=== PATIENT | female | born 1965 | race Caucasian/White ===

== ENCOUNTER 2019-04-20 15:01 | Emergency (ER) | payer OTHER, SELFPAY ==
--- NOTE | ~2019-04-20 | XR_ITS ---
EXAMINATION: XR chest 1V portable DATE: 04/20/2019 16:34 INDICATION: Hypertension. Headache. TECHNIQUE: A single frontal view of the chest was obtained. COMPARISON: Chest 2 views 08/17/2015, CT abdomen and pelvis 04/05/2015 FINDINGS: The chest demonstrates clear lungs without pneumonia, pleural effusion, or pneumothorax. Th e heart size is normal. There is a left chest wall pacer with leads in the right atrium and right kelsey tricle. There are surgical clips in the abdomen. There is a suture anchor in left humeral head. IMPRESSION: 1. No acute cardiopulmonary disease. Reviewed, dictated and finalized at location A. OYEE RELATIONS ADMINISTRATOR
--- NOTE | ~2019-04-20 | CT_ITS ---
EXAMINATION: CT brain wo [facility] EXAM DATE: 04/20/2019 16:30 INDICATION: Frontal headache. TECHNIQUE: Spiral CT of the head was performed without contrast. Axial, coronal and sagittal images were reviewed. The dose-length product (DLP) for this examination was 605.33 mGy-cm. The exposure w as tailored according to patient size, and iterative reconstruction (ASIR) was used as additional dos e reduction technique. Comparison is made to prior examination from 05/08/2014. FINDINGS: There is right frontal craniotomy and a right frontal ventriculoperitoneal shunt with tip e ntering right frontal lobe encephalomalacia, extending through the right lateral ventricle, through t he third ventricle with tip at the left cerebellopontine angle, position is unchanged compared to loco or study. Moderately dilated ventricles are unchanged. Cerebral aqueduct and fourth ventricle are nor mal in size. No brain mass, acute intracranial hemorrhage, extra-axial collections or appreciable int erval change. There is mild microangiopathy and some cerebral atrophy. IMPRESSION: 1. Chronically dilated ventricles with shunt tip crossing midline to the left cerebellopontine angle , unchanged. 2. No acute findings or interval change. Reviewed, dictated and finalized at location B. ITECTURAL DESIGNER IMPRESSION: 1. Chronically dilated ventricles with shunt tip crossing midline to the left cerebellopontine angle, unchanged. 2. No acute findings or interval change.
[2019-04-20 15:17] VITALS: BP 209/145; PULSE 90; RESP 20; TEMP 36.8; O2SAT 98
--- NOTE | 2019-04-20 15:23 | ECG_ITS ---
Measurements Intervals Lula Rate: 86 P: 72 AL: 156 QRS: 19 QRSD: 97 T: 38 QT: 363 QTc: 436 Interpretive Statements SINUS RHYTHM LEFT ATRIAL ENLARGEMENT INCOMPLETE RIGHT BUNDLE BRANCH BLOCK BORDERLINE T WAVE ABNORMALITY- INFERIOR LEADS BASELINE ARTIFACT- I, II, BORDERLINE ECG Electronically Signed On 04-20-2019 15:45:17 STOCK PATCHER by Glenn Martinez D.O.
--- NOTE | 2019-04-20 16:02 | ED.HA ---
HPI - Headache General Chief Complaint: Headache Stated Complaint: high blood pressure Time Seen by Provider: 04/20/19 15:35 Source: patient and RN notes reviewed Mode of arrival: other Limitations: no limitations History of Present Illness HPI Narrative: Pt is a 54 y/o female who presents to the ED with c/o elevated blood pressure that began earlier this afternoon. Pt states that she went to her PCP who noticed her blood pressure was high and was recommended to come to the ED for further evaluation. Pt also reports an intermittent frontal headache for the last few days. Pt has a hx of HTN ten years ago and she notes that she has been off of her medication since. Pt has a hx of migraines, but she states that her headache is different than her typical migraine. Pt denies fever, chills, nausea, vomiting, CP, and SOB. MD elicited complaint: other (elevated blood pressure) Pertinent past history: migraines and hypertension Onset (ago): hour(s) Associated symptoms: other (frontal headache) Related Data Home Medications Medication Instructions Recorded Confirmed budesonide-formoterol HFA 80 2 puff INHALATION Q12H 01/26/19 mcg-4.5 mcg/actuation aerosol inhaler calcipotriene 0.005 % topical cream 1 applic TOPICAL BID 01/26/19 clobetasol 0.05 % topical cream 1 applic TOPICAL BID 01/26/19 cyanocobalamin (vitamin B-12) 100 mcg SUB-Q WEEKLY ml 01/26/19 1,000 mcg/mL injection solution diclofenac sodium 1 % gel topical 2 gm TOPICAL QID 01/26/19 kit duloxetine 60 mg capsule,delayed 60 mg PO DAILY 01/26/19 release ergocalciferol (vitamin D2) 1,250 50,000 unit PO 2XW cap 01/26/19 mcg (50,000 unit) capsule ergocalciferol (vitamin D2) 1,250 50,000 unit PO WEEKLY 01/26/19 mcg (50,000 unit) capsule hydroxychloroquine 200 mg tablet 400 mg PO DAILY tablet 01/26/19 levothyroxine 100 mcg tablet 100 mcg PO DAILY 01/26/19 meloxicam 15 mg tablet 15 mg PO DAILY 01/26/19 qzicm-vfo-[id number]-[id number]-jq6-zvc-epa-fish tablet PO 01/26/19 oil 200 mcg-1,000 unit-25 mg tab,chew mupirocin 2 % topical ointment 1 applic TOPICAL TID 01/26/19 syringe-needle,safety,disp unt #100 each 01/26/19 liothyronine 5 mcg tablet 5 mcg PO ONCE tablet 04/20/19 Allergies Allergy/AdvReac Type Severity Reaction Status Date / Time morphine Allergy Unknown Unknown Verified 01/26/19 11:02 Sulfa (Sulfonamide Allergy Unknown Unknown Verified 01/26/19 11:02 Antibiotics) Review of Systems Review of Systems: All systems reviewed & are unremarkable except as noted in HPI and below Constitutional: Constitutional: Denies chills and Denies fever(s) Cardiovascular: Cardiovascular: Denies chest pain and Reports other (elevated blood pressure) Respiratory: Respiratory: Denies dyspnea Gastrointestinal: Gastrointestinal: Denies nausea and Denies vomiting Neurologic: Reports headache(s) (frontal) [facility] Past Medical History Medical History (Updated 04/20/19 @ 19:15 by Frances Hawkins MD) Arachnoid cyst Elbow injury Hypertension Hypothyroid Intestinal malabsorption following gastrectomy Low iron Low vitamin D level Migraines Other buttermaker (current) drug therapy Pacemaker Primary osteoarthritis of both knees Psoriasis Renal calculus, left Rheumatoid arthritis of unspecified site with involvement of other organs and systems Shoulder injury Sleep apnea Systemic lupus erythematosus, unspecified Tachycardia Tear meniscus knee Surgical History Surgical History (Updated 04/20/19 @ 16:12 by Lorena Rubin) H/O section H/O gastric bypass H/O tubal ligation History of appendectomy History of cholecystectomy History of weight loss surgery Hx of tonsillectomy Family History Family History (Updated 11/05/17 @ 14:52 by DOCTOR UNKNOWN) Grandparent Diabetes mellitus Hypertension Acute myocardial infarction Family history of malignant neoplasm Mother Hypertension Social History Social History Smoking status: Never sm
[2019-04-20] MEDS: LABETALOL HCL INJ 100 MG/20 ML VIAL 20 MG IV PUSH (16:07)
[2019-04-20] MEDS: ONDANSETRON INJ 4 MG/2 ML VIAL IV PUSH (16:07)
[2019-04-20] MEDS: NITROGLYCERIN OINTMENT 1 INCH DOSE TRANSDERM (16:08)
[2019-04-20] MEDS: HYDROMORPHONE HCL 1 MG/ML INJ 0.5 MG IV PUSH (16:08)
[2019-04-20 17:05] VITALS: BP 123/77; PULSE 80; RESP 16; O2SAT 98
[2019-04-20 17:07] LABS: Basophils Percent Auto 0.1 % (0.2-1.2); Hematocrit 40.7 % (37.0-47.0); Hemoglobin 12.6 g/dL (12.0-15.0); Immature Granulocyte Absolute 0.02 K/mm3 (0.00-0.031); Immature Granulocyte Percent A 0.2 % (0-0.5); Lymphocytes Absolute Auto 2.45 K/mm3 (0.9-3.2); Lymphocytes Percent Auto 28.3 % (18.3-44.2); Mean Corpuscular Hemoglobin 25.8 pg (26-34); Mean Corpuscular Volume 83.4 fl (80-100); Mean Platelet Volume 9.9 fl (7.4-10.4); Monocytes Absolute Auto 0.6 K/mm3 (0.1-0.6); Monocytes Percent Auto 6.7 % (2.6-8.5); Neutrophils Absolute Auto 5.6 K/mm3 (1.3-6.7); Neutrophils Percent Auto 64.7 % (45.5-73.1); Platelet Count Result 200 k/mm3 (150-375); Red Blood Count 4.88 M/mm3 (4.2-5.4); Red Cell Distribution Width 13.3 % (11.5-14.5); White Blood Count 8.7 K/mm3 (4.5-10.0)
[2019-04-20 17:11] LABS: Add Urine Microscopic? YES; Appearance Urine Clear (Clear); Bilirubin Urine Negative (Negative); Blood Urine Negative (Negative); Color Urine Yellow (Yellow); Glucose Urine UA Negative (Negative); Ketones Urine Negative (Negative); Leukocyte Esterase Ur Negative LEU/UL (Negative); Mucus Urine Heavy /lpf; Nitrate Urine Negative (Negative); Protein Urine 1+ mg/dL (Negative); RBC Urine 0-2 /hpf (0-2); Specific Grav Ur 1.028 (1.001-1.035); Squamous Epithelial Cell Urine Rare /hpf (Few); Urobilinogen Urine Negative mg/dL (<2.0); WBC Urine 0-3 /hpf
[2019-04-20 17:17] LABS: Alanine Aminotransferase 33 U/L (4-35); Albumin Level 4.2 g/dL (3.5-5.1); Alkaline Phosphatase 107 U/L (38-126); Aspartate Amino Transferase 36 U/L (14-36); Bilirubin,Total 0.2 mg/dL (0.2-1.3); Blood Urea Nitrogen 15 mg/dL (7-17); Calcium 9.2 mg/dL (8.4-10.2); Carbon Dioxide 29 mmol/L (22-30); Chloride 99 mmol/L (98-107); Estimated CRCL calculation 123 ml/min; Estimated Glomerular Filt Rate > 60; Glucose 123 mg/dL (65-105); Potassium 3.2 mmol/L (3.4-5.0); Sodium 137 mmol/L (137-145)
[2019-04-20 17:36] LABS: Troponin I < 0.012 ng/mL (0.000-0.034)
[2019-04-20 18:39] VITALS: BP 121/80; PULSE 85; RESP 16; O2SAT 98
[2019-04-20 19:20] VITALS: BP 146/70; PULSE 83; RESP 16; O2SAT 98
== END 2019-04-20 19:25 | disposition home or self-care (01) ==
PROVIDERS: Emergency Provider Emergency Medicine; PCP Family Medicine
DX: I10 Essential (primary) hypertension (principal); E87.6 Hypokalemia; E03.9 Hypothyroidism, unspecified; M17.0 Bilateral primary osteoarthritis of knee; G47.30 Sleep apnea, unspecified; M32.9 Systemic lupus erythematosus, unspecified; Z98.84 Bariatric surgery status
CPT/HCPCS: 36415; 70450; 71045; 80053; 81001; 84484; 85025; 87804; 93005; 96374; 96375; 99284; A9270; J1170; J2405

== ENCOUNTER 2019-04-23 06:47 | Outpatient (CLI) | payer OTHER, SELFPAY ==
--- NOTE | ~2019-04-23 | NM_ITS ---
EXAMINATION: NM jeff stress w perfusion DATE: 04/23/2019 13:13 INDICATION: Rest pain. Dyspnea on exertion. TECHNIQUE: Rest images were obtained following intravenous administration of 10.5 mCi Tc99m tetrofosm in (Myoview). The patient was infused intravenously with Lexiscan (Regadenoson). Then, 32 mCi Tc99m t etrofosmin (Myoview) was administered intravenously, and stress images were obtained. Data was recons tructed into short axis and horizontal and vertical long axis SPECT images. Gated SPECT images were a lso obtained. COMPARISON: None. FINDINGS: Perfusion defect involving the mid anterior, mid anterolateral and basilar anterolateral se gments. The perfusion defect appears larger and more severe on the rest than on the stress images sug gesting difference in perfusion on rest images as do to breast attenuation artifact in this may also account for some of the decreased perfusion on the stress images. At least at the mid anterior segmen t the degree of decreased perfusion appears significantly greater in the immediately adjacent biapica l and basilar anterior wall on both the stress and rest images which is more suspicious for infarct. No reversible ischemia. There is normal left ventricular chamber size, wall motion and ejection fract ion. Left ventricular ejection fraction measures >70%. IMPRESSION: 1. Small mild fixed perfusion defect at the mid anterior, mid anterolateral and basilar anterolateral segments which have increased at the mid anterior segment is concerning for infarct. The remaining 2 segments are more equivocal for infarct versus breast attenuation artifact. No reversible ischemia. 2. Left ventricular ejection fraction measuring >70%. Reviewed, dictated and finalized at location A. TRICAL APPLIANCE REPAIRER IMPRESSION: 1. Small mild fixed perfusion defect at the mid anterior, mid anterolateral and basilar anterolateral segments which have increased at the mid anterior segmen t is concerning for infarct. The remaining 2 segments are more equivocal for in farct versus breast attenuation artifact. No reversible ischemia. 2. Left ventricular ejection fraction measuring >70%.
--- NOTE | 2019-04-23 07:00 | ECHO_ITS ---
Patient Info Name: Cindy Calderón Age: 54 years : 1965 Gender: Female Ht: 62 in Wt: 246 lbs BSA: 2.28 m2 HR: 75 bpm BP: 163 / 84 mmHg Technical Quality: Fair Exam Date: 04/23/2019 7:01 AM Exam Location: [facility] Patient Status: Outpatient Admit Date: 04/23/2019 Staff Ordering Physician: Glenn Martinez DO Manager Field Sales: Annette Zimmerman RDCS Attending Provider: Glenn Martinez DO Referring Physician: Juan CASTELLON; Exam Type: CA echo doppler color flow Study Info Indications R07.89 - Other chest pain R06.09 - Other forms of dyspnea Complete two-dimensional, color flow and Doppler transthoracic echocardiogram is performed. Summary 1. Left ventricular chamber dimension is normal. 2. Ventricular septum is sigmoid shaped. 3. Left ventricular systolic function is normal, estimated at 60-65%. 4. There is mildly increased left ventricular wall thickness. 5. The left ventricular diastolic function is grade I diastolic dysfunction. 6. E/e' 12 is mildly elevated. 7. Global longitudinal strain is normal at -22.3%. 8. Linear artifact in right ventricle suggestive of catheter(s), pacemaker lead(s), or ICD lead(s). 9. Left atrial chamber dimension is mildly enlarged. 10. Right atrial chamber dimension is mildly enlarged. 11. Linear artifact in the right atrium suggestive of catheter(s), pacemaker lead(s), or ICD lead(s). 12. The mitral valve has moderately calcified annulus. 13. No pulmonary hypertension, estimated pulmonary arterial systolic pressure is 37 mmHg. Left Ventricle E/e' 12 is mildly elevated. Global longitudinal strain is normal at -22.3%. Ventricular septum is sigmoid shaped. Left ventricular chamber dimension is normal. Left ventricular systolic function is normal, estimated at 60-65%. There is mildly increased left ventricular wall thickness. The left ventricular diastolic function is grade I diastolic dysfunction. Right Ventricle Linear artifact in right ventricle suggestive of catheter(s), pacemaker lead(s), or ICD lead(s). Right ventricular chamber dimension is normal. Right ventricular systolic function is normal. Left Atria Left atrial chamber dimension is mildly enlarged. Right Atria Linear artifact in the right atrium suggestive of catheter(s), pacemaker lead(s), or ICD lead(s). Right atrial chamber dimension is mildly enlarged. Aortic Valve The aortic valve is trileaflet. There is no aortic valve stenosis. There is no aortic valve regurgitation. Pulmonic Valve There is no pulmonic regurgitation. Mitral Valve The mitral valve has moderately calcified annulus. There is no mitral valve stenosis. There is no mitral valve regurgitation. Tricuspid Valve There is no tricuspid valve regurgitation. No pulmonary hypertension, estimated pulmonary arterial systolic pressure is 37 mmHg. Pericardium/Pleural There is no pericardial effusion. Inferior Vena Cava Normal inferior vena cava with >50% collapse upon inspiration consistent with normal right atrial pressure, 5 mmHg. Aorta The aortic root size at the sinus of Valsalva is normal. Left Ventricular Outflow Tract Name Value Normal LVOT 2D LVOT Diameter 2.0 cm LVOT Dopple
--- NOTE | 2019-04-23 07:00 | EST_ITS ---
Patient Info Name: Cindy Calderón Age: 54 years : 1965 Gender: Female Ht: 62 in Wt: 246 lbs BSA: 2.28 m2 Exam Date: 04/23/2019 8:15 AM Exam Location: [facility] Stress Patient Status: Outpatient Admit Date: 04/23/2019 Staff Ordering Physician: Glenn Martinez DO Attending Provider: Glenn Martinez DO Exercise Technologist: Annette Zimmerman RDCS Exercise Physician: Glenn Martinez DO Exam Type: CA stress jeff w NM Study Info Indications R06.09 - Other forms of dyspnea R07.89 - Other chest pain A regadenoson stress test was performed. Summary 1. 1. Negative lexiscan stress test for ischemic ST changes by ECG criteria. 2. 2. Baseline hypertension. 3. 3. Nuclear scan to follow and will be reported separately. Please correlate with it. 4. 4. Patient informd of the above results. Protocol: Lexiscan Stress ECG Details Stage: REST Duration (min): 2 min : 33 sec HR (bpm): 78 SBP (mmHg): 163 DBP (mmHg): 84 Stage: REST Duration (min): 8 min : 14 sec HR (bpm): 79 SBP (mmHg): 163 DBP (mmHg): 84 Stage: STAGE 1 Duration (min): 0 min : 59 sec HR (bpm): 98 SBP (mmHg): 163 DBP (mmHg): 84 Stage: RECOVERY Duration (min): 1 min : 0 sec HR (bpm): 100 SBP (mmHg): 117 DBP (mmHg): 65 Stage: RECOVERY Duration (min): 2 min : 0 sec HR (bpm): 103 SBP (mmHg): 117 DBP (mmHg): 65 Stage: RECOVERY Duration (min): 3 min : 0 sec HR (bpm): 99 SBP (mmHg): 105 DBP (mmHg): 63 Stage: RECOVERY Duration (min): 4 min : 0 sec HR (bpm): 100 SBP (mmHg): 105 DBP (mmHg): 63 Stage: RECOVERY Duration (min): 5 min : 0 sec HR (bpm): 93 SBP (mmHg): 105 DBP (mmHg): 63 Stage: RECOVERY Duration (min): 5 min : 48 sec HR (bpm): 90 SBP (mmHg): 105 DBP (mmHg): 63 Rest HR: 79 bpm Peak HR: 106 bpm Rest Sys BP: 163 mmHg Peak Sys BP: 122 mmHg Max Pred HR: 164 bpm % Max Pred HR: 65 % Target HR: 139 bpm Max RPP: 12,932 bpm*mmHg Termination Reason: Completed protocol Cardiac Symptoms: Shortness of breath Total Time: 1 min : 0 sec Rest Wood BP: 84 mmHg Peak Wood BP: 65 mmHg Total Dose: 0.4 mg Resting ECG Sinus rhythm. Stress ECG No ST changes. Arrhythmias None. Report Signatures
[2019-04-23 10:11] LABS: Alanine Aminotransferase 26 U/L (4-35); Albumin Level 4.3 g/dL (3.5-5.1); Alkaline Phosphatase 101 U/L (38-126); Aspartate Amino Transferase 37 U/L (14-36); Bilirubin,Total 0.4 mg/dL (0.2-1.3); Blood Urea Nitrogen 14 mg/dL (7-17); Calcium 9.4 mg/dL (8.4-10.2); Carbon Dioxide 24 mmol/L (22-30); Chloride 99 mmol/L (98-107); Cholesterol 199 mg/dL (0-200); Estimated Glomerular Filt Rate > 60; Glucose 98 mg/dL (65-105); HDL Direct 70 mg/dL; Magnesium 1.8 mg/dL (1.6-2.3); Potassium 4.1 mmol/L (3.4-5.0); Sodium 138 mmol/L (137-145); Triglycerides 119 mg/dL (<150)
[2019-04-23 10:13] LABS: LDL Cholesterol Direct 101 mg/dL
== END 2019-04-23 06:48 | disposition home or self-care (01) ==
LOC: ANHCARD 06:54
PROVIDERS: PCP Family Medicine; Visit Provider Internal Medicine Cardiovascular Disease
DX: R07.9 Chest pain, unspecified (principal); Z95.0 Presence of cardiac pacemaker; R06.09 Other forms of dyspnea; I11.9 Hypertensive heart disease without heart failure
CPT/HCPCS: 36415; 78452; 80053; 80061; 83735; 93017; 93306; A9502; J2785

== ENCOUNTER 2019-09-03 15:47 | Emergency (ER) | payer OTHER, SELFPAY ==
--- NOTE | ~2019-09-03 | CT_ITS ---
EXAMINATION: CT brain wo con INDICATION: Weakness and blurred vision COMPARISON: 04/20/2019 TECHNIQUE: Standard unenhanced head CT. The dose-length product (DLP) was 681.00 mGy-cm. The mA was a djusted according to patient size. Iterative reconstruction technique was employed. FINDINGS: There is no intracranial hemorrhage, acute infarction, or abnormal mass lesion. There is a ventriculostomy catheter which courses through the right frontal lobe, the right lateral ventricle, a nd the third ventricle and ends with its tip at the left cerebellopontine angle. Position is unchange d on multiple prior examinations. Encephalomalacia seen in the right frontal lobe along the catheter tract. There is no abnormal mass effect or midline shift. The basal cisterns are patent. There is ex vacuo enlargement of the anterior body and frontal horn of the right lateral ventricle. The orbits a re normal. Changes of right-sided craniotomy are again noted. IMPRESSION: 1. Chronic encephalomalacia of the right frontal lobe along the ventriculostomy catheter tract withou t acute intracranial abnormality. Reviewed, dictated and finalized at location A. IMPRESSION: 1. Chronic encephalomalacia of the right frontal lobe along the ventriculostomy catheter tract without acute intracranial abnormality.
--- NOTE | ~2019-09-03 | XR_ITS ---
EXAMINATION: XR chest 2V DATE: 09/03/2019 17:59 INDICATION: Cough and dizziness TECHNIQUE: AP and lateral views of the chest are obtained. COMPARISON: 04/20/2019 FINDINGS: The lungs are free of acute opacities. There is no pleural effusion or pneumothorax. The ca rdiomediastinal silhouette is normal. There is mild thoracic spondylosis. A dual-lead cardiac pacemak er of the left chest wall ends with leads in expected locations. There are surgical clips in the uppe r abdomen. A suture anchor is noted in the left humeral head. IMPRESSION: 1. No acute cardiopulmonary abnormality. Reviewed, dictated and finalized at location A.
--- NOTE | 2019-09-03 15:56 | ECG_ITS ---
Measurements Intervals [place] Rate: 101 P: 61 WV: 175 QRS: 28 QRSD: 88 T: 43 QT: 341 QTc: 443 Interpretive Statements SINUS TACHYCARDIA POSSIBLE LEFT ATRIAL ENLARGEMENT MINIMAL Q WAVES- INF/LAT LEADS BORDERLINE ECG Electronically Signed On 09-03-2019 16:09:11 CDT by Glenn Martinez D.O.
[2019-09-03 15:57] VITALS: BP 136/98; PULSE 100; RESP 16; TEMP 36.6; O2SAT 100
[2019-09-03 16:13] LABS: Hematocrit 41.2 % (37.0-47.0); Hemoglobin 13.6 g/dL (12.0-15.0); Immature Granulocyte Absolute 0.02 K/mm3 (0.00-0.031); Immature Granulocyte Percent A 0.2 % (0-0.5); Lymphocytes Absolute Auto 2.04 K/mm3 (0.9-3.2); Lymphocytes Percent Auto 25.1 % (18.3-44.2); Mean Corpuscular Hemoglobin 26.9 pg (26-34); Mean Corpuscular Volume 81.6 fl (80-100); Mean Platelet Volume 11.1 fl (7.4-10.4); Monocytes Absolute Auto 0.7 K/mm3 (0.1-0.6); Monocytes Percent Auto 8.1 % (2.6-8.5); Neutrophils Absolute Auto 5.4 K/mm3 (1.3-6.7); Neutrophils Percent Auto 66.6 % (45.5-73.1); Platelet Count Result 200 k/mm3 (150-375); Red Blood Count 5.05 M/mm3 (4.2-5.4); Red Cell Distribution Width 13.4 % (11.5-14.5); White Blood Count 8.1 K/mm3 (4.5-10.0)
[2019-09-03 16:26] LABS: Prothrombin Time 12.9 Seconds (11.1-14.7)
[2019-09-03 16:27] LABS: Partial Thromboplastin Time 26.9 SECONDS (22.3-36.8)
[2019-09-03 16:30] LABS: Blood Urea Nitrogen 30 mg/dL (7-17); Calcium 9.9 mg/dL (8.4-10.2); Carbon Dioxide 29 mmol/L (22-30); Chloride 88 mmol/L (98-107); Estimated CRCL calculation 72 ml/min; Estimated Glomerular Filt Rate > 60; Glucose 111 mg/dL (65-105); Potassium 3.7 mmol/L (3.4-5.0); Sodium 129 mmol/L (137-145)
[2019-09-03 16:43] LABS: Troponin I < 0.012 ng/mL (0.000-0.034)
[2019-09-03] MEDS: ASPIRIN 81 MG CHEWABLE TABLET 324 MG PO (17:38)
[2019-09-03 18:35] LABS: Alanine Aminotransferase 19 U/L (4-35); Albumin Level 4.9 g/dL (3.5-5.1); Alkaline Phosphatase 125 U/L (38-126); Aspartate Amino Transferase 30 U/L (14-36); Bilirubin,Total 0.2 mg/dL (0.2-1.3); Lipase 226 U/L (23-300)
[2019-09-03 18:49] LABS: D Dimer 0.27 ug/mL (<0.48)
[2019-09-03] MEDS: SODIUM CHLORIDE 0.9% IV 1,000 ML 999 ML IV CONT ×2 (18:51→19:21)
[2019-09-03 19:17] VITALS: BP 159/89; PULSE 89; RESP 14; O2SAT 100
[2019-09-03] MEDS: FAMOTIDINE 20 MG/2 ML VIAL IV PUSH (19:21)
[2019-09-03] MEDS: ONDANSETRON INJ 4 MG/2 ML VIAL IV PUSH (19:21)
--- NOTE | 2019-09-03 19:22 | ED.GENADULT ---
HPI - General Adult General Chief complaint: Unspecified Stated complaint: abnormal ekg Time Seen by Provider: 09/03/19 17:51 Source: patient Mode of arrival: ambulatory Limitations: no limitations History of Present Illness HPI narrative: Patient is a 54-year-old female who presents per request of primary care for evaluation patient for the last several days has been experiencing a minimally productive cough of white phlegm which has resulted in retching and vomiting patient notes that she is feeling slightly more weak as this has progressed over the last several days. Patient denies similar occurrence in the past or sick contacts or any hematemesis rectal bleeding or melena. Patient has not taken anything for her symptoms and on arrival is denying any pain other than what is been a moderate frontal headache for the last several days denies injury or trauma or URI symptoms aside from her cough. Related Data Home Medications Medication Instructions Recorded Confirmed budesonide-formoterol HFA 80 2 puff INHALATION Q12H 01/26/19 09/03/19 mcg-4.5 mcg/actuation aerosol inhaler calcipotriene 0.005 % topical cream 1 applic TOPICAL BID 01/26/19 09/03/19 clobetasol 0.05 % topical cream 1 applic TOPICAL BID 01/26/19 09/03/19 cyanocobalamin (vitamin B-12) 100 mcg SUB-Q WEEKLY ml 01/26/19 09/03/19 1,000 mcg/mL injection solution diclofenac sodium 1 % gel topical 2 gm TOPICAL QID 01/26/19 09/03/19 kit levothyroxine 100 mcg tablet 100 mcg PO DAILY 01/26/19 09/03/19 [id number]-[id number] tablet PO 01/26/19 09/03/19 oil 200 mcg-1,000 unit-25 mg tab,chew mupirocin 2 % topical ointment 1 applic TOPICAL TID 01/26/19 09/03/19 syringe-needle,safety,disp unt #100 each 01/26/19 09/03/19 Allergies Allergy/AdvReac Type Severity Reaction Status Date / Time morphine Allergy Unknown Unknown Verified 09/03/19 14:40 Sulfa (Sulfonamide Allergy Unknown Unknown Verified 09/03/19 14:40 Antibiotics) Review of Systems Review of Systems: All systems reviewed & are unremarkable except as noted in HPI and below PMFSH Past Medical History Medical History Arachnoid cyst Elbow injury Hypertension Hypothyroid Intestinal malabsorption following gastrectomy Low iron Low vitamin D level Migraines 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 Pacemaker Primary osteoarthritis of both knees Psoriasis Renal calculus, left Rheumatoid arthritis of unspecified site with involvement of other organs and systems Shoulder injury Sleep apnea Systemic lupus erythematosus, unspecified Tachycardia Tear meniscus knee Surgical History Surgical History H/O section H/O gastric bypass H/O tubal ligation History of appendectomy History of cholecystectomy History of weight loss surgery Hx of tonsillectomy Social History Social History Smoking status: Never smoker Second hand tobacco smoke exposure: No Alcohol intake: never Exam Narrative: Exam Narrative: GENERAL: Well-appearing, obese, and in no acute distress. HEAD: Normocephalic, atraumatic. EYES: PERRLA and EOMI. ENT: Nares clear, no rhinorrhea or epistaxis. Mucous membranes moist. CHEST: Clear to auscultation. No respiratory distress. No wheezes rales or rhonchi HEART: Regular rate and rhythm. No murmur heard. Normal peripheral pulses. ABDOMEN: Soft, nontender, nondistended EXTREMITIES: Normal range of motion. No edema. SKIN: Warm, dry, no rash. NEURO: No focal deficits. Alert and oriented x3. Cranial nerves II through XII grossly intact PSYCH: Normal mood and affect. Course Course Emergency Course: Patient in the room at this time in no distress aware of case findings treatment plan and diagnosis agreeing to follow-up as directed feeling much better after hydration with dehydration is likely e
[2019-09-03 19:30] VITALS: BP 156/84; PULSE 92
[2019-09-03 19:31] VITALS: BP 163/94; PULSE 88
[2019-09-03 19:34] VITALS: BP 154/97; PULSE 100
[2019-09-03 19:37] LABS: Troponin I < 0.012 ng/mL (0.000-0.034)
[2019-09-03 21:30] VITALS: BP 152/88; PULSE 86; RESP 18; O2SAT 100
== END 2019-09-03 21:31 | disposition home or self-care (01) ==
PROVIDERS: Emergency Medicine Emergency Medical Services; Emergency Provider Emergency Medicine; PCP Family Medicine
DX: R11.10 Vomiting, unspecified (principal); E86.0 Dehydration; I10 Essential (primary) hypertension; E03.9 Hypothyroidism, unspecified; Z95.0 Presence of cardiac pacemaker; M17.0 Bilateral primary osteoarthritis of knee; Z87.442 Personal history of urinary calculi; M05.60 Rheumatoid arthritis of unspecified site with involvement of other organs and systems; M32.9 Systemic lupus erythematosus, unspecified; G47.30 Sleep apnea, unspecified; Z98.84 Bariatric surgery status
CPT/HCPCS: 36415; 70450; 71046; 80048; 80076; 83690; 84484; 85025; 85380; 85610; 85730; 93005; 96361; 96374; 96375; 99284; A9270; J2405; J7030

== ENCOUNTER → 2019-11-30 15:56 | Outpatient (CLI) | payer OTHER, SELFPAY ==
--- NOTE | ~2019-11-30 | XR_ITS ---
EXAMINATION: XR chest 2V EXAM DATE: 11/30/2019 16:07 INDICATION: Cough and fever. TECHNIQUE: Frontal and lateral projections of the chest obtained and reviewed. Comparison is made to prior examination from 09/03/2019. FINDINGS: There is a dual lead pacemaker/AICD seen with leads projecting over the expected locations of the right atrial appendage and right ventricle. The lungs are clear. There are no pleural effusi ons. The cardiomediastinal silhouette is within normal limits. There is no pneumothorax suspected. The bones and soft tissues are unremarkable. IMPRESSION: No acute cardiopulmonary findings. Reviewed, dictated and finalized at location G.
== END ==
PROVIDERS: PCP Family Medicine; Visit Provider Family Medicine
DX: R05 Cough (principal); J40 Bronchitis, not specified as acute or chronic; R50.9 Fever, unspecified
CPT/HCPCS: 71046

== ENCOUNTER 2020-02-26 02:09 | Outpatient (CLI) | payer OTHER, SELFPAY ==
[2020-02-26 20:00] LABS: SARS-CoV-2 RNA PCR Positive
== END 2020-02-26 02:10 | disposition home or self-care (01) ==
LOC: ANHCOVIDDT 02:09
PROVIDERS: PCP Family Medicine; Visit Provider Specialist
DX: Z01.812 Encounter for preprocedural laboratory examination (principal); U07.1 COVID-19
CPT/HCPCS: 87635; C9803; U0003

== ENCOUNTER 2021-10-24 11:44 | Outpatient (CLI) | payer OTHER, SELFPAY ==
--- NOTE | ~2021-10-24 | XR_ITS ---
EXAMINATION: XR knee LT 3V DATE: 10/24/2021 12:22 INDICATION: Left knee pain TECHNIQUE: Five views of the left knee were obtained. COMPARISON: None. FINDINGS: There is tricompartmental osteoarthritis of the knee, advanced in the medial and patellofem oral compartments. Bone alignment is normal. There is no fracture. The soft tissues are unremarkable. No joint effusion is identified. IMPRESSION: 1. Tricompartmental osteoarthritis, advanced in the medial and patellofemoral compartments. Reviewed, dictated and finalized at location A. IMPRESSION: 1. Tricompartmental osteoarthritis, advanced in the medial and patellofemoral c ompartments.
[2021-10-24 20:47] LABS: Hemoglobin 11.7 g/dL (12.0-15.0); Immature Granulocyte Absolute 0.01 K/mm3 (0.00-0.031); Immature Granulocyte Percent A 0.2 % (0-0.5); Lymphocytes Absolute Auto 1.08 K/mm3 (0.9-3.2); Lymphocytes Percent Auto 22.8 % (18.3-44.2); Mean Corpuscular HGB Conc 30.8 g/dl (32-36); Mean Corpuscular Hemoglobin 27.7 pg (26-34); Mean Platelet Volume 10.2 fl (7.4-10.4); Monocytes Absolute Auto 0.4 K/mm3 (0.1-0.6); Neutrophils Absolute Auto 3.3 K/mm3 (1.3-6.7); Platelet Count Result 190 k/mm3 (150-375); Red Blood Count 4.22 M/mm3 (4.2-5.4); Red Cell Distribution Width 13.6 % (11.5-14.5); White Blood Count 4.7 K/mm3 (4.5-10.0)
[2021-10-24 21:01] LABS: Anion Gap 9 mmol/L (8-16); Blood Urea Nitrogen 9 mg/dL (7-17); Calcium 9.2 mg/dL (8.4-10.2); Carbon Dioxide 28 mmol/L (22-30); Chloride 97 mmol/L (98-107); Estimated Glomerular Filt Rate > 60; Glucose 84 mg/dL (65-110); Potassium 4.5 mmol/L (3.4-5.0); Sodium 134 mmol/L (137-145)
== END 2021-10-24 11:45 | disposition home or self-care (01) ==
LOC: ANHBWCLAB 11:46
PROVIDERS: PCP Family Medicine; Visit Provider Family Medicine
DX: E87.6 Hypokalemia (principal); E03.9 Hypothyroidism, unspecified; D64.9 Anemia, unspecified; M25.569 Pain in unspecified knee; M17.12 Unilateral primary osteoarthritis, left knee
CPT/HCPCS: 36415; 73562; 80048; 84443; 85025

== ENCOUNTER 2022-04-24 11:45 | Outpatient (CLI) | payer OTHER, SELFPAY ==
[2022-04-24 20:01] LABS: Hematocrit 42.8 % (37.0-47.0); Hemoglobin 14.1 g/dL (12.0-15.0); Immature Granulocyte Absolute 0.01 K/mm3 (0.00-0.031); Immature Granulocyte Percent A 0.1 % (0-0.5); Lymphocytes Absolute Auto 1.08 K/mm3 (0.9-3.2); Lymphocytes Percent Auto 14.3 % (18.3-44.2); Mean Corpuscular HGB Conc 32.9 g/dl (32-36); Mean Corpuscular Hemoglobin 28.3 pg (26-34); Mean Corpuscular Volume 85.9 fl (80-100); Mean Platelet Volume 10.1 fl (7.4-10.4); Monocytes Absolute Auto 0.5 K/mm3 (0.1-0.6); Monocytes Percent Auto 6.2 % (2.6-8.5); Neutrophils Percent Auto 79.4 % (45.5-73.1); Platelet Count Result 237 k/mm3 (150-375); Red Blood Count 4.98 M/mm3 (4.2-5.4); Red Cell Distribution Width 13.2 % (11.5-14.5); White Blood Count 7.5 K/mm3 (4.5-10.0)
[2022-04-24 20:18] LABS: Alanine Aminotransferase 23 U/L (6-35); Alkaline Phosphatase 111 U/L (38-126); Anion Gap 9 mmol/L (8-16); Aspartate Amino Transferase 36 U/L (14-36); Bilirubin,Total 0.5 mg/dL (0.2-1.3); Blood Urea Nitrogen 15 mg/dL (7-17); Calcium 9.4 mg/dL (8.4-10.2); Carbon Dioxide 25 mmol/L (22-30); Chloride 98 mmol/L (98-107); Cholesterol 213 mg/dL (0-200); Estimated Glomerular Filt Rate > 60; Glucose 92 mg/dL (65-110); HDL Direct 76 mg/dL; Sodium 132 mmol/L (137-145); Triglycerides 109 mg/dL (<150)
[2022-04-24 20:29] LABS: LDL Cholesterol Direct 86 mg/dL
== END 2022-04-24 11:46 | disposition home or self-care (01) ==
LOC: ANHBWCLAB 11:46
PROVIDERS: PCP Family Medicine; Visit Provider Family Medicine
DX: D64.9 Anemia, unspecified (principal); E03.9 Hypothyroidism, unspecified; E61.1 Iron deficiency; E66.9 Obesity, unspecified; E87.6 Hypokalemia; G47.30 Sleep apnea, unspecified; L40.9 Psoriasis, unspecified; M05.60 Rheumatoid arthritis of unspecified site with involvement of other organs and systems; M32.9 Systemic lupus erythematosus, unspecified; R79.89 Other specified abnormal findings of blood chemistry; Z22.322 Carrier or suspected carrier of Methicillin resistant Staphylococcus aureus; Z95.0 Presence of cardiac pacemaker
CPT/HCPCS: 36415; 80053; 80061; 84443; 85025

== ENCOUNTER 2023-05-20 12:29 | Outpatient (CLI) | payer OTHER, SELFPAY ==
[2023-05-20 13:09] LABS: Basophils Percent Auto 0.2 % (0.2-1.2); Hematocrit 44.2 % (37.0-47.0); Hemoglobin 13.6 g/dL (12.0-15.0); Immature Granulocyte Absolute 0.01 K/mm3 (0.00-0.031); Immature Granulocyte Percent A 0.2 % (0-0.5); Lymphocytes Absolute Auto 1.27 K/mm3 (0.9-3.2); Lymphocytes Percent Auto 20.9 % (18.3-44.2); Mean Corpuscular HGB Conc 30.8 g/dl (32-36); Mean Corpuscular Hemoglobin 26.4 pg (26-34); Mean Corpuscular Volume 85.7 fl (80-100); Monocytes Absolute Auto 0.4 K/mm3 (0.1-0.6); Monocytes Percent Auto 6.1 % (2.6-8.5); Neutrophils Absolute Auto 4.4 K/mm3 (1.3-6.7); Neutrophils Percent Auto 72.6 % (45.5-73.1); Platelet Count Result 206 k/mm3 (150-375); Red Blood Count 5.16 M/mm3 (4.2-5.4); Red Cell Distribution Width 13.2 % (11.5-14.5); White Blood Count 6.1 K/mm3 (4.5-10.0)
[2023-05-20 13:46] LABS: Vitamin D 25 Hydroxy 53.2 ng/mL
[2023-05-20 14:31] LABS: Anion Gap 9 mmol/L (8-16); Blood Urea Nitrogen 12 mg/dL (7-17); Calcium 9.9 mg/dL (8.4-10.2); Carbon Dioxide 23 mmol/L (22-30); Chloride 96 mmol/L (98-107); Cholesterol 186 mg/dL (0-200); Estimated Glomerular Filt Rate > 60; Glucose 105 mg/dL (65-110); HDL Direct 91 mg/dL; Potassium 4.6 mmol/L (3.4-5.0); Sodium 128 mmol/L (137-145); Triglycerides 178 mg/dL (<150)
[2023-05-20 14:41] LABS: LDL Cholesterol Direct 78 mg/dL
[2023-05-20 15:56] LABS: Folic Acid > 20.0 ng/mL (2.76->20)
== END 2023-05-20 12:30 | disposition home or self-care (01) ==
LOC: ANHLAB 12:31
PROVIDERS: PCP Nurse Practitioner Adult Health; Visit Provider Nurse Practitioner Adult Health
DX: R79.89 Other specified abnormal findings of blood chemistry (principal); I10 Essential (primary) hypertension; E53.8 Deficiency of other specified B group vitamins
CPT/HCPCS: 36415; 80048; 80061; 82306; 82607; 82746; 83735; 84443; 85025

== ENCOUNTER 2023-05-27 12:08 | Outpatient (CLI) | payer OTHER, SELFPAY ==
--- NOTE | ~2023-05-27 | XR_ITS ---
XR lumbar spine min 4V DATE: 05/27/2023 12:26 INDICATION: Radiculopathy TECHNIQUE: AP, lateral, coned lateral lumbosacral and bilateral oblique views COMPARISON: None FINDINGS: Surgical clips overlie the left and right upper quadrants of the abdomen. Diffuse osteopenia. Examination is limited due to the osteopenia and body habitus. There is moderate degenerative disc disease at L1-2 and L2-3 and mild degenerative disc disease at L3 -4 and L4-5. There is degenerative change at the apophyseal joints at L4-5 and L5-S1 with associated grade 1 anterolisthesis at L4-5. No spondylolysis is evident. No fracture or bone destruction is detected. The lumbar pedicles appear intact. The sacroiliac joints are unremarkable. IMPRESSION: Mild to moderate multilevel degenerative disc disease Grade 1 anterolisthesis at L4-5 due to degenerative change at the apophyseal joints Reviewed, dictated and finalized at location L. IMPRESSION: Mild to moderate multilevel degenerative disc disease Grade 1 anterolisthesis at L4-5 due to degenerative change at the apophyseal jovanna ints
[2023-05-27 19:27] LABS: Appearance Urine Clear (Clear); Bilirubin Urine Negative (Negative); Blood Urine Negative (Negative); Color Urine Yellow (Yellow); Glucose Urine UA Negative (Negative); Ketones Urine Negative (Negative); Leukocyte Esterase Ur Negative LEU/UL (Negative); Nitrate Urine Negative (Negative); Protein Urine Negative (Negative); Specific Grav Ur 1.022 (1.001-1.035); Urobilinogen Urine 0.2 mg/dL (<2.0)
[2023-05-27 19:33] LABS: Add Urine Microscopic? NO
== END 2023-05-27 12:09 | disposition home or self-care (01) ==
LOC: ANHBWCLAB 12:10
PROVIDERS: PCP Nurse Practitioner Adult Health; Visit Provider Nurse Practitioner Adult Health
DX: M51.36 Other intervertebral disc degeneration, lumbar region (principal); M51.37 Other intervertebral disc degeneration, lumbosacral region; M43.16 Spondylolisthesis, lumbar region; R39.9 Unspecified symptoms and signs involving the genitourinary system
CPT/HCPCS: 72110

== ENCOUNTER 2023-07-19 12:30 | Outpatient (RCR) | payer OTHER, SELFPAY ==
--- NOTE | 2023-06-26 14:49 | OPREHPOC ---
Outpatient Therapy Plan of Care This is a Multidisciplinary Plan of Care that may contain components documented by all disciplines (PT, OT, and ST.) PT Problem 1 PT Problem #1 Knowledge Deficit PT Goal 1 Goal Pt to be IND with issued HEP Target Visit 8 PT Problem 2 PT Problem #2 Pain PT Goal 1 Goal Pt to report back pain no greater than 3/10 in the last week Target Visit 8 PT Goal 2 Goal Pt to report 75% improvement in overall symptoms. Target Visit 8 PT Problem 3 PT Problem #3 Impaired Sensation PT Goal 1 Goal Pt to decline radicular symptoms in the last week. Target Visit 8 PT Problem 4 PT Problem #4 Impaired Functional Mobil PT Goal 1 Goal Pt to improve Oswestry score from 22/50 to 10/50. Target Visit 8 PT Goal 2 Goal Pt to improve 2 min walk distance from 280ft to 350ft. Target Visit 8 PT Problem 5 PT Problem #5 Impaired Strength PT Goal 1 Goal Pt to demonstrate lateral hip strength of 3/5 Target Visit 8
--- NOTE | 2023-06-26 14:50 | PTOPEVAL1 ---
Assessment and note entered by Kennedi Villela, PT, DPT Evaluation Information Assessment Status Evaluation Diagnosis low back pain with sciatic pain Onset 6-7 weeks Subjective Information Pt reports sciatic pain going down the R leg for the last 6-7 weeks. She declines a history of sciatic pain. She states any position for too long will increase her pain. She states when she first wakes up she has to wall walk and bend forward to avoid some of the pain. She states the pain radiated today to her foot and it is intermittent. 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 Reported Pain Level Pain Score 6: Self Report Assessment PT Clinical Summary Cindy presents to therapy today for her initial evaluation with a diagnosis of low back pain with radiculopathy. Today she demonstrates postural imbalances, her RLE is longer in supine, and she demonstrates an increased weight shift with anterior pelvic tilt in standing. She demonstrates significant core and hip weakness as well as significant tenderness to palpation in her lily piriformis. Skilled therapy services are indicated to address the deficits noted above, to manage pain, to improve mobility, and to return to [facility]. Plan of Care Interventions Electrical Stimulation,Gait Training,Hot Pack/Cold Pack,Manual Therapy,Mechanical Traction,Neuro Re- education,Patient/Caregiver Educati,Therapeutic Activities,Therapeutic Exercise PT Services Indicated Yes Treatment Frequency and 2x/wk for 8 visits Duration These treatments will address the objective and functional deficits as defined above. The patient will be advanced safely and appropriately in order for the patient to progress towards his/her prior level of function. Additional exercises will be introduced and as well as a comprehensive home exercise program upon discharge, if needed, ?to ensure carryover of functional gains achieved in the clinic. This treatment plan has been reviewed and agreement upon by the patient.
--- NOTE | 2023-07-05 10:36 | PCPTNOTE ---
Patient called & cancelled scheduled appointment this date due to being in too much pain.
--- NOTE | 2023-07-19 15:42 | OPREHPOC ---
Outpatient Therapy Plan of Care This is a Multidisciplinary Plan of Care that may contain components documented by all disciplines (PT, OT, and ST.) PT Problem 1 PT Problem #1 Knowledge Deficit PT Goal 1 Goal Pt to be IND with issued HEP Target Visit 8 Progress Met PT Problem 2 PT Problem #2 Pain PT Goal 1 Goal Pt to report back pain no greater than 3/10 in the last week Target Visit 8 Progress Not Met PT Goal 2 Goal Pt to report 75% improvement in overall symptoms. Target Visit 8 PT Problem 3 PT Problem #3 Impaired Sensation PT Goal 1 Goal Pt to decline radicular symptoms in the last week. Target Visit 8 Progress Not Met PT Problem 4 PT Problem #4 Impaired Functional Mobil PT Goal 1 Goal Pt to improve Oswestry score from 22/50 to 10/50. Target Visit 8 Progress Not Met PT Goal 2 Goal Pt to improve 2 min walk distance from 280ft to 350ft. Target Visit 8 Progress Not Met PT Problem 5 PT Problem #5 Impaired Strength PT Goal 1 Goal Pt to demonstrate lateral hip strength of 3/5 Target Visit 8 Progress Met
--- NOTE | 2023-07-19 15:42 | PTOPDC ---
Assessment and note entered by El Cardoza, PT Evaluation Information Assessment Status Discharge Diagnosis low back pain with sciatic pain Onset 6-7 weeks Subjective Information Patient reports that she feels that she has had some good days but she also has still had a lot of pain which she feels is somewhat attributed to increased activity. Feels comfortable with HEP and is requesting D/C at this time. Reported Pain Level Pain Score 7: Self Report Assessment PT Clinical Summary Patient has seen some improvement and presents with some continued lack of strength and hip ROM. Patient demonstrates understanding of HEP and deficits. She would like to continue to home on a tolerance basis. We discussed potential for injection and I agreed that it would be the next logical conservative option outside of weight loss and continued core strengthening. Plan of Care PT Services Indicated D/C to HEP
== END 2023-07-22 10:53 | disposition home or self-care (01) ==
LOC: ANHGOSHPT 12:30
PROVIDERS: PCP Family Medicine
DX: M43.16 Spondylolisthesis, lumbar region (principal)
CPT/HCPCS: 97014; 97110; 97112; 97140; 97161; 97530; G0283

== ENCOUNTER 2023-10-24 12:08 | Outpatient (CLI) | payer OTHER, SELFPAY ==
[2023-10-24 19:41] LABS: Alanine Aminotransferase 22 U/L (6-35); Albumin Level 4.6 g/dL (3.5-5.1); Alkaline Phosphatase 87 U/L (38-126); Anion Gap 13 mmol/L (4-12); Aspartate Amino Transferase 62 U/L (14-36); Bilirubin,Total 0.3 mg/dL (0.2-1.3); Blood Urea Nitrogen 18 mg/dL (7-17); Calcium 9.8 mg/dL (8.4-10.2); Carbon Dioxide 25 mmol/L (22-30); Chloride 94 mmol/L (98-107); Cholesterol 156 mg/dL (0-200); Estimated Glomerular Filt Rate > 60; Glucose 84 mg/dL (65-110); HDL Direct 66 mg/dL; Potassium 4.4 mmol/L (3.4-5.0); Sodium 132 mmol/L (137-145); Triglycerides 101 mg/dL (<150)
[2023-10-24 19:44] LABS: Iron 40 ug/dL (37-170)
[2023-10-24 19:51] LABS: LDL Cholesterol Direct 59 mg/dL
[2023-10-24 19:56] LABS: Percent Iron Saturation 9 % (20-50)
[2023-10-24 20:06] LABS: Vitamin D 25 Hydroxy 37.3 ng/mL
[2023-10-24 20:22] LABS: Ferritin 6.91 ng/mL (11.1-264)
== END 2023-10-24 12:09 | disposition home or self-care (01) ==
LOC: ANHBWCLAB 12:10
PROVIDERS: PCP Nurse Practitioner Adult Health; Visit Provider Nurse Practitioner Adult Health
DX: E53.8 Deficiency of other specified B group vitamins (principal); I10 Essential (primary) hypertension; R79.89 Other specified abnormal findings of blood chemistry; D64.9 Anemia, unspecified
CPT/HCPCS: 36415; 80053; 80061; 82306; 82607; 82728; 83540; 83550; 84443

== ENCOUNTER 2024-03-24 14:20 | Outpatient (CLI) | payer OTHER, SELFPAY ==
--- NOTE | ~2024-03-24 | CT_ITS ---
EXAMINATION: CT lumbar spine wo con DATE: 03/24/2024 14:37 INDICATION: Radiculopathy, lumbar region. TECHNIQUE: Computed tomography (CT) of the lumbar spine was performed without intravenous contrast. A utomated exposure control and iterative reconstruction technique were employed. The dose-length produ ct was 827.45 mGy-cm. COMPARISON: Lumbar spine radiographs 05/27/2023 FINDINGS: There is a 7 mm stone in left renal pelvis. There is 6 degrees levocurvature of lumbar spin e. There is 3 mm anterolisthesis of L4 on L5. Vertebral body heights are normal. There is mildly decr eased disc height at L2-L3, L3-L4, and L4-5. The following disc levels are specifically discussed: L1-L2: The disc does not extend beyond the endplate margin. There is moderate right and mild left fac et joint osteoarthritis. There is no neural foraminal stenosis. There is no central canal stenosis. L2-L3: The disc is bulging. There is mild bilateral facet joint osteoarthritis. There is mild bilater al neural foraminal stenosis. There is mild central canal stenosis. L3-L4: The disc is bulging. There is moderate right and mild left facet joint osteoarthritis. There i s mild bilateral neural foraminal stenosis. There is mild central canal stenosis. L4-L5: The disc is bulging. There is severe bilateral facet joint osteoarthritis. There is mild bilat eral neural foraminal stenosis. There is mild central canal stenosis. L5-S1: The disc does not extend beyond the endplate margin. There is severe bilateral facet joint ost eoarthritis. There is mild bilateral neural foraminal stenosis. There is no central canal stenosis. IMPRESSION: 1. Mild lumbar spondylosis. Reviewed, dictated and finalized at location A. 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 Mild lumbar spondylosis.
== END 2024-03-24 14:21 | disposition home or self-care (01) ==
LOC: GOSHIMG 14:20
PROVIDERS: PCP Nurse Practitioner Adult Health; Visit Provider Nurse Practitioner Adult Health
DX: M47.816 Spondylosis without myelopathy or radiculopathy, lumbar region (principal)
CPT/HCPCS: 72131

== ENCOUNTER 2024-06-01 15:17 | Outpatient (CLI) | payer OTHER, SELFPAY ==
[2024-06-01 16:16] LABS: Basophils Percent Auto 0.1 % (0.2-1.2); Hematocrit 42.8 % (37.0-47.0); Hemoglobin 13.6 g/dL (12.0-15.0); Immature Granulocyte Absolute 0.01 K/mm3 (0.00-0.031); Immature Granulocyte Percent A 0.1 % (0-0.5); Lymphocytes Absolute Auto 1.36 K/mm3 (0.9-3.2); Lymphocytes Percent Auto 19.2 % (18.3-44.2); Mean Corpuscular HGB Conc 31.8 g/dl (32-36); Mean Corpuscular Hemoglobin 27.2 pg (26-34); Mean Corpuscular Volume 85.6 fl (80-100); Mean Platelet Volume 9.9 fl (7.4-10.4); Monocytes Absolute Auto 0.5 K/mm3 (0.1-0.6); Monocytes Percent Auto 7.2 % (2.6-8.5); Neutrophils Absolute Auto 5.2 K/mm3 (1.3-6.7); Neutrophils Percent Auto 73.4 % (45.5-73.1); Platelet Count Result 221 k/mm3 (150-375); Red Cell Distribution Width 14.1 % (11.5-14.5); White Blood Count 7.1 K/mm3 (4.5-10.0)
[2024-06-01 16:28] LABS: Alanine Aminotransferase 25 U/L (6-35); Albumin Level 4.9 g/dL (3.5-5.1); Alkaline Phosphatase 91 U/L (38-126); Anion Gap 12 mmol/L (4-12); Aspartate Amino Transferase 28 U/L (14-36); Bilirubin,Total 0.3 mg/dL (0.2-1.3); Blood Urea Nitrogen 28 mg/dL (7-17); Calcium 10.1 mg/dL (8.4-10.2); Carbon Dioxide 22 mmol/L (22-30); Chloride 101 mmol/L (98-107); Estimated Glomerular Filt Rate > 60; Glucose 95 mg/dL (65-110); Potassium 4.2 mmol/L (3.4-5.0); Sodium 135 mmol/L (137-145)
[2024-06-01 16:39] LABS: Iron 53 ug/dL (37-170)
[2024-06-01 16:49] LABS: Percent Iron Saturation 14 % (20-50)
[2024-06-01 17:34] LABS: Folic Acid 9.8 ng/mL (2.76->20)
--- OUTSIDE RECORDS SUMMARY | 2024-06-01 17:42 | XMS_ITS | Clinical Summary ---
Author Organization [facility] Address [address] [place] [address] Care Team Providers Care Alfalfa Dehydrator Operator Name Role Phone Tayo Davis MD Primary Care Provider [phone] Henry Camp MD, Salvador Unavailable [phone] Allergies Active Allergy Reactions Criticality Noted Date Comments Codeine Nausea only,Vomiting Low Reaction: NAUSEA, VOMITING, , Latex Hives Medium Reaction: HIVES, Morphine Shortness of breath High Reaction: SOB, , Sulfa (Sulfonamide Antibiotics) Rash Medium Reaction: RASH, , Medications aspirin 81 mg tablet 10/12/2015Aspirin, po solid 81 mg Tablet, delayed release (enteric coated)POdailyCurrent Medication 016 Active cyanocobalamin, vitamin B-12, 5,000 mcg tablet,disinteg rating 10/12/2015B-12 5000 mcg Tablet,disintegratingNa nika routeas directedCurrent Medication 016 Active calcium citrate (CALCITRATE) 950 mg (200 mg elemental) tablet 10/12/2015Calcium citrate, po solid 200(950)mg TabletPOdailyCurrent Medication 016 Active multivit-min/ir on/folic/lutein (CENTRUM SILVER WOMEN ORAL) 10/12/2015Multivitamin, po solid TabletPOdailyCurrent Medication 016 Active armodafinil (NUVIGIL) 250 mg tablet Take 1 tablet (250 mg total) by mouth daily 4 018 Active levothyroxine (SYNTHROID) 100 mcg tablet 10/12/2015Synthroid, po solid 100 mcg TabletPOdailyCurrent Medication Active ergocalciferol (VITAMIN D) 50,000 unit capsule 10/12/2015Vitamin D2[place] [address] unit CapsulePOas directedCurrent Medication Active SYMBICORT 160-4.5 mcg/actuation inhaler Inhale 2 puffs 2 (two) times a day [address] (CYMBALTA) 60 mg capsule Take 1 capsule (60 mg total) by mouth daily [address] (CYMBALTA) 30 mg capsule TK 1 C PO Q DAY 4 018 Active BD INTEGRA SYRINGE 3 mL 25 gauge x 1 syringe U 1 SYRINGE TO INJ 1 ML OF VITAMIN B12 Q MONTH 3 018 Active potassium chloride ER 20 mEq CR tablet TK 1 T PO D 020 Active amLODIPine (NORVASC) 10 mg tablet Take 1 tablet (10 mg total) by mouth daily Active traMADoL 100 mg tablet Take 100 mg by mouth every 6 (six) hours as needed Active losartan (COZAAR) 100 mg tablet Take 1 tablet (100 mg total) by mouth daily Active Aimovig Autoinjector 70 mg/mL auto-injector subcutaneous injection Inject 1 mL (70 mg total) under the skin every 30 (thirty) days Active hydrOXYchloroQU INE (PLAQUENIL) 200 mg tablet TAKE 2 TABLETS BY MOUTH DAILY 180 tablet 023 Active Active Problems Problem Noted Date Diagnosed Date Long-term use of hydroxychloroquine 02/08/2022 Assessment & Plan (10/29/2022 2:55 PM CDT): Up to date on eye exams. Screening Ophthalmological Evaluation Request Medication: Hydroxychloroquine (Plaquenil) Patient: Please obtain the following eye exam with your eye doctor before starting hydroxychloroquine (Plaquenil). Then, continue to obtain yearly eye exams (or as directed by your eye doctor) while taking Plaquenil. Provider: Please perform the following exams on an annual basis: Visual Acuity Visual Field testing Slit Lamp evaluation Color Vision Assessment OCT Assessment & Plan (02/08/2022 10:40 AM LOOM CONTROL CHAIN BUILDER): Up to date on Eye exam. Last completed by Dr. Contreras ([facility]) on 01/25/22 without signs of retinal toxicity. Sjogren's syndrome with dental involvement 07/12 Assessment & Plan (10/29/2022 2:54 PM CDT): Worsening dry mouth/dry eye. Discussed biotene products, coconut oil pulling. Avoidance of alcohol based mouthwash/toothpaste. Will trial pilocarpine up to 3x a day. Discussed common possible side effects. Continue HCQ 400 mg daily. Follow up in 6 months and prn Assessment & Plan (02/08/2022 12:50 PM LOOM CONTROL CHAIN BUILDER): Stable on HCQ. Continue same. Encourage daily use of biotene products (lozenge, mouth rinses) and also a trial of nasal saline gel product such as Se[place]rook gel. Can also try coconut oil swish and spit to mouth 1-2 times a day. See dentist every 3-6 months for routine clean/care. She is declining pilocarpine today but will consider if she cannot get Restasis from the pharmacy. She will let us know. Follow up in 6 months and prn. Assessment & Plan (07/12/2021 11:44 AM CDT): Some exacerbation in sicca symptoms. Encourage daily use of biotene products (lozenge, mouth rinses) and also a trial of nasal saline gel product such as Seabrook gel. Can also try coconut oil swish and spit to mouth 1-2 times a day. See dentist every 3-6 months for routine clean/care. If sicca symptoms not improving at next visit with OTC therapy, consider Salagen or Evoxac prescription. Class 3 severe obesity due t o excess calories with serious comorbidity and body mass index (BMI) of 40.0 to 44.9 in adult 07/12/2021 Assessment & Plan (07/12/2021 11:40 AM CDT): With hypertension and heart disease. A body mass index (BMI) of 20-24.9 is considered healthy for most individuals. A combination of diet and exercise can help to attain/maintain a healthy BMI is recommended to improve vascular risk factors and diabetes risk. A 5-10% weight loss can have significant cardiovascular benefits. Also, each pound of weight lost unloads 3-4 pounds per square inch pressure from weight bearing joints. Significantly reducing or avoiding overly processed convenience foods, sugary drinks and alcohol is an important way to improve nutrition and reduce the intake of empty calories. Encounter for long-term (cur rent) use of high-risk medication 07/12/2021 Assessment & Plan (07/12/2021 11:45 AM CDT): Recent labs reviewed. Screening Ophthalmological Evaluation Request Medication: Hydroxychloroquine (Plaquenil) Patient: Please obtain the following eye exam with your eye doctor before starting hydroxychloroquine (Plaquenil). Then, continue to obtain yearly eye exams (or as directed by your eye doctor) while taking Plaquenil. Provider: Please perform the following exams on an annual basis: Visual Acuity Visual Field testing Slit Lamp evaluation Color Vision Assessment OCT Iron deficiency anemia secon [place] to inadequate dietary iron intake 05/01/2021 Anemia 04/14/2021 Primary osteoarthritis of both knees 03/07/2018 Osteoarthritis of carpometacarpal (CMC) joint of thumb 12/11/2016 Positive antinuclear antibody 03/23/2015 Complete tear of rotator cuff 09/06/2010 Sprain of elbow 12/27/2009 Immunizations Immunization Administration Dates Next Due Influenza, Quadrivalent, Spl it, Preservative Free, Intramuscular 01/02/2020,01/25/2016 Influenza, Trivalent, Preser vative Free, Intramuscular 01/14/2015 Influenza, Unspecified 10/12/2015,2015,03/09/2014,10/20,03/10/2013 Pneumococcal Polysaccharide PPV23 01/25/2016 Tdap 01/08/2020 ZOSTER LIVE 10/12/2015,04/06/2015 Surgical History Surgery Date Site/Laterality Comments KNEE SURGERY TONSILLECTOMY APPENDECTOMY SHOULDER SURGERY ELBOW SURGERY BARIATRIC SURGERY EYE SURGERY CHOLECYSTECTOMY BRAIN SURGERY INSERT / REPLACE / REMOVE PACEMAKER COLONOSCOPY Medical History Medical History Date Comments Asthma Thyroid disease Rheumatoid arthritis (HCC) Anemia Depression Migraines MRSA (methicillin resistant Staphylococcus aureu s) Iron deficiency anemia secondary to inadequate d ietary iron intake 05/01/2021 Family History Medical History Relation Name Comments Gout Father Family history of gout - (Added by TW Conv) Rheum arthritis Father Family histo ry of rheumatoid arthritis - (Added by TW Conv) Cancer Father's Sister Cancer Maternal Grandmother Heart disease Maternal Grandmother Gout Mother Family history of gout - (Added by TW Conv) Heart disease Mother Hypertension Mother Family history of hypertension - (Added by TW Conv) Osteoporosis Mother Family history of osteoporosis - (Added by TW Conv) Thyroid disease Mother Thyroid trou ble - (Added by TW Conv) Lung cancer Paternal Grandfather Heart disease Paternal Grandmother Arthritis Sister Family history of arthritis - (Added by TW Conv) Heart disease Sister Relation Name Status Comments Father Alive Father's Sister Maternal Grandmother Mother Alive Paternal Grandfather Paternal Grandmother Sister Social History Tobacco Use Types Packs/Day Years Used Date Smoking Tobacco: Never Smokeless Tobacco: Never Alcohol Use Standard Drinks/Week Comments No 0 (1 standard drink = 0.6 oz pur e alcohol) AUDIT-C Answer Date Recorded Q1: How often do you have a drink containing alc ohol? Never 07/12/2021 Average Number of Drinks Not on file 022 Q3: How often do you have si x or more drinks on one occasion? Never 07/12/2021 Personal Safety Answer Date Recorded Getting School Help Needed Not on file 02/23 Comments Unknown Sex and Gender Information Value Date Recorded Sex Assigned at Not on file Legal Sex Female 12:41 PM LOOM CONTROL CHAIN BUILDER Gender Identity Female 09/29/2019 7:39 AM CDT Sexual Orientation Straight 09/29/2019 7: 39 AM CDT Obstetrics History Last Filed Vital Signs Vital Sign Reading Time Taken Comments Blood Pressure 144/74 10/29/2022 1:37 PM CDT Pulse 107 10/29/2022 1:37 PM CDT Temperature 36.8 C (98.2 F) 10/29/2022 1:37 PM CDT Respiratory Rate 16 10/29/2022 1:37 PM CDT Oxygen Saturation 98% 10/29/2022 1:37 PM CDT Inhaled Oxygen Concentration - - Weight 106.6 kg (235 lb) 10/29/2022 1:37 PM CDT Height 154.9 cm (5' 1 ) 10/29/2022 1:37 PM CDT Body Mass Index 44.4 10/29/2022 1:37 PM CDT Plan of Treatment Health Maintenance Due Date Last Done Comments Cervical Cancer Screening 1965 Colon Cancer Screening-Colonoscopy 1965 Depression Screening 1965 Hepatitis C Screening 1963 Hepatitis B Screening 1981 Regular Well Visit/Exam 18-64 1981 Zoster Vaccine (1 of 2) 12/07/2015 10/12/2015, 04/06 Breast Cancer Screening-Mammogram 04/12/2016 016 Pneumococcal vaccine <65 (2 of 2 - PCV) 01/24/2017 01/25/2016 Covid-19 Vaccine (3 - Pfizer risk series) 07/12/2020 06/14/2020, 05/22/2020 Influenza Vaccine (#1) 2023 0, 01/25/2016, 10/12/2015, Additional history exists DTaP/Tdap/Td Vaccine (2 - Td or Tdap) 01/07/2030 01/08/2020 Procedures Procedure Name Priority Date/Time Associated Diagnosis Comments SCREENING MAMMOGRAM BILATERAL W JOSE Routine 04/12/2015 12:00 AM LOOM CONTROL CHAIN BUILDER from Last 3 Months or Most Recently Relevant to Health Maintenance Results * Screening Mammogram Bilateral W Jose (04/12/2015 12:00 AM LOOM CONTROL CHAIN BUILDER) Anatomical Region Laterality Modality Breast Bilateral Mammography 04/12/2015 3:40 PM LOOM CONTROL CHAIN BUILDER Narrative 04/19/2015 10:05 AM LOOM CONTROL CHAIN BUILDER - SCREENING MAMM W JOSE BI BILATERAL DIGITAL SCREENING MAMMOGRAM 3D/2D WITH CAD: 04/12/2015 CLINICAL: Routine screening. Patient has no complaints. Patient is uncertain where prior mamograms were obtained. This study will serve as a new baseline. There are scattered fibroglandular elements in both breasts. Current study was also evaluated with a Computer Aided Detection (CAD) system. Patient has a left chest wall pacemaker. No significant masses, calcifications, or other findings are seen in either breast. IMPRESSION: BENIGN There is no mammographic evidence of malignancy. A 1 year screening mammogram is recommended. The patient will be contacted by letter. Raisa Montano M.D. [facility]:04/19/2015 08:25:06 letter sent: Normal Exam Mammogram BI-RADS: 2 Benign Radiologist: RAISA MONTANO MD Attending: NIMESH HURD M.D. Requesting: NIMESH HURD M.D. Requesting Requesting ID: [id number] Attending Attending ID: [id number] Completed Time: 04/12/2015 3:40 PM Dictated Time: N/A Transcribed Time: 04/19/2015 10:05 AM Signed by: RAISA MONTANO MD on 04/19/2015 10:05 AM Report To 1 ID: [id number] Report To 1 Name: EDIE HELLER Report To 1 FAX: Report To 2 ID: Report To 2 Name: , Report To 2 FAX: Report To 3 ID: Report To 3 Name: , Report To 3 FAX: NextGen Order #: Procedure Note Provider, MD Mallorie - 06/27/2016 - SCREENING MAMM W JOSE BI BILATERAL DIGITAL SCREENING MAMMOGRAM 3D/2D WITH CAD: 04/12/2015 CLINICAL: Routine screening. Patient has no complaints. Patient is uncertain where prior mamograms were obtained. This study will serve as a new baseline. There are scattered fibroglandular elements in both breasts. Current study was also evaluated with a Computer Aided Detection (CAD) system. Patient has a left chest wall pacemaker. No significant masses, calcifications, or other findings are seen in either breast. IMPRESSION: BENIGN There is no mammographic evidence of malignancy. A 1 year screening mammogram is recommended. The patient will be contacted by letter. Raisa Montano M.D. [facility]:04/19/2015 08:25:06 letter sent: Normal Exam Mammogram BI-RADS: 2 Benign Radiologist: RAISA MONTANO MD Attending: NIMESH HURD M.D. Requesting: NIMESH HURD M.D. Requesting Requesting ID: [id number] Attending Attending ID: [id number] Completed Time: 04/12/2015 3:40 PM Dictated Time: N/A Transcribed Time: 04/19/2015 10:05 AM Signed by: RAISA MONTANO MD on 04/19/2015 10:05 AM Report To 1 ID: [id number] Report To 1 Name: EDIE HELLER Report To 1 FAX: Report To 2 ID: Report To 2 Name: , Report To 2 FAX: Report To 3 ID: Report To 3 Name: , Report To 3 FAX: NextGen Order #: Historical Provider MD [facility] MAMMO PROCEDURES Marva l Result from Last 3 Months or Most Recently Relevant to Health Maintenance Insurance [facility] CHOICE PLUS [facility] CHOICE PLUS [facility] CHOICE PLUS Care Teams Alfalfa Dehydrator Operator Relationship Specialty Start Date End Date Tayo Davis MD PCP - General Family Practice 03/14/21 Salvador Figueroa Jr., MD Medical Oncologist/[facility] 04/14/21
--- OUTSIDE RECORDS SUMMARY | 2024-06-01 17:42 | XMS_ITS | Clinical Summary ---
Author Organization [facility] Address [address] [place] [address] Care Team Providers Care Production Line Operator Name Role Phone Kaylynn Drake MD Unavailable + Tayo Davis MD Primary Care Provider [phone] Source Comments [facility],non-owned Affiliates and Associated Physician Practices is amultiple site organization consisting of ambulatory clinics and hospital sitesin [place], [place], [place] and [place]. This disclosure is being madepursuant to the Care Everywhere program and may not contain all information available regarding this patient. Last updated 17.[facility] Allergies Active Allergy Reactions Criticality Noted Date Comments Codeine Rash Low 03/21/2011 Latex Rash Low 03/21/2011 Morphine Systemic 03/21/2011 Onion Nausea and/or Vomiting 10/07/2018 Sulfa Drugs Rash Low 03/21/2011 Medications * Be aware that medications may not be up to date on this document. Alwaysverify current medications with the patient. Medication Sig Dispensed Refills Start Date End Date Status levothyroxine (SYNTHROID) 100 MCG tablet Take 100 mcg by mouth daily before breakfast. Active vitamin D, ergocalciferol, (DRISDOL) 41787 UNIT capsuleIndications:Vitam in d deficiency Take 1 Cap by mouth every 7 days. 12 Cap 0 03/27/2011 Active armodafinil (NUVIGIL) 250 MG tabletIndications:Sjogre n's syndrome, with unspecified organ involvement (HCC),Other forms of systemic lupus erythematosus, unspecified organ involvement status (HCC),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,buttermaker helper 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,Chronic pain of both knees Take 1 tablet by mouth once daily 5 06/21/2017 Active CALCIUM CITRATE-VITAMIN D POIndications:Sjogren's syndrome, with unspecified organ involvement (HCC),Other forms of systemic lupus erythematosus, unspecified organ involvement status (HCC),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,buttermaker helper 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,Chronic pain of both knees Take 1 tablet by mouth once daily Active Cyanocobalamin (VITAMIN B 12 PO)Indications:Sjogren's syndrome, with unspecified organ involvement (HCC),Other forms of systemic lupus erythematosus, unspecified organ involvement status (HCC),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,buttermaker helper 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,Chronic pain of both knees Take 1 tablet by mouth once daily Active Multiple Vitamins-Minerals (CENTRUM SILVER 50+WOMEN PO)Indications:Sjogren's syndrome, with unspecified organ involvement (HCC),Other forms of systemic lupus erythematosus, unspecified organ involvement status (HCC),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,buttermaker helper 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,Chronic pain of both knees Take 1 tablet by mouth once daily Active traMADol (ULTRAM) 50 MG tabletIndications:Sjogre n's syndrome, with unspecified organ involvement (HCC),Other forms of systemic lupus erythematosus, unspecified organ involvement status (HCC),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,intermediate 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,Chronic pain of both knees Take 1 tablet by mouth as needed 5 06/01/2017 Active clobetasol (TEMOVATE) 0.05 % ointment Apply to affected area on trunk and extremities BID. 30 day supply. 60 g 2 12/03/2017 Active losartan - hydroCHLOROthiazide (HYZAAR) 50-12.5 MG tablet TK 1 T PO D 12/23/2019 Active albuterol HFA (PROVENTIL;VENTOLIN;PROA IR) 108 (90 Base) MCG/ACT inhaler Inhale 1 puff by mouth every 4 hours as needed for Shortness of Breath or Wheezing 11/30/2019 Active benzonatate (TESSALON) 100 MG capsule TK 2 CS PO TID PRN COU 11/30/2019 Active SYMBICORT 160-4.5 MCG/ACT inhaler INL 2 PFS PO Q 12 H 12/28/2019 Active doxepin (SINEQUAN) 25 MG capsule TK 1 TO 2 CS PO HS PRN 12/22/2019 Active famotidine (PEPCID) 20 MG tablet Take 20 mg by mouth 2 times daily 09/03/2019 Active lisinopril-hydroCHLOROth iazide (PRINZIDE; ZESTORETIC) 10-12.5 MG tablet Take 1 tablet by mouth 2 times daily 08/22/2019 Active mupirocin (BACTROBAN) 2 % ointment APPLY TOPICALLY TO THE PAINFUL AREA OF THE SCALP THREE TIMES DAILY 02/23/2020 Active hydroxychloroquine (PLAQUENIL) 200 MG tablet Take 200 mg by mouth 2 times daily 04/26/2020 Active hydrOXYzine hcl (ATARAX) 25 MG tablet TAKE 1 TO 2 TABLETS BY MOUTH AT NIGHT NEEDED 03/10/2020 Active doxycycline hyclate (VIBRAMYCIN) 100 MG capsule Take 100 mg by mouth 2 times daily 09/07/2020 Active DULoxetine (CYMBALTA) 60 MG capsule 12/07/2020 Active meloxicam (MOBIC) 15 MG tablet TAKE 1 TABLET BY MOUTH DAILY 09/06/2020 Active potassium chloride ER (KLOR-CON M) 20 MEQ tablet 08/24/2020 Active polyethyl glycol-propyl glycol (SYSTANE) 0.4-0.3 % ophth solution Instill 1 drop into both eyes 4 times daily as needed for Dry Eyes Active Restasis 0.05 % ophthalmic suspension Instill 1 (one) drop into both eyes 2 times daily 180 Each 3 01/26/2022 Active Active Problems Problem Noted Date Diagnosed Date Anemia 04/14/2021 Left ankle pain 06/28/2020 Left knee pain 06/28/2020 Primary osteoarthritis of left ankle 06/28/2020 Nuclear age-related cataract, both eyes 06/29/19 Dry eye syndrome of both eyes 06/28/2020 Long-term use of Plaquenil 06/28/2020 History of MRSA infection 04/09/2019 Primary osteoarthritis of both knees 03/07/2018 Body mass index (BMI) 45.0-49.9, adult 8 Osteoarthritis of carpometacarpal (CMC) joint of thumb 12/11/2016 Dry eyes due to decreased tear production 2016 Nummular eczema 01/26/2016 Sjogren's syndrome 09/15/2015 Positive antinuclear antibody 03/23/2015 Complete tear of rotator cuff 09/06/2010 Elbow sprain 12/27/2009 Morbid obesity Weight gain Depression Intestinal malabsorption Overview (12/09/2014): Iron deficiency anemia Hypothyroid Family History Medical History Relation Name Comments Hypertension Brother Hypertension Mother Hypertension Sister Asthma Neg Hx CVA Neg Hx Cancer - Breast Neg Hx Cancer - Other Neg Hx Cancer - Skin, Melanoma Neg Hx Cancer - Skin, Non Melanoma Neg Hx Eczema Neg Hx Hemophilia Neg Hx Psoriasis Neg Hx Relation Name Status Comments Brother Mother Sister Social History Tobacco Use Types Packs/Day Years Used Date Smoking Tobacco: Never Smokeless Tobacco: Never Alcohol Use Standard Drinks/Week Comments No 0 (1 standard drink = 0.6 oz pur e alcohol) Sex and Gender Information Value Date Recorded Sex Assigned at Female 03/21/2021 5:27 PM POSTDOCTORAL RESEARCH FELLOW Gender Identity Female 03/21/2021 5:27 PM POSTDOCTORAL RESEARCH FELLOW Sexual Orientation Straight 03/21/2021 5: 27 PM POSTDOCTORAL RESEARCH FELLOW Last Filed Vital Signs Vital Sign Reading Time Taken Comments Blood Pressure 170/110 04/09/2019 8:54 AM POSTDOCTORAL RESEARCH FELLOW Pulse 99 04/09/2019 8:54 AM POSTDOCTORAL RESEARCH FELLOW Temperature 36.7 C (98 F) 04/09/2019 8:54 AM POSTDOCTORAL RESEARCH FELLOW Respiratory Rate 22 04/09/2019 8:54 AM POSTDOCTORAL RESEARCH FELLOW Oxygen Saturation 97% 04/09/2019 8:54 AM POSTDOCTORAL RESEARCH FELLOW Inhaled Oxygen Concentration - - Weight 103.9 kg (229 lb) 01/03/2021 9:57 AM CDT Height 157.5 cm (5' 2 ) 04/09/2019 8:54 AM POSTDOCTORAL RESEARCH FELLOW Body Mass Index 41.88 04/09/2019 8:54 AM POSTDOCTORAL RESEARCH FELLOW Plan of Treatment Health Maintenance Due Date Last Done Comments COLOGUARD (AGES 45-75) - COLON CA SCREENING 1963 COLON MONITORING 1963 COLONOSCOPY - COLON CA SCREENING 1963 CT COLONOGRAPHY - COLON CA SCREENING 1963 Colorectal Cancer Screening 1963 FIT - COLON CA SCREENING 1963 FLEX SIG - COLON CA SCREENING 1963 MAMMOGRAM 1963 PAP SMEAR 1963 HIV SCREENING 1978 DTAP/TDAP/TD VACCINES (1 - Tdap) 1982 PNEUMOCOCCAL VACCINE 50+ (1 of 1 - PCV) 2013 ZOSTER VACCINE (1 of 2) 2013 LIPID TESTING 03/21/2016 03/21/2011 Respiratory Syncytial Virus (RSV) Vaccine Pt: or over 60 yrs (1 - Risk 60-74 years 1-dose series) 2023 COVID-19 VACCINE (1 - 2023- season) 2023 INFLUENZA VACCINE (#1) 2023 0, 01/25/2016, 10/12/2015, Additional history exists DEPRESSION SCREENING 03/11/2024 HEPATITIS C SCREENING Completed 05/02/2017, 016 HEPATITIS B VACCINE Aged Out No longe r eligible based on patient's age to complete this topic HIB VACCINE Aged Out No longer eligi ble based on patient's age to complete this topic HPV VACCINE Aged Out No longer eligi ble based on patient's age to complete this topic MENINGOCOCCAL (Group B) VACCINE SHARED DECISION-MAKING Aged Out No longer eligible based on patient's age to complete this topic MENINGOCOCCAL GROUPS A/C/Y/W VACCINE Aged Out No longer eligible based on patient's age to complete this topic PNEUMOCOCCAL VACCINE Aged Out No long er eligible based on patient's age to complete this topic Procedures Procedure Name Priority Date/Time Associated Diagnosis Comments HEPATITIS SCREEN ACUTE Routine 05/02/2017 3:08 PM POSTDOCTORAL RESEARCH FELLOW LIPID PROFILE Routine 03/21/2011 3:55 PM POSTDOCTORAL RESEARCH FELLOW from Last 3 Months or Most Recently Relevant to Health Maintenance Results * HEPATITIS SCREEN ACUTE (05/02/2017 3:08 PM POSTDOCTORAL RESEARCH FELLOW) Hepatitis A Virus Antibody IgM NON-REACTI VE NON-REACT [facility] ([facility]) Hepatitis B Virus Surface Antigen NON-REACTI VE NON-REACT [facility]) Hepatitis B Core Virus Antibody IgM NON-REACTI VE NON-REACT [facility] ([facility]) Hepatitis C Antibody NON-REACTI VE NON-REACT [facility] ([facility]) Signal/Cutoff 0.02 <1.00 [facility] ([facility]) Comment: Test Performed at: [facility] [address] [place] [address] ITALO MADRID DO,MPH Blood specimen (specimen) BLOOD SPECIMEN / Unknown 05/02/2017 3:08 PM POSTDOCTORAL RESEARCH FELLOW 05/02/2017 3:09 PM POSTDOCTORAL RESEARCH FELLOW Hedy Kern MD LAB - CHEMISTRY [facility] Performing Organization Address City/[facility]/ZIP Co de Phone Number [facility]) [address] * LIPID PROFILE (03/21/2011 3:55 PM POSTDOCTORAL RESEARCH FELLOW) Cholesterol 178 <200 mg/dl [facility] Triglycerides 79 10 - 210 mg/dl [facility] HDL Cholesterol 62 >40 mg/dl [facility] LDL Calculated 100 mg/dl [facility] Chol HDL Ratio 2.87 [facility] Comment Lipid [facility] Comment: Risk Classification HDL CHOL LDL CHOL TOTAL CHOL According to NCEP (mg/dl) (mg/dL) (mg/dl) Desirable >40 <130 < 200 Borderline/High - 130-159 200-239 High - >159 > 239 The total cholesterol to HDL cholesterol ratio may be used to predict risk for coronary heart disease in untreated patients according to data reported from the [place] Study by Italo Delgado M.D. The predictive value in patients over 60 years of age is uncertain. Risk TOTAL CHOL/HDL RATIO MEN WOMEN 1/2 Average 3.43 3.27 Average 4.97 4.44 2X Average 9.55 7.05 3X Average 23.39 11.04 In Coronary Artery Disease patients, in whom nonpharmacological therapy has failed, the AHA recommends that drug therapy should be prescribed to lower LDL cholesterol to <100mg/dL. Drug therapy may be instituted in patients with HDL <35mg/dL. The reported LDL is a calculated result. For a more precise measurement, a direct LDL test is available, as necessary. BLOOD SPECIMEN / Unknown 03/21/2011 3:55 PM POSTDOCTORAL RESEARCH FELLOW 03/21/2011 4:06 PM POSTDOCTORAL RESEARCH FELLOW Marcus Levi MD LAB - CHEMISTRY O RDERABLES Performing Organization Address City/[facility]/ZIP Co de Phone Number [facility] [address] [place] [address] from Last 3 Months or Most Recently Relevant to Health Maintenance Care Teams Production Line Operator Relationship Specialty Start Date End Date Tayo Davis MD [address] [place] [address] [place] [address] PCP - General 12/26/20 Kaylynn Drake MD Physician Rheumatology 10/07/18
--- OUTSIDE RECORDS SUMMARY | 2024-06-01 17:42 | XMS_ITS | Encounter Summary ---
Author Organization [facility] Address [address] [place] [address] Care Team Providers Care Strategic Communications Manager Name Role Phone Unavailable Primary Care Provider Unavailabl e Reason for Referral * Eval and Treat (Routine) - Open Specialty Diagnoses / Procedures Referred By Jonas antonio Referred To Contact Gastroenterology Diagnoses Chronic anemia Procedures IN OFFICE/OUTPATIENT ESTABLISHED MOD MDM 30 MIN IN OFFICE/OUTPATIENT NEW MODERATE MDM 45 MINUTES Domenic Campbell MD [address] [place] [id number] Phone: tel: fax: Referral ID Status Reason Start Date Expiration Date Visits Re quested Visits Authorized [id number] Open 06/01/2024 06/01/2025 1 1 Reason for Visit * Reason Comments Establish Care Encounter Details Date Type Department Care Team (Late st Contact Info) Description 06/01/2024 3:00 PM CDT Office Visit [facility] Oncology and Hematology - [place] [address] [address] Domenic Campbell MD [address] [place] [address] Chronic anemia (Primary Dx) Social History Tobacco Use Types Packs/Day Years Used Date Smoking Tobacco: Never Smokeless Tobacco: Never Alcohol Use Standard Drinks/Week Comments Never 0 (1 standard drink = 0.6 oz pur e alcohol) Comments Unknown Sex and Gender Information Value Date Recorded Sex Assigned at Not on file Legal Sex Female 9:35 PM CDT Gender Identity Not on file Sexual Orientation Not on file documented as of this encounter Last Filed Vital Signs Vital Sign Reading Time Taken Comments Blood Pressure 105/69 06/01/2024 2:51 PM CDT Pulse 105 06/01/2024 2:51 PM CDT Temperature 36.8 C (98.2 F) 06/01/2024 2:51 PM CDT Respiratory Rate 15 06/01/2024 2:51 PM CDT Oxygen Saturation 95% 06/01/2024 2:51 PM CDT Inhaled Oxygen Concentration - - Weight 97.3 kg (214 lb 9.6 oz) 06/01/2024 2:51 P M CDT Height 157.5 cm (5' 2 ) 06/01/2024 2:51 PM CDT Body Mass Index 39.25 06/01/2024 2:51 PM CDT documented in this encounter Progress Notes * Domenic Campbell MD - 06/01/2024 3:13 PM CDT Hematology-oncology consult Note Requesting Physician Primary Care Physician No primary care provider on file. Problem list There is no problem list on file for this patient. Previous TREATMENT ? Measurable Disease ? Reason for Visit Cindy Calderón is a 59 y.o. female who was referred for consultation for iron deficiency without anemia History of present illness This is a 59-year-old morbidly obese female with history of gastric bypass surgery in 2002 with 90 pound weight loss along with history of hypertension and hypothyroidism referred to me foriron deficiency without anemia. She has been feeling tired and fatigue. She has intermittent loose stool with bright red blood. Vaginal bleeding. Her last colonoscopy was more than 10 years ago. She ate red meat very infrequently. She is taking oral iron 325 mg daily. Her last iron infusion was more than 5 years ago. She was seen by Dr. Figueroa in hematology previously. She has been complainingof back pain. She also take vitamin B12 1 mg daily. Labs from February 2024 showed iron 45 saturation 10% ferritin 13. Vitamin B12 was normal at 687. Hemoglobin was 14.1. She denies any other new complaints. Past Medical History Past Medical History: Diagnosis Date Asthma Depression Hypertension Pacemaker Surgical History Past Surgical History: Procedure Laterality Date HX CRAINOSYNOSTECTOMY stent placed HX LASER EYE SURGERY HX PACEMAKER PLACEMENT HX TONSILLECTOMY Medications Current Outpatient Medications Medication Sig Dispense Refill amLODIPine (NORVASC) 10 mg tablet Take 10 mg by mouth daily. DULoxetine (CYMBALTA) 60 mg Capsule, Delayed Release(E.C.) Take 60 mg by mouth daily. ferrous sulfate 325 mg (65 mg iron) tablet Take 325 mg by mouth daily. hydroxychloroquine (PLAQUENIL) 200 mg tablet Take 2 Tablets by mouth daily. levothyroxine 100 mcg tablet Take 100 mcg by mouth daily before breakfast. losartan (COZAAR) 100 mg tablet Take 100 mg by mouth daily. cyanocobalamin 1,000 mcg Tablet Take 1,000 mcg by mouth daily. No current facility-administered medications for this visit. Allergies Allergies Allergen Reactions Morphine Shortness of Breath/Wheezing Reaction: SOB, , Sulfa (Sulfonamide Antibiotics) Rash Reaction: RASH, , Immunizations: There is no immunization history on file for this patient. Family History Family History Problem Relation Name Age of Onset Hypertension Father Heart Disease Mother No Known Problems Brother No Known Problems Brother No Known Problems Sister Heart Surgery Child thincking of the heart. passed at 25 No Known Problems Child Social History Social History Tobacco Use Smoking status: Never Smokeless tobacco: Never Substance Use Topics Alcohol use: Never Review of Systems Constitutional: Patient did not mention fever; no night sweats; no anorexia; no weight loss; complain of tiredness and fatigue NEENT: Patient did not mention headache; no change in vision; no change in hearing; no sore throat;no dysphagia Respiratory: Patient did not mention shortness of breath; no pleuritic chest pain; no cough; no hemoptysis Cardiac: Patient did not mention cardiac-like chest pain; no palpitations; no orthopnea; no PND; noDOE Breasts: Patient did not mention tenderness; no masses GI: Patient did not mention abdominal pain; no nausea; no vomiting; no diarrhea; no hematochezia; no melena : Patient did not mention dysuria; no frequency; no hesitancy; no hematuria SEMICONDUCTOR ASSEMBLER: Musculosketetal: Patient did not mention bone pain; no arthralgia; no joint swelling; no myalgia; Skin: Patient did not mention pruritis; no rash; no petechiae; no ecchymoses Endocrine: Patient did not mention polydipsia; no polyuria; no unusual weight gain Neuro: Patient did not mention headache; no change in vision; no sensory changes; no muscle weakness; no confusion; no seizures Psych: Patient did not mention anxiety; no depression; Physical Exam Vitals: As per nursing note Constitutional: Well developed, well nourished, no acute distress, non-toxic appearance Teeth and gum. No signs of infection or swelling. Eyes: PERRL, conjunctiva normal HEENT: Atraumatic, external ears normal, nose normal, oropharynx moist, no pharyngeal exudates. no sinus tenderness Neck- normal range of motion, no tenderness, supple Respiratory: No respiratory distress, normal breath sounds, no rales, no wheezing Cardiovascular: Normal rate, normal rhythm, no murmurs, no gallops, no rubs GI: Soft, nondistended, normal bowel sounds, nontender, no splenomegaly, no hepatomegaly, no mass, no rebound, no guarding : No costovertebral angle tenderness Musculoskeletal: No edema, no tenderness, no deformities. Back- no tenderness Integument: Well hydrated, no rash, Digits and nails inspection normal Lymphatic: No lymphadenopathy noted Neurologic: Alert & oriented x 3, CN 2-12 normal, normal motor function, normal sensory function, no focal deficits noted Psychiatric: Speech and behavior appropriate ? labs No results found for this or any previous visit (from the past 24 hours). Labs from February 2024 showed iron 45 saturation 10% ferritin 13 hemoglobin 13.4. Pathology ? Imaging & Other Studies Performance Status? Assessment / Plan: ? Iron deficiency without anemia. Patient is a 59-year-old morbidly obese female with history of gastric bypass surgery in 2002 with 90 pound weight loss with been dealing with iron deficiency without anemia for a long time. She had received iron infusion multiple times and the last one wasmore than [address] Figueroa. Her last colonoscopy was more than 10 years ago. Currently she is having some intermittent bright red blood in the stool with some loose stool. She rarely eatsred meat. She is taking oral iron 325 mg once a day along with vitamin B12 1 mg daily. I will checklabs including iron level, vitamin B12 level, soluble transferrin receptor, methylmalonic acid level , serum protein electrophoresis with immunofixation and CBC along with CMP today. I will discuss the labs with her next week and plan to start her on IV iron infusion. I have answered all the questions to patient satisfaction. Back pain. Patient had CT lumbar spine done on March 24, 2024 showed mild lumbar spondylosis. There was no lytic lesions. I will check serum protein electrophoresis due to significant amount of back pain she is describing. Hypothyroidism. Patient is on levothyroxine. Hypertension. She is on amlodipine and losartan. Thank you very much for allowing me to participate in Cindy Calderón's evaluation and management. Please feel free to contact if I can be of any further assistance in your patient???s care requiring hematology or oncology evaluation. Sincerely, ? ? Domenic Campbell M.D. cell TOBACCO COUNSELING She is not a tobacco/nicotine user. Domenic Campbell MD ,06/01/2024 3:51 PM ? Total time spent 60 minutes, two third of the total time spent counseling patient [id number]. CC:? documented in this encounter Plan of Treatment Upcoming Encounters Date Type Department Care Team (Late st Contact Info) Description 06/09/2024 4:00 PM CDT Telephone Check Up [facility] Oncology and Hematology - [place] [address] [address] Domenic Campbell MD [address] [facility] [address] [place] [address] Scheduled Orders Name Type Priority Associated Diagnoses Orde r Schedule CBC WITH DIFFERENTIAL Lab Stat Chronic anemia Expected: 06/01/2024, Expires: 06/01/2025 COMPREHENSIVE METABOLIC PANEL Lab Stat Chronic anemia Expected: 06/01/2024, Expires: 06/01/2025 FERRITIN Lab Routine Chronic anemia Expected: 06/01/2024, Expires: 06/01/2025 IRON, TIBC, AND PERCENT SATURATION Lab Routine Chronic anemia Expected: 06/01/2024, Expires: 06/01/2025 METHYLMALONIC ACID Lab Routine Chronic anemia Expected: 06/01/2024, Expires: 06/01/2025 VITAMIN B12 AND FOLATE Lab Routine Chronic anemia Expected: 06/01/2024, Expires: 06/01/2025 TRANSFERRIN RECEPTOR TFR SOLUBLE Lab Routine Chronic anemia Expected: 06/01/2024, Expires: 06/01/2025 PROTEIN ELECTROPHORESIS W/REFLEX,SERUM Lab Routine Chronic anemia Expected: 06/01/2024, Expires: 06/01/2025 Scheduled Referrals Name Type Priority Associated Diagnoses Order Schedule AMB REFERRAL TO GASTROENTEROLOGY Outpatient Referral Routine Chronic anemia Ordered: 06/01/2024 documented as of this encounter Visit Diagnoses Diagnosis Chronic anemia- Primary Anemia, unspecified documented in this encounter
--- OUTSIDE RECORDS SUMMARY | 2024-06-01 17:42 | XMS_ITS | Encounter Summary ---
Author Organization [facility] Address [address] [facility] [place] [address] Care Team Providers Care High School Home Economics Teacher Name Role Phone Garfield Perla MD Primary Care Provider [phone] Ghassan Luna DO Primary Care Provider Kaylynn Drake MD Unavailable + Tayo Davis MD Primary Care Provider [phone] Reason for Visit * Reason Onset Date Comments MEDICATION REFILL 06/21/2017 Encounter Details Date Type Department Care Team (Late st Contact Info) Description 06/21/2017 Refill [facility] [address] [address] Glendy Donnelly RN MEDICATION REFILL Social History Tobacco Use Types Packs/Day Years Used Date Smoking Tobacco: Never Smokeless Tobacco: Never Alcohol Use Standard Drinks/Week Comments No 0 (1 standard drink = 0.6 oz pur e alcohol) Sex and Gender Information Value Date Recorded Sex Assigned at Female 03/21/2021 5:27 PM ANSWERING SERVICE AGENT Gender Identity Female 03/21/2021 5:27 PM ANSWERING SERVICE AGENT Sexual Orientation Straight 03/21/2021 5: 27 PM ANSWERING SERVICE AGENT documented as of this encounter Plan of Treatment Not on file documented as of this encounter Visit Diagnoses Not on filedocumented in this encounter Care Teams [employer] Home Economics Teacher Relationship Specialty Start Date End Date Garfield Perla MD [address] [facility] [place] [address] PCP - General 03/21/11 03/05/18 Ghassan Luna DO [address] [address] PCP - General 03/06/18 12/25/20 Tayo Davis MD [address] [place] [phone] PCP - General 12/26/20 Kaylynn Drake MD [address] [address] Physician Rheumatology 10/07/18 documented as of this encounter
--- OUTSIDE RECORDS SUMMARY | 2024-06-01 17:42 | XMS_ITS | Clinical Summary ---
Author Organization [facility] Domenica donahue Erin Address [address] [place] [address] Care Team Providers Care Campaign Worker Name Role Phone Unavailable Primary Care Provider Unavailabl e Allergies Active Allergy Reactions Criticality Noted Date Comments Morphine Shortness of Breath/Wheezing High 03/21/2011 Reaction: SOB, , Sulfa (Sulfonamide Antibiotics) Rash Medium 07/31/2015 Reaction: RASH, , Medications amLODIPine (NORVASC) 10 mg tablet Take 10 mg by mouth daily. 01/17/2022 Active DULoxetine (CYMBALTA) 60 mg Capsule, Delayed Release(E.C.) Take 60 mg by mouth daily. 04/02/2024 Active ferrous sulfate 325 mg (65 mg iron) tablet Take 325 mg by mouth daily. 04/06/2024 Active levothyroxine 100 mcg tablet Take 100 mcg by mouth daily before breakfast. Active hydroxychloroqu ine (PLAQUENIL) 200 mg tablet Take 2 Tablets by mouth daily. 10/22/2022 Active losartan (COZAAR) 100 mg tablet Take 100 mg by mouth daily. Active cyanocobalamin 1,000 mcg Tablet Take 1,000 mcg by mouth daily. Active Active Problems No known active problems Encounters Date Type Department Care Team Description 06/01/2024 3:00 PM CDT Office Visit [facility] Oncology and Hematology - [place] [address] [place] [address] Domenic Campbell MD Chronic anemia (Primary Dx) from Last 3 Months Family History Medical History Relation Name Comments No Known Problems Brother 1 No Known Problems Brother 2 Heart Surgery Child 1 thincking of t he heart. passed at 25 No Known Problems Child 2 Hypertension Father Heart Disease Mother No Known Problems Sister Relation Name Status Comments Brother 1 Alive Brother 2 Alive Child 1 Child 2 Alive Father Alive Mother Alive Sister Alive Social History Tobacco Use Types Packs/Day Years Used Date Smoking Tobacco: Never Smokeless Tobacco: Never Alcohol Use Standard Drinks/Week Comments Never 0 (1 standard drink = 0.6 oz pur e alcohol) Comments Unknown Sex and Gender Information Value Date Recorded Sex Assigned at Not on file Legal Sex Female 9:35 PM CDT Gender Identity Not on file Sexual Orientation Not on file Last Filed Vital Signs Vital Sign Reading [...] Mass Index 39.25 06/01/2024 2:51 PM CDT Plan of Treatment Upcoming Encounters Date Type Department Care Team (Late st Contact Info) Description 06/09/2024 4:00 PM CDT Telephone Check Up [facility] Oncology and Hematology - [place] [address] [facility] [address] [place] [address] Domenic Campbell MD [address] [facility] [address] [place] [address] Health Maintenance Due Date Last Done Comments PAP SMEAR 1984 CERVICAL CANCER SCREENING 1993 HPV/Cotest 1993 PAP SMEAR 1993 COLORECTAL SCREENING 2008 Colorectal Cancer Screening 2008 FIT-DNA Q 3 years 2008 FIT/FOBT Q 1 year 2008 Flex Sig/CT Colonography Q 5 years 2008 ZOSTER VACCINE (2 of 3) 12/07/2015 10/12/2015, 04/06 BREAST CANCER SCREENING 04/12/2016 04/12/2015 INFLUENZA VACCINE (#1) 2023 0, 01/25/2016, 01/14/2015 Preventative Visit- Commercial 03/11/2024 DTAP/TDAP/TD VACCINES (2 - T d or Tdap) 01/07/2030 01/08/2020 RSV VACCINE (60+ or ) (1 - 1-dose 75+ series) [address] [facility] [id number]
--- OUTSIDE RECORDS SUMMARY | 2024-06-01 17:42 | XMS_ITS | Referral Summary ---
Author Organization [facility] Address [address] [place] [address] Care Team Providers Care Budder Name Role Phone Tayo Davis MD Primary Care Provider [phone] Henry Camp MD, [place] Unavailable [phone] Allergies Active Allergy Reactions Criticality Noted Date [...] 50,000 unit capsule 10/12/2015Vitamin D2, [place] solid [address] unit CapsulePOas directedCurrent Medication Active SYMBICORT 160-4.5 [...] OCT Assessment & Plan (02/08/2022 10:40 AM RECORDING STUDIO INTERNSHIP): Up to date on Eye exam. Last completed by Dr. Contreras ([facility]) on 01/25/22 without signs of retinal toxicity. [...] prn Assessment & Plan (02/08/2022 12:50 PM RECORDING STUDIO INTERNSHIP): Stable on HCQ. Continue same. Encourage daily use of biotene products (lozenge, mouth rinses) and also a trial of nasal saline gel product such as [place] gel. Can also try coconut oil swish [...] of nasal saline gel product such as [place] gel. Can also try coconut oil swish [...] PPV23 01/25/2016 Tdap 01/08/2020 ZOSTER LIVE 10/12/2015,04/06/2015 Social History Tobacco Use Types Packs/Day Years [...] on file Legal Sex Female 12:41 PM RECORDING STUDIO INTERNSHIP Gender Identity Female 09/29/2019 7:39 AM CDT Sexual Orientation Straight 09/29/2019 7: 39 AM CDT Last Filed Vital Signs Vital Sign Reading [...] 10/29/2022 1:37 PM CDT Plan of Treatment Not on file Procedures Procedure Name Priority Date/Time Associated Diagnosis Comments SCREENING MAMMOGRAM BILATERAL W JOSE Routine 04/12/2015 12:00 AM RECORDING STUDIO INTERNSHIP from Last 3 Months or Most Recently Relevant to Health Maintenance Results * Screening Mammogram Bilateral W Jose (04/12/2015 12:00 AM RECORDING STUDIO INTERNSHIP) Anatomical Region Laterality Modality Breast Bilateral Mammography 04/12/2015 3:40 PM RECORDING STUDIO INTERNSHIP Narrative 04/19/2015 10:05 AM RECORDING STUDIO INTERNSHIP - SCREENING MAMM W JOSE BI BILATERAL [...] be contacted by letter. Raisa Montano M.D. gsh/penrad:04/19/2015 08:25:06 letter sent: Normal Exam Mammogram BI-RADS: 2 Benign Radiologist: RAISA MONTANO MD Attending: NIMESH HURD M.D. Requesting: NIMESH HURD M.D. Requesting Requesting ID: [id number] Attending Attending ID: [id number] Completed Time: 04/12/2015 3:40 PM Dictated Time: N/A Transcribed Time: 04/19/2015 10:05 AM Signed by: RAISA MONTANO MD on 04/19/2015 10:05 AM Report To 1 ID: [id number] Report To 1 Name: EDIE HELLER Report [...] be contacted by letter. Raisa Montano M.D. gsh/penrad:04/19/2015 08:25:06 letter sent: Normal Exam Mammogram BI-RADS: 2 Benign Radiologist: RAISA MONTANO MD Attending: NIMESH HURD M.D. Requesting: NIMESH HURD M.D. Requesting Requesting ID: [id number] Attending Attending ID: [id number] Completed Time: 04/12/2015 3:40 PM Dictated Time: N/A Transcribed Time: 04/19/2015 10:05 AM Signed by: RAISA MONTANO MD on 04/19/2015 10:05 AM Report To 1 ID: [id number] Report To 1 Name: EDIE HELLER Report To 1 FAX: Report To 2 ID: Report To 2 Name: , Report To 2 FAX: Report To 3 ID: Report To 3 Name: , Report To 3 FAX: NextGen Order #: Historical Provider IMLeonidas MAMMO PROCEDURES Marva l Result from Last 3 Months or Most Recently Relevant to Health Maintenance Insurance [facility] PLUS [facility] PL[facility] PL[facility] Care Teams Budder Relationship Specialty Start Date End Date Tayo Davis MD PCP - General Family Practice 03/14/21 Salvador Figueroa Jr., MD Medical Oncologist/Executive Officer Special Warfare Team Medical Oncology 04/14/21
[2024-06-03 04:48] LABS: Protein, Total 7.2 g/dL (6.1-8.1)
[2024-06-03 20:14] LABS: Albumin 4.3 g/dL (3.8-4.8); Alpha 1 Globulin 0.3 g/dL (0.2-0.3); Alpha 2 Globulin 0.7 g/dL (0.5-0.9); Beta 1 Globulin 0.5 g/dL (0.4-0.6); Gamma Globulin 1.1 g/dL (0.8-1.7)
== END 2024-06-01 15:18 | disposition home or self-care (01) ==
LOC: ANHLAB 15:18
PROVIDERS: PCP Nurse Practitioner Adult Health; Visit Provider Internal Medicine Hematology & Oncology
DX: D64.9 Anemia, unspecified (principal)
CPT/HCPCS: 36415; 80053; 82607; 82728; 82746; 83540; 83550; 83921; 84155; 84165; 84238; 85025

== ENCOUNTER 2024-08-13 06:33 | Outpatient (CLI) | payer OTHER, SELFPAY ==
--- NOTE | 2024-08-07 14:00 | PC.NURSE ---
Pre Radiology instructions Report to the outpatient sivan mancuso on date _08/13/24____ at time _0700am for procedure Time: _0900am ___ YOU MAY BE MONITORED AT HOSPITAL FOR UP TO 4 HOURS AFTER YOUR PROCEDURE. A visitor will be allowed to accompany the patient into the hospital. You and your visitor will be asked to self-screen and do not enter if you have any COVID symptoms. A mask is OPTIONAL within the hospital. Patients are to have no food or drink 6 hours prior to procedure time Driving will be restricted after the procedure, you must have a person to drive you home. Labs will be drawn in preop area and once reviewed, you will be taken to radiology area for procedure. When the procedure is completed, you will be taken to outpatient where you will be monitored for several hours. You may have one visitor in this area. Other than holding anti-coagulants, patient may take other medication(s) as scheduled. Prior to your appointment date patients are instructed to hold anti-coagulants after discussing with ordering provider to stop. If unable to discontinue anti-coagulants please notify radiologist. ? No aspirin or warfarin (Coumadin) for 7 days prior to the procedure. ? No clopidogrel (Plavix), ticagrelor (Brilinta), prasugrel (Effient) or dabigatran (Pradaxa) for 5 days prior to the procedure. ? No rivaroxaban (Xarelto), apixaban (Eliquis), dipyridamole (Aggrenox or Persantine) or cilostazol (Pletal) for 2 days prior to the procedure. Medications to discontinue per physician: ____None ____ Date to take last dose: None Please leave all valuables, including medications, at home the day of procedure. The hospital will not accept responsibility for valuables. Wear comfortable, loose fitting clothing.? Follow any additional instructions given to you from ordering provider. Telephone instructions given to __Patient and asked if any additional questions and then verbalized understanding. Patient advised to call scheduling provider office or registration scheduling [phone] if any additional questions.
[2024-08-13] VITALS (8 sets, daily range): BP systolic 124–148; BP diastolic 60–75; PULSE 69–79; RESP 16–20; TEMP 36.8; O2SAT 97–100
--- NOTE | ~2024-08-13 | XR_ITS ---
EXAMINATION: XR myelogram spine lumbosacral DATE: 08/13/2024 10:22 INDICATION: Lumbar myelogram for lumbar radiculopathy TECHNIQUE: Informed consent was obtained from the patient. Risks and benefits including bleeding, i nfection, allergic reaction, nerve root injury and spinal headache were discussed with the patient. The patient agreed to proceed. Time out procedure was performed. Pile Driver fluoroscopic image was obtain ed. An entry site was chosen at the L4-L5 level. A central approach was used. Standard sterile pre p was done with Betadine. Entry site was infiltrated with 5 cc 1% lidocaine. A 5 22G spinal needle was then inserted into the spinal canal as demonstrated by spontaneous efflux of clear CSF. 17 mL O mnipaque 180 were then injected into the thecal sac with intermittent fecal administration confirmed with intermittent fluoroscopy. A total of 10 fluoroscopic images and one crosstable lateral radiograp h were obtained. The amount of fluoroscopy time used during this procedure was 0.7 minutes. Total DAP was 12.701 mGycm^2. The patient was then transferred to CT scan for spiral CT of the lumbar spine. Coronal and sagittal r eformatted images of the lumbar spine CT were also created. Automated exposure control and iterative reconstruction technique were employed. The dose-length product was 1006.19 mGy-cm. Following this pa tient was transferred to second surgical for 2 hours of observation. There are no immediate complica tions. COMPARISON: CT dated 03/24/2024 FINDINGS: 1-2 mm retrolisthesis L2 on L3 and 2 mm anterolisthesis L4 on L5. Vertebral body heights are normal. No fracture. Mild disc height loss at T11-T12, L2-L3 and L4-L5. 6 mm nonobstructing stone at a lower pole calyx of the left kidney. Paravertebral soft tissues are unremarkable. The following disc levels are specifically discussed: T11-T12: Disc is mildly bulging. There is mild bilateral facet joint osteoarthritis. There is minimal left neural foraminal stenosis. There is mild central canal stenosis. T12-L1: The disc does not extend beyond the endplate margin. There is mild bilateral facet joint oste oarthritis. There is mild right neural foraminal stenosis. There is no central canal stenosis. L1-L2: The disc does not extend beyond the endplate margin. There is mild bilateral facet joint osteo arthritis. There is no neural foraminal stenosis. There is no central canal stenosis. L2-L3: Disc is mildly bulging. There is mild right and minimal left facet joint osteoarthritis. There is mild bilateral neural foraminal stenosis. There is mild central canal stenosis. L3-L4: Disc is mildly bulging predominantly at the bilateral foraminal zones. There is mild right and minimal left facet joint osteoarthritis. There is mild bilateral neural foraminal stenosis. There is no central canal stenosis. L4-L5: Disc is bulging. There is hypertrophy of the ligamentum flavum. There is severe bilateral face t joint osteoarthritis. There is moderate bilateral neural foraminal stenosis. There is moderate cent ral canal stenosis with small amount of contrast dispersed amongst the centrally clustered nerve root s. L5-S1: Disc is mildly bulging predominantly at the bilateral foraminal zones. There is severe bilater al facet joint osteoarthritis. There is mild bilateral neural foraminal stenosis. There is no central canal stenosis. IMPRESSION: 1. Mild lumbar spondylosis most notable for moderate central canal and moderate bilateral neural fora jessie stenosis at L4-L5. 2. Nonobstructing 6 mm left renal stone. Reviewed, dictated and finalized at location A. IMPRESSION: 1. Mild lumbar spondylosis most notable for moderate central canal and moderate bilateral neural foraminal stenosis at L4-L5. 2. Nonobstructing 6 mm left renal stone.
--- OUTSIDE RECORDS SUMMARY | 2024-08-13 06:35 | XMS_ITS | Clinical Summary ---
Author Organization [facility] Domenica [facility] Address [address] [address] Care Team Providers Care Blanket Inspector Name Role Phone Unavailable Primary Care Provider [...] Encounters Date Type Department Care Team Description 07/30/2024 External Device Data STL ABSTRACTION Provider, Abstract 07/29/2024 External Device Data STL ABSTRACTION Provider, Abstract 07/28/2024 External Device Data STL ABSTRACTION Provider, Abstract 06/23/2024 External Device Data STL ABSTRACTION Provider, Abstract 06/16/2024 Abstract [facility] Oncology and Hematology - [place] [address] [place] [address] Domenic Campbell MD 06/09/2024 4:00 PM CDT Telephone Check Up [facility] Oncology and Hematology - [place] [address] [place] [address] Domenic Campbell MD Chronic anemia (Primary Dx) 06/08/2024 Orders Only [facility] Oncology and Hematology - [place] [address] [place] [address] Domenic Campbell MD 06/02/2024 External Device Data STL ABSTRACTION Provider, Abstract 06/02/2024 External Device Data STL ABSTRACTION Provider, Abstract 06/02/2024 Orders Only [facility] Oncology and Hematology - [place] [address] [place] [address] Domenic Campbell MD 06/02/2024 External Device Data STL ABSTRACTION Provider, Abstract 06/01/2024 3:00 PM CDT Office Visit [facility] Oncology and Hematology - [address] [place] [address] Domenic Campbell MD Chronic anemia (Primary Dx) [...] P M CDT Height 157.5 cm (5' 2) 06/01/2024 2:51 PM CDT Body Mass Index 39.25 06/01/2024 2:51 PM CDT Plan of Treatment Upcoming Encounters Date Type Department Care Team (Late st Contact Info) Description 10/13/2024 11:00 AM CDT Office Visit [facility] Oncology and Hematology - [place] [address] [facility] [address] [place] [address] Domenic Campbell MD [address] [facility] [address] [place] [address] Health Maintenance Due Date Last Done Comments Pre-Diabetes and Diabetes Screening 1963 HPV/Cotest (21-29) 1984 CERVICAL CANCER SCREENING 1993 HPV/Cotest (30-65) 1993 PAP SMEAR 1993 COLORECTAL SCREENING 2008 Colorectal Cancer Screening 2008 FIT-DNA Q 3 years 2008 FIT/FOBT Q 1 year 2008 Flex Sig/CT Colonography Q 5 years 2008 ZOSTER VACCINE (1 of 2) 12/07/2015 10/12/2015, 04/06 BREAST CANCER SCREENING 04/12/2016 04/12/2015 RSV VACCINE (60+ or ) (1 - Risk 60-74 years 1-dose series) 2023 INFLUENZA VACCINE (#1) 2023 0, 01/25/2016, 01/14/2015 DTAP/TDAP/TD VACCINES (2 - T d or Tdap) 01/07/2030 01/08/2020 Procedures Procedure Name Priority Date/Time Associated Diagnosis Comments COMPREHENSIVE METABOLIC PANEL Routine 06/01/2024 3:13 PM CDT COMPREHENSIVE METABOLIC PANEL Routine 06/01/2024 3:08 PM CDT TRANSFERRIN RECEPTOR TFR SOLUBLE Routine 06/01/2024 1:34 PM CDT from Last 3 Months Results * COMPREHENSIVE METABOLIC PANEL (06/01/2024 3:13 PM CDT) Only the most recent of2 resultswithin the time period is included. Blood Domenic Campbell MD CHEMISTRY ORDERABLES Final Resu lt * TRANSFERRIN RECEPTOR TFR SOLUBLE (06/01/2024 1:34 PM CDT) Blood Domenic Campbell MD CHEMISTRY ORDERABLES Final Resu lt from Last [address] [facility] [id number]
--- OUTSIDE RECORDS SUMMARY | 2024-08-13 06:35 | XMS_ITS | Continuity of Care Document ---
Author Organization [facility] Address [address] [place] [address] Phone Care Team Providers Care Rural Health Consultant Name Role Phone Jeaneth Mac MD Unavailable Unavailable Advance Directives Directive Yes / No Effective Date File Name No Information Encounters Encounter Description Practice Location Reason(s) For Visit Diagnoses Date Provider Providers Copied on Encounter [facility], [address], [place], [place], [id number], tel:[phone] [facility] No Information Bubba Eric. [facility], [id number], [place]. tel:[phone] Referring Provider: Garfield Perla, [address] [place] [address], [place], [address]. tel:[phone] Family History Family Member Type Diagnosis Age At Onset No Information Payers Payer name Insurance type Covered alliance party ID Authoriza tion(s) [employer] OPEN ACCESS HMO PPO POS CI [id number] Social History Type Description Quantity Date Captured [...]
--- OUTSIDE RECORDS SUMMARY | 2024-08-13 06:35 | XMS_ITS | Encounter Summary ---
Author Organization [facility] Address [address] [facility] [place] [address] Care Team Providers Care Classifier Operator Name Role Phone Garfield Perla MD Primary Care Provider [phone] Ghassan Luna DO Primary Care Provider Kaylynn Drake MD Unavailable + Tayo Davis MD Primary Care Provider [phone] Reason for Visit * Reason Onset Date Comments MEDICATION REFILL 06/21/2017 Encounter Details Date Type Department Care Team (Late st Contact Info) Description 06/21/2017 Refill [facility] [address] [address] Glendy Donnelly RN MEDICATION REFILL Social History Tobacco Use Types Packs/Day Years Used Date Smoking Tobacco: Never Smokeless Tobacco: Never Alcohol Use Standard Drinks/Week Comments No 0 (1 standard drink = 0.6 oz pur e alcohol) Comments Unknown Sex and Gender Information Value Date Recorded Sex Assigned at Female 03/21/2021 5:27 PM AIX SYSTEM ADMINISTRATOR Legal Sex Female 6:10 AM AIX SYSTEM ADMINISTRATOR Gender Identity Female 03/21/2021 5:27 PM AIX SYSTEM ADMINISTRATOR Sexual Orientation Straight 03/21/2021 5: 27 PM AIX SYSTEM ADMINISTRATOR documented as of this encounter Plan of Treatment Not on file documented as of this encounter Visit Diagnoses Not on filedocumented in this encounter Care Teams Classifier Operator Relationship Specialty Start Date End Date Garfield Perla MD [address] [place] [address]. [place] [address] PCP - General 03/21/11 03/05/18 Ghassna Luna DO [address] [facility] [address] [place] [address] PCP - General 03/06/18 12/25/20 Tayo Davis MD [address] [place] [phone] PCP - General 12/26/20 Kaylynn Drake MD [address] [facility] [address] [place] [address] Physician Rheumatology 10/07/18 documented as of this encounter
--- OUTSIDE RECORDS SUMMARY | 2024-08-13 06:35 | XMS_ITS | Clinical Summary ---
Author Organization [facility] Address [address] [place] [address] Care Team Providers Care Personal Care Worker Name Role Phone Tayo Davis MD Primary Care Provider [phone] Henry Camp MD, [place] Unavailable [phone] Allergies Active Allergy Reactions Criticality Noted Date [...] 50,000 unit capsule 10/12/2015Vitamin D2, [place] solid [address] unit CapsulePOas directedCurrent Medication Active SYMBICORT 160-4.5 [...] OCT Assessment & Plan (02/08/2022 10:40 AM HORSE TRADER): Up to date on Eye exam. Last completed by Dr. Contreras ([facility]) on 01/25/22 without signs of retinal toxicity. [...] prn Assessment & Plan (02/08/2022 12:50 PM HORSE TRADER): Stable on HCQ. Continue same. Encourage daily use of biotene products (lozenge, mouth rinses) and also a trial of nasal saline gel product such as [place] gel. Can also try coconut oil swish [...] of nasal saline gel product such as Aurora gel. Can also try coconut oil swish [...] on file Legal Sex Female 12:41 PM HORSE TRADER Gender Identity Female 09/29/2019 7:39 AM CDT [...] 1:37 PM CDT Height 154.9 cm (5' 1) 10/29/2022 1:37 PM CDT Body Mass Index [...] risk series) 07/12/2020 06/14/2020, 05/22/2020 Influenza Vaccine (Season Ended) 2024 01/02/2020, 01/25/2016, 10/12/2015, Additional history exists DTaP/Tdap/Td Vaccine (2 - Td or Tdap) 01/07/2030 01/08/2020 Procedures Procedure Name Priority Date/Time Associated Diagnosis Comments SCREENING MAMMOGRAM BILATERAL W JOSE Routine 04/12/2015 12:00 AM HORSE TRADER from Last 3 Months or Most Recently Relevant to Health Maintenance Results * Screening Mammogram Bilateral W Jose (04/12/2015 12:00 AM HORSE TRADER) Anatomical Region Laterality Modality Breast Bilateral Mammography 04/12/2015 3:40 PM HORSE TRADER Narrative 04/19/2015 10:05 AM HORSE TRADER - SCREENING MAMM W JOSE BI BILATERAL [...] be contacted by letter. Raisa Montano M.D. [facility]/penrad:04/19/2015 08:25:06 letter sent: Normal Exam Mammogram BI-RADS: 2 Benign Radiologist: RAISA MONTANO MD Attending: NIMESH HURD M.D. Requesting: NIMESH HURD M.D. Requesting Requesting ID: [id number] Attending Attending ID: [id number] Completed Time: 04/12/2015 3:40 PM Dictated Time: N/A Transcribed Time: 04/19/2015 10:05 AM Signed by: RAISA MONTANO MD on 04/19/2015 10:05 AM Report To 1 ID: [id number] Report To 1 Name: EDIE HELLER Report [...] be contacted by letter. Raisa Montano M.D. [facility]/penrad:04/19/2015 08:25:06 letter sent: Normal Exam Mammogram BI-RADS: 2 Benign Radiologist: RAISA MONTANO MD Attending: NIMESH HURD M.D. Requesting: NIMESH HURD M.D. Requesting Requesting ID: [id number] Attending Attending ID: [id number] Completed Time: 04/12/2015 3:40 PM Dictated Time: N/A Transcribed Time: 04/19/2015 10:05 AM Signed by: RAISA MONTANO MD on 04/19/2015 10:05 AM Report To 1 ID: [id number] Report To 1 Name: EDIE HELLER Report To 1 FAX: Report To 2 ID: Report To 2 Name: , Report To 2 FAX: Report To 3 ID: Report To 3 Name: , Report To 3 FAX: NextGen Order #: Historical Provider MD MOODY MAMMO PROCEDURES Marva l Result from Last 3 Months or Most Recently Relevant to Health Maintenance Insurance [facility] CHOICE PLUS [facility] CHOICE PLUS [facility] CHOICE PLUS [place] [id number] Care Teams Personal Care Worker Relationship Specialty Start Date End Date Tayo Davis MD PCP - General Family Practice 03/14/21 Salvador Figueroa Jr., MD Medical Oncologist/Electrical Power Station Technician Medical Oncology 04/14/21
--- OUTSIDE RECORDS SUMMARY | 2024-08-13 06:35 | XMS_ITS | Continuity of Care Document ---
Author Organization [facility] Address [address] [place] [address] Phone Care Team Providers Care Electric Motor Tester Assembler Name Role Phone Jana HICKEY, Alvaro Unavailable Unavailabl e Procedures Procedure Date RADEX ANKLE COMPL MINIMUM 3 VIEWS RADEX KNE COMPL 4/MORE VIEWS OFFICE/OUTPATIENT VISIT NEW Advance Directives Directive Yes / No Effective Date File Name No Information Encounters Encounter Description Practice Location Reason(s) For Visit Diagnoses Date Provider Providers Copied on Encounter OFFICE/OUTPAT IENT VISIT NEW [facility] , [address], [place], [address], [place] tel:[phone] [facility] Left ankle painLeft knee painPrimary osteoarthritis of left kneePrimary osteoarthritis of left ankle Nov- 5 Ghanshyam John. [address] [facility], [place], [place], [id number] . tel:[phone] Referring Provider: Garfield Escobar, [address] [facility], [place], [address]. tel:[phone] Family History Family Member Type Diagnosis Age [...]
--- OUTSIDE RECORDS SUMMARY | 2024-08-13 06:35 | XMS_ITS | Clinical Summary ---
Author Organization [facility] JW Player Address [address] [place] [address] Care Team Providers Care Media Job Titles Name Role Phone Kaylynn Drake MD Unavailable + Tayo Davis MD Primary Care Provider [phone] Source Comments [facility],non-owned Affiliates and Associated Physician Practices is amultiple site organization consisting of ambulatory clinics and hospital sitesin [place], [place], [place] and [place]. This disclosure is being madepursuant to the Care Everywhere program and may not contain all information available regarding this patient. Last updated 17.[facility] JW Player Allergies Active Allergy Reactions Criticality Noted Date Comments Codeine Rash Low 03/21/2011 Latex Rash Low 03/21/2011 Morphine Systemic 03/21/2011 Onion Nausea and/or Vomiting 10/07/2018 Sulfa Drugs Rash Low 03/21/2011 Medications * Be aware that medications may not be up to date on this document. Alwaysverify current medications with the patient. levothyroxine (SYNTHROID) 100 MCG tablet Take 100 mcg by mouth daily before breakfast. Active vitamin D, ergocalciferol, (DRISDOL) 08517 UNIT capsuleIndications:Vit phan d deficiency Take 1 Cap by mouth every 7 days. 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,retirement 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,Chronic pain of both knees Take 1 tablet by mouth once daily 5 06/22/19 18 Active CALCIUM CITRATE-VITAMIN D POIndications:Sjogren' s syndrome, with unspecified organ involvement (HCC),Other forms of systemic lupus erythematosus, unspecified organ involvement status (HCC),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,retirement 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,Chronic pain of both knees Take 1 tablet by mouth once daily Active Cyanocobalamin (VITAMIN B 12 PO)Indications:Sjogren 's syndrome, with unspecified organ involvement (HCC),Other forms of systemic lupus erythematosus, unspecified organ involvement status (HCC),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,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,Chronic pain of both knees Take 1 tablet by mouth once daily Active Multiple Vitamins-Minerals (CENTRUM SILVER 50+WOMEN PO)Indications:Sjogren 's syndrome, with unspecified organ involvement (HCC),Other forms of systemic lupus erythematosus, unspecified organ involvement status (HCC),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,retirement 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,Chronic pain of both knees Take 1 tablet by mouth once daily Active traMADol (ULTRAM) 50 MG tabletIndications:Sjog barbara's syndrome, with unspecified organ involvement (HCC),Other forms of systemic lupus erythematosus, unspecified organ involvement status (HCC),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,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 30 day supply. 60 g 2 12/04/19 18 Active losartan - hydroCHLOROthiazide (HYZAAR) 50-12.5 MG tablet TK 1 T PO D 12/23/19 20 Active albuterol HFA (PROVENTIL;VENTOLIN;UT OAIR) 108 (90 Base) MCG/ACT inhaler Inhale 1 puff by mouth every 4 hours as needed for Shortness of Breath or Wheezing 11/30/19 20 Active benzonatate (TESSALON) 100 MG capsule TK 2 CS PO TID PRN COU 11/30/19 20 Active SYMBICORT 160-4.5 MCG/ACT inhaler INL 2 PFS PO Q 12 H 12/28/19 20 Active doxepin (SINEQUAN) 25 MG capsule TK 1 TO 2 CS PO HS PRN 12/22/19 20 Active famotidine (PEPCID) 20 MG tablet Take 20 mg by mouth 2 times daily 09/03/19 20 Active lisinopril-hydroCHLORO thiazide (PRINZIDE; ZESTORETIC) 10-12.5 MG tablet Take 1 tablet by mouth 2 times daily 08/22/19 20 Active mupirocin (BACTROBAN) 2 % ointment APPLY TOPICALLY TO THE PAINFUL AREA OF THE SCALP THREE TIMES DAILY 02/23/20 20 Active hydroxychloroquine (PLAQUENIL) 200 MG tablet Take 200 mg by mouth 2 times daily 04/26/19 21 Active hydrOXYzine hcl (ATARAX) 25 MG tablet TAKE 1 TO 2 TABLETS BY MOUTH AT NIGHT NEEDED 03/10/20 20 Active doxycycline hyclate (VIBRAMYCIN) 100 MG capsule Take 100 mg by mouth 2 times daily 09/08/19 21 Active DULoxetine (CYMBALTA) 60 MG capsule 12/08/19 21 Active meloxicam (MOBIC) 15 MG tablet TAKE 1 TABLET BY MOUTH DAILY 09/07/19 21 Active potassium chloride ER (KLOR-CON M) 20 MEQ tablet 08/25/19 21 Active polyethyl glycol-propyl glycol (SYSTANE) 0.4-0.3 % ophth solution Instill 1 drop into both eyes 4 times daily as needed for Dry Eyes Active Restasis 0.05 % ophthalmic suspension Instill 1 (one) drop into both eyes 2 times daily 180 Each 3 01/27/20 22 Active Active Problems Problem Noted Date Diagnosed Date Anemia 04/14/2021 Left ankle pain 06/28/2020 Left knee pain 06/28/2020 Primary osteoarthritis of left ankle 06/28/2020 Nuclear age-related cataract, both eyes 06/29/19 21 Dry eye syndrome of both eyes 06/28/2020 [...] = 0.6 oz pur e alcohol) Comments No Sex and Gender Information Value Date Recorded Sex Assigned at Female 03/21/2021 5:27 PM PRESCHOOL PROGRAM DIRECTOR Legal Sex Female 6:10 AM PRESCHOOL PROGRAM DIRECTOR Gender Identity Female 03/21/2021 5:27 PM PRESCHOOL PROGRAM DIRECTOR Sexual Orientation Straight 03/21/2021 5: 27 PM PRESCHOOL PROGRAM DIRECTOR Last Filed Vital Signs Vital Sign Reading Time Taken Comments Blood Pressure 170/110 04/09/2019 8:54 AM PRESCHOOL PROGRAM DIRECTOR Pulse 99 04/09/2019 8:54 AM PRESCHOOL PROGRAM DIRECTOR Temperature 36.7 C (98 F) 04/09/2019 8:54 AM PRESCHOOL PROGRAM DIRECTOR Respiratory Rate 22 04/09/2019 8:54 AM PRESCHOOL PROGRAM DIRECTOR Oxygen Saturation 97% 04/09/2019 8:54 AM PRESCHOOL PROGRAM DIRECTOR Inhaled Oxygen Concentration - - Weight 103.9 kg (229 lb) 01/03/2021 9:57 AM CDT Height 157.5 cm (5' 2) 04/09/2019 8:54 AM PRESCHOOL PROGRAM DIRECTOR Body Mass Index 41.88 04/09/2019 8:54 AM PRESCHOOL PROGRAM DIRECTOR Plan of Treatment Health Maintenance Due Date [...] COVID-19 VACCINE (1 - 2023- season) 2023 DEPRESSION SCREENING 03/11/2024 INFLUENZA VACCINE (Season Ended) 2024 01/02/2020, 01/25/2016, 10/12/2015, Additional history exists HEPATITIS C SCREENING Completed 05/02/2017, 016 HEPATITIS [...] HEPATITIS SCREEN ACUTE Routine 05/02/2017 3:08 PM PRESCHOOL PROGRAM DIRECTOR LIPID PROFILE Routine 03/21/2011 3:55 PM PRESCHOOL PROGRAM DIRECTOR from Last 3 Months or Most Recently Relevant to Health Maintenance Results * HEPATITIS SCREEN ACUTE (05/02/2017 3:08 PM PRESCHOOL PROGRAM DIRECTOR) Hepatitis A Virus Antibody IgM NON-REACTI VE NON-REACT [facility]) Hepatitis B Virus Surface Antigen NON-REACTI VE NON-REACT [facility]) Hepatitis B Core Virus Antibody IgM NON-REACTI VE NON-REACT [facility]) Hepatitis C Antibody NON-REACTI VE NON-REACT [facility]) Signal/Cutoff 0.02 <1.00 [facility] ([facility]) Comment: Test Performed at: [facility] [id number] [place] [id number] ITALO MADRID DO,MPH Blood specimen (specimen) BLOOD SPECIMEN / Unknown 05/02/2017 3:08 PM PRESCHOOL PROGRAM DIRECTOR 05/02/2017 3:09 PM PRESCHOOL PROGRAM DIRECTOR us Hedy Kern MD LAB - CHEMISTRY ORDERABLES Final Result Performing Organization Address City/[facility]/ZIP Co de Phone Number [facility] ([facility]) [address] * LIPID PROFILE (03/21/2011 3:55 PM PRESCHOOL PROGRAM DIRECTOR) Cholesterol 178 <200 mg/dl [facility] Triglycerides 79 10 - 210 mg/dl [facility] HDL Cholesterol 62 >40 mg/dl [facility] LDL Calculated 100 mg/dl [facility] Chol HDL Ratio 2.87 [facility] Comment Lipid [facility] Comment: Risk Classification HDL CHOL LDL CHOL TOTAL CHOL According to NCEP (mg/dl) (mg/dL) (mg/dl) Desirable >40 <130 < 200 Borderline/High - 130-159 200-239 High - >159 > 239 The total cholesterol to HDL cholesterol ratio may be used to predict risk for coronary heart disease in untreated patients according to data reported from the [place] Study by Italo Delgado M.D. The predictive [...] BLOOD SPECIMEN / Unknown 03/21/2011 3:55 PM PRESCHOOL PROGRAM DIRECTOR 03/21/2011 4:06 PM PRESCHOOL PROGRAM DIRECTOR us Marcus Levi MD LAB - CHEMISTRY ORDERABLE S Final Result Performing Organization Address City/[facility]/ZIP Co de Phone Number [facility] [address] [place] [address] from Last 3 Months or Most Recently Relevant to Health Maintenance Insurance [facility] Address: [place] [address] [facility] Care Teams Media Job Titles Relationship Specialty Start Date End Date Tayo Davis MD [address] [place] [id number] PCP - General 12/26/20 Kaylynn Drake MD Physician Rheumatology 10/07/18
--- OUTSIDE RECORDS SUMMARY | 2024-08-13 06:35 | XMS_ITS | Referral Summary ---
Author Organization [facility] Address [address] [place] [address] Care Team Providers Care Fur Dry Cleaner Name Role Phone Tayo Davis MD Primary Care Provider [phone] Henry Camp MD, Salvador Unavailable [phone] Allergies Active Allergy Reactions Criticality Noted Date [...] 50,000 unit capsule 10/12/2015Vitamin D2, [place] solid [address] unit CapsulePOas directedCurrent Medication Active SYMBICORT 160-4.5 [...] OCT Assessment & Plan (02/08/2022 10:40 AM NAIL CUTTER): Up to date on Eye exam. Last completed by Dr. Contreras ([facility]) on 01/25/22 without signs of retinal toxicity. [...] prn Assessment & Plan (02/08/2022 12:50 PM NAIL CUTTER): Stable on HCQ. Continue same. Encourage daily use of biotene products (lozenge, mouth rinses) and also a trial of nasal saline gel product such as [place] gel. Can also try coconut oil swish [...] of nasal saline gel product such as [place] gel. Can also try coconut oil swish [...] on file Legal Sex Female 12:41 PM NAIL CUTTER Gender Identity Female 09/29/2019 7:39 AM CDT [...] BILATERAL W JOSE Routine 04/12/2015 12:00 AM NAIL CUTTER from Last 3 Months or Most Recently Relevant to Health Maintenance Results * Screening Mammogram Bilateral W Jose (04/12/2015 12:00 AM NAIL CUTTER) Anatomical Region Laterality Modality Breast Bilateral Mammography 04/12/2015 3:40 PM NAIL CUTTER Narrative 04/19/2015 10:05 AM NAIL CUTTER - SCREENING MAMM W JOSE BI BILATERAL [...] Requesting: NIMESH HURD M.D. Requesting Requesting ID: [id number] Attending Attending ID: [id number] Completed Time: 04/12/2015 3:40 PM Dictated Time: N/A Transcribed Time: 04/19/2015 10:05 AM Signed by: RAISA MONTANO MD on 04/19/2015 10:05 AM Report To 1 ID: [id number] Report To 1 Name: EDIE HELLER Report [...] Requesting: NIMESH HURD M.D. Requesting Requesting ID: [id number] Attending Attending ID: [id number] Completed Time: 04/12/2015 3:40 PM Dictated Time: N/A Transcribed Time: 04/19/2015 10:05 AM Signed by: RAISA MONTANO MD on 04/19/2015 10:05 AM Report To 1 ID: [id number] Report To 1 Name: EDIE HELLER Report To 1 FAX: Report To 2 ID: Report To 2 Name: , Report To 2 FAX: Report To 3 ID: Report To 3 Name: , Report To 3 FAX: NextGen Order #: Historical Provider IMLeonidas MAMMO PROCEDURES Marva l Result from Last 3 Months or Most Recently Relevant to Health Maintenance Insurance [facility] [facility]/PPO Address: [place] [address] [facility]O [place] [address] [facility] CHOICE [facility] HMO/PPO Address: [place] [address] Care Teams Fur Dry Cleaner Relationship Specialty Start Date End Date Tayo Davis MD PCP - General Family Practice 03/14/21 Salvador Figueroa Jr., MD Medical Oncologist/Supervisor [employer] Medical Oncology 04/14/21
[2024-08-13 07:39] LABS: Mean Platelet Volume 9.8 fl (7.4-10.4); Platelet Count Result 181 k/mm3 (150-375)
[2024-08-13 08:06] LABS: Prothrombin Time 13.1 Seconds (11.1-14.7)
--- NOTE | 2024-08-13 10:47 | SUR.PHASEI ---
Dr. Goetz notified by this RN of patient complaining of a very bad headache. No blurred vision or neuro status change noted. See new medication order.
[2024-08-13] MEDS: ACETAMINOPHEN 325 MG TABLET 650 MG PO (11:07)
--- NOTE | 2024-08-13 12:30 | SUR.PHASEII ---
Dr. Goetz at bedside to assess patient and answer questions. OK to d/c per .
== END 2024-08-13 12:44 | disposition home or self-care (01) ==
PROVIDERS: PCP Nurse Practitioner Adult Health; Visit Provider Radiology Diagnostic Radiology
PROC: (CPT 62292; principal; 2024-08-13 09:00)
DX: M43.06 Spondylolysis, lumbar region (principal); M48.061 Spinal stenosis, lumbar region without neurogenic claudication; N20.0 Calculus of kidney
CPT/HCPCS: 62292; 36415; 62304; 72132; 85049; 85610; A9270

== ENCOUNTER 2024-08-17 05:51 | Day surgery (SDC) | payer OTHER, SELFPAY ==
--- NOTE | ~2024-08-17 | XR_ITS ---
EXAMINATION: XR fluoroscopy no charge DATE: 08/17/2024 7:25 CDT INDICATION: WAGNER INTRA-ARTICULAR SI STEROID JT INJ . TECHNIQUE: 8 fluoroscopic images of the SI joints were obtained during bilateral intra-articular SI j oint steroid injections, performed by Boaz Gerardo MD. I was not present during the procedure. Fl uoroscopy exposure time was 52.3 seconds. Air Kerma 14.65 mGy. COMPARISON: None FINDINGS/IMPRESSION: Fluoroscopic documentation of bilateral intra-articular SI joint steroid injections. Please refer to the operative note for complete procedural details . Reviewed, dictated and finalized at location K.
--- OUTSIDE RECORDS SUMMARY | 2024-08-17 06:35 | XMS_ITS | Continuity of Care Document ---
Author Organization [facility] Address [address] [place] [address] Phone Care Team Providers Care Supply Coordinator Name Role Phone Jana HICKEY, Alvaro Unavailable Unavailabl e Procedures Procedure Date RADEX ANKLE COMPL MINIMUM 3 VIEWS RADEX KNE COMPL 4/MORE VIEWS OFFICE/OUTPATIENT VISIT NEW Advance Directives Directive Yes / No Effective Date File Name No Information Encounters Encounter Description Practice Location Reason(s) For Visit Diagnoses Date Provider Providers Copied on Encounter OFFICE/OUTPAT IENT VISIT NEW [facility] , [address], [place], [address], [place] tel:[phone] [facility] Left ankle painLeft knee painPrimary osteoarthritis of left kneePrimary osteoarthritis of left ankle Nov- 5 Ghanshyam John. [address] [facility], [place], [place], [id number] . tel:[phone] Referring Provider: Garfield Escobar, [address] [facility], [place], [address]. tel:[phone] Family History Family Member Type Diagnosis Age At Onset No Information Payers Payer name Insurance type Covered democrat ID Authoriza tion(s) No Information Social History [...]
--- OUTSIDE RECORDS SUMMARY | 2024-08-17 06:35 | XMS_ITS | Clinical Summary ---
Author Organization [facility] Address [address] [place] [address] Care Team Providers Care Bottle Washer Machine Name Role Phone Kaylynn Drake MD Unavailable + Tayo Davis MD Primary Care Provider [phone] Source Comments [facility],non-owned Affiliates and Associated Physician Practices is amultiple site organization consisting of ambulatory clinics and hospital sitesin [place], [place], [place] and [place]. This disclosure is being madepursuant to the Care Everywhere program and may not contain all information available regarding this patient. Last updated 17.[facility] Allergies Active Allergy Reactions Criticality Noted Date [...] before breakfast. Active vitamin D, ergocalciferol, (DRISDOL) 04813 UNIT capsuleIndications:Vit phan d deficiency Take 1 Cap by mouth every 7 days. 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,Chronic pain of both knees Take 1 tablet by mouth once daily 5 06/22/19 18 Active CALCIUM CITRATE-VITAMIN D POIndications:Sjogren' s syndrome, with unspecified organ involvement (HCC),Other forms of systemic lupus erythematosus, unspecified organ involvement status (HCC),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,senior care 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,Chronic pain of both knees Take 1 tablet by mouth once daily Active Cyanocobalamin (VITAMIN B 12 PO)Indications:Sjogren 's syndrome, with unspecified organ involvement (HCC),Other forms of systemic lupus erythematosus, unspecified organ involvement status (HCC),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,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,Chronic pain of both knees Take 1 tablet by mouth once daily Active Multiple Vitamins-Minerals (CENTRUM SILVER 50+WOMEN PO)Indications:Sjogren 's syndrome, with unspecified organ involvement (HCC),Other forms of systemic lupus erythematosus, unspecified organ involvement status (HCC),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,senior care 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,Chronic pain of both knees Take 1 tablet by mouth once daily Active traMADol (ULTRAM) 50 MG tabletIndications:Sjog barbara's syndrome, with unspecified organ involvement (HCC),Other forms of systemic lupus erythematosus, unspecified organ involvement status (HCC),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,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 30 day supply. 60 g 2 12/04/19 18 Active losartan - hydroCHLOROthiazide (HYZAAR) 50-12.5 MG tablet TK 1 T PO D 12/23/19 20 Active albuterol HFA (PROVENTIL;VENTOLIN;VT OAIR) 108 (90 Base) MCG/ACT inhaler Inhale [...] Sex Assigned at Female 03/21/2021 5:27 PM SELF PROPELLED MINING MACHINE OPERATOR Legal Sex Female 6:10 AM SELF PROPELLED MINING MACHINE OPERATOR Gender Identity Female 03/21/2021 5:27 PM SELF PROPELLED MINING MACHINE OPERATOR Sexual Orientation Straight 03/21/2021 5: 27 PM SELF PROPELLED MINING MACHINE OPERATOR Last Filed Vital Signs Vital Sign Reading Time Taken Comments Blood Pressure 170/110 04/09/2019 8:54 AM SELF PROPELLED MINING MACHINE OPERATOR Pulse 99 04/09/2019 8:54 AM SELF PROPELLED MINING MACHINE OPERATOR Temperature 36.7 C (98 F) 04/09/2019 8:54 AM SELF PROPELLED MINING MACHINE OPERATOR Respiratory Rate 22 04/09/2019 8:54 AM SELF PROPELLED MINING MACHINE OPERATOR Oxygen Saturation 97% 04/09/2019 8:54 AM SELF PROPELLED MINING MACHINE OPERATOR Inhaled Oxygen Concentration - - Weight 103.9 kg (229 lb) 01/03/2021 9:57 AM CDT Height 157.5 cm (5' 2) 04/09/2019 8:54 AM SELF PROPELLED MINING MACHINE OPERATOR Body Mass Index 41.88 04/09/2019 8:54 AM SELF PROPELLED MINING MACHINE OPERATOR Plan of Treatment Health Maintenance Due Date [...] HEPATITIS SCREEN ACUTE Routine 05/02/2017 3:08 PM SELF PROPELLED MINING MACHINE OPERATOR LIPID PROFILE Routine 03/21/2011 3:55 PM SELF PROPELLED MINING MACHINE OPERATOR from Last 3 Months or Most Recently Relevant to Health Maintenance Results * HEPATITIS SCREEN ACUTE (05/02/2017 3:08 PM SELF PROPELLED MINING MACHINE OPERATOR) Hepatitis A Virus Antibody IgM NON-REACTI VE NON-REACT [facility] ([facility]) Hepatitis B Virus Surface Antigen NON-REACTI VE NON-REACT [facility] ([facility]) Hepatitis B Core Virus Antibody IgM NON-REACTI VE NON-REACT [facility] ([facility]) Hepatitis C Antibody NON-REACTI VE NON-REACT [facility] ([facility]) Signal/Cutoff 0.02 <1.00 [facility] ([facility]) Comment: Test Performed at: [facility] [address] [place] [address] ITALO MADRID DO,MPH Blood specimen (specimen) BLOOD SPECIMEN / Unknown 05/02/2017 3:08 PM SELF PROPELLED MINING MACHINE OPERATOR 05/02/2017 3:09 PM SELF PROPELLED MINING MACHINE OPERATOR us Hedy Kern MD LAB - CHEMISTRY ORDERABLES Final Result Performing Organization Address City/[facility]/ZIP Co de Phone Number HERVE ([facility]) [address] * LIPID PROFILE (03/21/2011 3:55 PM SELF PROPELLED MINING MACHINE OPERATOR) Cholesterol 178 <200 mg/dl [facility] Triglycerides 79 10 - 210 mg/dl [facility] HDL Cholesterol 62 >40 mg/dl [facility] LDL Calculated 100 mg/dl [facility] Chol HDL Ratio 2.87 [facility] Comment Lipid [facility] Comment: Risk Classification HDL CHOL LDL CHOL TOTAL CHOL According to NCEP (mg/dl) (mg/dL) (mg/dl) Desirable >40 <130 < 200 Borderline/High - 130-159 200-239 High - >159 > 239 The total cholesterol to HDL cholesterol ratio may be used to predict risk for coronary heart disease in untreated patients according to data reported from the [place] Study by Italo Delgado M.D. The predictive [...] BLOOD SPECIMEN / Unknown 03/21/2011 3:55 PM SELF PROPELLED MINING MACHINE OPERATOR 03/21/2011 4:06 PM SELF PROPELLED MINING MACHINE OPERATOR us Marcus Levi MD LAB - CHEMISTRY ORDERABLE S Final Result Performing Organization Address City/[facility]/ZIP Co de Phone Number [facility] [address] [place] [address] from Last 3 Months or Most Recently Relevant to Health Maintenance Insurance [facility] Care Teams Bottle Washer Machine Relationship Specialty Start Date End Date Tayo Davis MD [address] [place] [id number] PCP - General 12/26/20 Kaylynn Drake MD Physician Rheumatology 10/07/18
--- OUTSIDE RECORDS SUMMARY | 2024-08-17 06:35 | XMS_ITS | Clinical Summary ---
Author Organization [facility] Domenica godfrey [facility] Address [address] [address] Care Team Providers Care Server Cashier Name Role Phone Unavailable Primary Care Provider [...] Data STL ABSTRACTION Provider, Abstract 06/16/2024 Abstract [facility] Oncology and Hematology - [place] [address] [place] [address] Domenic Campbell MD 06/09/2024 4:00 PM CDT Telephone Check Up [facility] Oncology and Hematology - [place] [address] [place] [address] Domenic Campbell MD Chronic anemia (Primary Dx) 06/08/2024 Orders Only [facility] Oncology and Hematology - [place] [address] [place] [address] Domenic Campbell MD 06/02/2024 External Device Data STL ABSTRACTION Provider, Abstract 06/02/2024 External Device Data STL ABSTRACTION Provider, Abstract 06/02/2024 Orders Only [facility] Oncology and Hematology - [place] [address] [place] [address] Domenic Campbell MD 06/02/2024 External Device Data STL ABSTRACTION Provider, Abstract 06/01/2024 3:00 PM CDT Office Visit [facility] Oncology and Hematology - [address] [place] [address] Domenic Campbell MD Chronic anemia (Primary Dx) [...] Description 10/13/2024 11:00 AM CDT Office Visit [facility] Oncology and Hematology - [place] [address] [facility] [address] [place] [address] Domenic Campbell MD [address] [place] [address] Health Maintenance Due Date Last [...] Resu lt from Last 3 Months Insurance [facility] [id number]
--- OUTSIDE RECORDS SUMMARY | 2024-08-17 06:35 | XMS_ITS | Encounter Summary ---
Author Organization [facility] Address [address] [place] [address] Care Team Providers Care Creosoting Engineer Name Role Phone Garfield Perla MD Primary Care Provider [phone] Ghassan Luna DO Primary Care Provider [phone] Kaylynn Drake MD Unavailable + Tayo Davis MD Primary Care Provider [phone] Reason for Visit * Reason Onset Date Comments MEDICATION REFILL 06/21/2017 Encounter Details Date Type Department Care Team (Late st Contact Info) Description 06/21/2017 Refill [facility] [address] [address] Glendy Donnelly RN MEDICATION REFILL Social History Tobacco Use Types Packs/Day Years Used Date Smoking Tobacco: Never Smokeless Tobacco: Never Alcohol Use Standard Drinks/Week Comments No 0 (1 standard drink = 0.6 oz pur e alcohol) Comments Unknown Sex and Gender Information Value Date Recorded Sex Assigned at Female 03/21/2021 5:27 PM SALES STOCK ASSOCIATE Legal Sex Female 6:10 AM SALES STOCK ASSOCIATE Gender Identity Female 03/21/2021 5:27 PM SALES STOCK ASSOCIATE Sexual Orientation Straight 03/21/2021 5: 27 PM SALES STOCK ASSOCIATE documented as of this encounter Plan of Treatment Not on file documented as of this encounter Visit Diagnoses Not on filedocumented in this encounter Care Teams Creosoting Engineer Relationship Specialty Start Date End Date Garfield Perla MD [address] [place] [address]. [place] [address] PCP - General 03/21/11 03/05/18 Ghassan Luna DO [address] [facility] [address] [place] [address] PCP - General 03/06/18 12/25/20 Tayo Davis MD [address] [place] [id number] PCP - General 12/26/20 Kaylynn Drake MD [address] [facility] [address] [place] [address] Physician Rheumatology 10/07/18 documented as of this encounter
--- OUTSIDE RECORDS SUMMARY | 2024-08-17 06:35 | XMS_ITS | Continuity of Care Document ---
Author Organization [facility] Address [address] [place] [address] Phone Care Team Providers Care Science Consultant Name Role Phone Jeaneth Mac MD Unavailable Unavailable Advance Directives Directive Yes / No Effective Date File Name No Information Encounters Encounter Description Practice Location Reason(s) For Visit Diagnoses Date Provider Providers Copied on Encounter [employer], [address], [place], [place], [id number], tel:[phone] [facility] No Information Bubba Eric. [facility], [id number], [place]. tel:[phone] Referring Provider: Garfield Perla, [address] [place] [address], [place], [address]. tel:[phone] Family History Family Member Type Diagnosis Age At Onset No Information Payers Payer name Insurance type Covered republican ID Authoriza tion(s) [employer] OPEN ACCESS HMO PPO POS CI [id number] Social History Type Description Quantity Date Captured [...]
--- OUTSIDE RECORDS SUMMARY | 2024-08-17 06:35 | XMS_ITS | Referral Summary ---
Author Organization [facility] Address [address] [place] [address] Care Team Providers Care Cooking Teacher Name Role Phone Tayo Davis MD Primary Care Provider [phone] Henry Camp MD, [place] Unavailable [phone] Allergies Active Allergy Reactions Criticality Noted Date [...] 50,000 unit capsule 10/12/2015Vitamin D2, [place] solid [address] unit CapsulePOas directedCurrent Medication Active SYMBICORT 160-4.5 [...] OCT Assessment & Plan (02/08/2022 10:40 AM RN PACU): Up to date on Eye exam. Last completed by Dr. Contreras ([facility]) on 01/25/22 without signs of retinal [...] prn Assessment & Plan (02/08/2022 12:50 PM RN PACU): Stable on HCQ. Continue same. Encourage daily use of biotene products (lozenge, mouth rinses) and also a trial of nasal saline gel product such as [place] gel. Can also try coconut oil swish [...] of nasal saline gel product such as [place] gel. Can also try coconut oil swish [...] on file Legal Sex Female 12:41 PM RN PACU Gender Identity Female 09/29/2019 7:39 AM CDT [...] BILATERAL W JOSE Routine 04/12/2015 12:00 AM RN PACU from Last 3 Months or Most Recently Relevant to Health Maintenance Results * Screening Mammogram Bilateral W Jose (04/12/2015 12:00 AM RN PACU) Anatomical Region Laterality Modality Breast Bilateral Mammography 04/12/2015 3:40 PM RN PACU Narrative 04/19/2015 10:05 AM RN PACU - SCREENING MAMM W JOSE BI BILATERAL [...] Requesting: NIMESH HURD M.D. Requesting Requesting ID: [id number] Attending Attending ID: [id number] Completed Time: 04/12/2015 3:40 PM Dictated Time: N/A Transcribed Time: 04/19/2015 10:05 AM Signed by: RAISA MONTANO MD on 04/19/2015 10:05 AM Report To 1 ID: [id number] Report To 1 Name: EDIE HELLER Report [...] Requesting: NIMESH HURD M.D. Requesting Requesting ID: [id number] Attending Attending ID: [id number] Completed Time: 04/12/2015 3:40 PM Dictated Time: N/A Transcribed Time: 04/19/2015 10:05 AM Signed by: RAISA MONTANO MD on 04/19/2015 10:05 AM Report To 1 ID: [id number] Report To 1 Name: EDIE HELLER Report To 1 FAX: Report To 2 ID: Report To 2 Name: , Report To 2 FAX: Report To 3 ID: Report To 3 Name: , Report To 3 FAX: NextGen Order #: Historical Provider IMLeonidas MAMMO PROCEDURES Marva l Result from Last 3 Months or Most Recently Relevant to Health Maintenance Insurance [facility] Address: [place] [address] [facility] [place] [address] [facility]/PPO Address: [place] [address] Care Teams Cooking Teacher Relationship Specialty Start Date End Date Tayo Davis MD PCP - General Family Practice 03/14/21 [place] Figueroa Jr., MD Medical Oncologist/Material Loader Medical Oncology 04/14/21
--- OUTSIDE RECORDS SUMMARY | 2024-08-17 06:35 | XMS_ITS | Clinical Summary ---
Author Organization [facility] Address [address] [place] [address] Care Team Providers Care Varnisher Apprentice Name Role Phone Tayo Davis MD Primary Care Provider [phone] Henry Camp MD, [place] Unavailable [phone] Allergies Active Allergy Reactions Criticality Noted Date [...] 50,000 unit capsule 10/12/2015Vitamin D2, [place] solid [address] unit CapsulePOas directedCurrent Medication Active SYMBICORT 160-4.5 [...] OCT Assessment & Plan (02/08/2022 10:40 AM PROCESSING MANAGER): Up to date on Eye exam. Last completed by Dr. Contreras ([facility]) on 01/25/22 without signs of retinal [...] prn Assessment & Plan (02/08/2022 12:50 PM PROCESSING MANAGER): Stable on HCQ. Continue same. Encourage daily use of biotene products (lozenge, mouth rinses) and also a trial of nasal saline gel product such as [place] gel. Can also try coconut oil swish [...] of nasal saline gel product such as [place] gel. Can also try coconut oil swish [...] on file Legal Sex Female 12:41 PM PROCESSING MANAGER Gender Identity Female 09/29/2019 7:39 AM CDT [...] BILATERAL W JOSE Routine 04/12/2015 12:00 AM PROCESSING MANAGER from Last 3 Months or Most Recently Relevant to Health Maintenance Results * Screening Mammogram Bilateral W Jose (04/12/2015 12:00 AM PROCESSING MANAGER) Anatomical Region Laterality Modality Breast Bilateral Mammography 04/12/2015 3:40 PM PROCESSING MANAGER Narrative 04/19/2015 10:05 AM PROCESSING MANAGER - SCREENING MAMM W JOSE BI BILATERAL [...] be contacted by letter. Raisa Montano M.D. [facility]:04/19/2015 08:25:06 letter sent: Normal Exam Mammogram BI-RADS: 2 Benign Radiologist: RAISA MONTANO MD Attending: NIMESH HURD M.D. Requesting: NIMESH HURD M.D. Requesting Requesting ID: [id number] Attending Attending ID: [id number] Completed Time: 04/12/2015 3:40 PM Dictated Time: N/A Transcribed Time: 04/19/2015 10:05 AM Signed by: RAISA MONTANO MD on 04/19/2015 10:05 AM Report To 1 ID: [id number] Report To 1 Name: EDIE HELLER Report [...] be contacted by letter. Raisa Montano M.D. [facility]:04/19/2015 08:25:06 letter sent: Normal Exam Mammogram BI-RADS: 2 Benign Radiologist: RAISA MONTANO MD Attending: NIMESH HURD M.D. Requesting: NIMESH HURD M.D. Requesting Requesting ID: [id number] Attending Attending ID: [id number] Completed Time: 04/12/2015 3:40 PM Dictated Time: N/A Transcribed Time: 04/19/2015 10:05 AM Signed by: RAISA MONTANO MD on 04/19/2015 10:05 AM Report To 1 ID: [id number] Report To 1 Name: EDIE HELLER Report To 1 FAX: Report To 2 ID: Report To 2 Name: , Report To 2 FAX: Report To 3 ID: Report To 3 Name: , Report To 3 FAX: NextGen Order #: Historical Provider MD MOODY MAMMO PROCEDURES Marva l Result from Last 3 Months or Most Recently Relevant to Health Maintenance Insurance [facility] CHO[facility] PLUS [facility]/PPO Address: [place] [address] [facility]ICE [facility] HMO/PPO Address: [address] [address] [place] [address] [facility] CHOICE [facility]US [facility] H[facility]/PPO Address: [address] [address] [place] [id number] Care Teams Varnisher Apprentice Relationship Specialty Start Date End Date Tayo Davis MD PCP - General Family Practice 03/14/21 [place] Figueroa Jr., MD Medical Oncologist/Wearing Apparel Assembler Medical Oncology 04/14/21
[2024-08-17 06:56] VITALS: BP 125/82; PULSE 98; RESP 18; TEMP 36.5; O2SAT 99
--- NOTE | 2024-08-17 07:15 | P.OP_ITS ---
Procedure Note - Detailed Date of Procedure 08/17/24 Pre-op Diagnosis Sacroiliitis Post-op Diagnosis Same Procedure Performed Bilateral Sacroiliac Joint Steroid Injection under Fluoroscopic Guidance and with Contrast Control. Surgeon Boaz Gerardo MD Asphalt Machine Operator None Anesthesia Local Description of Procedure INFORMED CONSENT: Risks, benefits and alternatives to the procedure were discussed in detail with the patient who expressed explicit understanding and consent to proceed. Patient was informed verbally and in written form regarding the risks associated with the procedure including the low risk of serious infection, bleeding/bruising, allergic reaction, nerve or organ injury, paralysis, procedural site pain or discomfort, worsening pain and/or mobility, failure to treat and/or disfigurement. The patient expressed explicit understanding and consent to proceed. All materials required for the procedure were available prior to procedure start. Site and side were marked prior to procedure and confirmed in the presence of the patient. PROCEDURE IN DETAIL: The patient was brought to the procedural suite and placed in the prone position. Patient was made comfortable with use of pillows under the head/chest, hips and ankles. Skin overlying the injection site on the affected side(s) was prepared broadly with ChloraPrep applicator and draped in a sterile manner. Aseptic technique was used throughout. The right SI joint was identified in the AP view and contralateral oblique angulation with caudal tilt was utilized to optimize visualization of the inferior and medial joint line representing the posterior portion of the joint. Local anesthesia was established by infiltration with approximately 5 mL of 2% lidocaine via a 1-1/2 inch 27-gauge needle. A 22-gauge 3.5 inch Quincke spinal needle was advanced until the needle entered the inferior third of the joint space approximately 1cm cephalad from its most inferior point. In the AP view, 0.5 mL of Omnipaque 300 contrast medium was injected after negative aspiration for CSF, blood or other bodily fluid, showing appropriate intra-articular spread of contrast without evidence of intravascular, perineural or intrathecal placement. A 1.5 mL solution containing 5 mg of dexamethasone in 0.5% PF bupivacaine was injected after repeat negative aspiration. Appropriate spread of the injectate was confirmed with washout of previous injected contrast. No parasthesias were elicited. Needle was removed completely intact without difficulty. The same exact procedure was repeated for all remaining levels on the contralateral side, left SI joint, modified as necessary to accommodate for the new target location with identical findings/results and no evidence of complication. Images were saved and documented in the patient chart. Patient's skin was cleansed and sterile bandage applied. The patient tolerated the procedure well. The patient was transported to the recovery area in stable condition where they were observed for an appropriate amount of time prior to discharge, without evidence of complication. The patient was instructed to avoid excessive activity for the next 48 hours, including climbing and frequent use of stairs. Showers only for 48 hours. They were instructed not to drive or operate heavy machinery for 24 hours. They are to monitor for severe headaches, fevers, chills, night sweats, erythema/swelling at the site or any other signs of infection, bleeding/bruising, bowel or bladder changes as well as new pain, weakness or numbness in the upper or lower extremity. Should they notice these changes, they are instructed to call our office immediately or report directly to the nearest Emergency Department if no answer or if after posted office hours. COMPLICATIONS: None COMMENTS: None CONTRAST WASTED: 29mL Omnipaque 300. Complications No immediate complications Condition Stable Disposition Same day [facility] Billing Surgery - Charge Forward: Surgery Billing
--- NOTE | 2024-08-17 07:15 | WPDHPUPDATE1 ---
History and Physical Update Update Date/Time: 08/17/24 07:15 History and Physical has been reviewed, including an updated exam of the patient. There are NO changes in the patient's condition. Risks, benefits, and alternatives have been discussed and questions answered. Patient agrees to proceed with procedure.
[2024-08-17 07:30] VITALS: BP 143/77; PULSE 88; RESP 22; O2SAT 98
[2024-08-17 07:38] VITALS: BP 144/76; PULSE 81; RESP 14; O2SAT 99
[2024-08-17] MEDS: dexAMETHasone SOD PHOS INJ 10 MG/ML 1 ML VIAL XX (07:38)
[2024-08-17] MEDS: BUPivacaine HCL 0.5% 10 ML AMP 2 ML INFILTRATE (07:38)
[2024-08-17] MEDS: LIDOCAINE 1% PF INJ 5 ML VIAL 4 ML INFILTRATE (07:39)
[2024-08-17 07:44] VITALS: BP 128/76; PULSE 97; RESP 18; O2SAT 97
== END 2024-08-17 07:57 | disposition home or self-care (01) ==
PROVIDERS: PCP Nurse Practitioner Adult Health; Visit Provider Anesthesiology Pain Medicine
PROC: (CPT 27096; principal; 2024-08-17 07:30)
DX: M46.1 Sacroiliitis, not elsewhere classified (principal)
CPT/HCPCS: 27096; 99199; G0260; J1100

== ENCOUNTER 2024-09-01 06:52 | Day surgery (SDC) | payer OTHER, SELFPAY ==
[2024-08-27 10:44] VITALS: BMI 38.5
--- NOTE | ~2024-09-01 | XR_ITS ---
INTRAOPERATIVE FLUOROSCOPY: CLINICAL HISTORY: 59 years old Female; RIGHT L4-5 L5-S1 TRANSFORAMINAL EPIDURAL STEROID INJECTION PROCEDURE COMMENTS: Limited intraoperative fluoroscopy of the lumbar spine was performed. CUMULATIVE DOSE: 27 mGy FLUOROSCOPY TIME: 52 seconds FINDINGS/IMPRESSION: Please refer to operative note for further details. Reviewed, dictated and finalized at location A.
[2024-09-01 07:21] VITALS: BP 117/72; PULSE 76; RESP 16; TEMP 36.9; O2SAT 99
--- NOTE | 2024-09-01 07:50 | WPDHPUPDATE1 ---
History and Physical Update Update Date/Time: 09/01/24 07:50 History and Physical has been reviewed, including an updated exam of the patient. There are NO changes in the patient's condition. Risks, benefits, and alternatives have been discussed and questions answered. Patient agrees to proceed with procedure.
--- NOTE | 2024-09-01 07:50 | W.PM.PROC2 ---
Procedure Note - Detailed Date of Procedure 09/01/24 Pre-op Diagnosis Lumbosacral Spondylosis Post-op Diagnosis Same Procedure Performed Right Lumbar Transforaminal Epidural Steroid Injection under Fluoroscopic Guidance and with Contrast Control at L4-5, L5-S1. Surgeon Boaz Gerardo MD Anesthesia Local Description of Procedure INFORMED CONSENT: Risks, benefits and alternatives to the procedure were discussed in detail with the patient who expressed explicit understanding and consent to proceed. Patient was informed verbally and in written form regarding the risks associated with the procedure including the low risk of serious infection, bleeding/bruising, allergic reaction, nerve or organ injury, paralysis, procedural site pain or discomfort, worsening pain and/or mobility, failure to treat and/or disfigurement. The patient expressed explicit understanding and consent to proceed. All materials required for the procedure were available prior to procedure start. Site and side was marked prior to procedure and confirmed in the presence of the patient. PROCEDURE IN DETAIL: The patient was brought to the procedural suite and placed in the prone position. Patient was made comfortable with use of pillows under the head/chest, hips and ankles. Skin overlying the injection site was prepared broadly with ChloraPrep applicator and draped in a sterile manner. Aseptic technique was employed throughout. The endplates of the vertebral body at the site of interest were aligned in the AP view. Ipsilateral oblique angulation was utilized to better visualize the neuroforamen of interest. Local anesthesia was established by infiltration with approximately 5 mL of 0.5% PF lidocaine via a 1-1/2 inch 27-gauge needle. A 22-gauge 5.0 inch Olimpia (pencil point) spinal needle was advanced until the needle approached the 6 o'clock position on the pedicle just superior to the exiting nerve root. on the right at L4-5. Lateral view was utilized to confirm appropriate position of the needle tip within the superior and posterior portion of the respective foramen. In an AP view, 1 mL of Omnipaque 300 contrast medium was injected after negative aspiration for CSF, blood or other bodily fluid, showing appropriate neurogram without evidence of intravascular or intrathecal spread of contrast. Digital subtraction imaging was used with an additional 1ml of the same contrast medium to confirm absence of intravascular contrast spread. A 1mL solution containing 3 mg of betamethasone was injected after negative repeat aspiration. Appropriate spread of the injectate was confirmed with washout of previously injected contrast. No parasthesias were elicited. Needle was removed completely intact without difficulty. The same exact procedure was repeated for all remaining levels on the ipsilateral side, right L5-S1 neuroforamen, modified as necessary to accommodate for the new target location with identical findings and results and no evidence of complication. Images were saved and documented in the patient chart. Patient's skin was cleaned and sterile bandage applied. The patient tolerated the procedure well. The patient was transported to the recovery area in stable condition where they were observed for an appropriate amount of time prior to discharge, without evidence of complication. The patient was instructed to avoid excessive activity for the next 48 hours, including climbing and frequent use of stairs. Showers only for 48 hours. They were instructed not to drive or operate heavy machinery for 24 hours. They are to monitor for severe headaches, fevers, chills, night sweats, erythema/swelling at the site or any other signs of infection, bleeding/bruising, bowel or bladder changes as well as new pain, weakness or numbness in the upper or lower extremity. Should they notice these changes, they are instructed to call our office immediately or report directly to the nearest Emergency Department if no answer or if after posted office hours. COMPLICATIONS: None COMMENTS: None CONTRAST WASTED: 26 mL Omnipaque 300. STEROID WASTED: 0 mg of betamethasone. Complications No immediate complications Condition Stable Disposition Same day [facility] Billing Surgery - Charge Forward: Surgery Billing
[2024-09-01 08:21] VITALS: BP 133/73; PULSE 77; RESP 19; O2SAT 98
[2024-09-01 08:26] VITALS: BP 132/77; PULSE 76; RESP 16; O2SAT 99
[2024-09-01] MEDS: LIDOCAINE 2% PF LOCAL INJ 5 ML VIAL 1 ML INFILTRATE (08:27)
[2024-09-01] MEDS: BETAMETHASONE SODIUM PHOSPHATE PF INJ 6 MG/ML VIAL INFILTRATE (08:27)
[2024-09-01] MEDS: LIDOCAINE 1% PF INJ 5 ML VIAL 2 ML INFILTRATE (08:28)
[2024-09-01 08:33] VITALS: BP 119/80; PULSE 77; RESP 16; O2SAT 100
== END 2024-09-01 08:57 | disposition home or self-care (01) ==
PROVIDERS: PCP Nurse Practitioner Adult Health; Visit Provider Anesthesiology Pain Medicine
PROC: (CPT 64483; principal; 2024-09-01 08:10)
DX: M47.817 Spondylosis without myelopathy or radiculopathy, lumbosacral region (principal)
CPT/HCPCS: 64483; 64484; 99199

== ENCOUNTER 2024-09-16 00:12 | Day surgery (SDC) | payer OTHER, SELFPAY ==
[2024-08-24 13:12] VITALS: BMI 39.1
--- NOTE | 2024-08-25 10:21 | PC.NURSE ---
Spoke with Dr. Null regarding this patient and pacemaker. After reviewing previous workup in in 02/2020 he is in agreement she needs no further workup for this procedure, providing pt is not having any symptoms. Pt denied any cardiac symptoms and did not wish to have pacemaker generator replaced as she is not needing the pacemaker.
--- OUTSIDE RECORDS SUMMARY | 2024-09-16 00:14 | XMS_ITS | Clinical Summary ---
Author Organization [facility] Domenica donahue [facility] Address [address] [place] [address] Care Team Providers Care Business Reporter Name Role Phone Unavailable Primary Care Provider [...] Encounters Date Type Department Care Team Description 09/01/2024 External Device Data ST[facility] ABSTRACTION Provider, Abstract 07/30/2024 External Device Data [facility] ABSTRACTION Provider, Abstract 07/29/2024 External Device Data [facility] ABSTRACTION Provider, Abstract 07/28/2024 External Device Data [facility] ABSTRACTION Provider, Abstract 06/23/2024 External Device Data ST[facility] ABSTRACTION Provider, Abstract from Last 3 Months Family History Medical [...] Description 10/13/2024 11:00 AM CDT Office Visit [facility] Oncology and Hematology - [place] [facility] [address] [place] [address] Domenic Campbell MD [address] [facility] [address] [place] [address] Health Maintenance Due Date Last [...] years 1-dose series) 2023 INFLUENZA VACCINE (#1) 2024 0, 01/25/2016, 01/14/2015 DTAP/TDAP/TD VACCINES (2 - T d or Tdap) 01/07/2030 01/08/2020 Insurance
--- OUTSIDE RECORDS SUMMARY | 2024-09-16 00:15 | XMS_ITS | Clinical Summary ---
Author Organization [facility] Address [address] [place] [address] Care Team Providers Care Dice Dealer Name Role Phone Kaylynn Drake MD Unavailable + Tayo Davis MD Primary Care Provider [phone] Source Comments [facility],non-owned Affiliates and Associated Physician Practices is amultiple site organization consisting of ambulatory clinics and hospital sitesin [place], [place], [place]. This disclosure is being madepursuant to the Care Everywhere program and may not contain all information available regarding this patient. Last updated 17.[facility] Allergies Active Allergy Reactions Criticality Noted Date [...] before breakfast. Active vitamin D, ergocalciferol, (DRISDOL) 99233 UNIT capsuleIndications:Vit phan d deficiency Take 1 Cap by mouth every 7 days. 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,longterm 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,Chronic pain of both knees Take 1 tablet by mouth once daily 5 06/22/19 18 Active CALCIUM CITRATE-VITAMIN D POIndications:Sjogren' s syndrome, with unspecified organ involvement (HCC),Other forms of systemic lupus erythematosus, unspecified organ involvement status (HCC),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,longterm 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,Chronic pain of both knees Take 1 tablet by mouth once daily Active Cyanocobalamin (VITAMIN B 12 PO)Indications:Sjogren 's syndrome, with unspecified organ involvement (HCC),Other forms of systemic lupus erythematosus, unspecified organ involvement status (HCC),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,terminologist 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,Chronic pain of both knees Take 1 tablet by mouth once daily Active Multiple Vitamins-Minerals (CENTRUM SILVER 50+WOMEN PO)Indications:Sjogren 's syndrome, with unspecified organ involvement (HCC),Other forms of systemic lupus erythematosus, unspecified organ involvement status (HCC),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,longterm 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,Chronic pain of both knees Take 1 tablet by mouth once daily Active traMADol (ULTRAM) 50 MG tabletIndications:Sjog barbara's syndrome, with unspecified organ involvement (HCC),Other forms of systemic lupus erythematosus, unspecified organ involvement status (HCC),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,terminologist 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,Chronic pain of both knees Take 1 tablet by mouth as needed 5 06/02/19 18 Active clobetasol (TEMOVATE) 0.05 % ointment Apply to affected area on trunk and extremities BID. 30 day supply. 60 g 2 12/04/19 18 Active losartan - hydroCHLOROthiazide (HYZAAR) 50-12.5 MG tablet TK 1 T PO D 12/23/19 20 Active albuterol HFA (PROVENTIL;VENTOLIN;WI OAIR) 108 (90 Base) MCG/ACT inhaler Inhale [...] Sex Assigned at Female 03/21/2021 5:27 PM LOAN REVIEWER Legal Sex Female 6:10 AM LOAN REVIEWER Gender Identity Female 03/21/2021 5:27 PM LOAN REVIEWER Sexual Orientation Straight 03/21/2021 5: 27 PM LOAN REVIEWER Last Filed Vital Signs Vital Sign Reading Time Taken Comments Blood Pressure 170/110 04/09/2019 8:54 AM LOAN REVIEWER Pulse 99 04/09/2019 8:54 AM LOAN REVIEWER Temperature 36.7 C (98 F) 04/09/2019 8:54 AM LOAN REVIEWER Respiratory Rate 22 04/09/2019 8:54 AM LOAN REVIEWER Oxygen Saturation 97% 04/09/2019 8:54 AM LOAN REVIEWER Inhaled Oxygen Concentration - - Weight 103.9 kg (229 lb) 01/03/2021 9:57 AM CDT Height 157.5 cm (5' 2) 04/09/2019 8:54 AM LOAN REVIEWER Body Mass Index 41.88 04/09/2019 8:54 AM LOAN REVIEWER Plan of Treatment Health Maintenance Due Date Last Done Comments COLOGUARD (AGES 45-75) - COLON CA SCREENING 1963 COLON MONITORING 1963 COLONOSCOPY - COLON CA SCREENING 1963 CT COLONOGRAPHY - COLON CA SCREENING 1963 Colorectal Cancer Screening 1963 FIT - COLON CA SCREENING 1963 FLEX SIG - COLON CA SCREENING 1963 MAMMOGRAM 1963 HIV SCREENING 1978 DTAP/TDAP/TD VACCINES (1 - Tdap) 1982 PAP SMEAR 1984 PNEUMOCOCCAL VACCINE 50+ (1 of 1 - [...] HEPATITIS SCREEN ACUTE Routine 05/02/2017 3:08 PM LOAN REVIEWER LIPID PROFILE Routine 03/21/2011 3:55 PM LOAN REVIEWER from Last 3 Months or Most Recently Relevant to Health Maintenance Results * HEPATITIS SCREEN ACUTE (05/02/2017 3:08 PM LOAN REVIEWER) Hepatitis A Virus Antibody IgM NON-REACTI VE NON-REACT [facility] ([facility]) Hepatitis B Virus Surface Antigen NON-REACTI VE NON-REACT [facility] ([facility]) Hepatitis B Core Virus Antibody IgM NON-REACTI VE NON-REACT [facility] ([facility]) Hepatitis C Antibody NON-REACTI VE NON-REACT [facility] ([facility]) Signal/Cutoff 0.02 <1.00 [facility] ([facility]) Comment: Test Performed at: [facility] [id number] [place] [id number] ITALO MADRID DO,MPH Blood specimen (specimen) BLOOD SPECIMEN / Unknown 05/02/2017 3:08 PM LOAN REVIEWER 05/02/2017 3:09 PM LOAN REVIEWER us Hedy Kenr MD LAB - CHEMISTRY ORDERABLES Final Result Performing Organization Address City/[facility]/ZIP Co de Phone Number [facility] ([facility]) [address] * LIPID PROFILE (03/21/2011 3:55 PM LOAN REVIEWER) Cholesterol 178 <200 mg/dl [facility] Triglycerides 79 10 - 210 mg/dl [facility] HDL Cholesterol 62 >40 mg/dl [facility] LDL Calculated 100 mg/dl [facility] Chol HDL Ratio 2.87 [facility] Comment Lipid [facility] Comment: Risk Classification HDL CHOL LDL CHOL TOTAL CHOL According to NCEP (mg/dl) (mg/dL) (mg/dl) Desirable >40 <130 < 200 Borderline/High - 130-159 200-239 High - >159 > 239 The total cholesterol to HDL cholesterol ratio may be used to predict risk for coronary heart disease in untreated patients according to data reported from the [place] Study by Italo Delgado M.D. The predictive [...] BLOOD SPECIMEN / Unknown 03/21/2011 3:55 PM LOAN REVIEWER 03/21/2011 4:06 PM LOAN REVIEWER us Marcus Levi MD LAB - CHEMISTRY ORDERABLE S Final Result Performing Organization Address City/[facility]/ZIP Co de Phone Number [facility] [address] [place] [address] from Last 3 Months or Most Recently Relevant to Health Maintenance Insurance [facility] Care Teams Dice Dealer Relationship Specialty Start Date End Date Tayo Davis MD [address] [place] [id number] PCP - General 12/26/20 Kaylynn Drake MD Physician Rheumatology 10/07/18
--- OUTSIDE RECORDS SUMMARY | 2024-09-16 00:15 | XMS_ITS | Referral Summary ---
Author Organization [facility] Address [address] [place] [address] Care Team Providers Care Maintenance Mgr Name Role Phone Tayo Davis MD Primary Care Provider [phone] Henry Camp MD, Salvador Unavailable [phone] Allergies Active Allergy Reactions Criticality Noted Date [...] 50,000 unit capsule 10/12/2015Vitamin D2, [place] solid [address] unit CapsulePOas directedCurrent Medication Active SYMBICORT 160-4.5 [...] OCT Assessment & Plan (02/08/2022 10:40 AM CORNCOB PIPE MANUFACTURING SUPERVISOR): Up to date on Eye exam. Last [...] prn Assessment & Plan (02/08/2022 12:50 PM CORNCOB PIPE MANUFACTURING SUPERVISOR): Stable on HCQ. Continue same. Encourage daily use of biotene products (lozenge, mouth rinses) and also a trial of nasal saline gel product such as Greenvale gel. Can also try coconut oil swish [...] of nasal saline gel product such as Greenvale gel. Can also try coconut oil swish [...] on file Legal Sex Female 12:41 PM CORNCOB PIPE MANUFACTURING SUPERVISOR Gender Identity Female 09/29/2019 7:39 AM CDT [...] BILATERAL W JOSE Routine 04/12/2015 12:00 AM CORNCOB PIPE MANUFACTURING SUPERVISOR from Last 3 Months or Most Recently Relevant to Health Maintenance Results * Screening Mammogram Bilateral W Jose (04/12/2015 12:00 AM CORNCOB PIPE MANUFACTURING SUPERVISOR) Anatomical Region Laterality Modality Breast Bilateral Mammography 04/12/2015 3:40 PM CORNCOB PIPE MANUFACTURING SUPERVISOR Narrative 04/19/2015 10:05 AM CORNCOB PIPE MANUFACTURING SUPERVISOR - SCREENING MAMM W JOSE BI BILATERAL [...] Requesting: NIMESH HURD M.D. Requesting Requesting ID: [id number] Attending Attending ID: [id number] Completed Time: 04/12/2015 3:40 PM Dictated Time: N/A Transcribed Time: 04/19/2015 10:05 AM Signed by: RAISA MONTANO MD on 04/19/2015 10:05 AM Report To 1 ID: [id number] Report To 1 Name: EDIE HELLER Report [...] Requesting: NIMESH HURD M.D. Requesting Requesting ID: [id number] Attending Attending ID: [id number] Completed Time: 04/12/2015 3:40 PM Dictated Time: N/A Transcribed Time: 04/19/2015 10:05 AM Signed by: RAISA MONTANO MD on 04/19/2015 10:05 AM Report To 1 ID: [id number] Report To 1 Name: EDIE HELLER Report To 1 FAX: Report To 2 ID: Report To 2 Name: , Report To 2 FAX: Report To 3 ID: Report To 3 Name: , Report To 3 FAX: NextGen Order #: Historical Provider IMLeonidas MAMMO PROCEDURES Marva l Result from Last 3 Months or Most Recently Relevant to Health Maintenance Insurance [facility] CHOICE PLUS [facility]/PPO Address: [place] [address] [facility]ICE PLUS [facility]O Address: [place] [address] [facility] CHOICE PLUS [facility] HMO/PPO Address: [place] [address] Care Teams Maintenance Mgr Relationship Specialty Start Date End Date Tayo Davis MD PCP - General Family Practice 03/14/21 [place] Figueroa Jr., MD Medical Oncologist/Video Specialist Medical Oncology 04/14/21
--- OUTSIDE RECORDS SUMMARY | 2024-09-16 00:15 | XMS_ITS | Encounter Summary ---
Author Organization [facility] Address [address] [facility] [place] [address] Care Team Providers Care Blower Operator Name Role Phone Garfield Perla MD Primary Care Provider [phone] Ghassan Luna DO Primary Care Provider Kaylynn Drake MD Unavailable + Tayo Davis MD Primary Care Provider [phone] Reason for Visit * Reason Onset Date Comments MEDICATION REFILL 06/21/2017 Encounter Details Date Type Department Care Team (Late st Contact Info) Description 06/21/2017 Refill [facility] General Internal Medicine [address] [address] Glendy Donnelly RN MEDICATION REFILL Social History Tobacco Use Types Packs/Day Years Used Date Smoking Tobacco: Never Smokeless Tobacco: Never Alcohol Use Standard Drinks/Week Comments No 0 (1 standard drink = 0.6 oz pur e alcohol) Comments Unknown Sex and Gender Information Value Date Recorded Sex Assigned at Female 03/21/2021 5:27 PM MERCHANDISING STOCK ASSOCIATE Legal Sex Female 6:10 AM MERCHANDISING STOCK ASSOCIATE Gender Identity Female 03/21/2021 5:27 PM MERCHANDISING STOCK ASSOCIATE Sexual Orientation Straight 03/21/2021 5: 27 PM MERCHANDISING STOCK ASSOCIATE documented as of this encounter Plan of Treatment Not on file documented as of this encounter Visit Diagnoses Not on filedocumented in this encounter Care Teams Blower Operator Relationship Specialty Start Date End Date Garfield Perla MD [address] [place] [address]. [place] [address] PCP - General 03/21/11 03/05/18 Ghassan Luna DO [address] [facility] [address] [place] [address] PCP - General 03/06/18 12/25/20 Tayo Davis MD [address] [place] [id number] PCP - General 12/26/20 Kaylynn Drake MD [address] [facility] [address] [place] [address] Physician Rheumatology 10/07/18 documented as of this encounter
--- OUTSIDE RECORDS SUMMARY | 2024-09-16 00:15 | XMS_ITS | Clinical Summary ---
Author Organization [facility] Address [address] [place] [address] Care Team Providers Care Hotel Controller Name Role Phone Tayo Davis MD Primary Care Provider [phone] Henry Camp MD, Salvador Unavailable [phone]- [phone] Allergies Active Allergy Reactions Criticality Noted Date [...] 50,000 unit capsule 10/12/2015Vitamin D2, po solid [address] unit CapsulePOas directedCurrent Medication Active SYMBICORT 160-4.5 [...] OCT Assessment & Plan (02/08/2022 10:40 AM SENIOR GENETIC COUNSELOR): Up to date on Eye exam. Last completed by Dr. Contreras ([facility]) on 01/25/22 without signs of retinal [...] prn Assessment & Plan (02/08/2022 12:50 PM SENIOR GENETIC COUNSELOR): Stable on HCQ. Continue same. Encourage daily use of biotene products (lozenge, mouth rinses) and also a trial of nasal saline gel product such as [place] gel. Can also try coconut oil swish [...] of nasal saline gel product such as [place] gel. Can also try coconut oil swish [...] on file Legal Sex Female 12:41 PM SENIOR GENETIC COUNSELOR Gender Identity Female 09/29/2019 7:39 AM CDT [...] BILATERAL W JOSE Routine 04/12/2015 12:00 AM SENIOR GENETIC COUNSELOR from Last 3 Months or Most Recently Relevant to Health Maintenance Results * Screening Mammogram Bilateral W Jose (04/12/2015 12:00 AM SENIOR GENETIC COUNSELOR) Anatomical Region Laterality Modality Breast Bilateral Mammography 04/12/2015 3:40 PM SENIOR GENETIC COUNSELOR Narrative 04/19/2015 10:05 AM SENIOR GENETIC COUNSELOR - SCREENING MAMM W JOSE BI BILATERAL [...] be contacted by letter. Raisa Montano M.D. [facility]:04/19/2015 08:25:06 letter sent: Normal Exam Mammogram BI-RADS: 2 Benign Radiologist: RAISA MONTANO MD Attending: NIMESH HURD M.D. Requesting: NIMESH HURD M.D. Requesting Requesting ID: [id number] Attending Attending ID: [id number] Completed Time: 04/12/2015 3:40 PM Dictated Time: N/A Transcribed Time: 04/19/2015 10:05 AM Signed by: RAISA MONTANO MD on 04/19/2015 10:05 AM Report To 1 ID: [id number] Report To 1 Name: EDIE HELLER Report [...] be contacted by letter. Raisa Montano M.D. [facility]:04/19/2015 08:25:06 letter sent: Normal Exam Mammogram BI-RADS: 2 Benign Radiologist: RAISA MONTANO MD Attending: NIMESH HURD M.D. Requesting: NIMESH HURD M.D. Requesting Requesting ID: [id number] Attending Attending ID: [id number] Completed Time: 04/12/2015 3:40 PM Dictated Time: N/A Transcribed Time: 04/19/2015 10:05 AM Signed by: RAISA MONTANO MD on 04/19/2015 10:05 AM Report To 1 ID: [id number] Report To 1 Name: EDIE HELLER Report To 1 FAX: Report To 2 ID: Report To 2 Name: , Report To 2 FAX: Report To 3 ID: Report To 3 Name: , Report To 3 FAX: NextGen Order #: Historical Provider MD MOODY MAMMO PROCEDURES Marva l Result from Last 3 Months or Most Recently Relevant to Health Maintenance Insurance [facility] CHOICE PLUS [facility] CHOICE PLUS [facility] CHOICE PLUS [place] [id number] Care Teams Hotel Controller Relationship Specialty Start Date End Date Tayo Davis MD PCP - General Family Practice 03/14/21 [place] Figueroa Jr., MD Medical Oncologist/Ticket Taker [place] Medical Oncology 04/14/21
--- OUTSIDE RECORDS SUMMARY | 2024-09-16 00:15 | XMS_ITS | Clinical Summary ---
Author Organization [facility] Address [address] [place] [id number] Care Team Providers Care Cv/Cvn Cv Tsc System Operator Name Role Phone Unavailable Primary Care Provider Unavailabl e Social History Tobacco Use Types Packs/Day Years Used Date Smoking Tobacco: Never Assessed Comments Unknown Sex and Gender Information Value Date Recorded Sex Assigned at Not on file Legal Sex Female 11:10 AM CDT Gender Identity Not on file Sexual Orientation Not on file Plan of Treatment Health Maintenance Due Date Last Done Comments Cervical Cancer Screening Pa p Smear (Age 30 to 64) Every 3 Years 1963 Colorectal Cancer Screening Colonoscopy (10 Years) 1963 Annual Physical 1966 Hepatitis C 1981 DTaP, Tdap and Td Vaccines ( 1 - Tdap) 1982 Cervical Cancer Screening Pa p with HPV Testing (Age 30 to 64) Every 5 Years 1993 Cervical Cancer Screening with HPV 1993 Mammogram Screening 2003 Pneumococcal Vaccine: 50+ Ye ars (1 of 1 - PCV) 2013 Zoster Vaccines (1 of 2) 2013 COVID-19 Vaccine (2023-2 5 season) 2023 RSV Immunization or 60+ Years (1 - 1-dose 75+ series) 2038 Meningococcal B Vaccine Aged Out No l onger eligible based on patient's age to complete this topic Meningococcal Vaccine Aged Out No lucho mirlande eligible based on patient's age to complete this topic RSV Immunizations Under 20 Months Aged Out No longer eligible based on patient's age to complete this topic Medical Devices Implanted Type Area Computer Engineering Technician Device Identifier Shelf Expiration Date Model / Serial / Lot Rv Lead Implanted:11/10 (Quantity not on file) Lead Implant Chest [employer] CARDIAC RHYTHM AND HEART FAILURE - DIV M [id number] / [id number] V / Description:NOT MR CONDITION AL Ra Lead Implanted:11/10 (Quantity not on file) Lead Implant [employer] CARDIAC RHYTHM AND HEART FAILURE - DIV M 4524 / [id number] V / Description:NOT MR CONDITION AL Pacemaker-2005 Implanted:07/19 (Quantity not on file) Pacemaker Chest [employer] RHY 1291 / [id number] / Description:DEVICE IS NOT MR CONDITIONAL
[2024-09-16 08:34] VITALS: BP 137/84; PULSE 78; RESP 18; TEMP 36.7; O2SAT 100
[2024-09-16] MEDS: LACTATED RINGERS 1,000 ML 150 ML IV CONT (08:49)
--- NOTE | 2024-09-16 09:00 | WPDANESEPPF ---
Anes - Initial Pre Proc Eval Procedure: Operation Date: 09/16/24 09:30 Proposed Procedures p Esophagogastroduodenoscopy & Colonoscopy - Rodney Calderon MD Date/Time: 09/16/24 09:00 Surgeon: Rodney Calderon MD Pre Op Diagnosis: Iron deficiency, Other fatigue, Melena Patient Data Age: 59 Gender: F Height: 1.57 m Weight: 94.3 kg Last Vital Signs Temp 98.0 F 09/16/24 08:34 Pulse 78 09/16/24 08:34 Resp 18 09/16/24 08:34 BP 137/84 09/16/24 08:34 Pulse Ox 100 09/16/24 08:34 O2 Del Method Room Air 09/16/24 08:34 Allergies Allergy/AdvReac Type Severity Reaction Status Date / Time morphine Allergy Unknown Difficulty Verified 09/16/24 08:32 Breathing Sulfa (Sulfonamide Allergy Unknown Rash Verified 09/16/24 08:32 Antibiotics) powder in surgery gloves Allergy Intermediate rash and Uncoded 09/14/24 08:40 itching Home Medications ?Medication ?Instructions ?Recorded ?Confirmed ?Type amlodipine 10 mg tablet 10 mg PO DAILY #90 tabs 10/24/23 09/16/24 Rx meloxicam 15 mg tablet 15 mg PO DAILY PRN pain #90 tabs 05/05/24 09/16/24 Rx ondansetron 4 mg disintegrating 4 mg PO Q8H PRN nausea and 06/12/24 09/01/24 Rx tablet vomiting #60 tabs gabapentin 300 mg capsule 300 mg PO BID #60 caps 07/10/24 09/16/24 Rx cyclobenzaprine 5 mg tablet 5 mg PO TID PRN muscle spasm 08/24/24 09/16/24 History hydroxychloroquine 200 mg tablet 400 mg PO BID 08/24/24 09/16/24 History (Plaquenil) cholecalciferol (vitamin D3) 1,250 1,250 mcg PO WEEKLY 08/27/24 09/16/24 History mcg (50,000 unit) capsule cyanocobalamin (vitamin B-12) 1,000 mcg sublingual DAILY 08/27/24 09/16/24 History 1,000 mcg sublingual tablet duloxetine 60 mg capsule,delayed 60 mg PO DAILY 08/27/24 09/16/24 History release ferrous sulfate 325 mg (65 mg 325 mg PO DAILY 08/27/24 09/16/24 History iron) tablet losartan 100 mg tablet 100 mg PO DAILY 08/27/24 09/16/24 History acetaminophen 500 mg capsule 1,000 mg PO Q4-6H PRN pain 09/01/24 09/16/24 History levothyroxine 100 mcg tablet See Rx Instructions .Route 09/08/24 09/16/24 Rx .COMPLEX #90 tabs Patient hx anesthesia problems: none Family hx anesthesia problems: none Results Review: All pre-operative results and documents have been reviewed as part of the pre-operative evaluation. [facility] Past Medical History Medical History Lupus Migraines Primary osteoarthritis of both knees Renal calculus, left Shoulder injury Arachnoid cyst Tear meniscus knee Elbow injury Tachycardia Pacemaker Hypothyroid Hypertension Intestinal malabsorption following gastrectomy Low iron Low vitamin D level Other assisted (current) drug therapy Psoriasis Rheumatoid arthritis of unspecified site with involvement of other organs and systems Sleep apnea Systemic lupus erythematosus, unspecified Surgical History Surgical History H/O gastric bypass History of cholecystectomy History of appendectomy Hx of tonsillectomy H/O tubal ligation H/O section History of weight loss surgery Family History Family History Grandparent Diabetes mellitus Hypertension Acute myocardial infarction Family history of malignant neoplasm Mother Hypertension Asthma Depression Anxiety Thyroid disorder Sibling Depression Anxiety Asthma Hypertension Thyroid disorder Social History Social History Smoking status: Never smoker Second hand tobacco smoke exposure: Yes Alcohol intake: never Substance use: current Substance use type: does not use Other substance usage details: CBD gummies Lack of Transportation: No Lack of Food: Never True Current Housing: I Have Housing Concerned About Future Housing: No Difficulty Paying Gas/Electric Bills: No Difficulty Paying for Meds: No Currently Unemployed: No Education: Bachelor's Degree Difficulty w/ Childcare or Family Care: No Living arrangements: with family Gender identity (if verbalized by the patient): Female Spiritual care concerns: No Anes - Eval Final PreProcedure Day of Procedure 09/16/24 09:00 Patient weight: obese Lungs: normal air movement Airway: Mallampati scale class II and special considerations (L lower tooth is cracked/broken. ) Neurological: alert and oriented Last oral intake: >/= 8 hours ASA classification: III Emergent: no Anesthetic plan: proceed Anesthesia type and monitoring: general GIVS and standard monitoring Results Review: All pre-operative results and documents have been reviewed as part of the pre-operative evaluation. HTN, hypothyroidism, chr back pain. Informed Consent: The patient's anesthetic plan and its attendant risks and benefits were discussed with the patient/family/POA. Questions were solicited and answers provided to the satisfaction of the patient/family/POA.
--- NOTE | 2024-09-16 09:03 | PM.HPGS ---
History of Present Illness History of Present Illness Consent: Risks, benefits, and alternatives have been discussed and questions answered. Patient agrees to proceed with procedure. Chief complaint: Iron deficiency, Other fatigue, Melena Narrative: Cindy Calderón is a 59 year old female here for egd and colonoscopy, last one about 10 year ago. She had bariatric surgery about 30 years ago, h/o chronic anemia, denies overt gib, h/o chronic diarrhea. Review of Systems Review of Systems: All systems reviewed & are unremarkable except as noted in HPI and below PMFSH Past Medical History Medical History Lupus Migraines Primary osteoarthritis of both knees Renal calculus, left Shoulder injury Arachnoid cyst Tear meniscus knee Elbow injury Tachycardia Pacemaker Hypothyroid Hypertension Intestinal malabsorption following gastrectomy Low iron Low vitamin D level Other intermediate (current) drug therapy Psoriasis Rheumatoid arthritis of unspecified site with involvement of other organs and systems Sleep apnea Systemic lupus erythematosus, unspecified Surgical History Surgical History H/O gastric bypass History of cholecystectomy History of appendectomy Hx of tonsillectomy H/O tubal ligation H/O section History of weight loss surgery Family History Family History Grandparent Diabetes mellitus Hypertension Acute myocardial infarction Family history of malignant neoplasm Mother Hypertension Asthma Depression Anxiety Thyroid disorder Sibling Depression Anxiety Asthma Hypertension Thyroid disorder Social History Social History Smoking status: Never smoker Second hand tobacco smoke exposure: Yes Alcohol intake: never Substance use: current Substance use type: does not use Other substance usage details: CBD gummies Lack of Transportation: No Lack of Food: Never True Current Housing: I Have Housing Concerned About Future Housing: No Difficulty Paying Gas/Electric Bills: No Difficulty Paying for Meds: No Currently Unemployed: No Education: Bachelor's Degree Difficulty w/ Childcare or Family Care: No Living arrangements: with family Gender identity (if verbalized by the patient): Female Spiritual care concerns: No Meds Home Medications and Allergies Home Medications ?Medication ?Instructions ?Recorded ?Confirmed ?Type amlodipine 10 mg tablet 10 mg PO DAILY #90 tabs 10/24/23 09/16/24 Rx meloxicam 15 mg tablet 15 mg PO DAILY PRN pain #90 tabs 05/05/24 09/16/24 Rx ondansetron 4 mg disintegrating 4 mg PO Q8H PRN nausea and 06/12/24 09/01/24 Rx tablet vomiting #60 tabs gabapentin 300 mg capsule 300 mg PO BID #60 caps 07/10/24 09/16/24 Rx cyclobenzaprine 5 mg tablet 5 mg PO TID PRN muscle spasm 08/24/24 09/16/24 History hydroxychloroquine 200 mg tablet 400 mg PO BID 08/24/24 09/16/24 History (Plaquenil) cholecalciferol (vitamin D3) 1,250 1,250 mcg PO WEEKLY 08/27/24 09/16/24 History mcg (50,000 unit) capsule cyanocobalamin (vitamin B-12) 1,000 mcg sublingual DAILY 08/27/24 09/16/24 History 1,000 mcg sublingual tablet duloxetine 60 mg capsule,delayed 60 mg PO DAILY 08/27/24 09/16/24 History release ferrous sulfate 325 mg (65 mg 325 mg PO DAILY 08/27/24 09/16/24 History iron) tablet losartan 100 mg tablet 100 mg PO DAILY 08/27/24 09/16/24 History acetaminophen 500 mg capsule 1,000 mg PO Q4-6H PRN pain 09/01/24 09/16/24 History levothyroxine 100 mcg tablet See Rx Instructions .Route 09/08/24 09/16/24 Rx .COMPLEX #90 tabs Allergies Allergy/AdvReac Type Severity Reaction Status Date / Time morphine Allergy Unknown Difficulty Verified 09/16/24 08:32 Breathing Sulfa (Sulfonamide Allergy Unknown Rash Verified 09/16/24 08:32 Antibiotics) powder in surgery gloves Allergy Intermediate rash and Uncoded 09/14/24 08:40 itching Vital Signs Vital Signs - 24 hr 09/16/24 08:34 Temperature 98.0 F Pulse Rate 78 Respiratory Rate 18 Blood Pressure 137/84 Pulse Oximetry 100 Oxygen Delivery Room Air Exam Const: General: comfortable and no acute distress HENMT: Face/Nose/Sinus: Normal nares present Eyes: General: appearance normal, both eyes and all related structures Neck: Neck: no JVD Resp: Auscultation: clear to auscultation bilaterally Cardio: Rate: regular rate Rhythm: regular rhythm GI: Inspection: non-distended GI Palp: Yes Soft to palpation Skin: General skin exam: normal color Neuro: Speech: normal speech Extrem: General: normal to inspection Psych: Mental Status: mental status grossly normal Assessment and Plan Assessment and plan (1) Anemia: Code(s): D64.9 - Anemia, unspecified Status: Acute Assessment and Plan: egd and colonoscopy (2) History of weight loss surgery: Code(s): Z98.84 - Bariatric surgery status Status: Acute
--- NOTE | 2024-09-16 09:11 | SUR.OPER ---
EGD [id number]. Colonoscopy start time 910.
--- NOTE | 2024-09-16 09:25 | S_PTH ---
PATIENT: Cindy Calderón LOC: [facility] Hurt#:[id number] AGE/SX: 59/F ROOM: RE09/16/[address]: Rodney Calderon MD : 1965 BED: DIS: 09/16/2024 SPEC #: [id number] RECD: 09/16/24 10:09 STATUS: KHANH REQ #: [id number] LUIS: 09/16/24 09:[address]: Rodney Calderon DEPT: [facility] Surgical RECD BY: Kenya Zuniga ENTERED: 09/16/24 10:10 SP TYPE: Surgical OTHR DR: Yazmin Johns APRN Tissues: A - Small Bowel Bx B - Gastric Biopsy C - Colon Polypectomy D - Colon Biopsy Procedures: Hematoxylin and Eosin Stain Gross and Microscopic Level 4
[2024-09-16 09:26] VITALS: BP 112/51; PULSE 73; RESP 24; O2SAT 100
[2024-09-16 09:36] VITALS: BP 112/51; PULSE 76; RESP 24; O2SAT 100
[2024-09-16 09:46] VITALS: BP 127/81; PULSE 77; RESP 22; O2SAT 100
== END 2024-09-16 10:00 | disposition home or self-care (01) ==
PROVIDERS: PCP Nurse Practitioner Adult Health; Referring Provider Nurse Practitioner Family; Visit Provider Internal Medicine Gastroenterology
PROC: 0DJ08ZZ Inspection of Upper Intestinal Tract, Via Natural or Artificial Opening Endoscopic (ICD-10-PCS; CPT 45378; principal; 2024-09-16 09:30)
DX: D64.9 Anemia, unspecified (principal); D12.2 Benign neoplasm of ascending colon; K52.831 Collagenous colitis; E03.9 Hypothyroidism, unspecified; I10 Essential (primary) hypertension; E55.9 Vitamin D deficiency, unspecified; M32.9 Systemic lupus erythematosus, unspecified; M17.0 Bilateral primary osteoarthritis of knee; G47.30 Sleep apnea, unspecified; R00.0 Tachycardia, unspecified; L40.9 Psoriasis, unspecified; M06.80 Other specified rheumatoid arthritis, unspecified site; G89.29 Other chronic pain; M54.9 Dorsalgia, unspecified; F12.90 Cannabis use, unspecified, uncomplicated; E66.9 Obesity, unspecified; Z68.38 Body mass index [BMI] 38.0-38.9, adult; Z79.899 Other long term (current) drug therapy; Z95.0 Presence of cardiac pacemaker; Z98.890 Other specified postprocedural states; Z90.49 Acquired absence of other specified parts of digestive tract; Z98.51 Tubal ligation status; Z98.84 Bariatric surgery status; Z87.442 Personal history of urinary calculi; Z80.9 Family history of malignant neoplasm, unspecified; Z82.49 Family history of ischemic heart disease and other diseases of the circulatory system
CPT/HCPCS: 43239; 45380; 45385; 88305; J2704; J7120

== ENCOUNTER 2024-09-16 10:26 | Outpatient (CLI) | payer OTHER, SELFPAY ==
--- NOTE | ~2024-09-16 | CT_ITS ---
EXAMINATION: CT pelvis wo con DATE: 09/16/2024 11:00 INDICATION: Low back pain TECHNIQUE: Computed tomography (CT) of the pelvis was performed without intravenous contrast. Automat ed exposure control and iterative reconstruction technique were employed.The dose-length product was 579.29 mGy-cm. COMPARISON: None FINDINGS: Bladder is normal. Uterus and bilateral ovaries are normal. There are likely bilateral tubal ligation rings along the broad ligaments. Surgical clips in the central pelvis and about the left ovary could also be related to prior tubal ligation or potentially visualized portion of the bowels are normal. No dilated bowel to suggest obstruction. Visualized inferior pole the right kidney is normal. No free fluid in the pelvis. No pathologically enlarged pelvic or inguinal lymphadenopathy. Mild lower lumba r spondylosis with mild disc height loss at L4-L5 and severe bilateral facet osteoarthritis at L4-L5 and L5-S1. Moderate central canal and bilateral neural foraminal stenosis at L4-5. Mild central canal and mild right and mild to moderate left neural foraminal stenosis at L5-S1. Mild right and mild to moderate left sacroiliac osteoarthritis and mild bilateral hip osteoarthritis. IMPRESSION: 1. Postoperative changes likely bilateral tubal ligation. No acute intrapelvic process. 2. Degenerative skeletal changes as detailed above most notable for moderate central canal and bilate ral neural from stenosis at L4-5. Reviewed, dictated and finalized at location A. IMPRESSION: 1. Postoperative changes likely bilateral tubal ligation. No acute intrapelvic process. 2. Degenerative skeletal changes as detailed above most notable for moderate ce ntral canal and bilateral neural from stenosis at L4-5.
--- OUTSIDE RECORDS SUMMARY | 2024-09-16 10:34 | XMS_ITS | Encounter Summary ---
Author Organization [facility] Address [address] [place] [address] Care Team Providers Care Retail Delivery Driver Name Role Phone Garfield Perla MD Primary Care Provider [phone] Ghassan Luna DO Primary Care Provider Kaylynn Drake MD Unavailable + Tayo Davis MD Primary Care Provider [phone] Reason for Visit * Reason Onset Date Comments MEDICATION REFILL 06/21/2017 Encounter Details Date Type Department Care Team (Late st Contact Info) Description 06/21/2017 Refill [facility] Internal Medicine [address] [address] Glendy Donnelly RN MEDICATION REFILL Social History Tobacco Use Types Packs/Day Years Used Date Smoking Tobacco: Never Smokeless Tobacco: Never Alcohol Use Standard Drinks/Week Comments No 0 (1 standard drink = 0.6 oz pur e alcohol) Comments Unknown Sex and Gender Information Value Date Recorded Sex Assigned at Female 03/21/2021 5:27 PM IT APPLICATIONS ANALYST Legal Sex Female 6:10 AM IT APPLICATIONS ANALYST Gender Identity Female 03/21/2021 5:27 PM IT APPLICATIONS ANALYST Sexual Orientation Straight 03/21/2021 5: 27 PM IT APPLICATIONS ANALYST documented as of this encounter Plan of Treatment Not on file documented as of this encounter Visit Diagnoses Not on filedocumented in this encounter Care Teams Retail Delivery Driver Relationship Specialty Start Date End Date Garfield Perla MD [address] [place] [address] [address] PCP - General 03/21/11 03/05/18 Ghassan Luna DO [address] [place] [address] PCP - General 03/06/18 12/25/20 Tayo Davis MD [address] [place] [id number] PCP - General 12/26/20 Kaylynn Drake MD [address] [facility] [address] [place] [address] Physician Rheumatology 10/07/18 documented as of this encounter
--- OUTSIDE RECORDS SUMMARY | 2024-09-16 10:34 | XMS_ITS | Clinical Summary ---
Author Organization [facility] Address [address] [place] [address] Care Team Providers Care Application Packager Name Role Phone Kaylynn Drake MD Unavailable + Tayo Davis MD Primary Care Provider [phone] Source Comments [facility],non-owned Affiliates and Associated Physician Practices is amultiple site organization consisting of ambulatory clinics and hospital sitesin [place], [place], [place] and [place]. This disclosure is being madepursuant to the Care Everywhere program and may not contain all information available regarding this patient. Last updated 17.[facility] Allergies Active Allergy Reactions Criticality Noted Date [...] before breakfast. Active vitamin D, ergocalciferol, (DRISDOL) 51109 UNIT capsuleIndications:Vit phan d deficiency Take 1 Cap by mouth every 7 days. 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,detention 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,Chronic pain of both knees Take 1 tablet by mouth once daily 5 06/22/19 18 Active CALCIUM CITRATE-VITAMIN D POIndications:Sjogren' s syndrome, with unspecified organ involvement (HCC),Other forms of systemic lupus erythematosus, unspecified organ involvement status (HCC),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,detention 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,Chronic pain of both knees Take 1 tablet by mouth once daily Active Cyanocobalamin (VITAMIN B 12 PO)Indications:Sjogren 's syndrome, with unspecified organ involvement (HCC),Other forms of systemic lupus erythematosus, unspecified organ involvement status (HCC),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,exterminator 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,Chronic pain of both knees Take 1 tablet by mouth once daily Active Multiple Vitamins-Minerals (CENTRUM SILVER 50+WOMEN PO)Indications:Sjogren 's syndrome, with unspecified organ involvement (HCC),Other forms of systemic lupus erythematosus, unspecified organ involvement status (HCC),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,detention 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,Chronic pain of both knees Take 1 tablet by mouth once daily Active traMADol (ULTRAM) 50 MG tabletIndications:Sjog barbara's syndrome, with unspecified organ involvement (HCC),Other forms of systemic lupus erythematosus, unspecified organ involvement status (HCC),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,exterminator 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,Chronic pain of both knees Take 1 tablet by mouth as needed 5 06/02/19 18 Active clobetasol (TEMOVATE) 0.05 % ointment Apply to affected area on trunk and extremities BID. 30 day supply. 60 g 2 12/04/19 18 Active losartan - hydroCHLOROthiazide (HYZAAR) 50-12.5 MG tablet TK 1 T PO D 12/23/19 20 Active albuterol HFA (PROVENTIL;VENTOLIN;WV OAIR) 108 (90 Base) MCG/ACT inhaler Inhale [...] Sex Assigned at Female 03/21/2021 5:[address] TECHNOLOGIST Legal Sex Female 6:[address] TECHNOLOGIST Gender Identity Female 03/21/2021 5:[address] TECHNOLOGIST Sexual Orientation Straight 03/21/2021 5: [address] TECHNOLOGIST Last Filed Vital Signs Vital Sign Reading Time Taken Comments Blood Pressure 170/110 04/09/2019 8:[address] TECHNOLOGIST Pulse 99 04/09/2019 8:[address] TECHNOLOGIST Temperature 36.7 C (98 F) 04/09/2019 8:[address] TECHNOLOGIST Respiratory Rate 22 04/09/2019 8:[address] TECHNOLOGIST Oxygen Saturation 97% 04/09/2019 8:[address] TECHNOLOGIST Inhaled Oxygen Concentration - - Weight 103.9 kg (229 lb) 01/03/2021 9:57 AM CDT Height 157.5 cm (5' 2) 04/09/2019 8:[address] TECHNOLOGIST Body Mass Index 41.88 04/09/2019 8:[address] TECHNOLOGIST Plan of Treatment Health Maintenance Due Date [...] HEPATITIS SCREEN ACUTE Routine 05/02/2017 3:[address] TECHNOLOGIST LIPID PROFILE Routine 03/21/2011 3:[address] TECHNOLOGIST from Last 3 Months or Most Recently Relevant to Health Maintenance Results * HEPATITIS SCREEN ACUTE (05/02/2017 3:[address] TECHNOLOGIST) Hepatitis A Virus Antibody IgM NON-REACTI VE NON-REACT [facility] ([facility]) Hepatitis B Virus Surface Antigen NON-REACTI VE NON-REACT [facility] ([facility]) Hepatitis B Core Virus Antibody IgM NON-REACTI VE NON-REACT [facility] ([facility]) Hepatitis C Antibody NON-REACTI VE NON-REACT [facility] ([facility]) Signal/Cutoff 0.02 <1.00 [facility] ([facility]) Comment: Test Performed at: [facility] [facility] [id number] [place] [id number] ITALO MADRID DO,MPH Blood specimen (specimen) BLOOD SPECIMEN / Unknown 05/02/2017 3:[address] TECHNOLOGIST 05/02/2017 3:[address] TECHNOLOGIST us Hedy Kern MD LAB - CHEMISTRY ORDERABLES Final Result Performing Organization Address City/[facility]/ZIP Co de Phone Number HERVE ([facility]) [address] * LIPID PROFILE (03/21/2011 3:[address] TECHNOLOGIST) Cholesterol 178 <200 mg/dl [facility] Triglycerides 79 10 - 210 mg/dl [facility] HDL Cholesterol 62 >40 mg/dl [facility] LDL Calculated 100 mg/dl [facility] Chol HDL Ratio 2.87 [facility] Comment Lipid [facility] Comment: Risk Classification HDL CHOL LDL CHOL TOTAL CHOL According to NCEP (mg/dl) (mg/dL) (mg/dl) Desirable >40 <130 < 200 Borderline/High - 130-159 200-239 High - >159 > 239 The total cholesterol to HDL cholesterol ratio may be used to predict risk for coronary heart disease in untreated patients according to data reported from the Bronson Study by Italo Delgado M.D. The predictive [...] BLOOD SPECIMEN / Unknown 03/21/2011 3:[address] TECHNOLOGIST 03/21/2011 4:[address] TECHNOLOGIST us Marcus Levi MD LAB - CHEMISTRY ORDERABLE S Final Result Performing Organization Address City/[facility]/ZIP Co de Phone Number [facility] [address] [place] [address] from Last 3 Months or Most Recently Relevant to Health Maintenance Insurance [facility] Address: [place] [address] [facility] Care Teams Application Packager Relationship Specialty Start Date End Date Tayo Davis MD [address] [place] [phone] PCP - General 12/26/20 Kaylynn Drake MD Physician Rheumatology 10/07/18
--- OUTSIDE RECORDS SUMMARY | 2024-09-16 10:34 | XMS_ITS | Clinical Summary ---
Author Organization [facility] Address [address] [place] [address] Care Team Providers Care Hydro Plant Technician Name Role Phone Unavailable Primary Care Provider [...] this topic Medical Devices Implanted Type Area Imagery Intelligence Device Identifier Shelf Expiration Date Model / Serial / Lot Rv Lead Implanted:11/10 (Quantity not on file) Lead Implant Chest [employer] C[employer] RHY[employer]M AND HEART FAILURE - DIV M 4024 / [id number] V / Description:NOT MR CONDITION AL Ra Lead Implanted:11/10 (Quantity not on file) Lead Implant [employer] CARDIAC RHYTHM AND HEART FAILURE - DIV M 4524 / [id number] / Description:NOT MR CONDITION AL Pacemaker-2005 Implanted:07/19 (Quantity not on file) Pacemaker Chest [employer] RHY 1291 / [id number] / Description:DEVICE IS NOT MR CONDITIONAL
--- OUTSIDE RECORDS SUMMARY | 2024-09-16 10:34 | XMS_ITS | Clinical Summary ---
Author Organization [facility]omenica donah[facility] Address [address] [place] [address] Care Team Providers Care Sales Representative Supervisor Name Role Phone Unavailable Primary Care Provider [...] Description 10/13/2024 11:00 AM CDT Office Visit [facility] - Yvon [address] [facility] [address] [place] [address] Domenic Campbell MD [address] [facility] [address] [place] [address] Health Maintenance Due Date Last [...]
--- OUTSIDE RECORDS SUMMARY | 2024-09-16 10:34 | XMS_ITS | Referral Summary ---
Author Organization [facility] Address [address] [place] [address] Care Team Providers Care Casting Tester Name Role Phone Tayo Davis MD Primary Care Provider [phone] Henry Camp MD, Salvador Unavailable [phone] Allergies Active Allergy Reactions Criticality Noted Date [...] 50,000 unit capsule 10/12/2015Vitamin D2, [place] solid [address] unit CapsulePOas directedCurrent Medication Active SYMBICORT 160-4.5 [...] OCT Assessment & Plan (02/08/2022 10:40 AM FLAT GRINDER OPERATOR): Up to date on Eye exam. Last completed by Dr. Contreras ([facility]) on 01/25/22 without signs of [...] prn Assessment & Plan (02/08/2022 12:50 PM FLAT GRINDER OPERATOR): Stable on HCQ. Continue same. Encourage daily use of biotene products (lozenge, mouth rinses) and also a trial of nasal saline gel product such as Westhope gel. Can also try coconut oil swish [...] of nasal saline gel product such as Westhope gel. Can also try coconut oil swish [...] on file Legal Sex Female 12:41 PM FLAT GRINDER OPERATOR Gender Identity Female 09/29/2019 7:39 AM CDT [...] BILATERAL W JOSE Routine 04/12/2015 12:00 AM FLAT GRINDER OPERATOR from Last 3 Months or Most Recently Relevant to Health Maintenance Results * Screening Mammogram Bilateral W Jose (04/12/2015 12:00 AM FLAT GRINDER OPERATOR) Anatomical Region Laterality Modality Breast Bilateral Mammography 04/12/2015 3:40 PM FLAT GRINDER OPERATOR Narrative 04/19/2015 10:05 AM FLAT GRINDER OPERATOR - SCREENING MAMM W JOSE BI BILATERAL [...] Requesting: NIMESH HURD M.D. Requesting Requesting ID: [id number] Attending Attending ID: [id number] Completed Time: 04/12/2015 3:40 PM Dictated Time: N/A Transcribed Time: 04/19/2015 10:05 AM Signed by: RAISA MONTANO MD on 04/19/2015 10:05 AM Report To 1 ID: [id number] Report To 1 Name: EDIE HELLER Report [...] Requesting: NIMESH HURD M.D. Requesting Requesting ID: [id number] Attending Attending ID: [id number] Completed Time: 04/12/2015 3:40 PM Dictated Time: N/A Transcribed Time: 04/19/2015 10:05 AM Signed by: RAISA MONTANO MD on 04/19/2015 10:05 AM Report To 1 ID: [id number] Report To 1 Name: EDIE HELLER Report To 1 FAX: Report To 2 ID: Report To 2 Name: , Report To 2 FAX: Report To 3 ID: Report To 3 Name: , Report To 3 FAX: NextGen Order #: Historical Provider IMLeonidas MAMMO PROCEDURES Marva l Result from Last 3 Months or Most Recently Relevant to Health Maintenance Insurance [facility] PLUS [facility] PLUS [facility] PLUS Care Teams Casting Tester Relationship Specialty Start Date End Date Tayo Davis MD PCP - General Family Practice 03/14/21 Salvador Figueroa Jr., MD Medical Oncologist/Furnishings Conservator Medical Oncology 04/14/21
--- OUTSIDE RECORDS SUMMARY | 2024-09-16 10:34 | XMS_ITS | Clinical Summary ---
Author Organization [facility] Address [address] [place] [address] Care Team Providers Care Auto Emissions Technician Name Role Phone Tayo Davis MD Primary Care Provider +1 -[phone] Henry Camp MD, Salvador Unavailable +1- [phone] Allergies Active Allergy Reactions Criticality Noted Date [...] 50,000 unit capsule 10/12/2015Vitamin D2, [place] solid [address] unit CapsulePOas directedCurrent Medication Active SYMBICORT 160-4.5 [...] OCT Assessment & Plan (02/08/2022 10:40 AM PERL SOFTWARE ENGINEER): Up to date on Eye exam. Last completed by Dr. Contreras ([facility]) on 01/25/22 without signs of [...] prn Assessment & Plan (02/08/2022 12:50 PM PERL SOFTWARE ENGINEER): Stable on HCQ. Continue same. Encourage daily use of biotene products (lozenge, mouth rinses) and also a trial of nasal saline gel product such as [place] gel. Can also try coconut oil swish [...] of nasal saline gel product such as [place] gel. Can also try coconut oil swish [...] on file Legal Sex Female 12:41 PM PERL SOFTWARE ENGINEER Gender Identity Female 09/29/2019 7:39 AM CDT [...] BILATERAL W JOSE Routine 04/12/2015 12:00 AM PERL SOFTWARE ENGINEER from Last 3 Months or Most Recently Relevant to Health Maintenance Results * Screening Mammogram Bilateral W Jose (04/12/2015 12:00 AM PERL SOFTWARE ENGINEER) Anatomical Region Laterality Modality Breast Bilateral Mammography 04/12/2015 3:40 PM PERL SOFTWARE ENGINEER Narrative 04/19/2015 10:05 AM PERL SOFTWARE ENGINEER - SCREENING MAMM W JOSE BI BILATERAL [...] be contacted by letter. Raisa Montano M.D. [facility]/[place]:04/19/2015 08:25:06 letter sent: Normal Exam Mammogram BI-RADS: 2 Benign Radiologist: RAISA MONTANO MD Attending: NIMESH HURD M.D. Requesting: NIMESH HURD M.D. Requesting Requesting ID: [id number] Attending Attending ID: [id number] Completed Time: 04/12/2015 3:40 PM Dictated Time: N/A Transcribed Time: 04/19/2015 10:05 AM Signed by: RAISA MONTANO MD on 04/19/2015 10:05 AM Report To 1 ID: [id number] Report To 1 Name: EDIE HELLER Report [...] be contacted by letter. Raisa Montano M.D. [facility]/[place]:04/19/2015 08:25:06 letter sent: Normal Exam Mammogram BI-RADS: 2 Benign Radiologist: RAISA MONTANO MD Attending: NIMESH HURD M.D. Requesting: NIMESH HURD M.D. Requesting Requesting ID: [id number] Attending Attending ID: [id number] Completed Time: 04/12/2015 3:40 PM Dictated Time: N/A Transcribed Time: 04/19/2015 10:05 AM Signed by: RAISA MONTANO MD on 04/19/2015 10:05 AM Report To 1 ID: [id number] Report To 1 Name: EDIE HELLER Report To 1 FAX: Report To 2 ID: Report To 2 Name: , Report To 2 FAX: Report To 3 ID: Report To 3 Name: , Report To 3 FAX: NextGen Order #: Historical Provider MD MOODY MAMMO PROCEDURES Marva l Result from Last 3 Months or Most Recently Relevant to Health Maintenance Insurance [facility] PLUS [facility]/PP[facility] Address: [place] [address] [facility] CHO[facility] PLUS [facility] H[facility]/PPO Address: [address] [address] [place] [address] [facility] CHO[facility] PLUS [facility] H[facility]/PPO Address: [address] [address] [place] [id number] Care Teams Auto Emissions Technician Relationship Specialty Start Date End Date Tayo Davis MD PCP - General Family Practice 03/14/21 [place] Figueroa Jr., MD Medical Oncologist/Toll Ticket Clerk Medical Oncology 04/14/21
== END 2024-09-16 10:27 | disposition home or self-care (01) ==
PROVIDERS: PCP Nurse Practitioner Adult Health; Visit Provider Anesthesiology Pain Medicine
DX: M47.816 Spondylosis without myelopathy or radiculopathy, lumbar region (principal); M51.362 Other intervertebral disc degeneration, lumbar region with discogenic back pain and lower extremity pain; M47.817 Spondylosis without myelopathy or radiculopathy, lumbosacral region; M48.07 Spinal stenosis, lumbosacral region; M47.818 Spondylosis without myelopathy or radiculopathy, sacral and sacrococcygeal region; M16.0 Bilateral primary osteoarthritis of hip
CPT/HCPCS: 72192

== ENCOUNTER 2024-09-22 10:18 | Day surgery (SDC) | payer OTHER, SELFPAY ==
[2024-09-16 13:51] VITALS: BMI 37.8
--- NOTE | ~2024-09-22 | XR_ITS ---
XR fluoroscopy no charge Indication: Right L3, L4 and L5 medial branch/dorsal ramus nerve block TECHNIQUE: Fluoroscopy used during Right L3, L4 and L5 medial branch/dorsal ramus nerve block perfor med by [Boaz Gerardo MD] on 09/22/2024. 35 seconds of fluoroscopy with 6 fluoroscopic images c aptured. FINDINGS: Correlate with procedure note. IMPRESSION: Fluoroscopy used during Right L3, L4 and L5 medial branch/dorsal ramus nerve block. Reviewed, dictated and finalized at location B. IMPRESSION: Fluoroscopy used during Right L3, L4 and L5 medial branch/dorsal ra mus nerve block.
--- NOTE | 2024-09-22 10:07 | WPDHPUPDATE1 ---
History and Physical Update Update Date/Time: 09/22/24 10:07 History and Physical has been reviewed, including an updated exam of the patient. There are NO changes in the patient's condition. Risks, benefits, and alternatives have been discussed and questions answered. Patient agrees to proceed with procedure.
--- NOTE | 2024-09-22 10:08 | W.PM.PROC2 ---
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 Post-op Diagnosis Same Procedure Performed Diagnostic Right Lumbar Medial Branch/Dorsal Ramus Blocks at L3, L4, L5 Treating the Ipsilateral L4-5, L5-S1 Facet Joints Under Fluoroscopic Guidance and with Contrast Control. (2 levels blocked). Surgeon Boaz Gerardo MD Threading Machine Tender None. Anesthesia Local Description of Procedure INFORMED CONSENT: Risks, benefits and alternatives to the procedure were discussed in detail with the patient who expressed explicit understanding and consent to proceed. Patient was informed verbally and in written form regarding the risks associated with the procedure including the low risk of serious infection, bleeding/bruising, allergic reaction, nerve or organ injury, paralysis, procedural site pain or discomfort, worsening pain and/or mobility, failure to treat and/or disfigurement. The patient expressed explicit understanding and consent to proceed. All materials required for the procedure were available prior to procedure start. Site and side were marked prior to procedure and confirmed in the presence of the patient. PROCEDURE IN DETAIL: The patient was brought to the procedural suite and placed in the prone position. Patient was made comfortable with use of pillows under the head/chest, hips and ankles. Skin overlying the injection site on the affected side(s) was prepared broadly with ChloraPrep applicator and draped in a sterile manner. Aseptic technique was used throughout. The endplates of the vertebral bodies at the site(s) of interest were aligned in the AP view. Ipsilateral oblique angulation was utilized to optimize visualization of the intersection between the superior articulating process and transverse process at each target site. Local anesthesia was established by infiltration with approximately 5 mL of 1% lidocaine via a 1-1/2 inch 27-gauge needle. A 25-gauge 5.0 inch Quincke spinal needle was advanced until the needle tip contacted periosteum at the target site, right L3. Lateral view was utilized to confirm the appropriate placement of the needle tip just anterior to the facet line and superior to the pedicle. In the Lateral view, 0.25 mL of Omnipaque 300 contrast medium was injected after negative aspiration for CSF, blood or other bodily fluid, showing appropriate extra-articular spread of contrast without evidence of intravascular, foraminal or intrathecal placement. A 0.5 mL solution of 0.5% PF bupivacaine was injected after negative repeat aspiration. Appropriate spread of the injectate was confirmed with washout of previously injected contrast. No parasthesias were elicited. Needle was removed completely intact without difficulty. The same exact procedure was repeated for all remaining levels on the ipsilateral side, right L4, L5 medial branches/dorsal ramus, modified as necessary to accommodate for the new target location with identical findings and results and no evidence of complication. Images were saved and documented in the patient chart. Patient's skin was cleaned and sterile bandage applied. The patient tolerated the procedure well. The patient was transported to the recovery area in stable condition where they were observed for an appropriate amount of time prior to discharge, without evidence of complication. Patient was instructed on the appropriate completion of a pain diary over the next 12-24 hours. The patient was instructed to avoid excessive activity for the next 48 hours, including climbing and frequent use of stairs. Showers only for 48 hours. They were instructed not to drive or operate heavy machinery for 24 hours. They are to monitor for severe headaches, fevers, chills, night sweats, erythema/swelling at the site or any other signs of infection, bleeding/bruising, bowel or bladder changes as well as new pain, weakness or numbness in the upper or lower extremity. Should they notice these changes, they are instructed to call our office immediately or report directly to the nearest Emergency Department if no answer or if after posted office hours. COMPLICATIONS: None COMMENTS: None CONTRAST WASTED: 28.5mL Omnipaque 300. Complications No immediate complications Condition Stable Disposition Same day [facility] Billing Surgery - Charge Forward: Surgery Billing
--- OUTSIDE RECORDS SUMMARY | 2024-09-22 10:32 | XMS_ITS | Referral Summary ---
Author Organization [facility] Address [address] [place] [address] Care Team Providers Care High School Hvac R Instructor Name Role Phone Tayo Davis MD Primary Care Provider [phone] [phone] Henry Camp MD, Salvador Unavailable +1- [phone] Allergies Active Allergy Reactions Criticality Noted Date [...] 50,000 unit capsule 10/12/2015Vitamin D2, po solid [address] unit CapsulePOas directedCurrent Medication Active SYMBICORT 160-4.5 [...] OCT Assessment & Plan (02/08/2022 10:40 AM MANAGER CONTACT): Up to date on Eye exam. Last completed by Dr. Contreras ([facility]) on 01/25/22 without signs of retinal [...] prn Assessment & Plan (02/08/2022 12:50 PM MANAGER CONTACT): Stable on HCQ. Continue same. Encourage daily use of biotene products (lozenge, mouth rinses) and also a trial of nasal saline gel product such as [place] gel. Can also try coconut oil swish [...] of nasal saline gel product such as [place] gel. Can also try coconut oil swish [...] on file Legal Sex Female 12:41 PM MANAGER CONTACT Gender Identity Female 09/29/2019 7:39 AM CDT [...] BILATERAL W JOSE Routine 04/12/2015 12:00 AM MANAGER CONTACT from Last 3 Months or Most Recently Relevant to Health Maintenance Results * Screening Mammogram Bilateral W Jose (04/12/2015 12:00 AM MANAGER CONTACT) Anatomical Region Laterality Modality Breast Bilateral Mammography 04/12/2015 3:40 PM MANAGER CONTACT Narrative 04/19/2015 10:05 AM MANAGER CONTACT - SCREENING MAMM W JOSE BI BILATERAL [...] Requesting: NIMESH HURD M.D. Requesting Requesting ID: [id number] Attending Attending ID: [id number] Completed Time: 04/12/2015 3:40 PM Dictated Time: N/A Transcribed Time: 04/19/2015 10:05 AM Signed by: RAISA MONTANO MD on 04/19/2015 10:05 AM Report To 1 ID: [id number] Report To 1 Name: EDIE HELLER Report [...] Requesting: NIMESH HURD M.D. Requesting Requesting ID: [id number] Attending Attending ID: [id number] Completed Time: 04/12/2015 3:40 PM Dictated Time: N/A Transcribed Time: 04/19/2015 10:05 AM Signed by: RAISA MONTANO MD on 04/19/2015 10:05 AM Report To 1 ID: [id number] Report To 1 Name: EDIE HELLER Report To 1 FAX: Report To 2 ID: Report To 2 Name: , Report To 2 FAX: Report To 3 ID: Report To 3 Name: , Report To 3 FAX: NextGen Order #: Historical Provider IMLeonidas MAMMO PROCEDURES Marva l Result from Last 3 Months or Most Recently Relevant to Health Maintenance Insurance [facility] PL[facility]/PPO Address: [place] [address] [facility] PLUS [facility] [place] [address] [facility] CHO[facility] PL[facility]/PPO Address: [place] [address] Care Teams High School Hvac R Instructor Relationship Specialty Start Date End Date Tayo Davis MD PCP - General Family Practice 03/14/21 [place] Figueroa Jr., MD Medical Oncologist/Health Informatics Instructor Medical Oncology 04/14/21
--- OUTSIDE RECORDS SUMMARY | 2024-09-22 10:32 | XMS_ITS | Clinical Summary ---
Author Organization [facility] Address [address] [place] [address] Care Team Providers Care Director Metabolism Name Role Phone Unavailable Primary Care Provider [...] this topic Medical Devices Implanted Type Area Bean Sorter Device Identifier Shelf Expiration Date Model / Serial / Lot Rv Lead Implanted:11/10 (Quantity not on file) Lead Implant Chest [employer] C[employer] RHY[employer]M AND HEART FAILURE - DIV M 4024 / [id number] V / Description:NOT MR CONDITION AL Ra Lead Implanted:11/10 (Quantity not on file) Lead Implant [employer] CARDIAC RHYTHM AND HEART FAILURE - DIV M 4524 / [id number] V / Description:NOT MR CONDITION AL Pacemaker-2005 Implanted:07/19 (Quantity not on file) Pacemaker Chest [employer] RHY 1291 / [id number] / Description:DEVICE IS NOT MR CONDITIONAL
--- OUTSIDE RECORDS SUMMARY | 2024-09-22 10:32 | XMS_ITS | Clinical Summary ---
Author Organization [facility] Address [address] [place] [address] Care Team Providers Care Train Engineer Name Role Phone Tayo Davis MD Primary Care Provider [phone] -[phone] Henry Camp MD, Salvador Unavailable +1- [phone] Allergies Active Allergy Reactions Criticality Noted Date [...] 50,000 unit capsule 10/12/2015Vitamin D2, [place] solid [address] unit CapsulePOas directedCurrent Medication Active SYMBICORT 160-4.5 [...] OCT Assessment & Plan (02/08/2022 10:40 AM TIE UP WORKER): Up to date on Eye exam. Last completed by Dr. Contreras ([facility]) on 01/25/22 without signs of retinal toxicity. [...] prn Assessment & Plan (02/08/2022 12:50 PM TIE UP WORKER): Stable on HCQ. Continue same. Encourage daily use of biotene products (lozenge, mouth rinses) and also a trial of nasal saline gel product such as [place] gel. Can also try coconut oil swish [...] of nasal saline gel product such as [place] gel. Can also try coconut oil swish [...] on file Legal Sex Female 12:41 PM TIE UP WORKER Gender Identity Female 09/29/2019 7:39 AM CDT [...] BILATERAL W JOSE Routine 04/12/2015 12:00 AM TIE UP WORKER from Last 3 Months or Most Recently Relevant to Health Maintenance Results * Screening Mammogram Bilateral W Jose (04/12/2015 12:00 AM TIE UP WORKER) Anatomical Region Laterality Modality Breast Bilateral Mammography 04/12/2015 3:40 PM TIE UP WORKER Narrative 04/19/2015 10:05 AM TIE UP WORKER - SCREENING MAMM W JOSE BI BILATERAL [...] be contacted by letter. Raisa Montano M.D. [facility]/[place]:04/19/2015 08:25:06 letter sent: Normal Exam Mammogram BI-RADS: 2 Benign Radiologist: RAISA MONTANO MD Attending: NIMESH HURD M.D. Requesting: NIMESH HURD M.D. Requesting Requesting ID: [id number] Attending Attending ID: [id number] Completed Time: 04/12/2015 3:40 PM Dictated Time: N/A Transcribed Time: 04/19/2015 10:05 AM Signed by: RAISA MONTANO MD on 04/19/2015 10:05 AM Report To 1 ID: [id number] Report To 1 Name: EDIE HELLER Report [...] be contacted by letter. Raisa Montano M.D. [facility]/[place]:04/19/2015 08:25:06 letter sent: Normal Exam Mammogram BI-RADS: 2 Benign Radiologist: RAISA MONTANO MD Attending: NIMESH HURD M.D. Requesting: NIMESH HURD M.D. Requesting Requesting ID: [id number] Attending Attending ID: [id number] Completed Time: 04/12/2015 3:40 PM Dictated Time: N/A Transcribed Time: 04/19/2015 10:05 AM Signed by: RAISA MONTANO MD on 04/19/2015 10:05 AM Report To 1 ID: [id number] Report To 1 Name: EDIE HELLER Report To 1 FAX: Report To 2 ID: Report To 2 Name: , Report To 2 FAX: Report To 3 ID: Report To 3 Name: , Report To 3 FAX: NextGen Order #: Historical Provider MD MOODY MAMMO PROCEDURES Marva l Result from Last 3 Months or Most Recently Relevant to Health Maintenance Insurance [facility] Address: [place] [address] [facility]/PPO Address: [address] [address] [place] [address] [facility] CHO[facility]US [facility] H[facility]/PPO Address: [address] [address] [place] [id number] Care Teams Train Engineer Relationship Specialty Start Date End Date Tayo Davis MD PCP - General Family Practice 03/14/21 [place] Figueroa Jr., MD Medical Oncologist/Training Generalist Medical Oncology 04/14/21
--- OUTSIDE RECORDS SUMMARY | 2024-09-22 10:32 | XMS_ITS | Encounter Summary ---
Author Organization [facility] Address [address] [place] [address] Care Team Providers Care Bar Steward Name Role Phone Garfield Perla MD Primary Care Provider [phone] Ghassan Luna DO Primary Care Provider Kaylynn Drake MD Unavailable + Tayo Davis MD Primary Care Provider +1 -[phone] Reason for Visit * Reason Onset Date Comments MEDICATION REFILL 06/21/2017 Encounter Details Date Type Department Care Team (Late st Contact Info) Description 06/21/2017 Refill [facility] General Internal Medicine [address] [address] Glendy Donnelly RN MEDICATION REFILL Social History Tobacco Use Types Packs/Day Years Used Date Smoking Tobacco: Never Smokeless Tobacco: Never Alcohol Use Standard Drinks/Week Comments No 0 (1 standard drink = 0.6 oz pur e alcohol) Comments Unknown Sex and Gender Information Value Date Recorded Sex Assigned at Female 03/21/2021 5:27 PM BLADDER TRIMMER Legal Sex Female 6:10 AM BLADDER TRIMMER Gender Identity Female 03/21/2021 5:27 PM BLADDER TRIMMER Sexual Orientation Straight 03/21/2021 5: 27 PM BLADDER TRIMMER documented as of this encounter Plan of Treatment Not on file documented as of this encounter Visit Diagnoses Not on filedocumented in this encounter Care Teams Bar Steward Relationship Specialty Start Date End Date Garfield Perla MD [address] [place] [address]. [place] [address] PCP - General 03/21/11 03/05/18 Ghassan Luna DO [address] [facility] [address] [place] [address] PCP - General 03/06/18 12/25/20 Tayo Davis MD [address] [place] [id number] PCP - General 12/26/20 Kaylynn Drake MD [address] [facility] [address] [place] [address] Physician Rheumatology 10/07/18 documented as of this encounter
--- OUTSIDE RECORDS SUMMARY | 2024-09-22 10:32 | XMS_ITS | Clinical Summary ---
Author Organization [facility] Domenica donahue [facility] Address [address] [place] [address] Care Team Providers Care Meat Counter Clerk Name Role Phone Unavailable Primary Care Provider [...] Description 10/13/2024 11:00 AM CDT Office Visit [facility] Oncology and Hematology - [place] [address] [facility] [address] [place] [address] Domenic Campbell MD [address] [facility] [address] [place] [address] Health Maintenance Due Date Last [...]
--- OUTSIDE RECORDS SUMMARY | 2024-09-22 10:32 | XMS_ITS | Clinical Summary ---
Author Organization [facility] [employer] Address [address] [place] [address] Care Team Providers Care Hotel Guest Service Agent Name Role Phone Kaylynn Drake MD Unavailable + Tayo Davis MD Primary Care Provider [phone] [phone] Source Comments [facility],non-owned Affiliates and Associated Physician Practices is amultiple site organization consisting of ambulatory clinics and hospital sitesin [place], [place], [place] and [place]. This disclosure is being madepursuant to the Care Everywhere program and may not contain all information available regarding this patient. Last updated 17.[facility] [employer] Allergies Active Allergy Reactions Criticality Noted Date [...] before breakfast. Active vitamin D, ergocalciferol, (DRISDOL) 65074 UNIT capsuleIndications:Vit phan d deficiency Take 1 Cap by mouth every 7 days. 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,MCC 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,Chronic pain of both knees Take 1 tablet by mouth once daily 5 06/22/19 18 Active CALCIUM CITRATE-VITAMIN D POIndications:Sjogren' s syndrome, with unspecified organ involvement (HCC),Other forms of systemic lupus erythematosus, unspecified organ involvement status (HCC),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,assistant terminal manager 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,Chronic pain of both knees Take 1 tablet by mouth once daily Active Cyanocobalamin (VITAMIN B 12 PO)Indications:Sjogren 's syndrome, with unspecified organ involvement (HCC),Other forms of systemic lupus erythematosus, unspecified organ involvement status (HCC),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,MCC 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,Chronic pain of both knees Take 1 tablet by mouth once daily Active Multiple Vitamins-Minerals (CENTRUM SILVER 50+WOMEN PO)Indications:Sjogren 's syndrome, with unspecified organ involvement (HCC),Other forms of systemic lupus erythematosus, unspecified organ involvement status (HCC),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,assistant terminal manager 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,Chronic pain of both knees Take 1 tablet by mouth once daily Active traMADol (ULTRAM) 50 MG tabletIndications:Sjog barbara's syndrome, with unspecified organ involvement (HCC),Other forms of systemic lupus erythematosus, unspecified organ involvement status (HCC),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,MCC 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,Chronic pain of both knees Take 1 tablet by mouth as needed 5 06/02/19 18 Active clobetasol (TEMOVATE) 0.05 % ointment Apply to affected area on trunk and extremities BID. 30 day supply. 60 g 2 12/04/19 18 Active losartan - hydroCHLOROthiazide (HYZAAR) 50-12.5 MG tablet TK 1 T PO D 12/23/19 20 Active albuterol HFA (PROVENTIL;VENTOLIN;DC OAIR) 108 (90 Base) MCG/ACT inhaler Inhale [...] Sex Assigned at Female 03/21/2021 5:27 PM OPHTHALMIC TECH Legal Sex Female 6:10 AM OPHTHALMIC TECH Gender Identity Female 03/21/2021 5:27 PM OPHTHALMIC TECH Sexual Orientation Straight 03/21/2021 5: 27 PM OPHTHALMIC TECH Last Filed Vital Signs Vital Sign Reading Time Taken Comments Blood Pressure 170/110 04/09/2019 8:54 AM OPHTHALMIC TECH Pulse 99 04/09/2019 8:54 AM OPHTHALMIC TECH Temperature 36.7 C (98 F) 04/09/2019 8:54 AM OPHTHALMIC TECH Respiratory Rate 22 04/09/2019 8:54 AM OPHTHALMIC TECH Oxygen Saturation 97% 04/09/2019 8:54 AM OPHTHALMIC TECH Inhaled Oxygen Concentration - - Weight 103.9 kg (229 lb) 01/03/2021 9:57 AM CDT Height 157.5 cm (5' 2) 04/09/2019 8:54 AM OPHTHALMIC TECH Body Mass Index 41.88 04/09/2019 8:54 AM OPHTHALMIC TECH Plan of Treatment Health Maintenance Due Date [...] season) 2023 DEPRESSION SCREENING 03/11/2024 INFLUENZA VACCINE (#1) 2024 , 01/25/2016, 10/12/2015, Additional history exists HEPATITIS C [...] HEPATITIS SCREEN ACUTE Routine 05/02/2017 3:08 PM OPHTHALMIC TECH LIPID PROFILE Routine 03/21/2011 3:55 PM OPHTHALMIC TECH from Last 3 Months or Most Recently Relevant to Health Maintenance Results * HEPATITIS SCREEN ACUTE (05/02/2017 3:08 PM OPHTHALMIC TECH) Hepatitis A Virus Antibody IgM NON-REACTI VE NON-REACT [facility]) Hepatitis B Virus Surface Antigen NON-REACTI VE NON-REACT [facility] ([facility]) Hepatitis B Core Virus Antibody IgM NON-REACTI VE NON-REACT [facility] ([facility]) Hepatitis C Antibody NON-REACTI VE NON-REACT [facility]) Signal/Cutoff 0.02 <1.00 [facility]) Comment: Test Performed at: [facility] [id number] [place] [address] ITALO MADRID DO,MPH Blood specimen (specimen) BLOOD SPECIMEN / Unknown 05/02/2017 3:08 PM OPHTHALMIC TECH 05/02/2017 3:09 PM OPHTHALMIC TECH us Hedy Kern MD LAB - CHEMISTRY ORDERABLES Final Result Performing Organization Address City/[facility]/ZIP Co de Phone Number [facility] ([facility]) [phone] * LIPID PROFILE (03/21/2011 3:55 PM OPHTHALMIC TECH) Cholesterol 178 <200 mg/dl [facility] Triglycerides 79 10 - 210 mg/dl [facility] HDL Cholesterol 62 >40 mg/dl [facility] LDL Calculated 100 mg/dl [facility] Chol HDL Ratio 2.87 [facility] Comment Lipid [facility] Comment: Risk Classification HDL CHOL LDL CHOL TOTAL CHOL According to NCEP (mg/dl) (mg/dL) (mg/dl) Desirable >40 <130 < 200 Borderline/High - 130-159 200-239 High - >159 > 239 The total cholesterol to HDL cholesterol ratio may be used to predict risk for coronary heart disease in untreated patients according to data reported from the [place] Study by Italo Delgado M.D. The predictive [...] BLOOD SPECIMEN / Unknown 03/21/2011 3:55 PM OPHTHALMIC TECH 03/21/2011 4:06 PM OPHTHALMIC TECH Marcus Levi MD LAB - CHEMISTRY ORDERABLE S Final Result [facility] [address] [place] [address] from Last 3 Months or Most Recently Relevant to Health Maintenance Insurance [facility] Address: [place] [address] [facility] Care Teams Hotel Guest Service Agent Relationship Specialty Start Date End Date Tayo Davis MD [address] [place] [phone] PCP - General 12/26/20 Kaylynn Drake MD Physician Rheumatology 10/07/18
[2024-09-22 10:35] VITALS: BP 131/79; PULSE 81; RESP 16; TEMP 36.9; O2SAT 99
[2024-09-22 11:17] VITALS: BP 139/65; PULSE 76; RESP 19; O2SAT 99
[2024-09-22] MEDS: BUPivacaine HCL 0.5% 10 ML AMP INFILTRATE (11:18)
[2024-09-22 11:21] VITALS: BP 135/65; PULSE 75; RESP 18; O2SAT 99
[2024-09-22 11:26] VITALS: BP 138/79; PULSE 82; RESP 16; O2SAT 98
== END 2024-09-22 11:40 | disposition home or self-care (01) ==
PROVIDERS: PCP Nurse Practitioner Adult Health; Visit Provider Anesthesiology Pain Medicine
PROC: (CPT 64493; principal; 2024-09-22 11:30)
DX: M47.817 Spondylosis without myelopathy or radiculopathy, lumbosacral region (principal)
CPT/HCPCS: 64493; 64494; 99199

== ENCOUNTER 2024-10-26 08:51 | Day surgery (SDC) | payer OTHER, SELFPAY ==
[2024-10-08 13:16] VITALS: BMI 39.0
--- NOTE | ~2024-10-26 | XR_ITS ---
EXAM: XR fluoroscopy no charge - 10/26/2024 9:55 CDT History: 59 years old Female with DIAG/PROG WAGNER L3,L4,L5 MEDIAL BRANCH/DORSAL RAMUS NERVE BLK Fluoroscopy time: 26 sec FINDINGS/ IMPRESSION: Multiple fluoroscopic images of nerve root injections. Reviewed, dictated and finalized at location A.
--- OUTSIDE RECORDS SUMMARY | 2024-10-26 09:17 | XMS_ITS | Clinical Summary ---
Author Organization [facility] Domenica [facility]ahue [facility] Address [address] [place] [address] Care Team Providers Care High Frequency Mill Operator Name Role Phone Unavailable Primary Care [...] Care Team (Late st Contact Info) Description 01/13/2025 2:30 PM FIRST PRESS OPERATOR Office Visit [facility] Oncology and Hematology [facility] [address] [facility] [address] [place] [address] Domenic Campbell MD [address] [place] [address] Health Maintenance Due Date Last [...] T d or Tdap) 01/07/2030 01/08/2020 Insurance [facility] [employer] PPO [id number]
--- OUTSIDE RECORDS SUMMARY | 2024-10-26 09:19 | XMS_ITS | Encounter Summary ---
Author Organization [facility] Address [address] [place] [address] Care Team Providers Care Shellfish Checker Name Role Phone Garfield Perla MD Primary Care Provider [phone] Ghassan Luna DO Primary Care Provider Kaylynn Drake MD Unavailable + Tayo Davis MD Primary Care Provider [phone] Reason for Visit * Reason Onset Date Comments MEDICATION REFILL 06/21/2017 Encounter Details Date Type Department Care Team (Late st Contact Info) Description 06/21/2017 Refill [facility] Internal Medicine [address] [address] Glendy Donnelly RN MEDICATION REFILL Social History Tobacco Use Types Packs/Day Years Used Date Smoking Tobacco: Never Smokeless Tobacco: Never Alcohol Use Standard Drinks/Week Comments No 0 (1 standard drink = 0.6 oz pur e alcohol) Comments Unknown Sex and Gender Information Value Date Recorded Sex Assigned at Female 03/21/2021 5:27 PM SOAKING TANK WORKER Legal Sex Female 6:10 AM SOAKING TANK WORKER Gender Identity Female 03/21/2021 5:27 PM SOAKING TANK WORKER Sexual Orientation Straight 03/21/2021 5: 27 PM SOAKING TANK WORKER documented as of this encounter Plan of Treatment Not on file documented as of this encounter Visit Diagnoses Not on filedocumented in this encounter Care Teams Shellfish Checker Relationship Specialty Start Date End Date Garfield Perla MD [address] [place] [address]. [place] [address] PCP - General 03/21/11 03/05/18 Ghassan Luna DO [address] [place] [address] PCP - General 03/06/18 12/25/20 Tayo Davis MD [address] [place] [phone] PCP - General 12/26/20 Kaylynn Drake MD [address] [place] [address] Physician Rheumatology 10/07/18 documented as of this encounter
--- OUTSIDE RECORDS SUMMARY | 2024-10-26 09:19 | XMS_ITS | Clinical Summary ---
Author Organization [facility] Address [address] [place] [address] Care Team Providers Care Warehouse Unloader Name Role Phone Kaylynn Drake MD Unavailable + Tayo Davis MD Primary Care Provider [phone] Source Comments [facility],non-owned Affiliates and Associated Physician Practices is amultiple site organization consisting of ambulatory clinics and hospital sitesin [place], [place], [place] and [place]. This disclosure is being madepursuant to the Care Everywhere program and may not contain all information available regarding this patient. Last updated 17.[facility] Allergies Active Allergy Reactions Criticality Noted Date [...] before breakfast. Active vitamin D, ergocalciferol, (DRISDOL) 39545 UNIT capsuleIndications:Vit phan d deficiency Take 1 [...] erythematosus, unspecified organ involvement status (HCC),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,shelter 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,Chronic pain of both knees Take 1 tablet by mouth once daily Active Multiple Vitamins-Minerals (CENTRUM SILVER 50+WOMEN PO)Indications:Sjogren 's syndrome, with unspecified organ involvement (HCC),Other forms of systemic lupus erythematosus, unspecified organ involvement status (HCC),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,shelter 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,Chronic pain of both knees Take 1 tablet by mouth once daily Active traMADol (ULTRAM) 50 MG tabletIndications:Sjog barbara's syndrome, with unspecified organ involvement (HCC),Other forms of systemic lupus erythematosus, unspecified organ involvement status (HCC),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,shelter 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,Chronic pain of both knees Take 1 tablet by mouth as needed 5 06/02/19 18 Active clobetasol (TEMOVATE) 0.05 % ointment Apply to affected area on trunk and extremities BID. 30 day supply. 60 g 2 12/04/19 18 Active losartan - hydroCHLOROthiazide (HYZAAR) 50-12.5 MG tablet TK 1 T PO D 12/23/19 20 Active albuterol HFA (PROVENTIL;VENTOLIN;MN OAIR) 108 (90 Base) MCG/ACT inhaler Inhale [...] Sex Assigned at Female 03/21/2021 5:27 PM DIRECTOR SALES AND MARKETING Legal Sex Female 6:10 AM DIRECTOR SALES AND MARKETING Gender Identity Female 03/21/2021 5:27 PM DIRECTOR SALES AND MARKETING Sexual Orientation Straight 03/21/2021 5: 27 PM DIRECTOR SALES AND MARKETING Last Filed Vital Signs Vital Sign Reading Time Taken Comments Blood Pressure 170/110 04/09/2019 8:54 AM DIRECTOR SALES AND MARKETING Pulse 99 04/09/2019 8:54 AM DIRECTOR SALES AND MARKETING Temperature 36.7 C (98 F) 04/09/2019 8:54 AM DIRECTOR SALES AND MARKETING Respiratory Rate 22 04/09/2019 8:54 AM DIRECTOR SALES AND MARKETING Oxygen Saturation 97% 04/09/2019 8:54 AM DIRECTOR SALES AND MARKETING Inhaled Oxygen Concentration - - Weight 103.9 kg (229 lb) 01/03/2021 9:57 AM CDT Height 157.5 cm (5' 2) 04/09/2019 8:54 AM DIRECTOR SALES AND MARKETING Body Mass Index 41.88 04/09/2019 8:54 AM DIRECTOR SALES AND MARKETING Plan of Treatment Health Maintenance Due Date [...] HEPATITIS SCREEN ACUTE Routine 05/02/2017 3:08 PM DIRECTOR SALES AND MARKETING LIPID PROFILE Routine 03/21/2011 3:55 PM DIRECTOR SALES AND MARKETING from Last 3 Months or Most Recently Relevant to Health Maintenance Results * HEPATITIS SCREEN ACUTE (05/02/2017 3:08 PM DIRECTOR SALES AND MARKETING) Hepatitis A Virus Antibody IgM NON-REACTI VE NON-REACT [facility]) Hepatitis B Virus Surface Antigen NON-REACTI VE NON-REACT [facility] ([facility]) Hepatitis B Core Virus Antibody IgM NON-REACTI VE NON-REACT [facility] ([facility]) Hepatitis C Antibody NON-REACTI VE NON-REACT [facility]) Signal/Cutoff 0.02 <1.00 [facility]) Comment: Test Performed at: [facility] [address] [place] [address] ITALO MADRID DO,MPH Blood specimen (specimen) BLOOD SPECIMEN / Unknown 05/02/2017 3:08 PM DIRECTOR SALES AND MARKETING 05/02/2017 3:09 PM DIRECTOR SALES AND MARKETING us Hedy Kern MD LAB - CHEMISTRY ORDERABLES Final Result Performing Organization Address City/[facility]/ZIP Co de Phone Number [facility] ([facility]) [address] * LIPID PROFILE (03/21/2011 3:55 PM DIRECTOR SALES AND MARKETING) Cholesterol 178 <200 mg/dl [facility] Triglycerides 79 10 - 210 mg/dl [facility] HDL Cholesterol 62 >40 mg/dl [facility] LDL Calculated 100 mg/dl [facility] Chol HDL Ratio 2.87 [facility] Comment Lipid [facility] Comment: Risk Classification HDL CHOL LDL CHOL TOTAL CHOL According to NCEP (mg/dl) (mg/dL) (mg/dl) Desirable >40 <130 < 200 Borderline/High - 130-159 200-239 High - >159 > 239 The total cholesterol to HDL cholesterol ratio may be used to predict risk for coronary heart disease in untreated patients according to data reported from the [place] Study by Italo Delgado M.D. The predictive [...] BLOOD SPECIMEN / Unknown 03/21/2011 3:55 PM DIRECTOR SALES AND MARKETING 03/21/2011 4:06 PM DIRECTOR SALES AND MARKETING Marcus Levi MD LAB - CHEMISTRY ORDERABLE S Final Result [facility] [address] [place] [address] from Last 3 Months or Most Recently Relevant to Health Maintenance Insurance [facility] SELF [facility] NO INSURANCE Member Subscriber Plan / Payer (Ef fective for All Dates) Name:Cindy Calderón Member ID:Not on file Relation to Subscriber:Not on file Name:STEPHANECINDY Diamond Subscriber ID:Not on file (Home) Address: [address] [place] [address] Payer ID:Not on file Group ID:Not on file Type:Self Pay Address: [facility] Care Teams Warehouse Unloader Relationship Specialty Start Date End Date Tayo Davis MD [address] [place] [phone] PCP - General 12/26/20 Kaylynn Drake MD Physician Rheumatology 10/07/18
--- OUTSIDE RECORDS SUMMARY | 2024-10-26 09:19 | XMS_ITS | Clinical Summary ---
Author Organization [facility] Address [address] [place] [address] Care Team Providers Care Study Lead Name Role Phone Tayo Davis MD Primary Care Provider [phone] [phone] Henry Camp MD, [place] Unavailable [phone]- [phone] Allergies Active Allergy Reactions Criticality Noted Date [...] 50,000 unit capsule 10/12/2015Vitamin D2, [place] solid [address] unit CapsulePOas directedCurrent Medication Active SYMBICORT 160-4.5 [...] OCT Assessment & Plan (02/08/2022 10:40 AM AQUATIC FACILITY MANAGER): Up to date on Eye exam. Last completed by Dr. Contreras ([facility]) on 01/25/22 without signs of retinal [...] prn Assessment & Plan (02/08/2022 12:50 PM AQUATIC FACILITY MANAGER): Stable on HCQ. Continue same. Encourage daily use of biotene products (lozenge, mouth rinses) and also a trial of nasal saline gel product such as Cowen gel. Can also try coconut oil swish [...] of nasal saline gel product such as Cowen gel. Can also try coconut oil swish [...] on file Legal Sex Female 12:41 PM AQUATIC FACILITY MANAGER Gender Identity Female 09/29/2019 7:39 AM [...] series) 07/12/2020 06/14/2020, 05/22/2020 Influenza Vaccine (#1) 2024 0, 01/25/2016, 10/12/2015, Additional history exists DTaP/Tdap/Td Vaccine (2 - Td or Tdap) 01/07/2030 01/08/2020 Procedures Procedure Name Priority Date/Time Associated Diagnosis Comments SCREENING MAMMOGRAM BILATERAL W JOSE Routine 04/12/2015 12:00 AM AQUATIC FACILITY MANAGER from Last 3 Months or Most Recently Relevant to Health Maintenance Results * Screening Mammogram Bilateral W Jose (04/12/2015 12:00 AM AQUATIC FACILITY MANAGER) Anatomical Region Laterality Modality Breast Bilateral Mammography 04/12/2015 3:40 PM AQUATIC FACILITY MANAGER Narrative 04/19/2015 10:05 AM AQUATIC FACILITY MANAGER - SCREENING MAMM W JOSE BI [...] be contacted by letter. Raisa Montano M.D. [facility]:04/19/2015 08:25:06 letter sent: Normal Exam Mammogram BI-RADS: 2 Benign Radiologist: RAISA MONTANO MD Attending: NIMESH HURD M.D. Requesting: NIMESH HURD M.D. Requesting Requesting ID: [id number] Attending Attending ID: [id number] Completed Time: 04/12/2015 3:40 PM Dictated Time: N/A Transcribed Time: 04/19/2015 10:05 AM Signed by: RAISA MONTANO MD on 04/19/2015 10:05 AM Report To 1 ID: [id number] Report To 1 Name: EDIE HELLER Report [...] be contacted by letter. Raisa Montano M.D. [facility]:04/19/2015 08:25:06 letter sent: Normal Exam Mammogram BI-RADS: 2 Benign Radiologist: RAISA MONTANO MD Attending: NIMESH HURD M.D. Requesting: NIMESH HURD M.D. Requesting Requesting ID: [id number] Attending Attending ID: [id number] Completed Time: 04/12/2015 3:40 PM Dictated Time: N/A Transcribed Time: 04/19/2015 10:05 AM Signed by: RAISA MONTANO MD on 04/19/2015 10:05 AM Report To 1 ID: [id number] Report To 1 Name: EDIE HELLER Report To 1 FAX: Report To 2 ID: Report To 2 Name: , Report To 2 FAX: Report To 3 ID: Report To 3 Name: , Report To 3 FAX: NextGen Order #: Historical Provider MD MOODY MAMMO PROCEDURES Marva l Result from Last 3 Months or Most Recently Relevant to Health Maintenance Insurance [facility] PL[facility] Care Teams Study Lead Relationship Specialty Start Date End Date Tayo Davis MD PCP - General Family Practice 03/14/21 Salvador Figueroa Jr., MD Medical Oncologist/Boat And Plant Utility Supervisor Medical Oncology 04/14/21
--- NOTE | 2024-10-26 09:29 | WPDHPUPDATE1 ---
History and Physical Update Update Date/Time: 10/26/24 09:29 History and Physical has been reviewed, including an updated exam of the patient. There are NO changes in the patient's condition. Risks, benefits, and alternatives have been discussed and questions answered. Patient agrees to proceed with procedure.
--- NOTE | 2024-10-26 09:30 | P.OP_ITS ---
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 Post-op Diagnosis Same Procedure Performed Diagnostic bilateral Lumbar Medial Branch/Dorsal Ramus Blocks at L3, L4, L5 Treating the bilateral L4-5, L5-S1 Facet Joints Under Fluoroscopic Guidance and with Contrast Control. (4 levels blocked). Surgeon Boaz Gerardo MD Data Migration Consultant None. Anesthesia Local Description of Procedure INFORMED CONSENT: Risks, benefits and alternatives to the procedure were discussed in detail with the patient who expressed explicit understanding and consent to proceed. Patient was informed verbally and in written form regarding the risks associated with the procedure including the low risk of serious infection, bleeding/bruising, allergic reaction, nerve or organ injury, paralysis, procedural site pain or discomfort, worsening pain and/or mobility, failure to treat and/or disfigurement. The patient expressed explicit understanding and consent to proceed. All materials required for the procedure were available prior to procedure start. Site and side were marked prior to procedure and confirmed in the presence of the patient. PROCEDURE IN DETAIL: The patient was brought to the procedural suite and placed in the prone position. Patient was made comfortable with use of pillows under the head/chest, hips and ankles. Skin overlying the injection site on the affected side(s) was prepared broadly with ChloraPrep applicator and draped in a sterile manner. Aseptic technique was used throughout. The endplates of the vertebral bodies at the site(s) of interest were aligned in the AP view. I psilateral oblique angulation was utilized to optimize visualization of the intersection between the superior articulating process and transverse process at each target site. Local anesthesia was established by infiltration with approximately 5 mL of 1% lidocaine via a 1-1/2 inch 27-gauge needle. A 25-gauge 5.0 inch Quincke spinal needle was advanced until the needle tip contacted periosteum at the target site, right L3. Lateral view was utilized to confirm the appropriate placement of the needle tip just anterior to the facet line and superior to the pedicle. In the Lateral view, 0.25 mL of Omnipaque 300 contrast medium was injected after negative aspiration for CSF, blood or other bodily fluid, showing appropriate extra-articular spread of contrast without evidence of intravascular, foraminal or intrathecal placement. A 0.5 mL solution of 2.0% PF lidocaine was injected after negative repeat aspiration. Appropriate spread of the injectate was confirmed with washout of previously injected contrast. No parasthesias were elicited. Needle was removed completely intact without difficulty. The same exact procedure was repeated for all remaining levels on the ipsilateral side, right L4, L5 medial branches/dorsal ramus, modified as necessary to accommodate for the new target location with identical findings and results and no evidence of complication. The same exact procedure was repeated for all remaining levels on the contralateral side, left L3, L4, L5 medial branches/dorsal ramus, modified as necessary to accommodate for the new target location with identical findings and results and no evidence of complication. Images were saved and documented in the patient chart. Patient's skin was cleaned and sterile bandage applied. The patient tolerated the procedure well. The patient was transported to the recovery area in stable condition where they were observed for an appropriate amount of time prior to discharge, without evidence of complication. Patient was instructed on the appropriate completion of a pain diary over the next 12-24 hours. The patient was instructed to avoid excessive activity for the next 48 hours, including climbing and frequent use of stairs. Showers only for 48 hours. They were instructed not to drive or operate heavy machinery for 24 hours. They are to monitor for severe headaches, fevers, chills, night sweats, erythema/swelling at the site or any other signs of infection, bleeding/bruising, bowel or bladder changes as well as new pain, weakness or numbness in the upper or lower extremity. Should they notice these changes, they are instructed to call our office immediately or report directly to the nearest Emergency Department if no answer or if after posted office hours. COMPLICATIONS: None COMMENTS: None CONTRAST WASTED: 28.5mL Omnipaque 300. Complications No immediate complications Condition Stable Disposition Same day [facility] Billing Surgery - Charge Forward: Surgery Billing
[2024-10-26 09:34] VITALS: BP 147/85; PULSE 72; RESP 18; TEMP 36.6; O2SAT 100
[2024-10-26 10:03] VITALS: BP 164/74; PULSE 71; RESP 19; O2SAT 98
[2024-10-26] MEDS: LIDOCAINE 1% PF INJ 5 ML VIAL INFILTRATE (10:03)
[2024-10-26] MEDS: LIDOCAINE 2% PF LOCAL INJ 5 ML VIAL INFILTRATE (10:04)
[2024-10-26 10:11] VITALS: BP 140/73; PULSE 66; RESP 18; O2SAT 98
[2024-10-26 10:20] VITALS: BP 122/103; PULSE 71; RESP 16; O2SAT 100
== END 2024-10-26 10:28 | disposition home or self-care (01) ==
PROVIDERS: PCP Nurse Practitioner Adult Health; Visit Provider Anesthesiology Pain Medicine
PROC: (CPT 64493; principal; 2024-10-26 09:30)
DX: M47.817 Spondylosis without myelopathy or radiculopathy, lumbosacral region (principal)
CPT/HCPCS: 64493; 64494 ×2; 64495 ×2; 99199

== ENCOUNTER 2024-11-10 09:40 | Day surgery (SDC) | payer OTHER, SELFPAY ==
--- OUTSIDE RECORDS SUMMARY | 2013-07-09 19:00 | XMS_ITS | Continuity of Care Document ---
Author Organization [facility] Address [address] [place] [address] Phone Care Team Providers Care Catcher Filter Tip Name Role Phone Jeaneth Mac MD Unavailable Unavailable Advance Directives Directive Yes / No Effective Date File Name No Information Encounters Encounter Description Practice Location Reason(s) For Visit Diagnoses Date Provider Providers Copied on Encounter [employer], [address], [place], [place], [id number], tel:[phone] GI SCOPES No Information Bubba Eric. [facility], [id number], [place]. tel:[phone] Referring Provider: Garfield Perla, [address] [place] [address], [place], [address]. tel:[phone] Family History Family Member Type Diagnosis Age At Onset No Information Payers Payer name Insurance type Covered alliance party ID Authoriza tion(s) [employer] OPEN ACCESS HMO PPO POS CI [id number] Social History Type Description Quantity Date Captured [...]
--- OUTSIDE RECORDS SUMMARY | 2014-12-07 04:15 | XMS_ITS | Continuity of Care Document ---
Author Organization [facility] Address [address] [place] [address] Phone Care Team Providers Care Flight Operation Coordinator Name Role Phone Jana HICKEY, Alvaro Unavailable Unavailabl e Procedures Procedure Date RADEX ANKLE COMPL MINIMUM 3 VIEWS RADEX KNE COMPL 4/MORE VIEWS OFFICE/OUTPATIENT VISIT NEW Advance Directives Directive Yes / No Effective Date File Name No Information Encounters Encounter Description Practice Location Reason(s) For Visit Diagnoses Date Provider Providers Copied on Encounter OFFICE/OUTPAT IENT VISIT NEW [facility] , [address], [place], [address], [place] tel:[phone] [facility] Left ankle painLeft knee painPrimary osteoarthritis of left kneePrimary osteoarthritis of left ankle 5 Ghanshyam John. [address] [facility], [place], [place], [address] . tel:[phone] Referring Provider: Garfield Escobar, [address] [facility], [place], [address]. tel:[phone] Family History Family Member Type Diagnosis Age [...]
[2024-11-03 14:33] VITALS: BMI 40.1
--- NOTE | ~2024-11-10 | XR_ITS ---
EXAM: XR fluoroscopy no charge - 11/10/2024 11:20 CDT History: 59 years old Female with DIAG/PROG LEFT L3,L4,L5 MEDIAL BRANCH/DORSAL RAMUS NERVE BLK Fluoroscopy time: 35.2 seconds FINDINGS/ IMPRESSION: Multiple fluoroscopic images of nerve root injections. Reviewed, dictated and finalized at location N.
[2024-11-10 09:59] VITALS: BP 141/92; PULSE 75; RESP 16; TEMP 36.9; O2SAT 99
--- OUTSIDE RECORDS SUMMARY | 2024-11-10 10:08 | XMS_ITS | Encounter Summary ---
Author Organization [facility] Address [address] [place] [address] Care Team Providers Care Preservationist Name Role Phone Garfield Perla MD Primary Care Provider [phone] Ghassan Luna DO Primary Care Provider Kaylynn Drake MD Unavailable + Tayo Davis MD Primary Care Provider [phone] Reason for Visit * Reason Onset Date Comments MEDICATION REFILL 06/21/2017 Encounter Details Date Type Department Care Team (Late st Contact Info) Description 06/21/2017 Refill [facility] Internal Medicine [address] [address] Glendy Donnelly RN MEDICATION REFILL Social History Tobacco Use Types Packs/Day Years Used Date Smoking Tobacco: Never Smokeless Tobacco: Never Alcohol Use Standard Drinks/Week Comments No 0 (1 standard drink = 0.6 oz pur e alcohol) Comments Unknown Sex and Gender Information Value Date Recorded Sex Assigned at Female 03/21/2021 5:27 PM BRICK MASON Legal Sex Female 6:10 AM BRICK MASON Gender Identity Female 03/21/2021 5:27 PM BRICK MASON Sexual Orientation Straight 03/21/2021 5: 27 PM BRICK MASON documented as of this encounter Plan of Treatment Not on file documented as of this encounter Visit Diagnoses Not on filedocumented in this encounter Care Teams Preservationist Relationship Specialty Start Date End Date Garfield Perla MD [address] [place] [address]. [place] [address] PCP - General 03/21/11 03/05/18 Ghassan Luna DO [address] [facility] [address] [place] [address] PCP - General 03/06/18 12/25/20 Tayo Davis MD [address] [place] [phone] PCP - General 12/26/20 Kaylynn Drake MD [address] [facility] [address] [place] [address] Physician Rheumatology 10/07/18 documented as of this encounter
--- OUTSIDE RECORDS SUMMARY | 2024-11-10 10:08 | XMS_ITS | Clinical Summary ---
Author Organization [facility] Address [address] [place] [address] Care Team Providers Care Supervisor Assembly And Packing Name Role Phone Unavailable Primary Care Provider [...] st Contact Info) Description 01/13/2025 2:30 PM FOREMAN OR SUPERVISOR AND OPERATOR Office Visit [facility] Oncology and Hematology - [place] [address] [facility] [address] [place] [address] Domenic Campbell MD [address] [facility] [address] [place] [address] Health Maintenance Due Date Last [...] T d or Tdap) 01/07/2030 01/08/2020 Insurance [facility] OPTIONS PPO [id number] Member Subscriber Plan / Payer (Ef fective 2021-Present) Name:Cindy Calderón Relation to Subscriber:Self Name:Cindy Calderón Payer ID:[id number] (NAIC) Group ID:Not on file Type:PPO Address: [facility] [id number] [place] [id number]
--- OUTSIDE RECORDS SUMMARY | 2024-11-10 10:08 | XMS_ITS | Clinical Summary ---
Author Organization [facility] Address [address] [place] [address] Care Team Providers Care Driver/Refuse Collector Name Role Phone Tayo Davis MD Primary Care Provider [phone] Henry Camp MD, Salvador Unavailable [phone] Allergies Active Allergy Reactions Criticality Noted Date [...] 50,000 unit capsule 10/12/2015Vitamin D2, po solid [address] unit CapsulePOas directedCurrent Medication Active SYMBICORT 160-4.5 [...] OCT Assessment & Plan (02/08/2022 10:40 AM OCCUPATIONAL THERAPY PROFESSOR): Up to date on Eye exam. Last completed by Dr. Contreras ([facility]) on 01/25/22 without signs of [...] prn Assessment & Plan (02/08/2022 12:50 PM OCCUPATIONAL THERAPY PROFESSOR): Stable on HCQ. Continue same. Encourage daily use of biotene products (lozenge, mouth rinses) and also a trial of nasal saline gel product such as [place] gel. Can also try coconut oil swish [...] of nasal saline gel product such as [place] gel. Can also try coconut oil swish [...] on file Legal Sex Female 12:41 PM OCCUPATIONAL THERAPY PROFESSOR Gender Identity Female 09/29/2019 7:39 AM CDT [...] BILATERAL W JOSE Routine 04/12/2015 12:00 AM OCCUPATIONAL THERAPY PROFESSOR from Last 3 Months or Most Recently Relevant to Health Maintenance Results * Screening Mammogram Bilateral W Jose (04/12/2015 12:00 AM OCCUPATIONAL THERAPY PROFESSOR) Anatomical Region Laterality Modality Breast Bilateral Mammography 04/12/2015 3:40 PM OCCUPATIONAL THERAPY PROFESSOR Narrative 04/19/2015 10:05 AM OCCUPATIONAL THERAPY PROFESSOR - SCREENING MAMM W JOSE BI BILATERAL [...] contacted by letter. Raisa Montano M.D. [facility]:04/19/2015 08:25:06 letter sent: Normal Exam Mammogram BI-RADS: 2 Benign Radiologist: RAISA MONTANO MD Attending: NIMESH HURD M.D. Requesting: NIMESH HURD M.D. Requesting Requesting ID: [id number] Attending Attending ID: [id number] Completed Time: 04/12/2015 3:40 PM Dictated Time: N/A Transcribed Time: 04/19/2015 10:05 AM Signed by: RAISA MONTANO MD on 04/19/2015 10:05 AM Report To 1 ID: [id number] Report To 1 Name: EDIE HELLER Report [...] contacted by letter. Raisa Montano M.D. [facility]/[place]:04/19/2015 08:25:06 letter sent: Normal Exam Mammogram BI-RADS: 2 Benign Radiologist: RAISA MONTANO MD Attending: NIMESH HURD M.D. Requesting: NIMESH HURD M.D. Requesting Requesting ID: [id number] Attending Attending ID: [id number] Completed Time: 04/12/2015 3:40 PM Dictated Time: N/A Transcribed Time: 04/19/2015 10:05 AM Signed by: RAISA MONTANO MD on 04/19/2015 10:05 AM Report To 1 ID: [id number] Report To 1 Name: EDIE HELLER Report To 1 FAX: Report To 2 ID: Report To 2 Name: , Report To 2 FAX: Report To 3 ID: Report To 3 Name: , Report To 3 FAX: NextGen Order #: Historical Provider MD MOODY MAMMO PROCEDURES Marva l Result from Last 3 Months or Most Recently Relevant to Health Maintenance Insurance [facility] CHOICE PLUS [facility] CHOICE PLUS [facility] CHOICE PLUS Care Teams Driver/Refuse Collector Relationship Specialty Start Date End Date Tayo Davis MD PCP - General Family Practice 03/14/21 Salvador Figueroa Jr., MD Medical Oncologist/Insolvency Practitioner Medical Oncology 04/14/21
--- OUTSIDE RECORDS SUMMARY | 2024-11-10 10:08 | XMS_ITS | Clinical Summary ---
Author Organization [facility] Address [address] [place] [address] Care Team Providers Care After School Caregiver Name Role Phone Unavailable Primary Care Provider [...] this topic Medical Devices Implanted Type Area Ham Sawyer Device Identifier Shelf Expiration Date Model / Serial / Lot Rv Lead Implanted:11/10 (Quantity not on file) Lead Implant Chest [employer] CARDIAC RHYTHM AND HEART FAILURE - DIV M 4024 / [id number] V / Description:NOT MR CONDITION AL Ra Lead Implanted:11/10 (Quantity not on file) Lead Implant [employer] CARDIAC RHYTHM AND HEART FAILURE - DIV M 4524 / [id number] V / Description:NOT MR CONDITION AL Pacemaker-2005 Implanted:07/19 (Quantity not on file) Pacemaker Chest [employer] RHY 1291 / [id number] / Description:DEVICE IS NOT MR CONDITIONAL
--- OUTSIDE RECORDS SUMMARY | 2024-11-10 10:08 | XMS_ITS | Clinical Summary ---
Author Organization [facility] [employer] Address [address] [place] [address] Care Team Providers Care Steam Box Operator Name Role Phone Kaylynn Drake MD Unavailable + Tayo Davis MD Primary Care Provider [phone] Source Comments [facility],non-owned Affiliates and Associated Physician Practices is amultiple site organization consisting of ambulatory clinics and hospital sitesin [place], [place], [place] and [place]. This disclosure is being madepursuant to the Care Everywhere program and may not contain all information available regarding this patient. Last updated 17.[facility] [employer] Allergies Active Allergy Reactions Criticality Noted Date [...] before breakfast. Active vitamin D, ergocalciferol, (DRISDOL) 52971 UNIT capsuleIndications:Vit phan d deficiency Take 1 Cap by mouth every 7 days. 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,Chronic pain of both knees Take 1 tablet by mouth once daily 5 06/22/19 18 Active CALCIUM CITRATE-VITAMIN D POIndications:Sjogren' s syndrome, with unspecified organ involvement (HCC),Other forms of systemic lupus erythematosus, unspecified organ involvement status (HCC),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,skilled nursing 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,Chronic pain of both knees Take 1 tablet by mouth once daily Active Cyanocobalamin (VITAMIN B 12 PO)Indications:Sjogren 's syndrome, with unspecified organ involvement (HCC),Other forms of systemic lupus erythematosus, unspecified organ involvement status (HCC),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,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,Chronic pain of both knees Take 1 tablet by mouth once daily Active Multiple Vitamins-Minerals (CENTRUM SILVER 50+WOMEN PO)Indications:Sjogren 's syndrome, with unspecified organ involvement (HCC),Other forms of systemic lupus erythematosus, unspecified organ involvement status (HCC),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,skilled nursing 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,Chronic pain of both knees Take 1 tablet by mouth once daily Active traMADol (ULTRAM) 50 MG tabletIndications:Sjog barbara's syndrome, with unspecified organ involvement (HCC),Other forms of systemic lupus erythematosus, unspecified organ involvement status (HCC),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,skilled nursing 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,Chronic pain of both knees Take 1 tablet by mouth as needed 5 06/02/19 18 Active clobetasol (TEMOVATE) 0.05 % ointment Apply to affected area on trunk and extremities BID. 30 day supply. 60 g 2 12/04/19 18 Active losartan - hydroCHLOROthiazide (HYZAAR) 50-12.5 MG tablet TK 1 T PO D 12/23/19 20 Active albuterol HFA (PROVENTIL;VENTOLIN;MO OAIR) 108 (90 Base) MCG/ACT inhaler Inhale [...] Sex Assigned at Female 03/21/2021 5:27 PM HEAT AND FROST INSULATOR Legal Sex Female 6:10 AM HEAT AND FROST INSULATOR Gender Identity Female 03/21/2021 5:27 PM HEAT AND FROST INSULATOR Sexual Orientation Straight 03/21/2021 5: 27 PM HEAT AND FROST INSULATOR Last Filed Vital Signs Vital Sign Reading Time Taken Comments Blood Pressure 170/110 04/09/2019 8:54 AM HEAT AND FROST INSULATOR Pulse 99 04/09/2019 8:54 AM HEAT AND FROST INSULATOR Temperature 36.7 C (98 F) 04/09/2019 8:54 AM HEAT AND FROST INSULATOR Respiratory Rate 22 04/09/2019 8:54 AM HEAT AND FROST INSULATOR Oxygen Saturation 97% 04/09/2019 8:54 AM HEAT AND FROST INSULATOR Inhaled Oxygen Concentration - - Weight 103.9 kg (229 lb) 01/03/2021 9:57 AM CDT Height 157.5 cm (5' 2) 04/09/2019 8:54 AM HEAT AND FROST INSULATOR Body Mass Index 41.88 04/09/2019 8:54 AM HEAT AND FROST INSULATOR Plan of Treatment Health Maintenance Due Date [...] HEPATITIS SCREEN ACUTE Routine 05/02/2017 3:08 PM HEAT AND FROST INSULATOR LIPID PROFILE Routine 03/21/2011 3:55 PM HEAT AND FROST INSULATOR from Last 3 Months or Most Recently Relevant to Health Maintenance Results * HEPATITIS SCREEN ACUTE (05/02/2017 3:08 PM HEAT AND FROST INSULATOR) Hepatitis A Virus Antibody IgM NON-REACTI VE NON-REACT [facility] ([facility]) Hepatitis B Virus Surface Antigen NON-REACTI VE NON-REACT [facility] ([facility]) Hepatitis B Core Virus Antibody IgM NON-REACTI VE NON-REACT [facility] ([facility]) Hepatitis C Antibody NON-REACTI VE NON-REACT [facility] ([facility]) Signal/Cutoff 0.02 <1.00 [facility] ([facility]) Comment: Test Performed at: [facility] [address] [place] [address] ITALO MADRID DO,MPH Blood specimen (specimen) BLOOD SPECIMEN / Unknown 05/02/2017 3:08 PM HEAT AND FROST INSULATOR 05/02/2017 3:09 PM HEAT AND FROST INSULATOR us Hedy Kern MD LAB - CHEMISTRY ORDERABLES Final Result Performing Organization Address City/[facility]/ZIP Co de Phone Number [facility] ([facility]) [address] * LIPID PROFILE (03/21/2011 3:55 PM HEAT AND FROST INSULATOR) Cholesterol 178 <200 mg/dl [facility] Triglycerides 79 10 - 210 mg/dl [facility] HDL Cholesterol 62 >40 mg/dl [facility] LDL Calculated 100 mg/dl [facility] Chol HDL Ratio 2.87 [facility] Comment Lipid [facility] Comment: Risk Classification HDL CHOL LDL CHOL TOTAL CHOL According to NCEP (mg/dl) (mg/dL) (mg/dl) Desirable >40 <130 < 200 Borderline/High - 130-159 200-239 High - >159 > 239 The total cholesterol to HDL cholesterol ratio may be used to predict risk for coronary heart disease in untreated patients according to data reported from the [place] Study by Italo Delgado M.D. The predictive [...] BLOOD SPECIMEN / Unknown 03/21/2011 3:55 PM HEAT AND FROST INSULATOR 03/21/2011 4:06 PM HEAT AND FROST INSULATOR Marcus Levi MD LAB - CHEMISTRY ORDERABLE S Final Result [facility] [address] [place] [address] from Last 3 Months or Most Recently Relevant to Health Maintenance Insurance [facility] Address: [facility] [address] [place] [address] SELF PAY NO INSURANCE Member Subscriber Plan / Payer (Ef fective for All Dates) Name:Cindy Calderón Member ID:Not on file Relation to Subscriber:Not on file Name:STPEHANECINDY Diamond Subscriber ID:Not on file (Home) Address: [address] [place] [place] [address] Payer ID:Not on file Group ID:Not on file Type:Self Pay Address: [facility] Care Teams Steam Box Operator Relationship Specialty Start Date End Date Tayo Davis MD [address] [place] [phone] PCP - General 12/26/20 Kaylynn Drake MD Physician Rheumatology 10/07/18
--- NOTE | 2024-11-10 11:08 | WPDHPUPDATE1 ---
History and Physical Update Update Date/Time: 11/10/24 11:08 History and Physical has been reviewed, including an updated exam of the patient. There are NO changes in the patient's condition. Risks, benefits, and alternatives have been discussed and questions answered. Patient agrees to proceed with procedure.
--- NOTE | 2024-11-10 11:09 | W.PM.PROC2 ---
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 Post-op Diagnosis Same Procedure Performed Diagnostic left Lumbar Medial Branch/Dorsal Ramus Blocks at L3, L4, L5 Treating the left L4-5, L5-S1 Facet Joints Under Fluoroscopic Guidance and with Contrast Control. (2 levels blocked). Surgeon Boaz Gerardo MD Home Appliance Installer None. Anesthesia Local Description of Procedure INFORMED CONSENT: Risks, benefits and alternatives to the procedure were discussed in detail with the patient who expressed explicit understanding and consent to proceed. Patient was informed verbally and in written form regarding the risks associated with the procedure including the low risk of serious infection, bleeding/bruising, allergic reaction, nerve or organ injury, paralysis, procedural site pain or discomfort, worsening pain and/or mobility, failure to treat and/or disfigurement. The patient expressed explicit understanding and consent to proceed. All materials required for the procedure were available prior to procedure start. Site and side were marked prior to procedure and confirmed in the presence of the patient. PROCEDURE IN DETAIL: The patient was brought to the procedural suite and placed in the prone position. Patient was made comfortable with use of pillows under the head/chest, hips and ankles. Skin overlying the injection site on the affected side(s) was prepared broadly with ChloraPrep applicator and draped in a sterile manner. Aseptic technique was used throughout. The endplates of the vertebral bodies at the site(s) of interest were aligned in the AP view. Ipsilateral oblique angulation was utilized to optimize visualization of the intersection between the superior articulating process and transverse process at each target site. Local anesthesia was established by infiltration with approximately 5 mL of 1% lidocaine via a 1-1/2 inch 27-gauge needle. A 25-gauge 5.0 inch Quincke spinal needle was advanced until the needle tip contacted periosteum at the target site, left L3. Lateral view was utilized to confirm the appropriate placement of the needle tip just anterior to the facet line and superior to the pedicle. In the Lateral view, 0.25 mL of Omnipaque 300 contrast medium was injected after negative aspiration for CSF, blood or other bodily fluid, showing appropriate extra-articular spread of contrast without evidence of intravascular, foraminal or intrathecal placement. A 0.5 mL solution of 0.5% PF bupivacaine was injected after negative repeat aspiration. Appropriate spread of the injectate was confirmed with washout of previously injected contrast. No parasthesias were elicited. Needle was removed completely intact without difficulty. The same exact procedure was repeated for all remaining levels on the ipsilateral side, left L4, L5 medial branches/dorsal ramus, modified as necessary to accommodate for the new target location with identical findings and results and no evidence of complication. Images were saved and documented in the patient chart. Patient's skin was cleaned and sterile bandage applied. The patient tolerated the procedure well. The patient was transported to the recovery area in stable condition where they were observed for an appropriate amount of time prior to discharge, without evidence of complication. Patient was instructed on the appropriate completion of a pain diary over the next 12-24 hours. The patient was instructed to avoid excessive activity for the next 48 hours, including climbing and frequent use of stairs. Showers only for 48 hours. They were instructed not to drive or operate heavy machinery for 24 hours. They are to monitor for severe headaches, fevers, chills, night sweats, erythema/swelling at the site or any other signs of infection, bleeding/bruising, bowel or bladder changes as well as new pain, weakness or numbness in the upper or lower extremity. Should they notice these changes, they are instructed to call our office immediately or report directly to the nearest Emergency Department if no answer or if after posted office hours. COMPLICATIONS: None COMMENTS: None CONTRAST WASTED: 29.25 mL Omnipaque 300. Complications No immediate complications Condition Stable Disposition Same day [facility] Billing Surgery - Charge Forward: Surgery Billing
[2024-11-10 11:20] VITALS: BP 174/94; PULSE 77; RESP 19; O2SAT 97
[2024-11-10] MEDS: LIDOCAINE 1% PF INJ 5 ML VIAL INFILTRATE (11:21)
[2024-11-10] MEDS: BUPivacaine HCL 0.5% 10 ML AMP 5 ML INFILTRATE (11:22)
[2024-11-10 11:30] VITALS: BP 135/96; PULSE 77; RESP 16; O2SAT 100
== END 2024-11-10 11:44 | disposition home or self-care (01) ==
PROVIDERS: PCP Nurse Practitioner Adult Health; Visit Provider Anesthesiology Pain Medicine
PROC: (CPT 64493; principal; 2024-11-10 10:50)
DX: M47.817 Spondylosis without myelopathy or radiculopathy, lumbosacral region (principal); M54.50 Low back pain, unspecified; G89.29 Other chronic pain; M46.1 Sacroiliitis, not elsewhere classified
CPT/HCPCS: 64493; 64494; 99199

== ENCOUNTER 2024-11-16 08:59 | Outpatient (CLI) | payer OTHER, SELFPAY ==
--- OUTSIDE RECORDS SUMMARY | 2013-07-09 19:00 | XMS_ITS | Continuity of Care Document ---
Author Organization [facility] Address [address] [place] [address] Phone Care Team Providers Care Wound Care Coordinator Name Role Phone Jeaneth Mac MD Unavailable Unavailable Advance Directives Directive Yes / No Effective Date File Name No Information Encounters Encounter Description Practice Location Reason(s) For Visit Diagnoses Date Provider Providers Copied on Encounter [facility], [address], [place], [place], [id number], tel:[phone] GI SCOPES No Information Bubba Eric. [facility], [id number], [place]. tel:[phone] Referring Provider: Garfield Perla, [address] [place] [address], [place], [address]. tel:[phone] Family History Family Member Type Diagnosis Age At Onset No Information Payers Payer name Insurance type Covered republican ID Authoriza tion(s) [employer] OPEN ACCESS HMO PPO POS CI [id number] Social History Type Description Quantity Date Captured [...]
--- OUTSIDE RECORDS SUMMARY | 2014-12-07 04:15 | XMS_ITS | Continuity of Care Document ---
Author Organization [facility] Address [address] [place] [address] Phone Care Team Providers Care Oxide Furnace Tender Name Role Phone Jana HICKEY, Alvaro Unavailable Unavailabl e Procedures Procedure Date RADEX ANKLE COMPL MINIMUM 3 VIEWS RADEX KNE COMPL 4/MORE VIEWS OFFICE/OUTPATIENT VISIT NEW Advance Directives Directive Yes / No Effective Date File Name No Information Encounters Encounter Description Practice Location Reason(s) For Visit Diagnoses Date Provider Providers Copied on Encounter OFFICE/OUTPAT IENT VISIT NEW [facility] , [address], [place], [address], [place] tel:[phone] [facility] Left ankle painLeft knee painPrimary osteoarthritis of left kneePrimary osteoarthritis of left ankle Nov- 5 Ghanshyam John. [address] [facility], [place], [place], [id number] . tel:[phone] Referring Provider: Garfield Escobar, [address] [facility], [place], [address]. tel:[phone] Family History Family Member Type Diagnosis Age At Onset No Information Payers Payer name Insurance type Covered alliance party ID Authoriza tion(s) No Information Social [...]
--- NOTE | ~2024-11-16 | NM_ITS ---
EXAMINATION: NM jeff stress w perfusion DATE: 11/16/2024 11:47 INDICATION: Cardiovascular exam for preoperative evaluation. TECHNIQUE: Rest images were obtained following intravenous administration of 11 mCi Tc99m tetrofosmin (Myoview). The patient was infused intravenously with Lexiscan (Regadenoson). Then, 34 mCi Tc99m tetrofosmin (Myoview) was administered intravenously, and stress images were obtained. Data was reconstr ucted into short axis and horizontal and vertical long axis SPECT images. Gated SPECT images were also obtained. COMPARISON: None. FINDINGS: There is no definite reversible or fixed perfusion abnormality to suggest ischemia or infarction. There is normal left ventricular chamber size, wall motion and ejection fraction. Left ventricular ejection fraction measures >70%. IMPRESSION: 1. Normal myocardial perfusion at rest and during stress. 2. Left ventricular ejection fraction measuring >70%. Reviewed, dictated and finalized at location A.
--- OUTSIDE RECORDS SUMMARY | 2024-11-16 09:09 | XMS_ITS | Clinical Summary ---
Author Organization [email or web address] Address [address] [place] [address] Care Team Providers Care Marker Maker Name Role Phone Kaylynn Drake MD Unavailable + Tayo Davis MD Primary Care Provider [phone] [phone] Source Comments [facility],non-owned Affiliates and Associated Physician Practices is amultiple site organization consisting of ambulatory clinics and hospital sitesin [place], [place], [place] and [place]. This disclosure is being madepursuant to the Care Everywhere program and may not contain all information available regarding this patient. Last updated 17.[email or web address] Allergies Active Allergy Reactions Criticality Noted Date [...] before breakfast. Active vitamin D, ergocalciferol, (DRISDOL) 60062 UNIT capsuleIndications:Vit phan d deficiency Take 1 Cap by mouth every 7 days. 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,Chronic pain of both knees Take 1 tablet by mouth once daily 5 06/22/19 18 Active CALCIUM CITRATE-VITAMIN D POIndications:Sjogren' s syndrome, with unspecified organ involvement (HCC),Other forms of systemic lupus erythematosus, unspecified organ involvement status (HCC),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,care home 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,Chronic pain of both knees Take 1 tablet by mouth once daily Active Cyanocobalamin (VITAMIN B 12 PO)Indications:Sjogren 's syndrome, with unspecified organ involvement (HCC),Other forms of systemic lupus erythematosus, unspecified organ involvement status (HCC),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,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,Chronic pain of both knees Take 1 tablet by mouth once daily Active Multiple Vitamins-Minerals (CENTRUM SILVER 50+WOMEN PO)Indications:Sjogren 's syndrome, with unspecified organ involvement (HCC),Other forms of systemic lupus erythematosus, unspecified organ involvement status (HCC),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,care home 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,Chronic pain of both knees Take 1 tablet by mouth once daily Active traMADol (ULTRAM) 50 MG tabletIndications:Sjog barbara's syndrome, with unspecified organ involvement (HCC),Other forms of systemic lupus erythematosus, unspecified organ involvement status (HCC),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,care home 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,Chronic pain of [...] Sex Assigned at Female 03/21/2021 5:27 PM CODING SPECIALIST HOME HEALTH Legal Sex Female 6:10 AM CODING SPECIALIST HOME HEALTH Gender Identity Female 03/21/2021 5:27 PM CODING SPECIALIST HOME HEALTH Sexual Orientation Straight 03/21/2021 5: 27 PM CODING SPECIALIST HOME HEALTH Last Filed Vital Signs Vital Sign Reading Time Taken Comments Blood Pressure 170/110 04/09/2019 8:54 AM CODING SPECIALIST HOME HEALTH Pulse 99 04/09/2019 8:54 AM CODING SPECIALIST HOME HEALTH Temperature 36.7 C (98 F) 04/09/2019 8:54 AM CODING SPECIALIST HOME HEALTH Respiratory Rate 22 04/09/2019 8:54 AM CODING SPECIALIST HOME HEALTH Oxygen Saturation 97% 04/09/2019 8:54 AM CODING SPECIALIST HOME HEALTH Inhaled Oxygen Concentration - - Weight 103.9 kg (229 lb) 01/03/2021 9:57 AM CDT Height 157.5 cm (5' 2) 04/09/2019 8:54 AM CODING SPECIALIST HOME HEALTH Body Mass Index 41.88 04/09/2019 8:54 AM CODING SPECIALIST HOME HEALTH Plan of Treatment Health Maintenance Due Date [...] - Risk 60-74 years 1-dose series) 2023 DEPRESSION SCREENING 03/11/2024 COVID-19 VACCINE (1 - 2023- season) 2024 INFLUENZA VACCINE (#1) 2024 0, 01/25/2016, 10/12/2015, Additional history exists HEPATITIS C [...] HEPATITIS SCREEN ACUTE Routine 05/02/2017 3:08 PM CODING SPECIALIST HOME HEALTH LIPID PROFILE Routine 03/21/2011 3:55 PM CODING SPECIALIST HOME HEALTH from Last 3 Months or Most Recently Relevant to Health Maintenance Results * HEPATITIS SCREEN ACUTE (05/02/2017 3:08 PM CODING SPECIALIST HOME HEALTH) Hepatitis A Virus Antibody IgM NON-REACTI VE NON-REACT [facility]) Hepatitis B Virus Surface Antigen NON-REACTI VE NON-REACT [facility]) Hepatitis B Core Virus Antibody IgM NON-REACTI VE NON-REACT [facility]) Hepatitis C Antibody NON-REACTI VE NON-REACT [facility]) Signal/Cutoff 0.02 <1.00 [facility] ([facility]) Comment: Test Performed at: [facility] [address] [place] [address] ITALO MADRID DO,MPH Blood specimen (specimen) BLOOD SPECIMEN / Unknown 05/02/2017 3:08 PM CODING SPECIALIST HOME HEALTH 05/02/2017 3:09 PM CODING SPECIALIST HOME HEALTH us Hedy Kern MD LAB - CHEMISTRY ORDERABLES Final Result Performing Organization Address City/[facility]/ZIP Co de Phone Number [facility] ([facility]) [address] * LIPID PROFILE (03/21/2011 3:55 PM CODING SPECIALIST HOME HEALTH) Cholesterol 178 <200 mg/dl [facility] Triglycerides 79 10 - 210 mg/dl [facility] HDL Cholesterol 62 >40 mg/dl [facility] LDL Calculated 100 mg/dl [facility] Chol HDL Ratio 2.87 [facility] Comment Lipid [facility] Comment: Risk Classification HDL CHOL LDL CHOL TOTAL CHOL According to NCEP (mg/dl) (mg/dL) (mg/dl) Desirable >40 <130 < 200 Borderline/High - 130-159 200-239 High - >159 > 239 The total cholesterol to HDL cholesterol ratio may be used to predict risk for coronary heart disease in untreated patients according to data reported from the [place] Study by Italo Delgado M.D. The predictive [...] BLOOD SPECIMEN / Unknown 03/21/2011 3:55 PM CODING SPECIALIST HOME HEALTH 03/21/2011 4:06 PM CODING SPECIALIST HOME HEALTH Marcus Levi MD LAB - CHEMISTRY ORDERABLE S Final Result [facility] [address] [place] [address] from Last 3 Months or Most Recently Relevant to Health Maintenance Insurance [facility] SELF PAY NO INSURANCE Member Subscriber Plan / Payer (Ef fective for All Dates) Name:Cindy Calderón Member ID:Not on file Relation to Subscriber:Not on file Name:STEPHANECINDY Diamond Subscriber ID:Not on file (Home) Address: [address] [place] [address] Payer ID:Not on file Group ID:Not on file Type:Self Pay Address: [facility] Care Teams Marker Maker Relationship Specialty Start Date End Date Tayo Davis MD [address] [place] [phone] PCP - General 12/26/20 Kaylynn Drake MD Physician Rheumatology 10/07/18
--- OUTSIDE RECORDS SUMMARY | 2024-11-16 09:09 | XMS_ITS | Clinical Summary ---
Author Organization [facility] Address [address] [place] [address] Care Team Providers Care Cotton Breeder Name Role Phone Tayo Davis MD Primary Care Provider [phone] [phone] Henry Camp MD, Salvador Unavailable +1- [phone] Allergies Active Allergy Reactions Criticality Noted Date [...] 50,000 unit capsule 10/12/2015Vitamin D2, [place] solid [address] unit CapsulePOas directedCurrent Medication Active SYMBICORT 160-4.5 [...] OCT Assessment & Plan (02/08/2022 10:40 AM ASSISTED LIVING MANAGER): Up to date on Eye exam. Last completed by Dr. Contreras ([facility]) on 01/25/22 without signs of [...] prn Assessment & Plan (02/08/2022 12:50 PM ASSISTED LIVING MANAGER): Stable on HCQ. Continue same. Encourage daily use of biotene products (lozenge, mouth rinses) and also a trial of nasal saline gel product such as [place] gel. Can also try coconut oil swish [...] of nasal saline gel product such as [place] gel. Can also try coconut oil swish [...] on file Legal Sex Female 12:41 PM ASSISTED LIVING MANAGER Gender Identity Female 09/29/2019 7:39 AM [...] BILATERAL W JOSE Routine 04/12/2015 12:00 AM ASSISTED LIVING MANAGER from Last 3 Months or Most Recently Relevant to Health Maintenance Results * Screening Mammogram Bilateral W Jose (04/12/2015 12:00 AM ASSISTED LIVING MANAGER) Anatomical Region Laterality Modality Breast Bilateral Mammography 04/12/2015 3:40 PM ASSISTED LIVING MANAGER Narrative 04/19/2015 10:05 AM ASSISTED LIVING MANAGER - SCREENING MAMM W JOSE BI [...] be contacted by letter. Raisa Montano M.D. [facility]rad:04/19/2015 08:25:06 letter sent: Normal Exam Mammogram BI-RADS: 2 Benign Radiologist: RAISA MONTANO MD Attending: NIMESH HURD M.D. Requesting: NIMESH HURD M.D. Requesting Requesting ID: [id number] Attending Attending ID: [id number] Completed Time: 04/12/2015 3:40 PM Dictated Time: N/A Transcribed Time: 04/19/2015 10:05 AM Signed by: RAISA MONTANO MD on 04/19/2015 10:05 AM Report To 1 ID: [id number] Report To 1 Name: EDIE HELLER Report [...] be contacted by letter. Raisa Montano M.D. [facility]rad:04/19/2015 08:25:06 letter sent: Normal Exam Mammogram BI-RADS: 2 Benign Radiologist: RAISA MONTANO MD Attending: NIMESH HURD M.D. Requesting: NIMESH HURD M.D. Requesting Requesting ID: [id number] Attending Attending ID: [id number] Completed Time: 04/12/2015 3:40 PM Dictated Time: N/A Transcribed Time: 04/19/2015 10:05 AM Signed by: RAISA MONTANO MD on 04/19/2015 10:05 AM Report To 1 ID: [id number] Report To 1 Name: EDIE HELLER Report To 1 FAX: Report To 2 ID: Report To 2 Name: , Report To 2 FAX: Report To 3 ID: Report To 3 Name: , Report To 3 FAX: NextGen Order #: Historical Provider MD MOODY MAMMO PROCEDURES Marva l Result from Last 3 Months or Most Recently Relevant to Health Maintenance Insurance [facility] CHOICE PLUS [facility] HMO/PPO Address: [place] [address] [facility] CHOICE PLUS [facility] HMO/PPO Address: [address] [address] [place] [address] [facility] CHOICE PLUS [facility] HMO/PPO Address: [address] [address] [place] [address] Care Teams Cotton Breeder Relationship Specialty Start Date End Date Tayo Davis MD PCP - General Family Practice 03/14/21 Salvador Figueroa Jr., MD Medical Oncologist/Microwave Engineer Medical Oncology 04/14/21
--- OUTSIDE RECORDS SUMMARY | 2024-11-16 09:09 | XMS_ITS | Clinical Summary ---
[facility] Address [address] [place] [address] Care Team Providers Care Diagnostic Sales Specialist Name Role Phone Unavailable Primary Care Provider [...] st Contact Info) Description 01/13/2025 2:30 PM BID ANALYST Office Visit [facility] Oncology and Hematology - [place] [address] [place] [address] Domenic Campbell MD [address] [place] [address] Health Maintenance Due Date Last [...] T d or Tdap) 01/07/2030 01/08/[address] [facility] OPTIONS PPO [id number] Member Subscriber Plan / Payer (Ef fective 2021-Present) Name:Cindy Calderón Relation to Subscriber:Self Name:Cindy Calderón Payer ID:[id number] (NAIC) Group ID:Not on file Type:PPO Address: [facility] [id number] [place] [id number]
--- OUTSIDE RECORDS SUMMARY | 2024-11-16 09:09 | XMS_ITS | Encounter Summary ---
Author Organization [facility] Address [address] [place] [address] Care Team Providers Care Merchandise Clerk Name Role Phone Garfield Perla MD Primary Care Provider [phone] Ghassan Luna DO Primary Care Provider Kaylynn Drake MD Unavailable + Tayo Davis MD Primary Care Provider [phone] Reason for Visit * Reason Onset Date Comments MEDICATION REFILL 06/21/2017 Encounter Details Date Type Department Care Team (Late st Contact Info) Description 06/21/2017 Refill [facility] General Internal Medicine [address] [address] Glendy Donnelly RN MEDICATION REFILL Social History Tobacco Use Types Packs/Day Years Used Date Smoking Tobacco: Never Smokeless Tobacco: Never Alcohol Use Standard Drinks/Week Comments No 0 (1 standard drink = 0.6 oz pur e alcohol) Comments Unknown Sex and Gender Information Value Date Recorded Sex Assigned at Female 03/21/2021 5:27 PM GEOLOGICAL SURVEY FIELD ASSISTANT Legal Sex Female 6:10 AM GEOLOGICAL SURVEY FIELD ASSISTANT Gender Identity Female 03/21/2021 5:27 PM GEOLOGICAL SURVEY FIELD ASSISTANT Sexual Orientation Straight 03/21/2021 5: 27 PM GEOLOGICAL SURVEY FIELD ASSISTANT documented as of this encounter Plan of Treatment Not on file documented as of this encounter Visit Diagnoses Not on filedocumented in this encounter Care Teams Merchandise Clerk Relationship Specialty Start Date End Date Garfield Perla MD [address] [place] [address]. [place] [address] PCP - General 03/21/11 03/05/18 Ghassan Luna DO [address] [place] [address] PCP - General 03/06/18 12/25/20 Tayo Davis MD [address] [place] [phone] PCP - General 12/26/20 Kaylynn Drake MD [address] [place] [address] Physician Rheumatology 10/07/18 documented as of this encounter
--- NOTE | 2024-11-16 09:33 | EST_ITS ---
Patient Info Name: Cindy Calderón Age: 59 years : 1965 Gender: Female Ht: 62 in Wt: 216 lbs BSA: 2.12 m2 HR: 66 bpm BP: 214 / 84 mmHg Exam Date: 11/16/2024 9:33 AM Patient Status: O Admit Date: 11/16/2024 Exam Type: CA stress jeff w NM A regadenoson stress test was performed. Staff Referring Physician: Glenn Martinez DO Attending Provider: Glenn Martinez DO Exercise Technologist: Rosemary Lewis Exercise Physician: Glenn Martinez DO Summary 1. 1. Negative lexiscan stress test for ischemic ST changes by ECG criteria. 2. 2. Baseline hypertension. 3. 3. Nuclear scan to follow and will be reported separately. Please correlate with it. 4. 4. Patient informed of the above results. Protocol: Lexiscan Stress ECG Details Stage: REST Duration (min): 0 min : 58 sec HR (bpm): 67 SBP (mmHg): --- DBP (mmHg): --- Stage: REST Duration (min): 8 min : 34 sec HR (bpm): 71 SBP (mmHg): 206 DBP (mmHg): 86 Stage: STAGE 1 Duration (min): 0 min : 59 sec HR (bpm): 89 SBP (mmHg): 206 DBP (mmHg): 86 Stage: RECOVERY Duration (min): 1 min : 0 sec HR (bpm): 94 SBP (mmHg): 146 DBP (mmHg): 75 Stage: RECOVERY Duration (min): 2 min : 0 sec HR (bpm): 93 SBP (mmHg): 146 DBP (mmHg): 75 Stage: RECOVERY Duration (min): 3 min : 0 sec HR (bpm): 81 SBP (mmHg): 164 DBP (mmHg): 74 Stage: RECOVERY Duration (min): 3 min : 13 sec HR (bpm): 81 SBP (mmHg): 164 DBP (mmHg): 74 Rest HR: 71 bpm Peak HR: 94 bpm Rest Sys BP: 206 mmHg Peak Sys BP: 164 mmHg Max Pred HR: 159 bpm % Max Pred HR: 59 % Target HR: 135 bpm Max RPP: 15,416 bpm*mmHg Termination Reason: Completed protocol Cardiac Symptoms: Shortness of breath Total Time: 1 min : 0 sec Rest Wood BP: 86 mmHg Peak Wood BP: 74 mmHg Total Dose: 0.4 mg Resting ECG Sinus rhythm. Stress ECG No ST changes. Arrhythmias None. Report Signatures
== END 2024-11-16 09:00 | disposition home or self-care (01) ==
PROVIDERS: PCP Nurse Practitioner Adult Health; Visit Provider Internal Medicine Cardiovascular Disease
DX: Z01.810 Encounter for preprocedural cardiovascular examination (principal)
CPT/HCPCS: 78452; 93017; A9502; J2785

== ENCOUNTER 2024-11-27 10:33 | Outpatient (CLI) | payer OTHER, SELFPAY ==
--- OUTSIDE RECORDS SUMMARY | 2024-11-27 10:18 | XMS_ITS | Clinical Summary ---
Author Organization [facility] Address [address] [place] [address] Care Team Providers Care District Attorney Name Role Phone Unavailable Primary Care Provider [...] Vaccines (1 of 2) 2013 COVID-19 Vaccine ( - 2023-2 5 season) 2024 RSV Immunization or 60+ Years (1 - [...] this topic Medical Devices Implanted Type Area Osteopathic Medicine Teacher Device Identifier Shelf Expiration Date Model / Serial / Lot Rv Lead Implanted:11/10 (Quantity not on file) Lead Implant Chest [employer] CARDIAC RHYTHM AND HEART FAILURE - DIV M 4024 / [id number] / Description:NOT MR CONDITION AL Ra Lead Implanted:11/10 (Quantity not on file) Lead Implant [employer] CARDIAC RHYTHM AND HEART FAILURE - DIV M 4524 / [id number] / Description:NOT MR CONDITION AL Pacemaker-2005 Implanted:07/19 (Quantity not on file) Pacemaker Chest [employer] RHY 1291 / [id number] / Description:DEVICE IS NOT MR CONDITIONAL
--- OUTSIDE RECORDS SUMMARY | 2024-11-27 10:18 | XMS_ITS | Clinical Summary ---
Author Organization [facility] Address [address] [place] [address] Care Team Providers Care Camp Maintenance Supervisor Name Role Phone Tayo Davis MD Primary Care Provider [phone] [phone] Henry Camp MD, Salvador Unavailable [phone]- [phone] Allergies Active Allergy Reactions Criticality Noted Date [...] 50,000 unit capsule 10/12/2015Vitamin D2, [place] solid [address] unit CapsulePOas directedCurrent Medication Active SYMBICORT 160-4.5 [...] OCT Assessment & Plan (02/08/2022 10:40 AM GOVERNMENT TEACHER): Up to date on Eye exam. Last completed by Dr. Contreras ([facility]) on 01/25/22 without signs of retinal [...] prn Assessment & Plan (02/08/2022 12:50 PM GOVERNMENT TEACHER): Stable on HCQ. Continue same. Encourage daily use of biotene products (lozenge, mouth rinses) and also a trial of nasal saline gel product such as [place] gel. Can also try coconut oil swish [...] of nasal saline gel product such as [place] gel. Can also try coconut oil swish [...] on file Legal Sex Female 12:41 PM GOVERNMENT TEACHER Gender Identity Female 09/29/2019 7:39 AM CDT [...] BILATERAL W JOSE Routine 04/12/2015 12:00 AM GOVERNMENT TEACHER from Last 3 Months or Most Recently Relevant to Health Maintenance Results * Screening Mammogram Bilateral W Jose (04/12/2015 12:00 AM GOVERNMENT TEACHER) Anatomical Region Laterality Modality Breast Bilateral Mammography 04/12/2015 3:40 PM GOVERNMENT TEACHER Narrative 04/19/2015 10:05 AM GOVERNMENT TEACHER - SCREENING MAMM W JOSE BI BILATERAL [...] be contacted by letter. Raisa Montano M.D. [facility]rad:04/19/2015 08:25:06 letter sent: Normal Exam Mammogram BI-RADS: 2 Benign Radiologist: RAISA MONTANO MD Attending: NIMESH HURD M.D. Requesting: NIMESH HURD M.D. Requesting Requesting ID: [id number] Attending Attending ID: [id number] Completed Time: 04/12/2015 3:40 PM Dictated Time: N/A Transcribed Time: 04/19/2015 10:05 AM Signed by: RAISA MONTANO MD on 04/19/2015 10:05 AM Report To 1 ID: [id number] Report To 1 Name: EDIE HELLER Report [...] be contacted by letter. Raisa Montano M.D. [facility]:04/19/2015 08:25:06 letter sent: Normal Exam Mammogram BI-RADS: 2 Benign Radiologist: RAISA MONTANO MD Attending: NIMESH HURD M.D. Requesting: NIMESH HURD M.D. Requesting Requesting ID: [id number] Attending Attending ID: [id number] Completed Time: 04/12/2015 3:40 PM Dictated Time: N/A Transcribed Time: 04/19/2015 10:05 AM Signed by: RAISA MONTANO MD on 04/19/2015 10:05 AM Report To 1 ID: [id number] Report To 1 Name: EDIE HELLER Report To 1 FAX: Report To 2 ID: Report To 2 Name: , Report To 2 FAX: Report To 3 ID: Report To 3 Name: , Report To 3 FAX: NextGen Order #: Historical Provider MD MOODY MAMMO PROCEDURES Marva l Result from Last 3 Months or Most Recently Relevant to Health Maintenance Insurance [facility] CHO[facility] PLUS [facility] PL[facility] Care Teams Camp Maintenance Supervisor Relationship Specialty Start Date End Date Tayo Davis MD PCP - General Family Practice 03/14/21 Salvador Figueroa Jr., MD Medical Oncologist/Photoengraving Supervisor Medical Oncology 04/14/21
--- OUTSIDE RECORDS SUMMARY | 2024-11-27 10:18 | XMS_ITS | Clinical Summary ---
[facility] Organization [facility] Address [address] [place] [address] Care Team Providers Care Electrical Control Assembler Name Role Phone Unavailable Primary Care Provider [...] Encounters Date Type Department Care Team Description 11/24/2024 External Device Data STL ABSTRACTION Provider, Abstract 09/01/2024 External Device Data STL ABSTRACTION Provider, [...] st Contact Info) Description 01/13/2025 2:30 PM PIPER HELPER Office Visit [facility] Oncology and Hematology - [place] [address] [facility] [address] [place] [address] Domenic Campbell MD [address] [place] [address] Health Maintenance Due Date Last [...] T d or Tdap) 01/07/2030 01/08/2020 Insurance [facility] OPTIONS PPO [id number]
--- OUTSIDE RECORDS SUMMARY | 2024-11-27 10:18 | XMS_ITS | Clinical Summary ---
Author Organization [facility] Address [address] [place] [address] Care Team Providers Care Ambulatory Services Representative Name Role Phone Kaylynn Drake MD Unavailable + Tayo Davis MD Primary Care Provider [phone] Source Comments [facility],non-owned Affiliates and Associated Physician Practices is amultiple site organization consisting of ambulatory clinics and hospital sitesin [place], [place], [place] and [place]. This disclosure is being madepursuant to the Care Everywhere program and may not contain all information available regarding this patient. Last updated 17.[facility] Allergies Active Allergy Reactions Criticality Noted Date [...] before breakfast. Active vitamin D, ergocalciferol, (DRISDOL) 29251 UNIT capsuleIndications:Vit phan d deficiency Take 1 Cap by mouth every 7 days. 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,prison 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,Chronic pain of both knees Take 1 tablet by mouth once daily 5 06/22/19 18 Active CALCIUM CITRATE-VITAMIN D POIndications:Sjogren' s syndrome, with unspecified organ involvement (HCC),Other forms of systemic lupus erythematosus, unspecified organ involvement status (HCC),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,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 manager 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,Chronic pain of both knees Take 1 tablet by mouth once daily Active Cyanocobalamin (VITAMIN B 12 PO)Indications:Sjogren 's syndrome, with unspecified organ involvement (HCC),Other forms of systemic lupus erythematosus, unspecified organ involvement status (HCC),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,terminal manager 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,Chronic pain of both knees Take 1 tablet by mouth once daily Active Multiple Vitamins-Minerals (CENTRUM SILVER 50+WOMEN PO)Indications:Sjogren 's syndrome, with unspecified organ involvement (HCC),Other forms of systemic lupus erythematosus, unspecified organ involvement status (HCC),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,prison 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,Chronic pain of both knees Take 1 tablet by mouth once daily Active traMADol (ULTRAM) 50 MG tabletIndications:Sjog barbara's syndrome, with unspecified organ involvement (HCC),Other forms of systemic lupus erythematosus, unspecified organ involvement status (HCC),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,prison 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,Chronic pain of both knees Take 1 tablet by mouth as needed 5 06/02/19 18 Active clobetasol (TEMOVATE) 0.05 % ointment Apply to affected area on trunk and extremities BID. 30 day supply. 60 g 2 12/04/19 18 Active losartan - hydroCHLOROthiazide (HYZAAR) 50-12.5 MG tablet TK 1 T PO D 12/23/19 20 Active albuterol HFA (PROVENTIL;VENTOLIN;NE OAIR) 108 (90 Base) MCG/ACT inhaler Inhale [...] Sex Assigned at Female 03/21/2021 5:27 PM HYDRAULIC JACK ADJUSTER Legal Sex Female 6:10 AM HYDRAULIC JACK ADJUSTER Gender Identity Female 03/21/2021 5:27 PM HYDRAULIC JACK ADJUSTER Sexual Orientation Straight 03/21/2021 5: 27 PM HYDRAULIC JACK ADJUSTER Last Filed Vital Signs Vital Sign Reading Time Taken Comments Blood Pressure 170/110 04/09/2019 8:54 AM HYDRAULIC JACK ADJUSTER Pulse 99 04/09/2019 8:54 AM HYDRAULIC JACK ADJUSTER Temperature 36.7 C (98 F) 04/09/2019 8:54 AM HYDRAULIC JACK ADJUSTER Respiratory Rate 22 04/09/2019 8:54 AM HYDRAULIC JACK ADJUSTER Oxygen Saturation 97% 04/09/2019 8:54 AM HYDRAULIC JACK ADJUSTER Inhaled Oxygen Concentration - - Weight 103.9 kg (229 lb) 01/03/2021 9:57 AM CDT Height 157.5 cm (5' 2) 04/09/2019 8:54 AM HYDRAULIC JACK ADJUSTER Body Mass Index 41.88 04/09/2019 8:54 AM HYDRAULIC JACK ADJUSTER Plan of Treatment Health Maintenance Due Date [...] HEPATITIS SCREEN ACUTE Routine 05/02/2017 3:08 PM HYDRAULIC JACK ADJUSTER LIPID PROFILE Routine 03/21/2011 3:55 PM HYDRAULIC JACK ADJUSTER from Last 3 Months or Most Recently Relevant to Health Maintenance Results * HEPATITIS SCREEN ACUTE (05/02/2017 3:08 PM HYDRAULIC JACK ADJUSTER) Hepatitis A Virus Antibody IgM NON-REACTI VE NON-REACT [facility]AC [facility] ([facility]) Hepatitis B Virus Surface Antigen NON-REACTI VE NON-REACT [facility] ([facility]) Hepatitis B Core Virus Antibody IgM NON-REACTI VE NON-REACT [facility]AC [facility] ([facility]) Hepatitis C Antibody NON-REACTI VE NON-REACT IS[facility]AC [facility] ([facility]) Signal/Cutoff 0.02 <1.00 [facility] ([facility]) Comment: Test Performed at: [facility] [address] [place] [address] ITALO MADRID DO,MPH Blood specimen (specimen) BLOOD SPECIMEN / Unknown 05/02/2017 3:08 PM HYDRAULIC JACK ADJUSTER 05/02/2017 3:09 PM HYDRAULIC JACK ADJUSTER us Hedy Kern MD LAB - CHEMISTRY ORDERABLES Final Result Performing Organization Address City/[facility]/ZIP Co de Phone Number HERVE ([facility]) [address] * LIPID PROFILE (03/21/2011 3:55 PM HYDRAULIC JACK ADJUSTER) Cholesterol 178 <200 mg/dl [facility] Triglycerides 79 10 - 210 mg/dl [facility] HDL Cholesterol 62 >40 mg/dl [facility] LDL Calculated 100 mg/dl [facility] Chol HDL Ratio 2.87 [facility] Comment Lipid [facility] Comment: Risk Classification HDL CHOL LDL CHOL TOTAL CHOL According to NCEP (mg/dl) (mg/dL) (mg/dl) Desirable >40 <130 < 200 Borderline/High - 130-159 200-239 High - >159 > 239 The total cholesterol to HDL cholesterol ratio may be used to predict risk for coronary heart disease in untreated patients according to data reported from the [place] Study by Italo Delgado M.D. The predictive [...] BLOOD SPECIMEN / Unknown 03/21/2011 3:55 PM HYDRAULIC JACK ADJUSTER 03/21/2011 4:06 PM HYDRAULIC JACK ADJUSTER Marcus Levi MD LAB - CHEMISTRY ORDERABLE S Final Result [facility] [address] [place] [address] from Last 3 Months or Most Recently Relevant to Health Maintenance Insurance [facility] SELF PAY NO INSURANCE Member Subscriber Plan / Payer (Ef fective for All Dates) Name:Cindy Calderón Member ID:Not on file Relation to Subscriber:Not on file Name:STEPHANECINDY Diamond Subscriber ID:Not on file (Home) Address: [address] [place] [address] Payer ID:Not on file Group ID:Not on file Type:Self Pay Address: [facility] Care Teams Ambulatory Services Representative Relationship Specialty Start Date End Date Tayo Davis MD [address] [place] [phone] PCP - General 12/26/20 Kaylynn Drake MD Physician Rheumatology 10/07/18
--- OUTSIDE RECORDS SUMMARY | 2024-11-27 10:18 | XMS_ITS | Encounter Summary ---
Author Organization [facility] Address [address] [place] [address] Care Team Providers Care Financial Institution Treasurer Name Role Phone Garfield Perla MD Primary Care Provider [phone] Ghassan Luna DO Primary Care Provider [phone] Kaylynn Drake MD Unavailable + Tayo Davis MD Primary Care Provider [phone] Reason for Visit * Reason Onset Date Comments MEDICATION REFILL 06/21/2017 Encounter Details Date Type Department Care Team (Late st Contact Info) Description 06/21/2017 Refill [facility] [address] [address] Glendy Donnelly RN MEDICATION REFILL Social History Tobacco Use Types Packs/Day Years Used Date Smoking Tobacco: Never Smokeless Tobacco: Never Alcohol Use Standard Drinks/Week Comments No 0 (1 standard drink = 0.6 oz pur e alcohol) Comments Unknown Sex and Gender Information Value Date Recorded Sex Assigned at Female 03/21/2021 5:27 PM SECURITY GUARDS DISPATCHER Legal Sex Female 6:10 AM SECURITY GUARDS DISPATCHER Gender Identity Female 03/21/2021 5:27 PM SECURITY GUARDS DISPATCHER Sexual Orientation Straight 03/21/2021 5: 27 PM SECURITY GUARDS DISPATCHER documented as of this encounter Plan of Treatment Not on file documented as of this encounter Visit Diagnoses Not on filedocumented in this encounter Care Teams Financial Institution Treasurer Relationship Specialty Start Date End Date Garfield Perla MD [address] [place] [address]. [place] [address] PCP - General 03/21/11 03/05/18 Ghassan Luna DO [address] [place] [address] PCP - General 03/06/18 12/25/20 Tayo Davis MD [address] [place] [phone] PCP - General 12/26/20 Kaylynn Drake MD [address] [place] [address] Physician Rheumatology 10/07/18 documented as of this encounter
--- NOTE | 2024-11-27 10:21 | ECHO_ITS ---
Patient Info Name: Cindy Calderón Age: 59 years : 1965 Gender: Female Ht: 62 in Wt: 217 lbs BSA: 2.13 m2 HR: 80 bpm BP: 162 / 102 mmHg Technical Quality: Good Exam Date: 11/27/2024 10:59 AM Patient Status: unknown Admit Date: 11/27/2024 Exam Type: CA echo doppler color flow Complete two-dimensional, color flow and Doppler transthoracic echocardiogram is performed. Fixed Income Trading Vice President: Augustine Watts III Attending Provider: Glenn Martinez DO Summary 1. Complete two-dimensional, color flow and Doppler transthoracic echocardiogram is performed. 2. Left ventricular chamber dimension is normal. 3. Left ventricular systolic function is normal, estimated at 60-65. 4. There is mild concentric increased left ventricular wall thickness. 5. E/e' 15 is elevated. 6. Linear artifact in right ventricle suggestive of catheter(s), pacemaker lead(s), or ICD lead(s). 7. Left atrial chamber dimension is mildly enlarged. 8. Right atrial chamber dimension is mildly enlarged. 9. Linear artifact in the right atrium suggestive of catheter(s), pacemaker lead(s), or ICD lead(s). 10. The mitral valve has a mildly calcified annulus. 11. No pulmonary hypertension, estimated pulmonary arterial systolic pressure is 31 mmHg. Left Ventricle E/e' 15 is elevated. Left ventricular chamber dimension is normal. Left ventricular systolic function is normal, estimated at 60-65. There is mild concentric increased left ventricular wall thickness. Right Ventricle Linear artifact in right ventricle suggestive of catheter(s), pacemaker lead(s), or ICD lead(s). Right ventricular chamber dimension is normal. Right ventricular systolic function is normal and with normal TAPSE 2.2 cm. Left Atria Left atrial chamber dimension is mildly enlarged. Right Atria Linear artifact in the right atrium suggestive of catheter(s), pacemaker lead(s), or ICD lead(s). Right atrial chamber dimension is mildly enlarged. Aortic Valve The aortic valve is trileaflet. There is no aortic valve stenosis. There is no aortic valve regurgitation. Pulmonic Valve There is no pulmonic regurgitation. Mitral Valve The mitral valve has a mildly calcified annulus. There is no mitral valve stenosis. There is no mitral valve regurgitation. Tricuspid Valve There is no tricuspid valve regurgitation. No pulmonary hypertension, estimated pulmonary arterial systolic pressure is 31 mmHg. Pericardium/Pleural There is no pericardial effusion. Inferior Vena Cava Normal inferior vena cava with >50% collapse upon inspiration consistent with normal right atrial pressure, 5 mmHg. Aorta The aortic root size at the sinus of Valsalva is normal. Left Ventricular Outflow Tract Name Value Normal LVOT 2D LVOT Diameter 2.1 cm LVOT Doppler LVOT Peak Velocity 101 cm/s LVOT Peak Gradient 4 mmHg LVOT Mean Gradient 2 mmHg LVOT VTI 33 cm LVOT VTI/AV VTI Ratio 1.2 LVOT Stroke Volume 109 ml LVOT CO 13.6 l/min LVOT CI 6.4 l/min/m2 Pulmonic Valve Name Value Normal PV Doppler PV Peak Velocity 104 cm/s PV Peak Gradient 4 mmHg Mitral Valve Name Value Normal MV Doppler MV Peak Gradient 4 mmHg MV Mean Gradient 2 mmHg MV Area (Cont Eq VTI) 5.3 cm2 MV Diastolic Function MV E Peak Velocity 72 cm/s MV A Peak Velocity 98 cm/s MV E/A 0.7 MV Decel Time (PW) 230 ms MV Annular TDI MV E/e' (Septal) 17.7 MV E/e' (Lateral) 14.0 MV E/e' (Average) 15.8 Tricuspid Valve Name Value Normal TV Regurgitation Doppler TR Peak Velocity 255 cm/s TR Peak Gradient 26 mmHg Estimated PAP/RSVP RA Pressure 5 mmHg <=5 PA Systolic Pressure 31 mmHg <36 RV Systolic Pressure 31 mmHg <36 TV Annular TDI TV Lateral Xochilt s' Velocity 15.7 cm/s >=9.5 Aortic Valve Name Value Normal AV Doppler AV Peak Velocity 119 cm/s AV Peak Gradient 6 mmHg AV Mean Gradient 4 mmHg AV VTI 28 cm AV Area (Cont Eq VTI) 3.9 cm2 >=3.0 AV Area (Cont Eq Bernardino) 2.9 cm2 AV DI (Bernardino) 0.86 AV Regurgitation 2D LVOT Area 3.3 cm2 Ventricles Name Value Normal LV Dimensions 2D/MM IVS Diastolic Thickness (2D) 4.1 cm 0.6-1.0 LVID Diastole (2D) 4.1 cm 3.8-5.2 LVID Systole (2D) 2.9 cm 2.2-3.5 LVOT Diameter 2.1 cm LV Fractional Shortening/Ejection Fraction 2D/MM LV Fractional Shortening (2D) 29 % 27-45 LV EF (2D Teichholz) 56 % LV Diastolic Volume (4C MOD) 56 ml LV EF (4C MOD) 66 % LV Diastolic Volume (2C MOD) 73 ml LV EF (2C MOD) 68 % LV Diastolic Volume (BP MOD) 68 ml 46-106 LV Diastolic Volume Index (BP MOD) 32 ml/m2 29-61 LV Systolic Volume (BP MOD) 26 ml 14-42 LV Systolic Volume Index (BP MOD) 12 ml/m2 8-24 LV EF (BP MOD) 62 % 54-74 LV Diastolic Length (4C) 6.5 cm LV Systolic Length (4C) 5.3 cm LV Stroke Volume (4C MOD) 37 ml Atria Name Value Normal LA Dimensions LA Volume (4C A-L) 57 ml LA Volume (BP A-L) 62 ml RA Dimensions RA Area (4C) 15.4 cm2 <=18.0 Report Signatures
[2024-11-27 12:11] LABS: Hematocrit 43.9 % (37.0-47.0); Hemoglobin 14.2 g/dL (12.0-15.0)
== END 2024-11-27 10:34 | disposition home or self-care (01) ==
PROVIDERS: Anesthesiology; PCP Nurse Practitioner Adult Health; Visit Provider Internal Medicine Cardiovascular Disease
DX: Z01.818 Encounter for other preprocedural examination (principal); D64.9 Anemia, unspecified; I51.7 Cardiomegaly; I34.81 Nonrheumatic mitral (valve) annulus calcification; R06.00 Dyspnea, unspecified
CPT/HCPCS: 36415; 85014; 85018; 93306; C8929

== ENCOUNTER 2024-12-01 00:37 | Day surgery (SDC) | payer OTHER, SELFPAY ==
--- OUTSIDE RECORDS SUMMARY | 2013-07-09 19:00 | XMS_ITS | Continuity of Care Document ---
Author Organization [facility] Address [address] [place] [address] Phone Care Team Providers Care Scientist/Engineer Name Role Phone Jeaneth Mac MD Unavailable Unavailable Advance Directives Directive Yes / No Effective Date File Name No Information Encounters Encounter Description Practice Location Reason(s) For Visit Diagnoses Date Provider Providers Copied on Encounter [email or web address], [address], [place], [place], [id number], tel:[phone] [facility] SCOPES No Information Bubba Eric. [facility], [id number], [place]. tel:[phone] Referring Provider: Garfield Perla, [address] [place] [address], [place], [address]. tel:[phone] Family History Family Member Type Diagnosis Age At Onset No Information Payers Payer name Insurance type Covered alliance party ID Authoriza tion(s) [employer] OPEN ACCESS HMO [place]PO [place] [id number] Social History Type Description Quantity Date Captured Comments Sex Female Smoking Status No Information Chief Complaint And Reason For Visit No Information Reason For Referral Reason For Referral No Information History Of Present Illness Encounter Date Complaint History Of Prese nt Illness No Information Functional Status Date Functional Assessmen t No Information Instructions Date Instruction Additional Infor mation No Information Assessments Type Assessment Date No Information Patient Care Teams Name Effective Dates (start - stop) Status Members No Information
--- OUTSIDE RECORDS SUMMARY | 2014-12-07 04:15 | XMS_ITS | Continuity of Care Document ---
Author Organization [facility] Address [address] [place] [address] Phone Care Team Providers Care Stand Up Forklift Operator Name Role Phone Jana HICKEY, Alvaro Unavailable Unavailabl e Procedures Procedure Date RADEX ANKLE COMPL MINIMUM 3 VIEWS RADEX KNE COMPL 4/MORE VIEWS OFFICE/OUTPATIENT VISIT NEW Advance Directives Directive Yes / No Effective Date File Name No Information Encounters Encounter Description Practice Location Reason(s) For Visit Diagnoses Date Provider Providers Copied on Encounter OFFICE/OUTPAT IENT VISIT NEW [facility] , [address], [place], [address], [place] tel:[phone] [facility] Left ankle painLeft knee painPrimary osteoarthritis of left kneePrimary osteoarthritis of left ankle Nov- 5 Ghanshyam John. [address] [facility], [place], [place], [id number] . tel:[phone] Referring Provider: Garfield Escobar, [address] [facility], [place], [address]. tel:[phone] Family History Family Member Type Diagnosis Age [...]
[2024-11-20 09:04] VITALS: BMI 39.5
--- NOTE | 2024-11-20 09:15 | PC.NURSE ---
Addendum entered by Mary Cuevas RN 11/23/24 12:41: Spoke with patient regarding NPO instructions - notified no food or drink after midnight on 11/30. Patient verbalizes understanding. Pt states takes all medicines at night. Pt also notified of time change - be here at 0600 for surgery at 0730. Original Note: Report to the Outpatient Waiting Room, entrance under the green pavilion located off [facility], at time _0730 on date _12/01/24_. Planned Procedure Time: 929__.? Time changes happen often and if your time is changed the preop area will call you the afternoon before. - You and your visitor will be asked to self-screen and do not enter if you have any COVID symptoms. Please call surgeon if you need to reschedule. - A mask is optional within the hospital at this time. Patients may have clear liquids (water, carbonated beverages, clear teas, apple juice) until 3 hours prior to surgery with a maximum of 20 ounces. - No food from midnight until time of surgery and no smoking, or chewing tobacco (or any form of nicotine). No chewing gum, candy or mints. - Infants may have breast milk until 4 hours before surgery, infant formula 6 hours prior to surgery. - Children will be allowed to drink immediately following surgery.? If applicable, please bring a bottle or sippy cup to assist with drinking. Juice, water, soda, and popsicles are readily available.? For infants on formula, please bring formula the day of surgery.? Pacifiers are allowed. Take only the following medications with a SIP of water on the morning of surgery: NONE DO NOT STOP ANY OF YOUR OTHER PRESCRIPTION MEDICATIONS PRIOR TO SURGERY EXCEPT THE FOLLOWING Hold all vitamins and supplements for 3 days per anesthesiologist. Medications to discontinue per physician Date to take last dose Please no make-up, nail ecuadorean, hairspray, perfume, deodorant, or body powder the day of surgery.? No jewelry (including any body piercings) or valuables the day of surgery, leave them at home.? Please take a shower or bath the night before, or the morning of, surgery with an antibacterial soap.? Wear comfortable, loose fitting clothing.? Children are encouraged to wear pajamas. - Jewelry must be removed prior to entering the operating room.? Rings and piercings that are not removed may be cut off. - The hospital will not accept responsibility for valuables.? - Please leave all valuables, including medications, at home the day of surgery. If you are going home after surgery, a licensed bus van driver must drive you home.? - NO public transportation without another adult if you receive anesthesia. - We recommend that an adult stay with you for 24 hours following discharge. - We also recommend that you do not drive, make important decision, drink alcoholic beverages, or take any drugs that were not prescribed by your health care provider for at least 24 hours after your discharge time. For Pediatric surgeries, we recommend two adults accompany the child home. Follow any additional instructions given to you from your surgeon. Telephone instructions given to __PATIENT_and asked if any additional questions and then verbalized understanding. Patient advised to call surgeon office or pre surgery nurse liaison [phone] if any additional questions.
--- NOTE | ~2024-12-01 | XR_ITS ---
XR fluoroscopy no charge Indication: Bilateral L3, 4 and 5 thermal radiofrequency ablation TECHNIQUE: Fluoroscopy used during Bilateral L3, 4 and 5 thermal radiofrequency ablation performed by [Boaz Gerardo MD] on 12/01/2024. 1 minute 45 seconds of fluoroscopy with 9 fluoroscopic images captured. FINDINGS: Correlate with procedure note. IMPRESSION: Fluoroscopy used during Bilateral L3, 4 and 5 thermal radiofrequency ablation. Reviewed, dictated and finalized at location O. IMPRESSION: Fluoroscopy used during Bilateral L3, 4 and 5 thermal radiofrequenc y ablation.
--- OUTSIDE RECORDS SUMMARY | 2024-12-01 00:40 | XMS_ITS | Clinical Summary ---
Author Organization [facility] Address [address] [place] [address] Care Team Providers Care Greenbelt Name Role Phone Kaylynn Drake MD Unavailable + Tayo Davis MD Primary Care Provider [phone] Source Comments [facility],non-owned Affiliates and Associated Physician Practices is amultiple site organization consisting of ambulatory clinics and hospital sitesin [place], [place], [place] and [place]. This disclosure is being madepursuant to the Care Everywhere program and may not contain all information available regarding this patient. Last updated 17.[facility] Allergies Active Allergy Reactions Criticality Noted Date [...] before breakfast. Active vitamin D, ergocalciferol, (DRISDOL) 98343 UNIT capsuleIndications:Vit phan d deficiency Take 1 Cap by mouth every 7 days. 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,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,Chronic pain of both knees Take 1 tablet by mouth once daily Active Cyanocobalamin (VITAMIN B 12 PO)Indications:Sjogren 's syndrome, with unspecified organ involvement (HCC),Other forms of systemic lupus erythematosus, unspecified organ involvement status (HCC),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,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,Chronic pain of both knees Take 1 tablet by mouth once daily Active Multiple Vitamins-Minerals (CENTRUM SILVER 50+WOMEN PO)Indications:Sjogren 's syndrome, with unspecified organ involvement (HCC),Other forms of systemic lupus erythematosus, unspecified organ involvement status (HCC),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,custodial 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,Chronic pain of both knees Take 1 tablet by mouth once daily Active traMADol (ULTRAM) 50 MG tabletIndications:Sjog barbara's syndrome, with unspecified organ involvement (HCC),Other forms of systemic lupus erythematosus, unspecified organ involvement status (HCC),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,custodial 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,Chronic pain of both knees Take 1 tablet by mouth as needed 5 06/02/19 18 Active clobetasol (TEMOVATE) 0.05 % ointment Apply to affected area on trunk and extremities BID. 30 day supply. 60 g 2 12/04/19 18 Active losartan - hydroCHLOROthiazide (HYZAAR) 50-12.5 MG tablet TK 1 T PO D 12/23/19 20 Active albuterol HFA (PROVENTIL;VENTOLIN;MT OAIR) 108 (90 Base) MCG/ACT inhaler Inhale [...] Sex Assigned at Female 03/21/2021 5:27 PM ORDER WORKER Legal Sex Female 6:10 AM ORDER WORKER Gender Identity Female 03/21/2021 5:27 PM ORDER WORKER Sexual Orientation Straight 03/21/2021 5: 27 PM ORDER WORKER Last Filed Vital Signs Vital Sign Reading Time Taken Comments Blood Pressure 170/110 04/09/2019 8:54 AM ORDER WORKER Pulse 99 04/09/2019 8:54 AM ORDER WORKER Temperature 36.7 C (98 F) 04/09/2019 8:54 AM ORDER WORKER Respiratory Rate 22 04/09/2019 8:54 AM ORDER WORKER Oxygen Saturation 97% 04/09/2019 8:54 AM ORDER WORKER Inhaled Oxygen Concentration - - Weight 103.9 kg (229 lb) 01/03/2021 9:57 AM CDT Height 157.5 cm (5' 2) 04/09/2019 8:54 AM ORDER WORKER Body Mass Index 41.88 04/09/2019 8:54 AM ORDER WORKER Plan of Treatment Health Maintenance Due Date [...] HEPATITIS SCREEN ACUTE Routine 05/02/2017 3:08 PM ORDER WORKER LIPID PROFILE Routine 03/21/2011 3:55 PM ORDER WORKER from Last 3 Months or Most Recently Relevant to Health Maintenance Results * HEPATITIS SCREEN ACUTE (05/02/2017 3:08 PM ORDER WORKER) Hepatitis A Virus Antibody IgM NON-REACTI VE NON-REACT [facility]AC [facility] ([facility]) Hepatitis B Virus Surface Antigen NON-REACTI VE NON-REACT [facility] ([facility]) Hepatitis B Core Virus Antibody IgM NON-REACTI VE NON-REACT [facility] ([facility]) Hepatitis C Antibody NON-REACTI VE NON-REACT [facility]AC [facility] ([facility]) Signal/Cutoff 0.02 <1.00 [facility] ([facility]) Comment: Test Performed at: [facility] [address] [place] [address] ITALO MADRID DO,MPH Blood specimen (specimen) BLOOD SPECIMEN / Unknown 05/02/2017 3:08 PM ORDER WORKER 05/02/2017 3:09 PM ORDER WORKER us Hedy Kern MD LAB - CHEMISTRY ORDERABLES Final Result Performing Organization Address City/[facility]/ZIP Co de Phone Number HERVE ([facility]) [address] * LIPID PROFILE (03/21/2011 3:55 PM ORDER WORKER) Cholesterol 178 <200 mg/dl [facility] Triglycerides 79 10 - 210 mg/dl [facility] HDL Cholesterol 62 >40 mg/dl [facility] LDL Calculated 100 mg/dl [facility] Chol HDL Ratio 2.87 [facility] Comment Lipid [facility] Comment: Risk Classification HDL CHOL LDL CHOL TOTAL CHOL According to NCEP (mg/dl) (mg/dL) (mg/dl) Desirable >40 <130 < 200 Borderline/High - 130-159 200-239 High - >159 > 239 The total cholesterol to HDL cholesterol ratio may be used to predict risk for coronary heart disease in untreated patients according to data reported from the [place] Study by Italo Delgado M.D. The predictive [...] BLOOD SPECIMEN / Unknown 03/21/2011 3:55 PM ORDER WORKER 03/21/2011 4:06 PM ORDER WORKER Marcus Levi MD LAB - CHEMISTRY ORDERABLE S Final Result [facility] [address] [place] [address] from Last 3 Months or Most Recently Relevant to Health Maintenance Insurance [facility] SELF PAY NO INSURANCE Member Subscriber Plan / Payer (Ef fective for All Dates) Name:Cindy Calderón Member ID:Not on file Relation to Subscriber:Not on file Name:STEPHANECINDY Diamond Subscriber ID:Not on file (Home) Address: [address] [place] [address] Payer ID:Not on file Group ID:Not on file Type:Self Pay Address: [facility] Care Teams Greenbelt Relationship Specialty Start Date End Date Tayo Davis MD [address] [place] [phone] PCP - General 12/26/20 Kaylynn Drake MD Physician Rheumatology 10/07/18
--- OUTSIDE RECORDS SUMMARY | 2024-12-01 00:40 | XMS_ITS | Clinical Summary ---
Author Organization [facility] Address [address] [place] [address] Care Team Providers Care Apprenticeship Consultant Name Role Phone Unavailable Primary Care Provider [...] this topic Medical Devices Implanted Type Area Field Hauler Device Identifier Shelf Expiration Date Model / Serial / Lot Rv Lead Implanted:11/10 (Quantity not on file) Lead Implant Chest [employer] HE[employer] FAILURE - DIV M 4024 / [id number] V / Description:NOT MR CONDITION AL Ra Lead Implanted:11/10 (Quantity not on file) Lead Implant [employer] C[employer] RHYTHM AND HEART FAILURE - DIV M 4524 / [id number] V / Description:NOT MR CONDITION AL Pacemaker-2005 Implanted:07/19 (Quantity not on file) Pacemaker Chest [employer]HY 1291 / [id number] / Description:DEVICE IS NOT MR CONDITIONAL
--- OUTSIDE RECORDS SUMMARY | 2024-12-01 00:40 | XMS_ITS | Clinical Summary ---
[facility] Address [address] [place] [address] Care Team Providers Care Auto Care Center Manager Name Role Phone Unavailable Primary Care [...] st Contact Info) Description 01/13/2025 2:30 PM SET UP TECHNICIAN Office Visit [facility] Oncology and Hematology - [place] [address] [facility] [address] [place] [address] Domenic Campbell MD [address] [facility] [address] [place] [address] Health Maintenance Due Date Last [...] T d or Tdap) 01/07/2030 01/08/2020 Insurance [facility] OPTIONS PPO [id number]
--- OUTSIDE RECORDS SUMMARY | 2024-12-01 00:40 | XMS_ITS | Clinical Summary ---
Author Organization [facility] Address [address] [place] [address] Care Team Providers Care Artist Color Separation Name Role Phone Tayo Davis MD Primary Care Provider [phone] Henry Camp MD, Salvador Unavailable [phone] Allergies Active Allergy Reactions Criticality Noted Date [...] 50,000 unit capsule 10/12/2015Vitamin D2, po solid [address] unit CapsulePOas directedCurrent Medication Active SYMBICORT 160-4.5 [...] OCT Assessment & Plan (02/08/2022 10:40 AM COMPUTER VIDEO GAME DESIGNER): Up to date on Eye exam. Last completed by Dr. Contreras ([facility]) on 01/25/22 without signs of retinal [...] prn Assessment & Plan (02/08/2022 12:50 PM COMPUTER VIDEO GAME DESIGNER): Stable on HCQ. Continue same. Encourage daily use of biotene products (lozenge, mouth rinses) and also a trial of nasal saline gel product such as [place] gel. Can also try coconut oil swish [...] of nasal saline gel product such as [place] gel. Can also try coconut oil swish [...] on file Legal Sex Female 12:41 PM COMPUTER VIDEO GAME DESIGNER Gender Identity Female 09/29/2019 7:39 AM CDT [...] BILATERAL W JOSE Routine 04/12/2015 12:00 AM COMPUTER VIDEO GAME DESIGNER from Last 3 Months or Most Recently Relevant to Health Maintenance Results * Screening Mammogram Bilateral W Jose (04/12/2015 12:00 AM COMPUTER VIDEO GAME DESIGNER) Anatomical Region Laterality Modality Breast Bilateral Mammography 04/12/2015 3:40 PM COMPUTER VIDEO GAME DESIGNER Narrative 04/19/2015 10:05 AM COMPUTER VIDEO GAME DESIGNER - SCREENING MAMM W JOSE BI BILATERAL [...] by letter. Raisa Montano M.D. [facility]:04/19/2015 08:25:06 letter sent: Normal Exam Mammogram BI-RADS: 2 Benign Radiologist: RAISA MONTANO MD Attending: NIMESH HURD M.D. Requesting: NIMESH HURD M.D. Requesting Requesting ID: [id number] Attending Attending ID: [id number] Completed Time: 04/12/2015 3:40 PM Dictated Time: N/A Transcribed Time: 04/19/2015 10:05 AM Signed by: RAISA MONTANO MD on 04/19/2015 10:05 AM Report To 1 ID: [id number] Report To 1 Name: EDIE HELLER Report [...] by letter. Raisa Montano M.D. [facility]:04/19/2015 08:25:06 letter sent: Normal Exam Mammogram BI-RADS: 2 Benign Radiologist: RAISA MONTANO MD Attending: NIMESH HURD M.D. Requesting: NIMESH HURD M.D. Requesting Requesting ID: [id number] Attending Attending ID: [id number] Completed Time: 04/12/2015 3:40 PM Dictated Time: N/A Transcribed Time: 04/19/2015 10:05 AM Signed by: RAISA MONTANO MD on 04/19/2015 10:05 AM Report To 1 ID: [id number] Report To 1 Name: EDIE HELLER Report [...] CHOICE PLUS [facility] CHOICE PLUS Care Teams Artist Color Separation Relationship Specialty Start Date End Date Tayo Davis MD PCP - General Family Practice 03/14/21 Salvador Figueroa Jr., MD Medical Oncologist/Fish Hatchery Laborer Medical Oncology 04/14/21
--- OUTSIDE RECORDS SUMMARY | 2024-12-01 00:40 | XMS_ITS | Encounter Summary ---
Author Organization [facility] Address [address] [place] [address] Care Team Providers Care Kayak Maker Name Role Phone Garfield Perla MD Primary Care Provider [phone] Ghassan Luna DO Primary Care Provider [phone] Kaylynn Drake MD Unavailable + Tayo Davis MD Primary Care Provider [phone] Reason for Visit * Reason Onset Date Comments MEDICATION REFILL 06/21/2017 Encounter Details Date Type Department Care Team (Late st Contact Info) Description 06/21/2017 Refill [facility] Internal Medicine [address] [address] Glendy Donnelly RN MEDICATION REFILL Social History Tobacco Use Types Packs/Day Years Used Date Smoking Tobacco: Never Smokeless Tobacco: Never Alcohol Use Standard Drinks/Week Comments No 0 (1 standard drink = 0.6 oz pur e alcohol) Comments Unknown Sex and Gender Information Value Date Recorded Sex Assigned at Female 03/21/2021 5:27 PM COST COORDINATOR Legal Sex Female 6:10 AM COST COORDINATOR Gender Identity Female 03/21/2021 5:27 PM COST COORDINATOR Sexual Orientation Straight 03/21/2021 5: 27 PM COST COORDINATOR documented as of this encounter Plan of Treatment Not on file documented as of this encounter Visit Diagnoses Not on filedocumented in this encounter Care Teams Kayak Maker Relationship Specialty Start Date End Date Garfield Perla MD [address] [place] [address]. [place] [address] PCP - General 03/21/11 03/05/18 Ghassan Luna DO [address] [place] [address] PCP - General 03/06/18 12/25/20 Tayo Davis MD [address] [place] [id number] PCP - General 12/26/20 Kaylynn Drake MD [address] [place] [address] Physician Rheumatology 10/07/18 documented as of this encounter
[2024-12-01] MEDS: LACTATED RINGERS 1,000 ML 30 ML IV CONT (06:30)
--- NOTE | 2024-12-01 07:04 | P.PNAN_ITS ---
Anes - Initial Pre Proc Eval Procedure: Operation Date: 12/01/24 07:30 Proposed Procedures p Thermal Radio Frequency Ablation of Bilateral L3, L4, L5 Medial Branches/Dorsal Rami Supplying L4-5, L5-S1 Facet Joints Under Fluoroscopy - Boaz Gerardo MD Date/Time: 12/01/24 07:04 Surgeon: Boaz Gerardo MD Pre Op Diagnosis: spondylosis of lumbosacral region Patient Data Age: 59 Gender: F Height: 1.57 m Weight: 98 kg Allergies Allergy/AdvReac Type Severity Reaction Status Date / Time morphine Allergy Intermediate Difficulty Verified 11/20/24 09:01 Breathing Sulfa (Sulfonamide Allergy Intermediate Rash Verified 11/20/24 09:01 Antibiotics) powder in surgery gloves Allergy Intermediate rash and Uncoded 11/12/24 09:25 itching Home Medications ?Medication ?Instructions ?Recorded ?Confirmed ?Type cholecalciferol (vitamin D3) 1,250 1,250 mcg PO WEEKLY 08/27/24 11/20/24 History mcg (50,000 unit) capsule cyanocobalamin (vitamin B-12) 1,000 mcg sublingual JASON LY 08/27/24 11/20/24 History 1,000 mcg sublingual tablet ferrous sulfate 325 mg (65 mg 325 mg PO DAILY 08/27/24 11/20/24 History iron) tablet acetaminophen 500 mg capsule 1,000 mg PO Q4-6H PRN yvonne n 09/01/24 11/20/24 History levothyroxine 100 mcg tablet 100 mcg PO DAILY 09/16/24 11/20/24 History hydroxychloroquine 200 mg tablet 400 mg PO DAILY 11/0311/20/24 History losartan 100 mg tablet 100 mg PO DAILY 11/05/2403/04 History duloxetine 60 mg capsule,delayed 60 mg PO DAILY #90 ca ps 11/30/24 Rx release Patient hx anesthesia problems: post op nausea/vomiting Family hx anesthesia problems: none Results Review: All pre-operative results and documents have been reviewed as part of the pre- operative evaluation. [facility] Past Medical History Medical History Lupus Migraines Primary osteoarthritis of both knees Renal calculus, left Shoulder injury Arachnoid cyst Tear meniscus knee Elbow injury Tachycardia Pacemaker Hypothyroid Hypertension Intestinal malabsorption following gastrectomy Low iron Low vitamin D level Other skilled nursing (current) drug therapy Psoriasis Rheumatoid arthritis of unspecified site with involvement of other organs and systems Sleep apnea Systemic lupus erythematosus, unspecified Surgical History Surgical History H/O gastric bypass History of cholecystectomy History of appendectomy Hx of tonsillectomy H/O tubal ligation H/O section History of weight loss surgery Family History Family History Grandparent Diabetes mellitus Hypertension Acute myocardial infarction Family history of malignant neoplasm Mother Hypertension Asthma Depression Anxiety Thyroid disorder Sibling Depression Anxiety Asthma Hypertension Thyroid disorder Social History Social History Smoking status: Never smoker Second hand tobacco smoke exposure: Yes Alcohol intake: never Substance use: current Substance use type: does not use Other substance usage details: CBD GUMMIES FOR SLEEP Do You Feel Safe in your Home?: Yes Lack of Transportation: No Lack of Food: Never True Current Housing: I Have Housing Concerned About Future Housing: No Difficulty Paying Gas/Electric Bills: No Difficulty Paying for Meds: No Currently Unemployed: No Education: Bachelor's Degree Difficulty w/ Childcare or Family Care: No Living arrangements: with family Gender identity (if verbalized by the patient): Female Spiritual care concerns: No Anes - Eval Final PreProcedure Day of Procedure 12/01/24 07:04 Patient weight: obese Lungs: normal air movement Airway: Mallampati scale class II Neurological: alert and oriented Last oral intake: >/= 8 hours ASA classification: III Emergent: no Anesthetic plan: proceed Anesthesia type and monitoring: general GIVS and standard monitoring Results Review: All pre-operative results and documents have been reviewed as part of the pre- operative evaluation. HTN, hypothyroidism, RA, pacemaker but not pacing routinely, COPD but never smoked. Informed Consent: The patient's anesthetic plan and its attendant risks and benefits were discussed with the patient/family/POA. Questions were solicited and answers provided to the satisfaction of the patient/family/POA.
[2024-12-01 07:09] VITALS: BP 136/93; PULSE 78; RESP 16; TEMP 37; O2SAT 98
--- NOTE | 2024-12-01 07:10 | WPDHPUPDATE1 ---
History and Physical Update Update Date/Time: 12/01/24 07:10 History and Physical has been reviewed, including an updated exam of the patient. There are NO changes in the patient's condition. Risks, benefits, and alternatives have been discussed and questions answered. Patient agrees to proceed with procedure.
--- NOTE | 2024-12-01 07:11 | P.OP_ITS ---
Procedure Note - Detailed Date of Procedure 12/01/24 Pre-op Diagnosis spondylosis of lumbosacral region, chronic low back pain Post-op Diagnosis Same Procedure Performed Thermal Radiofrequency Ablation of the bilateral Lumbar Medial Branches/Dorsal Ramus at the L3, L4, L5 Levels Treating the bilateral L4-5, L5-S1 Facet Joints Under Fluoroscopic Guidance (4 Levels Treated). Surgeon Boaz Gerardo MD Rn Telephone Triage None. Anesthesia Local (w/ MAC) Description of Procedure INFORMED CONSENT: Risks, benefits and alternatives to the procedure were discussed in detail with the patient who expressed explicit understanding and consent to proceed. Patient was informed verbally and in written form regarding the risks associated with the procedure including the low risk of serious infection, bleeding/bruising, allergic reaction, nerve or organ injury, paralysis, procedural site pain or discomfort, worsening pain and/or mobility, failure to treat and/or disfigurement. The patient expressed explicit understanding and consent to proceed. All materials required for the procedure were available prior to procedure start. Site and side were marked prior to procedure and confirmed in the presence of the patient. PROCEDURE IN DETAIL: The patient was brought to the procedural suite and placed in the prone position. Patient was made comfortable with use of pillows under the head/chest, hips and ankles. ASA standard monitors were applied and used throughout the procedure. Skin overlying the injection site on the affected side(s) was prepared broadly with ChloraPrep applicator and draped in a sterile manner. Aseptic technique was used throughout. The endplates of the vertebral bodies at the site(s) of interest were aligned in the AP view. Ipsilateral oblique angulation was utilized to optimize visualization of the intersection between the superior articulating process and transverse process at each target site. Local anesthesia was established by infiltration with approximately 5 mL of 1% lidocaine via a 1-1/2 inch 27-gauge needle divided over each site treated. A 16-gauge 150 mm My1loginian RF needle with curved 10mm active tip was advanced in the AP view until the needle tip contacted the periosteum at the target site, the right L3 medial branch. Lateral view was utilized to adjust and confirm the appropriate placement of the needle tip just anterior to the facet line, superior to the pedicle and posterior to the foramen. Grounding electrode was in place and functioning. The appropriately-sized RF cannula was inserted into the RF needle and motor stimulation was performed with no subjective or objective evidence of recruited muscle activity with stimulation up to 2.0 volts at a frequency of 2Hz. 1.5 mL of 2.0% PF lidocaine was injected after negative aspiration. After a 90s pause, lesioning was performed to 90 degrees centigrade for 90s ensuring lack of symptoms in the extremity throughout. Needle was rotated 180 degrees and lesioning repeated in a similar manner. Patient tolerated this well. No paresthesias were elicited. Needle was removed completely intact without difficulty. The same procedure was repeated for all intended levels/ structures on the ipsilateral side, right L4, L5 medial branch/dorsal ramus with identical methodology, modified to compensate for new location, with similar results and no evidence of complication. The same exact procedure was repeated for all remaining levels on the con tralateral side, left L3, L4, L5 medial branches/dorsal ramus, modified as necessary to accommodate for the new target location with identical findings/results and no evidence of complication. Images were saved and documented in the patient chart. Patient's skin was cleansed and sterile bandage applied. The patient tolerated the procedure well. The patient was transported to the recovery area in stable condition where they were observed for an appropriate amount of time prior to discharge, without evidence of complication. The patient was instructed to avoid excessive activity for the next 48 hours, including climbing and frequent use of stairs. Showers only for 48 hours. They were instructed not to drive or operate heavy machinery for 24 hours. They are to monitor for severe headaches, fevers, chills, night sweats, erythema/swelling at the site or any other signs of infection, bleeding/bruising, bowel or bladder changes as well as new pain, weakness or numbness in the upper or lower extremity. Should they notice these changes, they are instructed to call our office immediately or report directly to the nearest Emergency Department if no answer or if after posted office hours. COMPLICATIONS: None COMMENTS: None Complications No immediate complications Condition Stable Disposition PACU [facility] Billing Surgery - Charge Forward: Surgery Billing
[2024-12-01] MEDS: BUPivacaine HCL 0.5% 10 ML AMP 20 ML INFILTRATE (07:41)
[2024-12-01] MEDS: LIDOCAINE 2% LOCAL INJ 20 ML VIAL 10 ML INFILTRATE (07:46)
[2024-12-01 08:06] VITALS: BP 156/94; PULSE 76; RESP 14; O2SAT 100
[2024-12-01 08:30] VITALS: BP 172/86; PULSE 77; RESP 14; O2SAT 99
[2024-12-01 08:55] VITALS: BP 170/79; PULSE 71; RESP 14
== END 2024-12-01 09:10 | disposition home or self-care (01) ==
PROVIDERS: PCP Nurse Practitioner Adult Health; Visit Provider Anesthesiology Pain Medicine
PROC: (CPT 64635; principal; 2024-12-01 07:30)
DX: M47.817 Spondylosis without myelopathy or radiculopathy, lumbosacral region (principal); M47.818 Spondylosis without myelopathy or radiculopathy, sacral and sacrococcygeal region; M46.1 Sacroiliitis, not elsewhere classified; G89.29 Other chronic pain; E03.9 Hypothyroidism, unspecified; I10 Essential (primary) hypertension; E55.9 Vitamin D deficiency, unspecified; L40.9 Psoriasis, unspecified; G47.30 Sleep apnea, unspecified; L93.0 Discoid lupus erythematosus; M17.0 Bilateral primary osteoarthritis of knee; M06.9 Rheumatoid arthritis, unspecified; R00.0 Tachycardia, unspecified; F12.90 Cannabis use, unspecified, uncomplicated; E66.9 Obesity, unspecified; Z68.38 Body mass index [BMI] 38.0-38.9, adult; Z79.899 Other long term (current) drug therapy; Z98.890 Other specified postprocedural states; Z98.84 Bariatric surgery status; Z90.49 Acquired absence of other specified parts of digestive tract; Z98.51 Tubal ligation status; Z95.0 Presence of cardiac pacemaker; Z87.442 Personal history of urinary calculi; Z80.9 Family history of malignant neoplasm, unspecified; Z82.49 Family history of ischemic heart disease and other diseases of the circulatory system
CPT/HCPCS: 64635; 64636 ×6; 99199; J1100; J2003; J2004; J2250; J2405; J2704; J3010; J7120

== ENCOUNTER 2025-01-20 15:28 | Emergency (ER) | payer OTHER, SELFPAY ==
--- OUTSIDE RECORDS SUMMARY | 2014-12-07 03:15 | XMS_ITS | Continuity of Care Document ---
Author Organization [facility] Address [address] [place] [address] Phone Care Team Providers Care Weaving Inspector Name Role Phone Jana HICKEY, Alvaro Unavailable Unavailabl e Procedures Procedure Date RADEX ANKLE COMPL MINIMUM 3 VIEWS RADEX KNE COMPL 4/MORE VIEWS OFFICE/OUTPATIENT VISIT NEW Advance Directives Directive Yes / No Effective Date File Name No Information Encounters Encounter Description Practice Location Reason(s) For Visit Diagnoses Date Provider Providers Copied on Encounter OFFICE/OUTPAT IENT VISIT NEW [facility] , [address], [place], [address], [place] tel:[phone] [facility] Left ankle painLeft knee painPrimary osteoarthritis of left kneePrimary osteoarthritis of left ankle Nov- 5 Ghanshyam John. [address] [facility], [place], [place], [id number] . tel:[phone] Referring Provider: Garfield Escobar, [address] [facility], [place], [address]. tel:[phone] Family History Family Member Type Diagnosis Age At Onset No Information Payers Payer name Insurance type Covered republican ID Authoriza tion(s) No Information Social History Type Description Quantity Date Captured Comments Sex Female Smoking Status No Information Chief Complaint And Reason For Visit No Information Reason For Referral Reason For Referral No Information Plan Of Treatment Date Type Action Status Referral Ordered: RADEX ANKLE COMPL MINIMUM 3 VIEWS LT ordered Referral Ordered: RADEX KNE COMPL 4/MORE VIEWS LT ordered History Of Present Illness Encounter Date Complaint History Of Prese nt Illness No Information Functional Status Date Functional Assessmen t No Information Instructions Date Instruction Additional Infor mation Apply cold 20 min per hour. Rela julito to Primary osteoarthritis of left knee Assessments Type Assessment Date assessment Left ankle pain assessment Left knee pain assessment Primary osteoarthritis of left k nee assessment Primary osteoarthritis of left a nkle Patient Care Teams Name Effective Dates (start - stop) Status Members No Information
--- OUTSIDE RECORDS SUMMARY | 2014-12-07 03:15 | XMS_ITS | Continuity of Care Document ---
Author Organization [facility] Address [address] [place] [address] Phone Care Team Providers Care Head Of Partner Development Name Role Phone Jana HICKEY, Alvaro Unavailable Unavailabl e Procedures Procedure Date RADEX ANKLE COMPL MINIMUM 3 VIEWS RADEX KNE COMPL 4/MORE VIEWS OFFICE/OUTPATIENT VISIT NEW Advance Directives Directive Yes / No Effective Date File Name No Information Encounters Encounter Description Practice Location Reason(s) For Visit Diagnoses Date Provider Providers Copied on Encounter OFFICE/OUTPAT IENT VISIT NEW [facility] , [address], [place], [address], [place] tel:[phone] [facility] Left ankle painLeft knee painPrimary osteoarthritis of left kneePrimary osteoarthritis of left ankle Nov- 5 Ghanshyam John. [address] [facility], [place], [place], [id number] . tel:[phone] Referring Provider: Garfield Escobar, [address] [facility], [place], [address]. tel:[phone] Family History Family Member Type Diagnosis Age At Onset No Information Payers Payer name Insurance type Covered green party ID Authoriza tion(s) No Information Social History [...]
[2025-01-20] VITALS (9 sets, daily range): BP systolic 158–198; BP diastolic 81–112; PULSE 78–88; RESP 12–19; TEMP 36.7; O2SAT 95–100
--- NOTE | ~2025-01-20 | CT_ITS ---
CT abdomen pelvis w con INDICATION:RLQ pain, trouble urinating . COMPARISON: None. TECHNIQUE: Axial images of the abdomen and pelvis were obtained following infusion of 100 mL Isovue 300. Dose optimization technique was utilized. FINDINGS: The lung bases are clear. The liver parenchyma is unremarkable. No intrahepatic mass or ductal dilatation is evident. The patient has had a cholecystectomy. The pancreas and spleen are normal in appearance. The adrenal glands are symmetric in size. Kidneys enhance symmetrically. 0.9 mm left renal stone is noted No cystic mass is evident. There is no solid mass. There is no hydronephrosis. Evaluation of the stomach and bowel loops are limited due to lack of oral contrast. The appendix is not visualized however no secondary signs of appendicitis are identified. There are no bowel obstruction. The bladder and rectum are normal. No free intraperitoneal fluid or air is evident. There is no significant retroperitoneal lymphadenopathy. The aorta, visceral vessels and renal arteries demonstrate normal caliber and patency. The lower thoracic and lumbar vertebrae are in normal alignment. IMPRESSION: No acute abnormality is noted in the abdomen and pelvis. Nonobstructive left renal stone. All CT scans at this facility are performed using low dose modulation techniques as appropriate to perform exam including the following: automated exposure control; use of iterative reconstruction technique; adjustment of the mA and/or kV according to patient size (this includes techniques or standardized protocols for targeted exams where dose is matched to indication/reason for exam). Reviewed, dictated and finalized at location S. CLE WASHER IMPRESSION: No acute abnormality is noted in the abdomen and pelvis. Nonobstructive left renal stone. All CT scans at this facility are performed using low dose modulation techniqu es as appropriate to perform exam including the following: automated exposure c ontrol; use of iterative reconstruction technique; adjustment of the mA and/or kV according to patient size (this includes techniques or standardized protocol s for targeted exams where dose is matched to indication/reason for exam).
--- OUTSIDE RECORDS SUMMARY | 2025-01-20 16:08 | XMS_ITS | Clinical Summary ---
Author Organization [facility] Domenica donahue [facility] Address [address] [place] [address] Care Team Providers Care Filler Shredder Machine Name Role Phone Unavailable Primary Care Provider [...] Encounters Date Type Department Care Team Description 01/06/2025 External Device Data ST[facility] ABSTRACTION Provider, Abstract 01/05/2025 External Device Data [facility] ABSTRACTION Provider, Abstract 11/24/2024 External Device Data [facility] ABSTRACTION Provider, [...] Care Team (Late st Contact Info) Description 05/18/2025 1:15 PM CDT Office Visit [facility] Oncology and Hematology - [place] [address] [place] [address] [facility] [address] [place] [address] Domenic Campbell MD [address] [facility] [address] [place] [address] Health Maintenance Due Date Last Done Comments Pre-Diabetes and Diabetes Screening 1963 HPV/Cotest (21-29) 1984 CERVICAL CANCER SCREENING 1993 HPV/Cotest (30-65) 1993 PAP SMEAR 1993 COLORECTAL SCREENING 2008 Colorectal Cancer Screening 2008 FIT-DNA Q 3 years 2008 FIT/FOBT Q 1 year 2008 Flex Sig/CT Colonography Q 5 years 2008 RSV VACCINE (60+ or ) (1 - Risk 50-74 years 1-dose series) 2013 ZOSTER VACCINE (1 of 2) 12/07/2015 10/12/2015, 04/06 BREAST CANCER SCREENING 04/12/2016 04/12/2015 INFLUENZA VACCINE (#1) 2024 0, 01/25/2016, 01/14/2015 DTAP/TDAP/TD VACCINES (2 - T d or Tdap) 01/07/2030 01/08/2020 Insurance [facility] OPT[employer] PPO [id number]
--- OUTSIDE RECORDS SUMMARY | 2025-01-20 16:09 | XMS_ITS | Clinical Summary ---
Author Organization [facility] Address [address] [place] [address] Care Team Providers Care Cloth Tester Name Role Phone Kaylynn Drake MD Unavailable + Tayo Davis MD Primary Care Provider [phone] Source Comments [facility],non-owned Affiliates and Associated Physician Practices is amultiple site organization consisting of ambulatory clinics and hospital sitesin [place], [place], [place] and [place]. This disclosure is being madepursuant to the Care Everywhere program and may not contain all information available regarding this patient. Last updated 17.[facility] Allergies Active Allergy Reactions Criticality Noted Date [...] before breakfast. Active vitamin D, ergocalciferol, (DRISDOL) 42481 UNIT capsuleIndications:Vit phan d deficiency Take 1 Cap by mouth every 7 days. 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,Chronic pain of both knees Take 1 tablet by mouth once daily 5 06/22/19 18 Active CALCIUM CITRATE-VITAMIN D POIndications:Sjogren' s syndrome, with unspecified organ involvement (HCC),Other forms of systemic lupus erythematosus, unspecified organ involvement status (HCC),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,residential 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,Chronic pain of both knees Take 1 tablet by mouth once daily Active Cyanocobalamin (VITAMIN B 12 PO)Indications:Sjogren 's syndrome, with unspecified organ involvement (HCC),Other forms of systemic lupus erythematosus, unspecified organ involvement status (HCC),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,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,Chronic pain of both knees Take 1 tablet by mouth once daily Active Multiple Vitamins-Minerals (CENTRUM SILVER 50+WOMEN PO)Indications:Sjogren 's syndrome, with unspecified organ involvement (HCC),Other forms of systemic lupus erythematosus, unspecified organ involvement status (HCC),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,residential 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,Chronic pain of both knees Take 1 tablet by mouth once daily Active traMADol (ULTRAM) 50 MG tabletIndications:Sjog barbara's syndrome, with unspecified organ involvement (HCC),Other forms of systemic lupus erythematosus, unspecified organ involvement status (HCC),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,residential 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,Chronic pain of [...] Sex Assigned at Female 03/21/2021 5:27 PM FOREST PATHOLOGY ASSOCIATE PROFESSOR Legal Sex Female 6:10 AM FOREST PATHOLOGY ASSOCIATE PROFESSOR Gender Identity Female 03/21/2021 5:27 PM FOREST PATHOLOGY ASSOCIATE PROFESSOR Sexual Orientation Straight 03/21/2021 5: 27 PM FOREST PATHOLOGY ASSOCIATE PROFESSOR Last Filed Vital Signs Vital Sign Reading Time Taken Comments Blood Pressure 170/110 04/09/2019 8:54 AM FOREST PATHOLOGY ASSOCIATE PROFESSOR Pulse 99 04/09/2019 8:54 AM FOREST PATHOLOGY ASSOCIATE PROFESSOR Temperature 36.7 C (98 F) 04/09/2019 8:54 AM FOREST PATHOLOGY ASSOCIATE PROFESSOR Respiratory Rate 22 04/09/2019 8:54 AM FOREST PATHOLOGY ASSOCIATE PROFESSOR Oxygen Saturation 97% 04/09/2019 8:54 AM FOREST PATHOLOGY ASSOCIATE PROFESSOR Inhaled Oxygen Concentration - - Weight 103.9 kg (229 lb) 01/03/2021 9:57 AM CDT Height 157.5 cm (5' 2) 04/09/2019 8:54 AM FOREST PATHOLOGY ASSOCIATE PROFESSOR Body Mass Index 41.88 04/09/2019 8:54 AM FOREST PATHOLOGY ASSOCIATE PROFESSOR Plan of Treatment Health Maintenance Due Date Last Done Comments COLOGUARD (AGES 45-75) - COLON CA SCREENING 1963 COLON MONITORING 1963 COLONOSCOPY - COLON CA SCREENING 1963 CT COLONOGRAPHY - COLON CA SCREENING 1963 Colorectal Cancer Screening 1963 FIT - COLON CA SCREENING 1963 FLEX SIG - COLON CA SCREENING 1963 MAMMOGRAM 1963 HIV SCREENING 1978 DTAP/TDAP/TD VACCINES (1 - Tdap) 1982 Cervical Cancer Screening 1984 PAP SMEAR 1984 PAP with HPV 1993 PNEUMOCOCCAL VACCINE 50+ (1 of 1 - PCV) 2013 Respiratory Syncytial Virus (RSV) Vaccine Pt: or over 60 yrs (1 - Risk 50-74 years 1-dose series) 2013 ZOSTER VACCINE (1 of 2) 2013 LIPID TESTING 03/21/2016 03/21/2011 DEPRESSION SCREENING 03/11/2024 COVID-19 VACCINE ( - season) 2024 INFLUENZA VACCINE (#1) 2024 0, [...] HEPATITIS SCREEN ACUTE Routine 05/02/2017 3:08 PM FOREST PATHOLOGY ASSOCIATE PROFESSOR LIPID PROFILE Routine 03/21/2011 3:55 PM FOREST PATHOLOGY ASSOCIATE PROFESSOR from Last 3 Months or Most Recently Relevant to Health Maintenance Results * HEPATITIS SCREEN ACUTE (05/02/2017 3:08 PM FOREST PATHOLOGY ASSOCIATE PROFESSOR) Hepatitis A Virus Antibody IgM NON-REACTI VE NON-REACT [facility] Hepatitis B Virus Surface Antigen NON-REACTI VE NON-REACT [facility] Hepatitis B Core Virus Antibody IgM NON-REACTI VE NON-REACT [facility] Hepatitis C Antibody NON-REACTI VE NON-REACT [facility] Signal/Cutoff 0.02 <1.00 [facility] Comment: Test Performed at: [facility] [address] [facility] [place] [address] ITALO MADRID DO,MPH Blood specimen (specimen) BLOOD SPECIMEN / Unknown 05/02/2017 3:08 PM FOREST PATHOLOGY ASSOCIATE PROFESSOR 05/02/2017 3:09 PM FOREST PATHOLOGY ASSOCIATE PROFESSOR Hedy Kern MD LAB - CHEMISTRY ORDERABLES Final Result [facility] [address] * LIPID PROFILE (03/21/2011 3:55 PM FOREST PATHOLOGY ASSOCIATE PROFESSOR) Cholesterol 178 <200 mg/dl [facility] Triglycerides 79 10 - 210 mg/dl [facility] HDL Cholesterol 62 >40 mg/dl [facility] LDL Calculated 100 mg/dl [facility] Chol HDL Ratio 2.87 [facility] Comment Lipid [facility] Comment: Risk Classification HDL CHOL LDL CHOL TOTAL CHOL According to NCEP (mg/dl) (mg/dL) (mg/dl) Desirable >40 <130 < 200 Borderline/High - 130-159 200-239 High - >159 > 239 The total cholesterol to HDL cholesterol ratio may be used to predict risk for coronary heart disease in untreated patients according to data reported from the [place] Study by Italo Delgado M.D. The predictive [...] BLOOD SPECIMEN / Unknown 03/21/2011 3:55 PM FOREST PATHOLOGY ASSOCIATE PROFESSOR 03/21/2011 4:06 PM FOREST PATHOLOGY ASSOCIATE PROFESSOR us Marcus Levi MD LAB - CHEMISTRY ORDERABLE S Final Result [facility] [address] [place] [address] from Last 3 Months or Most Recently Relevant to Health Maintenance Insurance [facility] SELF PAY NO INSURANCE Member Subscriber Plan / Payer (Ef fective for All Dates) Name:StephaneMehreenCindy Diamond Member ID:Not on file Relation to Subscriber:Not on file Name:CINDY CALDERÓN Subscriber ID:Not on file (Home) Address: [facility] [place] [address] Payer ID:Not on file Group ID:Not on file Type:Self Pay Address: [facility] Care Teams Cloth Tester Relationship Specialty Start Date End Date Tayo Davis MD [address] [place] [phone] PCP - General 12/26/20 Kaylynn Drake MD Physician Rheumatology 10/07/18
--- OUTSIDE RECORDS SUMMARY | 2025-01-20 16:09 | XMS_ITS | Clinical Summary ---
Author Organization [facility] Address [address] [place] [address] Care Team Providers Care Rod Tape Operator Name Role Phone Tayo Davis MD Primary Care Provider [phone] Henry Camp MD, Salvador Unavailable [phone] Allergies Active Allergy Reactions Criticality Noted Date [...] 50,000 unit capsule 10/12/2015Vitamin D2, po solid [address] unit CapsulePOas directedCurrent Medication Active SYMBICORT 160-4.5 [...] Assessment & Plan (02/08/2022 10:40 AM RN TRAVELING): Up to date on Eye exam. Last completed by Dr. Contreras ([facility]) on 01/25/22 without signs of retinal toxicity. [...] Assessment & Plan (02/08/2022 12:50 PM RN TRAVELING): Stable on HCQ. Continue same. Encourage daily use of biotene products (lozenge, mouth rinses) and also a trial of nasal saline gel product such as Harwich gel. Can also try coconut oil swish [...] of nasal saline gel product such as Harwich gel. Can also try coconut oil swish [...] Vision Assessment OCT Iron deficiency anemia secon ausitn to inadequate dietary iron intake 05/01/2021 Anemia [...] file Legal Sex Female 12:41 PM RN TRAVELING Gender Identity Female 09/29/2019 7:39 AM CDT [...] Associated Diagnosis Comments SCREENING MAMMOGRAM BILATERAL W MAGNUS Routine 04/12/2015 12:00 AM RN TRAVELING from Last 3 Months or Most Recently Relevant to Health Maintenance Results * Screening Mammogram Bilateral W Magnus (04/12/2015 12:00 AM RN TRAVELING) Anatomical Region Laterality Modality Breast Bilateral Mammography 04/12/2015 3:40 PM RN TRAVELING Narrative 04/19/2015 10:05 AM RN TRAVELING - SCREENING MAMM W MAGNUS BI BILATERAL DIGITAL SCREENING MAMMOGRAM 3D/2D WITH [...] Requesting: NIMESH HURD M.D. Requesting Requesting ID: [id number] Attending Attending ID: [id number] Completed Time: 04/12/2015 3:40 PM Dictated Time: N/A Transcribed Time: 04/19/2015 10:05 AM Signed by: RAISA MONTANO MD on 04/19/2015 10:05 AM Report To 1 ID: [id number] Report To 1 Name: EDIE HELLER Report To 1 FAX: Report To 2 ID: Report To 2 Name: , Report To 2 FAX: Report To 3 ID: Report To 3 Name: , Report To 3 FAX: NextGen Order #: Procedure Note Provider, MD Mallorie - 06/27/2016 - SCREENING MAMM W MAGNUS BI BILATERAL DIGITAL SCREENING MAMMOGRAM 3D/2D WITH [...] Requesting: NIMESH HURD M.D. Requesting Requesting ID: [id number] Attending Attending ID: [id number] Completed Time: 04/12/2015 3:40 PM Dictated Time: N/A Transcribed Time: 04/19/2015 10:05 AM Signed by: RAISA MONTANO MD on 04/19/2015 10:05 AM Report To 1 ID: [id number] Report To 1 Name: EDIE HELLER Report To 1 FAX: Report To 2 ID: Report To 2 Name: , Report To 2 FAX: Report To 3 ID: Report To 3 Name: , Report To 3 FAX: NextGen Order #: Historical Provider MD MOODY MAMMO PROCEDURES Marva l Result from Last 3 Months or Most Recently Relevant to Health Maintenance Insurance [facility] CHO[facility] PLUS [facility] CHO[facility] PLUS [facility] CHOICE PLUS [place] [id number] Care Teams Rod Tape Operator Relationship Specialty Start Date End Date Tayo Davis MD PCP - General Family Practice 03/14/21 Salvador Figueroa Jr., MD Medical Oncologist/Mobility Specialist Medical Oncology 04/14/21
--- OUTSIDE RECORDS SUMMARY | 2025-01-20 16:09 | XMS_ITS | Encounter Summary ---
Author Organization [facility] Address [address] [place] [address] Care Team Providers Care De Alcoholizer Name Role Phone Garfield Perla MD Primary Care Provider [phone] Ghassan Luna DO Primary Care Provider Kaylynn Drake MD Unavailable + Tayo Davis MD Primary Care Provider [phone] Reason for Visit * Reason Onset Date Comments MEDICATION REFILL 06/21/2017 Encounter Details Date Type Department Care Team (Late st Contact Info) Description 06/21/2017 Refill [facility] General Internal Medicine [address] [address] Glendy Donnelly RN MEDICATION REFILL Social History Tobacco Use Types Packs/Day Years Used Date Smoking Tobacco: Never Smokeless Tobacco: Never Alcohol Use Standard Drinks/Week Comments No 0 (1 standard drink = 0.6 oz pur e alcohol) Comments Unknown Sex and Gender Information Value Date Recorded Sex Assigned at Female 03/21/2021 5:27 PM AUTOMATION CONTROLS SPECIALIST Legal Sex Female 6:10 AM AUTOMATION CONTROLS SPECIALIST Gender Identity Female 03/21/2021 5:27 PM AUTOMATION CONTROLS SPECIALIST Sexual Orientation Straight 03/21/2021 5: 27 PM AUTOMATION CONTROLS SPECIALIST documented as of this encounter Plan of Treatment Not on file documented as of this encounter Visit Diagnoses Not on filedocumented in this encounter Care Teams De Alcoholizer Relationship Specialty Start Date End Date Garfield Perla MD [address] [place] [address]. [place] [address] PCP - General 03/21/11 03/05/18 Ghassan Luna DO [address] [facility] [address] [place] [address] PCP - General 03/06/18 12/25/20 Tayo Davis MD [address] [place] [id number] PCP - General 12/26/20 Kaylynn Drake MD [address] [facility] [address] [place] [address] Physician Rheumatology 10/07/18 documented as of this encounter
--- NOTE | 2025-01-20 17:17 | ED_ITS ---
HPI - General Adult General Chief complaint: Urogenital-Female Stated complaint: RLQ pain, cannot urinate Time Seen by Provider: 01/20/25 16:59 Source: patient Mode of arrival: ambulatory Limitations: no limitations History of Present Illness HPI narrative: Patient is a 59-year-old female, with PMH of gastric bypass surgery 20 years ago, who presents the ED with report of right lower abdominal pain. Patient reports she has had pain throughout her right lower back for the past 1 week. Did have a fall around 1 week ago and landed on her tailbone. Notes history of chronic back pain and sees pain management for this. States pain began radiating into her right lower abdomen yesterday into today. Has been worsening. Has taken Tylenol for pain without improvement. Reports she has not urinated since this morning despite drinking water. Also reports subjective fever, chills today. Does have history of a previous kidney stone, but is unsure which side it was on. Denies nausea, vomiting, diarrhea, constipation. Related Data Home Medications ?Medication ?Instructions ?Recorded ?Confirmed ?Last Taken ?Type cholecalciferol (vitamin D3) 1,250 1,250 mcg PO WEEKLY 08/27/24 01/07/25 11/25/24 History mcg (50,000 unit) capsule cyanocobalamin (vitamin B-12) 1,000 mcg sublingual JASON LY 08/27/24 01/07/25 11/30/24 History 1,000 mcg sublingual tablet acetaminophen 500 mg capsule 1,000 mg PO Q4-6H PRN yvonne n 09/01/24 01/07/25 12/01/24 History levothyroxine 100 mcg tablet 100 mcg PO DAILY 09/16/24 01/07/25 11/30/24 History hydroxychloroquine 200 mg tablet 400 mg PO DAILY 11/0301/07/25 11/30/24 History losartan 100 mg tablet 100 mg PO DAILY 11/05/2411/30/24 History Allergies Allergy/AdvReac Type Severity Reaction Status Date / Time morphine Allergy Intermediate Difficulty Verified 01/07/25 09:19 Breathing Sulfa (Sulfonamide Allergy Intermediate Rash Verified 01/07/25 09:19 Antibiotics) powder in surgery gloves Allergy Intermediate rash and Uncoded 01/05/25 09:17 itching Review of Systems 2 Review of Systems: All systems reviewed & are unremarkable except as noted in HPI. All systems reviewed & are unremarkable except as noted in HPI and below [facility] Past Medical History Medical History Coccydynia Lupus Migraines Primary osteoarthritis of both knees Renal calculus, left Shoulder injury Arachnoid cyst Tear meniscus knee Elbow injury Tachycardia Pacemaker Hypothyroid Hypertension Intestinal malabsorption following gastrectomy Low iron Low vitamin D level Other intermediate project manager (current) drug therapy Psoriasis Rheumatoid arthritis of unspecified site with involvement of other organs and systems Sleep apnea Systemic lupus erythematosus, unspecified Surgical History Surgical History H/O gastric bypass History of cholecystectomy History of appendectomy Hx of tonsillectomy H/O tubal ligation H/O section History of weight loss surgery Family History Family History Grandparent Diabetes mellitus Hypertension Acute myocardial infarction Family history of malignant neoplasm Mother Hypertension Asthma Depression Anxiety Thyroid disorder Sibling Depression Anxiety Asthma Hypertension Thyroid disorder Social History Social History Second hand tobacco smoke exposure: Yes Alcohol intake: never Substance use: current Other substance usage details: CBD GUMMIES FOR SLEEP RARELY Do You Feel Safe in your Home?: Yes Lack of Transportation: No Lack of Food: Never True Current Housing: I Have Housing Concerned About Future Housing: No Difficulty Paying Gas/Electric Bills: No Difficulty Paying for Meds: No Currently Unemployed: No Education: Bachelor's Degree Difficulty w/ Childcare or Family Care: No Living arrangements: with family Gender identity (if verbalized by the patient): Female Spiritual care concerns: No Exam 2 Narrative: GENERAL: Well appearing, morbidly obese, non-toxic, in no acute distress. HEAD: Normocephalic, atraumatic. RESPIRATORY: Airway patent, respirations nonlabored. Clear to auscultation bilaterally, no rales, rhonchi, wheezing. CARDIOVASCULAR: Regular rate and rhythm without murmurs, rubs, or gallops. ABDOMINAL: Soft, diffuse tenderness throughout entire abdomen, more focal TTP in RLQ, R mid abdomen, no rebound, nondistended. Normoactive BS. MUSCULOSKELETAL: Moves all extremities. No gross deformities. Diffuse TTP in R lumbosacral region w/ any light palpation SKIN: Warm, dry, normal color. NEURO: A&O X3. Speech clear. Cranial nerves II-XII grossly intact. Steady gait. No ataxic movements. PSYCHIATRIC: Appropriate mood and affect. Normal interaction. Course Vital Signs Vital signs: Vital Signs Temperature 98.1 F 01/20/25 15:29 Pulse Rate 86 01/20/25 15:29 Respiratory Rate 16 01/20/25 15:29 Blood Pressure 176/112 H 01/20/25 15:29 Pulse Oximetry 100 01/20/25 15:29 Oxygen Delivery Room Air 01/20/25 15:29 Temperature 98.1 F 01/20/25 15:29 Pulse Rate 87 01/20/25 20:33 Respiratory Rate 18 01/20/25 20:33 Blood Pressure 171/81 H 01/20/25 20:33 Pulse Oximetry 97 01/20/25 20:33 Oxygen Delivery Room Air 01/20/25 15:29 Medical Decision Making MDM Narrative Medical decision making narrative: Patient presented to ED with right lower back, right lower abdominal pain. Reported decreased urination today. Hx chronic back pain. Vital signs stable upon arrival. Patient afebrile. In no acute distress. Was bladder scanned upon arrival, only noted to have 91 mL of urine in bladder. Fluids initiated. Patient was able to urinate on her own without issues prior to fluids being administered. Urinalysis here is completely clear. No signs of infection or blood. Laboratory studies are also unremarkable. No leukocytosis or anemia. Stable electrolytes. Stable kidney function. Normal LFTs. CT scan of abdomen/pelvis was obtained and without acute abnormality. No surgical findings. Does show left renal stone. No ureterolithiasis. No pelvic fractures. Discussed lab and imaging findings with patient, overall reassuring workup. She is still reporting significant pain despite fentanyl. Will attempt additional pain control. She has morphine allergy and states she does not do well with tramadol/hydrocodone. Did not like the fentanyl. Unable to take NSAIDs due to history of gastric bypass. Advised I am limited in pain control options given this. Given Tylenol, Flexeril, Bentyl, lidocaine patch. Patient still reporting persistent pain. I have low suspicion for intra-abdominal pathology given otherwise reassuring w/u, however lactic acid was ordered to rule out ischemic bowel picture. This was within normal range at 1.0. Discussed discharge home. Patient states she is ready to go home. Advised patient to have close follow-up with her primary care doctor and painter tumbling barrel for further evaluation. Will prescribe Bentyl, Flexeril for home. Given strict return precautions. She is in agreement with plan. All questions answered. Discharged in stable condition. Medical Records Medical records reviewed: Yes I reviewed the external patient's medical records. Vital Signs Vital Signs: Vital Signs Temperature 98.1 F 01/20/25 15:29 Pulse Rate 86 01/20/25 15:29 Respiratory Rate 16 01/20/25 15:29 Blood Pressure 176/112 H 01/20/25 15:29 Pulse Oximetry 100 01/20/25 15:29 Oxygen Delivery Room Air 01/20/25 15:29 Temperature 98.1 F 01/20/25 15:29 Pulse Rate 87 01/20/25 20:33 Respiratory Rate 18 01/20/25 20:33 Blood Pressure 171/81 H 01/20/25 20:33 Pulse Oximetry 97 01/20/25 20:33 Oxygen Delivery Room Air 01/20/25 15:29 Lab Data Lab results reviewed: Yes I reviewed the patient's lab results. 01/20/25 17:59 01/20/25 19:10 Labs: Lab Results 01/20/25 01/20/25 01/20/25 Range/Units 17:41 17:59 19:10 WBC 5.6 (4.5-10.0) K/mm3 RBC 4.63 (4.2-5.4) M/mm3 Hgb 12.7 (12.0-15.0) g/dL Hct 38.9 (37.0-47.0) % MCV 84.0 (80-100) fl MCH 27.4 (26-34) pg MCHC 32.6 (32-36) g/dl RDW 13.1 (11.5-14.5) % Plt Count 217 (150-375) k/mm3 MPV 9.3 (7.4-10.4) fl Immature Gran % (Auto) 0.2 (0-0.5) % Neut % (Auto) 64.6 (45.5-73.1) % Lymph % (Auto) 27.8 (18.3-44.2) % Cassia % (Auto) 7.2 (2.6-8.5) % Eos % (Auto) 0.0 (0-4.4) % Baso % (Auto) 0.2 (0.2-1.2) % Lymph # (Auto) 1.55 (0.9-3.2) K/mm3 Cassia # (Auto) 0.4 (0.1-0.6) K/mm3 Eos # (Auto) 0.0 (0-0.3) K/mm3 Baso # (Auto) 0.0 (0.0-0.1) K/mm3 Abs Immat Gran (auto) 0.01 (0.00-0.031) K/mm3 Absolute Neuts (auto) 3.6 (1.3-6.7) K/mm3 Absolute Nucleated RBC 0.000 (0.0-0.012) K/mm3 Nucleated RBC % 0.0 (0.0-0.2) % Sodium 134 L (137-145) mmol/L Potassium 3.4 (3.4-5.0) mmol/L Chloride 97 L (98-107) mmol/L Carbon Dioxide 30 (22-30) mmol/L Anion Gap 7 (4-12) mmol/L BUN 15 D (7-17) mg/dL Creatinine 0.59 L 0.70 (0.7-1.0) mg/dL Estim Creat Clear Calc Not Reportable Not Reportable Estimated GFR > 60 > 60 (59 - ) Glucose 96 (65-110) mg/dL Lactic Acid (0.7-2.0) mmol/L Calcium 9.5 (8.4-10.2) mg/dL Total Bilirubin 0.4 (0.2-1.3) mg/dL AST 23 (14-36) U/L ALT 17 (6-35) U/L Alkaline Phosphatase 112 (38-126) U/L Total Protein 7.5 (6.3-8.2) g/dL Albumin 4.3 (3.5-5.1) g/dL Urine Color Yellow (Yellow) Urine Appearance Clear (Clear) Urine pH 6.0 (5.0-9.0) Ur Specific [place] 1.021 (1.001-1.035) Urine Protein Negative (Negative) mg/dL Urine Glucose (UA) Negative (Negative) mg/dL Urine Ketones Negative (Negative) mg/dL Ur Blood (Man) Negative (Negative) Urine Nitrate Negative (Negative) Urine Bilirubin Negative (Negative) Urine Urobilinogen 1.0 (<2.0) mg/dL Leukocyte Esterase Rfl Negative (Negative) ERWIN/UL 11/12/25 Range/Units 21:35 WBC (4.5-10.0) K/mm3 RBC (4.2-5.4) M/mm3 Hgb (12.0-15.0) g/dL Hct (37.0-47.0) % MCV (80-100) fl MCH (26-34) pg MCHC (32-36) g/dl RDW (11.5-14.5) % Plt Count (150-375) k/mm3 MPV (7.4-10.4) fl Immature Gran % (Auto) (0-0.5) % Neut % (Auto) (45.5-73.1) % Lymph % (Auto) (18.3-44.2) % Cassia % (Auto) (2.6-8.5) % Eos % (Auto) (0-4.4) % Baso % (Auto) (0.2-1.2) % Lymph # (Auto) (0.9-3.2) K/mm3 Cassia # (Auto) (0.1-0.6) K/mm3 Eos # (Auto) (0-0.3) K/mm3 Baso # (Auto) (0.0-0.1) K/mm3 Abs Immat Gran (auto) (0.00-0.031) K/mm3 Absolute Neuts (auto) (1.3-6.7) K/mm3 Absolute Nucleated RBC (0.0-0.012) K/mm3 Nucleated RBC % (0.0-0.2) % Sodium (137-145) mmol/L Potassium (3.4-5.0) mmol/L Chloride (98-107) mmol/L Carbon Dioxide (22-30) mmol/L Anion Gap (4-12) mmol/L BUN (7-17) mg/dL Creatinine (0.7-1.0) mg/dL Estim Creat Clear Calc Estimated GFR (59 - ) Glucose (65-110) mg/dL Lactic Acid 1.0 (0.7-2.0) mmol/L Calcium (8.4-10.2) mg/dL Total Bilirubin (0.2-1.3) mg/dL AST (14-36) U/L ALT (6-35) U/L Alkaline Phosphatase (38-126) U/L Total Protein (6.3-8.2) g/dL Albumin (3.5-5.1) g/dL Urine Color (Yellow) Urine Appearance (Clear) Urine pH (5.0-9.0) Ur Specific [place] (1.001-1.035) Urine Protein (Negative) mg/dL Urine Glucose (UA) (Negative) mg/dL Urine Ketones (Negative) mg/dL Ur Blood (Man) (Negative) Urine Nitrate (Negative) Urine Bilirubin (Negative) Urine Urobilinogen (<2.0) mg/dL Leukocyte Esterase Rfl (Negative) ERWIN/UL Imaging Data Attestation: I personally reviewed and interpreted this imaging study as follows: Radiologist's impression: ITS Impressions Abdomen/Pelvis CT 01/20/25 20:39 IMPRESSION: No acute abnormality is noted in the abdomen and pelvis. Nonobstructive left renal stone. All CT scans at this facility are performed using low dose modulation techniques as appropriate to perform exam including the following: automated exposure control; use of iterative reconstruction technique; adjustment of the mA and/or kV according to patient size (this includes techniques or standardized protocols for targeted exams where dose is matched to indication/reason for exam). Discharge Plan Discharge Clinical Impression: Right lower quadrant abdominal pain Chronic back pain Qualifiers: Back pain location: low back pain Back pain laterality: unspecified Sciatica presence: unspecified whether sciatica present Qualified Code(s): M54.50 - Low back pain, unspecified Patient Disposition: Home Condition: Stable Instructions: Antibiotic Form, Acute Low Back Pain (ED), Abdominal Pain (ED) Additional Instructions: Your workup here was reassuring. Continue Tylenol as needed for pain. You can take 1000 mg of Tylenol every 6 hours. You may also try lidocaine patches to areas of pain, ice, heat. You may try Bentyl as needed for abdominal discomfort. Take muscle relaxers as needed and prescribed. Recommend taking these at night as they may cause sedation. Do not drive, operate heavy machinery, drink alcohol while on muscle relaxers as this may cause further sedation. Follow up closely with your primary care doctor and painter tumbling barrel for further evaluation. Call offices to make appointments. Return to the ED if you experience worsening or severe pain, unable to keep down food or drink, persistent fevers, chest pain, difficulty breathing, severe constipation, unable to urinate, blood in urine, or any other symptoms of concern. Patient Language: Chilean Prescriptions: New dicyclomine 20 mg tablet 20 mg PO TID PRN (Reason: (Drug) Ingestion) Qty: 15 0RF lidocaine 5 % adhesive patch,medicated 1 patch topical DAILY Qty: 15 0RF Rx Instructions: leave on most painful area for up to 12 hrs cyclobenzaprine 5 mg tablet 5 mg PO TID PRN (Reason: muscle spasm) Qty: 15 0RF No Action losartan 100 mg tablet 100 mg PO DAILY Patient Comments: PT TAKES AT HS Rx Instructions: TAKE 1 TABLET BY MOUTH DAILY duloxetine 60 mg capsule,delayed release(DR/EC) 60 mg PO DAILY Qty: 90 3RF Rx Instructions: TAKE 1 CAPSULE BY MOUTH DAILY ferrous sulfate 325 mg (65 mg iron) tablet See Rx Instructions .ROUTE .COMPLEX Qty: 90 3RF Dose Instruction: TAKE 1 TABLET BY MOUTH DAILY Rx Instructions: TAKE 1 TABLET BY MOUTH DAILY levothyroxine 100 mcg tablet 100 mcg PO DAILY Rx Instructions: TAKE 1 TABLET BY MOUTH DAILY hydroxychloroquine 200 mg tablet 400 mg PO DAILY Patient Comments: TAKES AT HS Rx Instructions: TAKE 2 TABLETS BY MOUTH DAILY cyanocobalamin (vitamin B-12) 1,000 mcg tablet, sublingual 1,000 mcg sublingual DAILY Rx Instructions: DISSOLVE 1 TABLET UNDER THE TONGUE DAILY cholecalciferol (vitamin D3) 1,250 mcg (50,000 unit) capsule 1,250 mcg PO WEEKLY Patient Comments: TAKES ON SATURDAY Rx Instructions: TAKE 1 CAPSULE BY MOUTH WEEKLY acetaminophen 500 mg capsule 1,000 mg PO Q4-6H PRN (Reason: pain) Follow-up/Referrals: Yazmin Johns APRN [Primary Care Provider, Family Practice] Time of Disposition: 22:48
--- OUTSIDE RECORDS SUMMARY | 2025-01-20 17:28 | XMS_ITS | Clinical Summary ---
Author Organization [facility] Address [address] [place] [id number] Care Team Providers Care Procedures Analyst Name Role Phone Unavailable Primary Care Provider [...] Vaccines (1 of 2) 2013 COVID-19 Vaccine (2024-2 6 season) 2024 Influenza Adult (#1) 2024 RSV Immunization or 60+ Years (1 - 1-dose 75+ series) 2038 Hepatitis A Vaccines Aged Out No long er eligible based on patient's age to complete this topic Meningococcal B Vaccine Aged Out No l onger eligible based on patient's age to complete this topic Meningococcal Vaccine Aged Out No lucho mirlande eligible based on patient's age to complete this topic RSV Immunizations Under 20 Months Aged Out No longer eligible based on patient's age to complete this topic Medical Devices Implanted Type Area Aerial Planting And Cultivation Manager Device Identifier Shelf Expiration Date Model / Serial / Lot Rv Lead Implanted:11/10 (Quantity not on file) Lead Implant Chest [employer]HY[employer]M AND HE[employer] FAILURE - DIV M [id number] / [id number] V / Description:NOT MR CONDITION AL Ra Lead Implanted:11/10 (Quantity not on file) Lead Implant [employer] CARDI[employer] RHYTHM AND HEART FAILURE - DIV M 4524 / [id number] V / Description:NOT MR CONDITION AL Pacemaker-2005 Implanted:07/19 (Quantity not on file) Pacemaker Chest [employer] RHY 1291 / [id number] / Description:DEVICE IS NOT MR CONDITIONAL
--- OUTSIDE RECORDS SUMMARY | 2025-01-20 17:28 | XMS_ITS | Clinical Summary ---
Author Organization [facility] Address [address] [place] [address] Care Team Providers Care Religious Activities Director Name Role Phone Kaylynn Drake MD Unavailable + Tayo Davis MD Primary Care Provider [phone] Source Comments [facility],non-owned Affiliates and Associated Physician Practices is amultiple site organization consisting of ambulatory clinics and hospital sitesin [place], [place], [place] and [place]. This disclosure is being madepursuant to the Care Everywhere program and may not contain all information available regarding this patient. Last updated 17.[facility] Allergies Active Allergy Reactions Criticality Noted Date [...] before breakfast. Active vitamin D, ergocalciferol, (DRISDOL) 90820 UNIT capsuleIndications:Vit phan d deficiency Take 1 Cap by mouth every 7 days. 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,medical terminologist 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,Chronic pain of both knees Take 1 tablet by mouth once daily 5 06/22/19 18 Active CALCIUM CITRATE-VITAMIN D POIndications:Sjogren' s syndrome, with unspecified organ involvement (HCC),Other forms of systemic lupus erythematosus, unspecified organ involvement status (HCC),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,alf 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,Chronic pain of both knees Take 1 tablet by mouth once daily Active Cyanocobalamin (VITAMIN B 12 PO)Indications:Sjogren 's syndrome, with unspecified organ involvement (HCC),Other forms of systemic lupus erythematosus, unspecified organ involvement status (HCC),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,medical terminologist 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,Chronic pain of both knees Take 1 tablet by mouth once daily Active Multiple Vitamins-Minerals (CENTRUM SILVER 50+WOMEN PO)Indications:Sjogren 's syndrome, with unspecified organ involvement (HCC),Other forms of systemic lupus erythematosus, unspecified organ involvement status (HCC),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,alf 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,Chronic pain of both knees Take 1 tablet by mouth once daily Active traMADol (ULTRAM) 50 MG tabletIndications:Sjog barbara's syndrome, with unspecified organ involvement (HCC),Other forms of systemic lupus erythematosus, unspecified organ involvement status (HCC),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,alf 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,Chronic pain of both knees Take 1 tablet by mouth as needed 5 06/02/19 18 Active clobetasol (TEMOVATE) 0.05 % ointment Apply to affected area on trunk and extremities BID. 30 day supply. 60 g 2 12/04/19 18 Active losartan - hydroCHLOROthiazide (HYZAAR) 50-12.5 MG tablet TK 1 T PO D 12/23/19 20 Active albuterol HFA (PROVENTIL;VENTOLIN;TN OAIR) 108 (90 Base) MCG/ACT inhaler Inhale [...] Sex Assigned at Female 03/21/2021 5:27 PM BUSINESS PLANNING MANAGER Legal Sex Female 6:10 AM BUSINESS PLANNING MANAGER Gender Identity Female 03/21/2021 5:27 PM BUSINESS PLANNING MANAGER Sexual Orientation Straight 03/21/2021 5: 27 PM BUSINESS PLANNING MANAGER Last Filed Vital Signs Vital Sign Reading Time Taken Comments Blood Pressure 170/110 04/09/2019 8:54 AM BUSINESS PLANNING MANAGER Pulse 99 04/09/2019 8:54 AM BUSINESS PLANNING MANAGER Temperature 36.7 C (98 F) 04/09/2019 8:54 AM BUSINESS PLANNING MANAGER Respiratory Rate 22 04/09/2019 8:54 AM BUSINESS PLANNING MANAGER Oxygen Saturation 97% 04/09/2019 8:54 AM BUSINESS PLANNING MANAGER Inhaled Oxygen Concentration - - Weight 103.9 kg (229 lb) 01/03/2021 9:57 AM CDT Height 157.5 cm (5' 2) 04/09/2019 8:54 AM BUSINESS PLANNING MANAGER Body Mass Index 41.88 04/09/2019 8:54 AM BUSINESS PLANNING MANAGER Plan of Treatment Health Maintenance Due Date [...] HEPATITIS SCREEN ACUTE Routine 05/02/2017 3:08 PM BUSINESS PLANNING MANAGER LIPID PROFILE Routine 03/21/2011 3:55 PM BUSINESS PLANNING MANAGER from Last 3 Months or Most Recently Relevant to Health Maintenance Results * HEPATITIS SCREEN ACUTE (05/02/2017 3:08 PM BUSINESS PLANNING MANAGER) Hepatitis A Virus Antibody IgM NON-REACTI VE NON-REACT [facility] Hepatitis B Virus Surface Antigen NON-REACTI VE NON-REACT [facility] Hepatitis B Core Virus Antibody IgM NON-REACTI VE NON-REACT [facility] Hepatitis C Antibody NON-REACTI VE NON-REACT [facility] Signal/Cutoff 0.02 <1.00 [facility] Comment: Test Performed at: [facility] [address] [facility] [place] [address] ITALO MADRID DO,MPH Blood specimen (specimen) BLOOD SPECIMEN / Unknown 05/02/2017 3:08 PM BUSINESS PLANNING MANAGER 05/02/2017 3:09 PM BUSINESS PLANNING MANAGER Hedy Kern MD LAB - CHEMISTRY ORDERABLES Final Result [facility] [id number] * LIPID PROFILE (03/21/2011 3:55 PM BUSINESS PLANNING MANAGER) Cholesterol 178 <200 mg/dl [facility] Triglycerides [...] patients according to data reported from the [place] Study by Italo Delgado M.D. The predictive [...] BLOOD SPECIMEN / Unknown 03/21/2011 3:55 PM BUSINESS PLANNING MANAGER 03/21/2011 4:06 PM BUSINESS PLANNING MANAGER us Marcus Levi MD LAB - CHEMISTRY ORDERABLE S Final Result [facility] [address] [place] [address] from Last 3 Months or Most Recently Relevant to Health Maintenance Insurance [facility] SELF PAY NO INSURANCE Member Subscriber Plan / Payer (Ef fective for All Dates) Name:StephaneMehreenCindy Diamond Member ID:Not on file Relation to Subscriber:Not on file Name:CINDY CALDERÓN Subscriber ID:Not on file (Home) Address: [facility] [place] [address] Payer ID:Not on file Group ID:Not on file Type:Self Pay Address: [facility] Care Teams Religious Activities Director Relationship Specialty Start Date End Date Tayo Davis MD [address] [place] [id number] PCP - General 12/26/20 Kaylynn Drake MD Physician Rheumatology 10/07/18
--- OUTSIDE RECORDS SUMMARY | 2025-01-20 17:28 | XMS_ITS | Clinical Summary ---
Author Organization [facility] Domenica donahue [facility] Address [address] [place] [address] Care Team Providers Care Machine Tool Technician Instructor Name Role Phone Unavailable Primary Care Provider [...] Description 05/18/2025 1:15 PM CDT Office Visit [facility] Oncology and Hematology - [place] [address] [place] [address] [facility] [address] [place] [address] Domenic Campbell MD [address] [place] [address] Health Maintenance Due Date Last [...] T d or Tdap) 01/07/2030 01/08/2020 Insurance [facility] OPTIONS PPO [id number]
--- OUTSIDE RECORDS SUMMARY | 2025-01-20 17:28 | XMS_ITS | Clinical Summary ---
Author Organization [facility] Address [address] [place] [address] Care Team Providers Care Manager Software Development Name Role Phone Tayo Davis MD Primary Care Provider [phone] Henry Camp MD, Salvador Unavailable [phone] Allergies Active Allergy Reactions Criticality Noted Date [...] 50,000 unit capsule 10/12/2015Vitamin D2, [place] solid [address] unit CapsulePOas directedCurrent Medication Active SYMBICORT 160-4.5 [...] OCT Assessment & Plan (02/08/2022 10:40 AM BUTTON MAKER): Up to date on Eye exam. Last [...] prn Assessment & Plan (02/08/2022 12:50 PM BUTTON MAKER): Stable on HCQ. Continue same. Encourage daily use of biotene products (lozenge, mouth rinses) and also a trial of nasal saline gel product such as [place] gel. Can also try coconut oil swish [...] of nasal saline gel product such as [place] gel. Can also try coconut oil swish [...] on file Legal Sex Female 12:41 PM BUTTON MAKER Gender Identity Female 09/29/2019 7:39 AM CDT [...] BILATERAL W MAGNUS Routine 04/12/2015 12:00 AM BUTTON MAKER from Last 3 Months or Most Recently Relevant to Health Maintenance Results * Screening Mammogram Bilateral W Magnus (04/12/2015 12:00 AM BUTTON MAKER) Anatomical Region Laterality Modality Breast Bilateral Mammography 04/12/2015 3:40 PM BUTTON MAKER Narrative 04/19/2015 10:05 AM BUTTON MAKER - SCREENING MAMM W MAGNUS BI BILATERAL [...] Requesting: NIMESH HURD M.D. Requesting Requesting ID: [id number] Attending Attending ID: [id number] Completed Time: 04/12/2015 3:40 PM Dictated Time: N/A Transcribed Time: 04/19/2015 10:05 AM Signed by: RAISA MONTANO MD on 04/19/2015 10:05 AM Report To 1 ID: [id number] Report To 1 Name: EDIE HELLER Report [...] Requesting: NIMESH HURD M.D. Requesting Requesting ID: [id number] Attending Attending ID: [id number] Completed Time: 04/12/2015 3:40 PM Dictated Time: N/A Transcribed Time: 04/19/2015 10:05 AM Signed by: RAISA MONTANO MD on 04/19/2015 10:05 AM Report To 1 ID: [id number] Report To 1 Name: EDIE HELLER Report To 1 FAX: Report To 2 ID: Report To 2 Name: , Report To 2 FAX: Report To 3 ID: Report To 3 Name: , Report To 3 FAX: NextGen Order #: Historical Provider MD [facility] MAM[facility] PROCEDURES Marva l Result from Last 3 Months or Most Recently Relevant to Health Maintenance Insurance [facility] [facility] HMO/PPO Address: [place] [address] [facility] [facility] HMO/PPO Address: [address] [address] [place] [address] [facility] [employer] [facility] HMO/PPO Address: [address] [address] [place] [phone] Care Teams Manager Software Development Relationship Specialty Start Date End Date Tayo Davis MD PCP - General Family Practice 03/14/21 Salvador Figueroa Jr., MD Medical Oncologist/Micrographics Services Supervisor Medical Oncology 04/14/21
--- OUTSIDE RECORDS SUMMARY | 2025-01-20 17:28 | XMS_ITS | Encounter Summary ---
Author Organization [facility] Address [address] [place] [address] Care Team Providers Care Spinning Mule Tender Name Role Phone Garfield Perla MD Primary Care Provider [phone] Ghassan Luna DO Primary Care Provider Kaylynn Drake MD Unavailable + Tayo Davis MD Primary Care Provider [phone] Reason for Visit * Reason Onset Date Comments MEDICATION REFILL 06/21/2017 Encounter Details Date Type Department Care Team (Late st Contact Info) Description 06/21/2017 Refill [facility] General Internal Medicine [address] [address] Glendy Donnelly RN MEDICATION REFILL Social History Tobacco Use Types Packs/Day Years Used Date Smoking Tobacco: Never Smokeless Tobacco: Never Alcohol Use Standard Drinks/Week Comments No 0 (1 standard drink = 0.6 oz pur e alcohol) Comments Unknown Sex and Gender Information Value Date Recorded Sex Assigned at Female 03/21/2021 5:27 PM HEEL LIFT GOUGER Legal Sex Female 6:10 AM HEEL LIFT GOUGER Gender Identity Female 03/21/2021 5:27 PM HEEL LIFT GOUGER Sexual Orientation Straight 03/21/2021 5: 27 PM HEEL LIFT GOUGER documented as of this encounter Plan of Treatment Not on file documented as of this encounter Visit Diagnoses Not on filedocumented in this encounter Care Teams Spinning Mule Tender Relationship Specialty Start Date End Date Garfield Perla MD [address] [place] [address]. [place] [address] PCP - General 03/21/11 03/05/18 Ghassan Luna DO [address] [facility] [address] [place] [address] PCP - General 03/06/18 12/25/20 Tayo Davis MD [address] [place] [id number] PCP - General 12/26/20 Kaylynn Drake MD [address] [facility] [address] [place] [address] Physician Rheumatology 10/07/18 documented as of this encounter
[2025-01-20 17:48] LABS: Add Urine Microscopic? NO; Appearance Urine Clear (Clear); Glucose Urine UA Negative (Negative); Leukocyte Esterase Ur Negative LEU/UL (Negative); Nitrate Urine Negative (Negative); Specific Grav Ur 1.021 (1.001-1.035)
[2025-01-20 18:05] LABS: Hematocrit 38.9 % (37.0-47.0); Hemoglobin 12.7 g/dL (12.0-15.0); Immature Granulocyte Percent A 0.2 % (0-0.5); Lymphocytes Absolute Auto 1.55 K/mm3 (0.9-3.2); Mean Corpuscular HGB Conc 32.6 g/dl (32-36); Mean Corpuscular Hemoglobin 27.4 pg (26-34); Mean Corpuscular Volume 84.0 fl (80-100); Nucleated Red Blood Cells Absolute Auto 0.000 K/mm3 (0.0-0.012); Nucleated Red Blood Cells Perc 0.0 % (0.0-0.2); Platelet Count Result 217 k/mm3 (150-375); Red Blood Count 4.63 M/mm3 (4.2-5.4); White Blood Count 5.6 K/mm3 (4.5-10.0)
[2025-01-20 18:12] LABS: Estimated Glomerular Filt Rate > 60
[2025-01-20 18:16] LABS: Alanine Aminotransferase 17 U/L (6-35); Albumin Level 4.3 g/dL (3.5-5.1); Alkaline Phosphatase 112 U/L (38-126); Anion Gap 7 mmol/L (4-12); Aspartate Amino Transferase 23 U/L (14-36); Bilirubin,Total 0.4 mg/dL (0.2-1.3); Blood Urea Nitrogen 15 mg/dL (7-17); Calcium 9.5 mg/dL (8.4-10.2); Carbon Dioxide 30 mmol/L (22-30); Chloride 97 mmol/L (98-107); Estimated Glomerular Filt Rate > 60; Glucose 96 mg/dL (65-110); Potassium 3.4 mmol/L (3.4-5.0); Sodium 134 mmol/L (137-145); Total Protein 7.5 g/dL (6.3-8.2)
[2025-01-20] MEDS: SODIUM CHLORIDE 0.9% IV 1,000 ML 999 ML IV CONT (19:53)
[2025-01-20] MEDS: ONDANSETRON INJ 4 MG/2 ML VIAL IV PUSH (19:53)
[2025-01-20] MEDS: fentaNYL CITRATE INJ (*CRX) 100 MCG/2 ML VIAL 25 MCG IV PUSH (19:53)
[2025-01-20] MEDS: DICYCLOMINE HCL 10 MG CAPSULE 20 MG PO (21:27)
[2025-01-20] MEDS: ACETAMINOPHEN 500 MG TABLET 1000 MG PO (21:27)
[2025-01-20] MEDS: LIDOCAINE 5% PATCH 1 PATCH TRANSDERM (21:28)
[2025-01-20] MEDS: CYCLOBENZAPRINE HCL 5 MG TABLET PO (21:29)
== END 2025-01-20 23:00 | disposition home or self-care (01) ==
PROVIDERS: Emergency Provider Physician Assistant; PCP Nurse Practitioner Adult Health
DX: M54.50 Low back pain, unspecified (principal); R10.31 Right lower quadrant pain; G89.29 Other chronic pain; Z98.84 Bariatric surgery status; Z95.0 Presence of cardiac pacemaker; E03.9 Hypothyroidism, unspecified; M32.9 Systemic lupus erythematosus, unspecified
CPT/HCPCS: 36415; 74177; 80053; 81003; 83605; 85025; 96361; 96374; 96375; 99284; A9270; J2405; J3010; J7030; Q9967

== ENCOUNTER 2025-01-26 11:18 | Day surgery (SDC) | payer OTHER, SELFPAY ==
--- NOTE | ~2025-01-26 | XR_ITS ---
EXAM/PROCEDURE: XR fluoroscopy no charge HISTORY: COCCYGEAL JT X3 WAGNER COCCYGEAL NERVE BLK COMPARISON: None available. Fluoroscopy time: 1 hour 44 minutes and 0.9 seconds Dose: 81.059 mgy IMPRESSION: Fluoroscopic guidance for pain management. No radiologist present for this procedure. See procedure/operative notes for complete evaluation. Reviewed, dictated and finalized at location A. STRIPPER IMPRESSION: Fluoroscopic guidance for pain management. No radiologist present for this proc edure. See procedure/operative notes for complete evaluation.
--- NOTE | 2025-01-26 13:28 | WPDHPUPDATE1 ---
History and Physical Update Update Date/Time: 01/26/25 13:28 History and Physical has been reviewed, including an updated exam of the patient. There are NO changes in the patient's condition. Risks, benefits, and alternatives have been discussed and questions answered. Patient agrees to proceed with procedure.
--- NOTE | 2025-01-26 13:29 | P.OP_ITS ---
Procedure Note - Detailed Date of Procedure 01/26/25 Pre-op Diagnosis Sacrococcygeal Disorder Post-op Diagnosis Same Procedure Performed Coccygeal Joint steroid injections x3 (S1-Co1, Co1-2, Co2-3), bilateral coccygeal peripheral nerve block, transarticular ganglion impar block under Fluoroscopic Guidance and with Contrast Control. Surgeon Boaz Gerardo MD Anesthesia Local Description of Procedure INFORMED CONSENT: Risks, benefits and alternatives to the procedure were discussed in detail with the patient who expressed explicit understanding and consent to proceed. Patient was informed verbally and in written form regarding the risks associated with the procedure including the low risk of serious infection, bleeding/bruising, allergic reaction, nerve or organ injury, paralysis, procedural site pain or discomfort, worsening pain and/or mobility, failure to treat and/or disfigurement. The patient expressed explicit understanding and consent to proceed. All materials required for the procedure were available prior to procedure start. Site and side was marked prior to procedure and co nfirmed in the presence of the patient. PROCEDURE IN DETAIL: The patient was brought to the procedural suite and placed in the prone position. Patient was made comfortable with use of pillows under the head/chest, hips and ankles. Skin overlying the injection site was prepared broadly with ChloraPrep applicator and draped in a sterile manner. Aseptic technique was employed throughout. The body of the sacrum was visualized in the AP view. Slight caudal tilt was utilized to optimize visualization of the joint spaces between the coccygeal vertebrae and the lateral border of the coccyx. Local anesthesia was established by infiltration with approximately 5 mL of 2% lidocaine via a 1-1/2 inch 27-gauge needle. A 22-gauge 3.5 inch Quincke spinal needle was advanced intermittently until the S1-Co1 joint was entered. Lateral view was used to confirm the appropriate positioning of the needle tip just ventral to the ventral border of the coccyx. Approximately 1 mL of Omnipaque 300 contrast dye was injected showing appropriate anterior spread without intravascular or intrathecal spread. After negative aspiration for blood or bodily fluid a total of 2 mL of 0.5% PF bup ivacaine containing 4.0 mg of dexamethasone was injected to effectively block the ganglion impar. Needle was retracted until within the joint and additional 1.0 ml of injectate containing 2.0 mg of dexamethasone was injected intra- articular. Needle was then withdrawn and redirected to enter the Co1-2 and Co2-3 joints respectively. An additional 0.5 mL of contrast dye was injected into each joint showing appropriate intra-articular spread without evidence of intravascular or intrathecal spread. An additional 1.0 ml with 2.5 mg of dexamethasone was injected in each joint. Attention was then turned to completion of the bilateral coccygeal nerve block. In the AP view, needle was walked off laterally to the left of midline and anteriorly until just dorsal to the anterior border of the coccyx in the lateral view. 1.0 mL of Omnipaque 300 contrast medium was injected after negative aspiration for CSF, blood or other bodily fluid, showing appropriate spread within the targeted tissue plane. A 1 mL solution 0.5% PF bupivacaine was injected after negative repeat aspiration to effectively block the left coccygeal nerve. Appropriate spread of the injectate was confirmed with washout of previously injected contrast. No paresthesias were elicited. Needle was removed completely intact without difficulty. The same procedure was repeated on the contralateral side, blocking the right coccygeal nerve, with identical methodology modified to compensate for contralateral location, with similar results and no evidence of complication. Patient tolerated this well. Needle was removed intact without difficulty. Images were saved and documented in the patient chart. Patient's skin was cleansed and sterile bandage applied. The patient tolerated the procedure well. The patient was transported to the recovery area in stable condition where they were observed for an appropriate amount of time prior to discharge, without evidence of complication. The patient was instructed to avoid excessive activity for the next 48 hours, including climbing and frequent use of stairs. Showers only for 48 hours. They were instructed not to drive or operate heavy machinery for 24 hours. They are to monitor for severe headaches, fevers, chills, night sweats, erythema/swelling at the site or any other signs of infection, bleeding/bruising, bowel or bladder changes as well as new pain, weakness or numbness in the upper or lower extremity. Should they notice these changes, they are instructed to call our office immediately or report directly to the nearest Emergency Department if no answer or if after posted office hours. CONTRAST WASTED: 25.5 ml of Omnipaque 300. Complications No immediate complications Condition Stable Disposition Same day [facility] Billing Surgery - Charge Forward: Surgery Billing
[2025-01-26 13:36] VITALS: BP 135/84; PULSE 80; RESP 18; TEMP 37.4; O2SAT 100
[2025-01-26 14:08] VITALS: BP 161/71; PULSE 79; RESP 16; O2SAT 98
[2025-01-26 14:10] VITALS: BP 159/72; PULSE 78; RESP 17; O2SAT 96
[2025-01-26] MEDS: BUPivacaine HCL 0.5% 10 ML AMP (14:10)
[2025-01-26] MEDS: DEXAMETHASONE SODIUM PHOSP/PF 10 MG/ML 1 ML VIAL (14:10)
[2025-01-26 14:15] VITALS: BP 165/76; PULSE 77; RESP 19; O2SAT 98
[2025-01-26 14:22] VITALS: BP 134/91; PULSE 74; RESP 20; O2SAT 100
== END 2025-01-26 14:36 | disposition home or self-care (01) ==
PROVIDERS: PCP Nurse Practitioner Adult Health; Visit Provider Anesthesiology Pain Medicine
PROC: (CPT 64450; principal; 2025-01-26 12:30)
DX: M53.3 Sacrococcygeal disorders, not elsewhere classified (principal)
CPT/HCPCS: 64450; 64999; 20605 ×3; 99199